=== PATIENT | male | born 1945 | race Caucasian/White ===

== ENCOUNTER 2020-06-27 11:10 | Inpatient (IN) | payer MEDICARE, SELFPAY ==
[2020-06-27] VITALS (13 sets, daily range): BP systolic 115–145; BP diastolic 61–89; PULSE 63–92; RESP 11–20; TEMP 36.3–36.8; O2SAT 96–100; BMI 19.2; BMI 20.4
--- NOTE | 2020-06-27 11:12 | ED.GENADULT ---
HPI - General Adult General Chief complaint: Recheck/Abnormal Lab/Rx Stated complaint: low sodium level Time Seen by Provider: 06/27/20 11:12 Source: patient and EMS Mode of arrival: EMS Limitations: no limitations History of Present Illness HPI narrative: in SNF for 2 weeks post fall from ETOH - for left rib fractures, on routine labs found to have sodium 114 sent to ED< patient reports poor PO intake Onset (ago): day(s) (1) Location: lower extremity Radiation: non-radiation Severity: mild Quality: aching Pain Consistency: intermittent Relieving factors: none Exacerbating factors: none Related Data Allergies Allergy/AdvReac Type Severity Reaction Status Date / Time shellfish derived Allergy Unknown DIFFICULTY Unverified 06/02/20 19:52 [SHELLFISH DERIVED] BREATHING Review of Systems Review of Systems: Constitutional : No Weight loss, No Fever, No Chills, positive Fatigue, positive Malaise, positive anorexia ENT/Mouth : No sore throat, No Rhinorrhea Eyes: No Eye Pain, No Swelling, No Redness Cardiovascular : No Chest Pain, No SOB, No Dyspnea on Exertion, No Orthopnea, No Edema, No Palpitations Respiratory : No Cough, No Sputum, No Wheezing Gastrointestinal : No Nausea, No Vomiting, No Diarrhea, positive Constipation for 5 days, No abdominal Pain Genitourinary : No Dysuria, No Urinary Frequency Musculoskeletal : No joint pain, No Myalgias, No Joint Swelling Skin : No Skin Lesions, No rash Neuro : positive Weakness, No Numbness, No Dizziness, No Headache Psych : No Anxiety/Panic, No Depression Heme/Lymph: No Bruising, No Bleeding,No Lymphadenopathy All other systems reviewed and are negative [facility] Past Medical History Medical History (Updated 06/27/20 @ 14:22 by Diana Watkins DO) Alcoholism COPD (chronic obstructive pulmonary disease) Rib fractures Social History Social History Alcohol intake: unknown Smoking Status: Former smoker Use of substances other than those prescribed or required for medical reasons: Unknown Advance Directives: No Advance Directives Information Provided: No Physical Exam Vital Signs: Vital Signs: Vital Signs Temp Pulse Resp BP Pulse Ox 06/27/20 13:57 71 16 122/72 99 06/27/20 11:18 98.3 F 72 16 144/74 H 98 Body Mass Index 19.2 Appearance: Alert. Oriented X3. No acute distress. Eyes: Pupils equal, round and reactive to light. ENT: Pharynx normal. Neck: Normal inspection. Neck supple. CVS: Normal heart rate and rhythm. Pulses normal. Respiratory: No respiratory distress. Breath sounds normal. Abdomen: Soft and nontender. hematoma noted to left flank Skin: Skin warm and dry. Normal skin color. Normal skin turgor. Extremities: No lower extremity edema. No calf ttp Neuro: Oriented X 3. No motor deficit. No sensory deficit. Course Reevaluation(s) Reevaluation #1: call to nephrology for low Na Time: 13:06 Reevaluation #2: Dr. Jimenez order urine lytes, start on Na 50ml/hr, send to ICU, check Na every 2 hours, I am also going to repeat a head CT to make sure no SDH is causing these symptoms Time: 13:39 Reevaluation #3: Dr. Damian down to see patient does not want fluids at this time, will admit once imagining done Time: 14:20 Additional Reevaluation(s): patient with fracture of left pelvis from fall - initial images on his visit in may not done, [facility] given trauma is 2 weeks old Medical Decision Making MDM Narrative Medical decision making narrative: 74 yo male with hx of ETOH abuse no prior SSRIs in SNF due to falls and L sided rib fractures he had routine labs and Na 114 - he denies any new complaints he does c/o constipation but + flatus at this time will need labs, CT chest for mass, osm, UA, CT abdomen for constipation, likely admit pending workup Lab Data Result diagrams: 06/27/20 11:32 06/27/20 11:32 Labs: Lab Results 06/27/20 06/27/20 06/27/20 Range/Units 11:32 11:32 11:32 WBC 6.5 (4.8-10.8) X10*3/uL RBC 3.40 L (4.60-5.80) X10*6/uL Hgb 10.6 L (14.0-18.0) g/dl Hct 29.5 L (42-52) % MCV 86.8 (80-98) fL MCH 31.2 (27.0-33.0) pg MCHC 35.9 (31.0-36.0) g/dl RDW 12.2 (11.0-16.0) % Plt Count 556 H (160-400) X10*3/uL MPV 8.5 L (9.4-12.4) fL Immature Gran % (Auto) 2.0 H (0.0-0.4) % Neut % (Auto) 70.0 (45-73) % Lymph % (Auto) 14.1 L (20-40) % [place] % (Auto) 9.3 (2-11) % Eos % (Auto) 4.0 (0-4) % Baso % (Auto) 0.6 (0-2) % Lymph # (Auto) 0.9 L (1.2-4.9) X10*3/uL [place] # (Auto) 0.6 (0.1-1.2) X10*3/uL Eos # (Auto) 0.3 (0.0-0.4) X10*3/uL Baso # (Auto) 0.0 (0.0-0.2) X10*3/uL Abs Immat Gran (auto) 0.13 H (0.00-0.03) X10*3/uL Absolute Neuts (auto) 4.6 (2.0-8.3) X10*3/uL Absolute Nucleated RBC 0.000 (0.0-0.012) X10*3/uL Nucleated RBC % (auto) 0.0 (0.0-0.2) /100WBC PT 12.9 (10.8-13.0) SEC INR 1.1 (0.9-1.1) APTT 36.8 (24.1-38.0) SEC Sodium 112 L* (135-145) mmol/L Potassium 4.2 (3.3-5.1) mmol/l Chloride 80 L (96-108) mmol/L Carbon Dioxide 25 (22-29) mmol/L Anion Gap 11 L (12-20) BUN 8 L (9-16) mg/dL Creatinine 0.59 (0.5-1.4) mg/dL Estim Creat Clear Calc 107.3 Estimated GFR > 60 Random Glucose 89 (60-115) mg/dL Osmolality (281-305) mosm/kg Calcium 8.4 (8.4-10.2) mg/dL Magnesium 1.4 L* (1.6-2.6) mg/dL Total Bilirubin 1.2 H (0.0-1.0) mg/dL Direct Bilirubin 0.6 H (0.0-0.5) mg/dL AST 21 (5-37) U/L ALT 11 (0-40) U/L Alkaline Phosphatase 280 H (39-117) U/L Total Protein 6.1 L (6.5-8.0) g/dL Albumin 3.7 (3.5-5.0) g/dL Lipase 43 (8-78) U/L TSH 1.27 (0.32-4.0) mIU/mL Urine Color Urine Appearance Urine pH (5.0-8.0) Ur Specific [place] (1.005-1.025) Urine Protein (NEG-TRACE) MG/DL Urine Glucose (UA) (NEG) MG/DL Urine Ketones (NEG) MG/DL Urine Blood (NEG) Urine Nitrite (NEG) Ur Leukocyte Esterase (NEG) 06/27/20 06/27/20 Range/Units 11:32 13:01 WBC (4.8-10.8) X10*3/uL RBC (4.60-5.80) X10*6/uL Hgb (14.0-18.0) g/dl Hct (42-52) % MCV (80-98) fL MCH (27.0-33.0) pg MCHC (31.0-36.0) g/dl RDW (11.0-16.0) % Plt Count (160-400) X10*3/uL MPV (9.4-12.4) fL Immature Gran % (Auto) (0.0-0.4) % Neut % (Auto) (45-73) % Lymph % (Auto) (20-40) % [place] % (Auto) (2-11) % Eos % (Auto) (0-4) % Baso % (Auto) (0-2) % Lymph # (Auto) (1.2-4.9) X10*3/uL [place] # (Auto) (0.1-1.2) X10*3/uL Eos # (Auto) (0.0-0.4) X10*3/uL Baso # (Auto) (0.0-0.2) X10*3/uL Abs Immat Gran (auto) (0.00-0.03) X10*3/uL Absolute Neuts (auto) (2.0-8.3) X10*3/uL Absolute Nucleated RBC (0.0-0.012) X10*3/uL Nucleated RBC % (auto) (0.0-0.2) /100WBC PT (10.8-13.0) SEC INR (0.9-1.1) APTT (24.1-38.0) SEC Sodium (135-145) mmol/L Potassium (3.3-5.1) mmol/l Chloride (96-108) mmol/L Carbon Dioxide (22-29) mmol/L Anion Gap (12-20) BUN (9-16) mg/dL Creatinine (0.5-1.4) mg/dL Estim Creat Clear Calc Estimated GFR Random Glucose (60-115) mg/dL Osmolality 233 L (281-305) mosm/kg Calcium (8.4-10.2) mg/dL Magnesium (1.6-2.6) mg/dL Total Bilirubin (0.0-1.0) mg/dL Direct Bilirubin (0.0-0.5) mg/dL AST (5-37) U/L ALT (0-40) U/L Alkaline Phosphatase (39-117) U/L Total Protein (6.5-8.0) g/dL Albumin (3.5-5.0) g/dL Lipase (8-78) U/L TSH (0.32-4.0) mIU/mL Urine Color YELLOW Urine Appearance CLEAR Urine pH 7.0 (5.0-8.0) Ur Specific [place] 1.015 (1.005-1.025) Urine Protein NEG (NEG-TRACE) MG/DL Urine Glucose (UA) NEG (NEG) MG/DL Urine Ketones 5 (NEG) MG/DL Urine Blood NEG (NEG) Urine Nitrite NEG (NEG) Ur Leukocyte Esterase NEG (NEG) ECG Data Attestation: I personally reviewed and interpreted this ECG as follows: Interpretation: Rate: 69 Rhythm: NSR [place]: normal Normal P waves. Normal MARY. Normal QRS complex. ST T wave : normal qTC: normal prior studies: no acute ischemia The study has been interpreted contemporaneously by me. . Critical Care Time Critical Care Time Critical Care Time: Yes Total Critical Care Time: 30 Attestation: I personally attest to this time spent taking care of the patient Discharge Plan Discharge Clinical Impression: Acute hyponatremia, Hypomagnesemia Pelvic fracture Qualifiers: Encounter type: subsequent encounter Pelvic bone location: multiple parts Fracture type: closed Fracture alignment: without disruption of pelvic ring Fracture healing: with delayed healing Qualified Code(s): S32.82XG - Multiple fractures of pelvis without disruption of pelvic ring, subsequent encounter for fracture with delayed healing Patient Disposition: Admitted As Inpatient
--- NOTE | 2020-06-27 11:18 | ECG_ITS ---
Test Reason : DIZZINESS Blood Pressure : / mmHG Vent. Rate : 069 BPM Atrial Rate : 069 BPM P-R Int : 158 ms QRS Dur : 094 ms QT Int : 432 ms P-R-T Axes : 085 082 070 degrees QTc Int : 462 ms Normal sinus rhythm Normal ECG When compared with ECG of 13-JUN-2020 15:15, No significant change was found Referred By: Diana Watkins Electronically Signed By:RANJAN LÓPEZ MD
--- NOTE | 2020-06-27 11:25 | CT_ITS ---
EXAMINATION: CT CHEST WITH CONTRAST CLINICAL INFORMATION: Fall. Hyponatremia. COMPARISON: Previous chest CT May 2020 TECHNIQUE: Multidetector volumetric CT imaging of the chest was obtained after the administration of 65 mL of Omnipaque 350 intravenous contrast without immediate adverse reactions. Axial MIP volume rendering provided. Sagittal and coronal reformatted images were obtained. This CT examination was performed using dose optimization techniques as appropriate, variously including the following: *Automated exposure control *Adjustment of mA and/or kV according to patient size (this includes techniques or standardized protocols for targeted exams where dose is matched to indication/reason for exam; i.e. extremities or head) *Use of iterative reconstruction technique DLP: 272 mGy-cm FINDINGS: Severe emphysema. LUNGS: There is evidence of emphysema. There is evidence of COPD. There is biapical pleural parenchymal scarring. There is a 4 mm right upper lobe nodule axial image 149 series 7. There is a 3 mm peripheral or subpleural right upper lobe nodule adjacent to the minor fissure axial image 300 series 7. There is a 1 mm right middle lobe nodule axial image 336 series 7 and there is a 1 x 3 mm right lower lobe nodule axial image 341 series 7. There is a 7 mm slightly irregularly-shaped right lower lobe nodule axial image 95 series 7. On sagittal and coronal reconstructed images this appears linear. Cavitary appearance on axial images may be may be artifactual due to shape and not truly represent a cavitary nodule. There is a 3 x 4 mm left lower lobe nodule axial image 376 series 7. There is a 3 mm calcified left lower lobe nodule axial image 404 series 7. There is subsegmental atelectasis at the lung bases which appears increased from previous exam. There is no pulmonary contusion or pneumothorax.. MEDIASTINUM: There are no enlarged hilar or mediastinal lymph nodes. There is coronary artery calcification. The heart does not appear enlarged. There is no pericardial effusion. There is question of wall thickening of the distal thoracic esophagus. PLEURA: There is no pleural effusion. No pleural mass or thickening. There is no pneumothorax. AXILLA: No chest wall mass or enlarged axillary lymph nodes are seen. UPPER ABDOMEN: There is a cyst that is partially visualized in the upper pole of the right kidney. OSSEOUS STRUCTURES: There are new left 3rd-5th posterior rib fractures. There may be an incomplete left posterior ninth rib fracture that is new. There are right posterior eighth and ninth rib fractures that are unchanged. There are left anterior lateral third through fifth rib fractures that appear unchanged. There are degenerative changes of the spine. There is a right shoulder prosthesis. IMPRESSION: Severe emphysema and COPD. Stable pulmonary nodules. No contusion or pneumothorax. Increasing atelectasis at the lung bases. New posterior left third through fifth rib fractures compared to May 2020 exam. Other bilateral rib fractures do not appear appreciably changed. Persistent wall thickening of the distal thoracic esophagus. Correlation with endoscopy or upper GI/barium swallow recommended.
--- NOTE | 2020-06-27 11:26 | CT_ITS ---
EXAMINATION: CT ABDOMEN AND PELVIS WITH CONTRAST CLINICAL INFORMATION: Low sodium, recent trauma. COMPARISON: CT chest noncontrast 06/13/2020, 06/27/2020 TECHNIQUE: Multidetector volumetric images were obtained from the superior aspect of the liver through the pubic symphysis following administration 85 mL of Omnipaque 350 intravenous contrast. Sagittal and coronal reformatted images were obtained on the technologist's workstation. CT chest also performed and described in separate report. Oral contrast: No This CT examination was performed using dose optimization techniques as appropriate, variously including the following: *Automated exposure control *Adjustment of mA and/or kV according to patient size (this includes techniques or standardized protocols for targeted exams where dose is matched to indication/reason for exam; i.e. extremities or head) *Use of iterative reconstruction technique DLP: 493 mGy-cm (abdomen and pelvis) FINDINGS: LUNG BASES: No lobar or segmental airspace consolidation or effusion. CT chest described in separate report. LIVER, GALLBLADDER, AND BILIARY TREE: The liver is normal in size and smooth in contour and homogeneous in attenuation. There is no intrahepatic ductal dilatation. No definite gallstone and no gallbladder wall thickening or dilatation or pericholecystic inflammatory changes. Common duct unremarkable. PANCREAS: Unremarkable. SPLEEN: Unremarkable. ADRENAL GLANDS: Unremarkable. KIDNEYS AND URETERS: The kidneys enhance symmetrically. There is no hydronephrosis, hydroureter, calculi, or perinephric stranding. There are 2 cysts right kidney, larger lower pole measuring 5.1 x 4.2 cm and smaller upper pole measuring 1.8 x 1.3 cm. BLADDER: Unremarkable. GASTROINTESTINAL TRACT: There is no bowel obstruction or focal inflammatory changes in the bowel or mesentery. The appendix is normal there is moderate stool throughout the colon. No ascites or fluid collection. ABDOMINAL WALL: No significant hernia is appreciated. LYMPH NODES: No lymphadenopathy. VASCULAR: Unremarkable. PELVIC VISCERA: Unremarkable. OSSEOUS STRUCTURES: There is displaced left pelvic fracture extending through the left iliac bone from superior to inferior also involving the anterior superior acetabulum which is comminuted. There is also fracture left inferior pubic ramus. There is some active hemorrhage in the musculature around the iliac fracture with scattered focal high attenuation, 1.1 cm in thickness. The right hemipelvis and femoral heads and necks are intact. No diastases SI joints or pubis. There are degenerative changes lumbar spine. Results called to Dr. Watkins in the Emergency Department at 1414 hours. IMPRESSION: 1. Comminuted fracture left pelvis involving the left iliac wing, left anterior acetabulum and left inferior pubic ramus. Some focal active hemorrhage within musculature at fracture site, 1.1 cm thickness. Femoral head and neck intact. No dislocation. 2. No ascites or intraperitoneal fluid collection. No free air. 3. CT chest described in separate report.
[2020-06-27 11:38] LABS: MANUAL DIFF FLAG NO
[2020-06-27 11:45] LABS: Basophils Percent Auto 0.6 % (0-2); Eosinophils Absolute Auto 0.3 X10*3/uL (0.0-0.4); Hematocrit 29.5 % (42-52); Hemoglobin 10.6 g/dl (14.0-18.0); Imm Gran Abs Auto 0.13 X10*3/uL (0.00-0.03); Lymphocytes Absolute Auto 0.9 X10*3/uL (1.2-4.9); Lymphocytes Percent Auto 14.1 % (20-40); Mean Corpuscular HGB Conc 35.9 g/dl (31.0-36.0); Mean Corpuscular Hemoglobin 31.2 pg (27.0-33.0); Mean Corpuscular Volume 86.8 fL (80-98); Mean Platelet Volume 8.5 fL (9.4-12.4); Monocytes Absolute Auto 0.6 X10*3/uL (0.1-1.2); Monocytes Percent Auto 9.3 % (2-11); Neutrophils Absolute Auto 4.6 X10*3/uL (2.0-8.3); Platelet Count 556 X10*3/uL (160-400); Red Cell Distribution Width 12.2 % (11.0-16.0); White Blood Count 6.5 X10*3/uL (4.8-10.8)
[2020-06-27 11:56] LABS: INTERNATIONAL NORM RATIO 1.1 (0.9-1.1); Prothrombin Time 12.9 SEC (10.8-13.0)
[2020-06-27 11:59] LABS: Partial Thromboplastin Time 36.8 SEC (24.1-38.0)
[2020-06-27 12:11] LABS: Osmolality, Serum 233 mosm/kg (281-305)
[2020-06-27 12:20] LABS: Alanine Aminotransferase 11 U/L (0-40); Albumin Level 3.7 g/dL (3.5-5.0); Alkaline Phosphatase 280 U/L (39-117); Anion Gap 11 (12-20); Aspartate Amino Transferase 21 U/L (5-37); Bilirubin Direct 0.6 mg/dL (0.0-0.5); Bilirubin Total 1.2 mg/dL (0.0-1.0); Blood Urea Nitrogen 8 mg/dL (9-16); Calcium 8.4 mg/dL (8.4-10.2); Carbon Dioxide 25 mmol/L (22-29); Chloride 80 mmol/L (96-108); Creatinine Clr Calc Pharmacy 107.3; Estimated Glomerular Filt Rate > 60; Glucose Random 89 mg/dL (60-115); Lipase 43 U/L (8-78); Magnesium 1.4 mg/dL (1.6-2.6); Potassium 4.2 mmol/l (3.3-5.1); Sodium 112 mmol/L (135-145); Total Protein 6.1 g/dL (6.5-8.0)
[2020-06-27 12:30] LABS: Thyroid Stimulating Hormone 1.27 mIU/mL (0.32-4.0)
[2020-06-27] MEDS: Magnesium Sulfate/H2O 2 GM/50 ML PIGGYBACK IV (12:55)
--- NOTE | 2020-06-27 13:05 | CT_ITS ---
EXAMINATION: CT HEAD WITHOUT CONTRAST CLINICAL INFORMATION: Low sodium, recent fall, trauma. COMPARISON: CT had noncontrast 06/13/2020 TECHNIQUE: Contiguous axial imaging was performed from the skull base to vertex without intravenous administration of contrast. Additional 2-D coronal and sagittal reformatted images are generated on the CT workstation and uploaded to PACS. DOSE LOWERING TECHNIQUES: This CT examination was performed using dose optimization techniques as appropriate, variously including the following: *Automated exposure control *Adjustment of mA and/or kV according to patient size (this includes techniques or standardized protocols for targeted exams where dose is matched to indication/reason for exam; i.e. extremities or head) *Use of iterative reconstruction technique DLP: 684 mGy-cm FINDINGS: There is no intracranial hemorrhage, hematoma, or extra-axial fluid collection. The ventricles are normal in size and contour. There is no hydrocephalus. Small cavum septum pellucidum is again seen as incidental finding. There is no mass effect or edema. Small calcifications are again noted adjacent to the bilateral frontal horns. The fu-white matter differentiation is similar to prior study. There is no visible acute territorial infarct or mass lesion. The calvarium appears intact. There is no pneumocephalus or orbital emphysema. The visualized sinuses and middle ears and mastoid air cells show no significant mucosal thickening. There are no air-fluid levels. IMPRESSION: No acute intracranial abnormality.
[2020-06-27 13:17] LABS: Glucose Urine UA NEG (NEG); Leukocyte Esterase Urine NEG (NEG); Nitrite Urine NEG (NEG); Specific Gravity - Urine 1.015 (1.005-1.025); Urine Blood NEG (NEG); Urine Ketones 5 MG/DL (NEG); Urine Protein NEG (NEG-TRACE)
[2020-06-27 13:25] LABS: Appearance Urine CLEAR; Color Urine YELLOW
[2020-06-27] MEDS: iohexoL 350 MG/ML 100 ML INFUS..BTL IV (13:39)
--- NOTE | 2020-06-27 15:19 | P.HPCC_ITS ---
History of Present Illness Date of Service: 06/27/20 Chief Complaint: malaise 74-year-old gentleman with underlying history of COPD, alcohol abuse and multiple falls with evaluation in emergency room several weeks prior for acute fall and alcohol intoxication discharge to rehabilitation facility admitted on 06/27/2020 with subacute asymptomatic hyponatremia noted on routine lab working assisted facility. Patient states that he has had very poor appetite for the last several weeks in has not been eating much. He does not have any neurologic deficits and is alert and oriented. He does complain of recent several additional falls. Review of Systems Constitutional: Constitutional: Reports fatigue and Reports malaise Eyes: Eyes: Denies blurry vision and Denies change in vision ENT: Denies dizziness Cardiovascular: Cardiovascular: Denies chest pain, Denies syncope, Denies lightheadedness, Denies Loss of Consciousness and Denies dyspnea Respiratory: Respiratory: Denies dyspnea Gastrointestinal: Gastrointestinal: Reports constipation, Denies diarrhea and Reports other ( poor appetite) Genitourinary: Genitourinary: Denies oliguria and Denies difficulty urinating Musculoskeletal: Musculoskeletal: Reports other ( multiple falls) Integumentary/Breasts: Skin/Breast: Denies rash Neurologic: Denies dizziness and Denies syncope Endocrine: Endocrine: Denies cold intolerance, Reports fatigue and Denies heat intolerance Hematologic/Lymphatic: Hematologic/Lymphatic: Denies easy bleeding and Denies easy bruising PMFSH Past Medical History Medical History Alcoholism COPD (chronic obstructive pulmonary disease) Rib fractures Family History Pertinent family history: no family history of early cardiac disease Social History Social History Alcohol intake: unknown Smoking Status: Former smoker Use of substances other than those prescribed or required for medical reasons: Unknown Advance Directives: No Advance Directives Information Provided: No Meds Allergies Allergy/AdvReac Type Severity Reaction Status Date / Time shellfish derived Allergy Unknown DIFFICULTY Verified 06/27/20 15:13 [SHELLFISH DERIVED] BREATHING Physical Exam Vital Signs: Vital Signs: Vital Signs Temp Pulse Resp BP Pulse Ox 06/27/20 13:57 71 16 122/72 99 06/27/20 11:18 98.3 F 72 16 144/74 H 98 Body Mass Index 19.2 Const: General: no acute distress, alert and awake Eyes: Sclerae: sclerae normal EOM: EOMs intact bilaterally Neck: Neck: Yes no lymphadenopathy, Yes trachea midline and Yes supple Resp: Effort & Inspection: normal respiratory effort and no respiratory distress Auscultation: clear to auscultation bilaterally Cardio: Rate: regular rate Rhythm: regular rhythm Heart sounds: no gallops, no murmurs and no rubs GI: Palpation (GI): Soft to palpation and Other GI palpation findings present ( Nontender) Auscultation: normal bowel sounds Extrem: General: Yes no pedal edema, No clubbing and No cyanosis Results Labs Labs: Laboratory Tests 06/27/20 06/27/20 06/27/20 11:32 11:32 11:32 WBC 6.5 RBC 3.40 L Hgb 10.6 L Hct 29.5 L MCV 86.8 MCH 31.2 MCHC 35.9 RDW 12.2 Plt Count 556 H MPV 8.5 L Immature Gran % (Auto) 2.0 H Neut % (Auto) 70.0 Lymph % (Auto) 14.1 L [place] % (Auto) 9.3 Eos % (Auto) 4.0 Baso % (Auto) 0.6 Lymph # (Auto) 0.9 L [place] # (Auto) 0.6 Eos # (Auto) 0.3 Baso # (Auto) 0.0 Abs Immat Gran (auto) 0.13 H Absolute Neuts (auto) 4.6 Absolute Nucleated RBC 0.000 Nucleated RBC % (auto) 0.0 PT 12.9 INR 1.1 APTT 36.8 Sodium 112 L* Potassium 4.2 Chloride 80 L Carbon Dioxide 25 Anion Gap 11 L BUN 8 L Creatinine 0.59 Estim Creat Clear Calc 107.3 Estimated GFR > 60 Random Glucose 89 Osmolality Calcium 8.4 Magnesium 1.4 L* Total Bilirubin 1.2 H Direct Bilirubin 0.6 H AST 21 ALT 11 Alkaline Phosphatase 280 H Total Protein 6.1 L Albumin 3.7 Lipase 43 TSH 1.27 Urine Color Urine Appearance Urine pH Ur Specific [place] Urine Protein Urine Glucose (UA) Urine Ketones Urine Blood Urine Nitrite Ur Leukocyte Esterase 06/27/20 06/27/20 11:32 13:01 WBC RBC Hgb Hct MCV MCH MCHC RDW Plt Count MPV Immature Gran % (Auto) Neut % (Auto) Lymph % (Auto) [place] % (Auto) Eos % (Auto) Baso % (Auto) Lymph # (Auto) [place] # (Auto) Eos # (Auto) Baso # (Auto) Abs Immat Gran (auto) Absolute Neuts (auto) Absolute Nucleated RBC Nucleated RBC % (auto) PT INR APTT Sodium Potassium Chloride Carbon Dioxide Anion Gap BUN Creatinine Estim Creat Clear Calc Estimated GFR Random Glucose Osmolality 233 L Calcium Magnesium Total Bilirubin Direct Bilirubin AST ALT Alkaline Phosphatase Total Protein Albumin Lipase TSH Urine Color YELLOW Urine Appearance CLEAR Urine pH 7.0 Ur Specific [place] 1.015 Urine Protein NEG Urine Glucose (UA) NEG Urine Ketones 5 Urine Blood NEG Urine Nitrite NEG Ur Leukocyte Esterase NEG Assessment and Plan (1) Hyponatremia: Status: Acute (2) Rib fractures: Status: Acute (3) Pelvic fracture: Qualifiers: Encounter type: subsequent encounter Fracture alignment: without disruption of pelvic ring Fracture healing: with delayed healing Fracture type: closed Pelvic bone location: multiple parts Qualified Code(s): S32.82XG - Multiple fractures of pelvis without disruption of pelvic ring, subsequent encounter for fracture with delayed healing Status: Acute Assessment: 74-year-old gentleman with underlying history of alcoholism, multiple falls, and COPD admitted with subacute asymptomatic hyponatremia and also noted to have pelvic fracture with hematoma, and recent and remote rib fractures Plan: Neuro: No acute issues. Cardiac: No acute issues. Pulmonary: No acute issues. Renal: Subacute asymptomatic hyponatremia. Beer potomania and/ or SIADH. Nephrology service care appreciated. Continue with adequate solute intake. Continue to monitor electrolytes. Continue thiamine and folate for underlying alcoholism. Endo: No acute issues. GI: No acute issues. ID: No acute issues Heme/Onc: No acute issues. Psych: No acute issues. Miscellaneous: Multiple rib fractures - continue with conservative management. Subacute pelvic fracture - will obtain orthopedic consultation. Prophylaxis: intermittent pneumatic compression, now heparin secondary to pelvic hematoma on the background of underlying pelvic fracture Diet: Regular Critical care time spent: 60 minutes Critical Care Time Critical Care Time (minutes): 60
[2020-06-27 15:23] LABS: RBC Urine 0 /HPF (0); WBC Urine 0 /HPF (0-4)
[2020-06-27] MEDS: Albuterol/Iprat 2.5/0.5MG 3 ML AMPUL.NEB INHALE (16:27)
[2020-06-27] MEDS: Acetaminophen 325 MG TABLET 650 MG PO (17:41)
[2020-06-27] MEDS: 0.9 % Sodium Chloride Flush 3 ML SYRINGE IVFLUSH ×2 (17:42→23:38)
[2020-06-27 17:49] LABS: CDIFF Ag Negative (Negative); CDiff Toxin Negative (Negative)
[2020-06-27 17:50] LABS: CDIFF Internal ctrl Dots and bkg OK (V)
--- NOTE | 2020-06-27 18:22 | PC.NURSE ---
Pt arrived on the unit around 1520 this afternoon from the ED. Pt is alert and oriented. He states he is here because of his rib fx and hip pain. Pt states he fell over a week ago and was sent to [facility]. Pt was unaware of his pelvic fx or that ribs on both the left and right are fx. There is a large contusion of left side from mid thigh to mid back and also into the left groin. Pt has signficant pain when laying flat or rolling to his side. ordered a Whalen due to pelvic fx and need for bed rest. Temperature Whalen placed and is draining yellow urine. Pt reports that he has not had a bm since 06/17/20. Shortly after arrival in the ICU he has had 3 large liquid yellow-brown foul smelling bm's. A sample was sent to the lab. Pt also reports that he has had no appetite. He states he vomited before and has not tried to eat since. He states he is not hungry. This happened a while ago. Per pt was encouraged to eat. When his dinner tray arrived, he took the cover off, groaned and replaced it. When asked what is wrong? He states nothing. I just don't feel like eating. Pt encouraged to try a few bites and did. He soon developed hiccups and tried to have a few bites of jello. He then vomited clear liquid with pieces of undigested food. Pt states that this is what has been happening. Upon further questioning, he states he feels like the food won't go down, like it gets stuck, then he throws up.
--- NOTE | 2020-06-27 18:33 | PC.NURSE ---
Unable to update pmhx or surg hx. Pt states he has had right shoulder surgery in the past. He has an allergy to lobster and shrimp my throat closes he uses his albuterol inhaler if he accidentally eats something with lob or shrimp in it. According to the documents from [facility], the pt is dx with syncopee, anxiety, falls, spondylosis, and aortic stenosis. Pt states his last etoh was 06/21/20. He states he was drinking alot, every day. He stopped smoking in 2009.
--- NOTE | 2020-06-27 18:41 | PC.NURSE ---
Addendum entered by Hola Berrios RN 06/27/20 18:43: Yvan's phone number is [phone]. Pt's sister also called, but pt didn't want to speak to her. Original Note: Per pt request, his brother (HCP) Yvan Sánchez, was called and updated about pt's condition.
[2020-06-27 19:13] LABS: Anion Gap 12 (12-20); Blood Urea Nitrogen 6 mg/dL (9-16); Calcium 8.3 mg/dL (8.4-10.2); Carbon Dioxide 25 mmol/L (22-29); Chloride 81 mmol/L (96-108); Creatinine Clr Calc Pharmacy 111.9; Estimated Glomerular Filt Rate > 60; Glucose Random 144 mg/dL (60-115); Potassium 3.9 mmol/l (3.3-5.1); Sodium 114 mmol/L (135-145)
[2020-06-27] MEDS: Sodium Chloride Tab 1 GM TABLET 2 GM PO (19:37)
[2020-06-27] MEDS: fentaNYL citrate/PF 100 MCG/2 ML VIAL 50 MCG IVPUSH (19:39)
--- NOTE | 2020-06-27 21:49 | PC.NURSE ---
Pt's repeat sodium trending up at 114. and Luis Fernando [employer], aware of level. Scheduled sodium tablets ordered and given. Seizure precautions instituted. Pt noted to cough after drinking water with pils. Per previous RN pt has had difficulty swallowing and keeping food down. This was reported to Luis Fernando BECERRIL who ordered a speech and swallow eval for tomorrow.
[2020-06-27 23:56] LABS: Creatinine Urine 92.55 mg/dL
[2020-06-28] VITALS (28 sets, daily range): BP systolic 63–133; BP diastolic 32–74; PULSE 66–93; RESP 10–17; TEMP 36.1–37.1; O2SAT 92–100; BMI 20.7
[2020-06-28 00:05] LABS: Sodium 114 mmol/L (135-145)
[2020-06-28 00:16] LABS: Osmolality, Serum 236 mosm/kg (281-305)
[2020-06-28 00:43] LABS: Osmolality Urine 422 mosm/kg (373-1093)
[2020-06-28] MEDS: fentaNYL citrate/PF 100 MCG/2 ML VIAL 50 MCG IVPUSH ×2 (00:49→21:24)
[2020-06-28 05:50] LABS: MANUAL DIFF FLAG NO
[2020-06-28 05:58] LABS: Basophils Absolute Auto 0.1 X10*3/uL (0.0-0.2); Basophils Percent Auto 0.8 % (0-2); Eosinophils Absolute Auto 0.3 X10*3/uL (0.0-0.4); Eosinophils Percent Auto 5.5 % (0-4); Hematocrit 29.5 % (42-52); Hemoglobin 10.4 g/dl (14.0-18.0); Imm Gran Abs Auto 0.11 X10*3/uL (0.00-0.03); Imm Gran Pct Auto 1.8 % (0.0-0.4); Lymphocytes Absolute Auto 0.9 X10*3/uL (1.2-4.9); Lymphocytes Percent Auto 15.2 % (20-40); Mean Corpuscular HGB Conc 35.3 g/dl (31.0-36.0); Mean Corpuscular Volume 88.1 fL (80-98); Mean Platelet Volume 8.6 fL (9.4-12.4); Monocytes Absolute Auto 0.6 X10*3/uL (0.1-1.2); Monocytes Percent Auto 9.9 % (2-11); Neutrophils Percent Auto 66.8 % (45-73); Platelet Count 511 X10*3/uL (160-400); Red Blood Count 3.35 X10*6/uL (4.60-5.80); Red Cell Distribution Width 12.3 % (11.0-16.0)
[2020-06-28 06:39] LABS: Albumin Level 3.3 g/dL (3.5-5.0); Anion Gap 12 (12-20); Blood Urea Nitrogen 5 mg/dL (9-16); Calcium 7.9 mg/dL (8.4-10.2); Carbon Dioxide 23 mmol/L (22-29); Chloride 82 mmol/L (96-108); Estimated Glomerular Filt Rate > 60; Glucose Fasting 79 mg/dL (60-99); Magnesium 1.6 mg/dL (1.6-2.6); Potassium 4.3 mmol/l (3.3-5.1); Sodium 113 mmol/L (135-145)
--- NOTE | 2020-06-28 06:40 | MHC.PIE ---
P: Generalized pain, left sided pain. Bruise noted on left thigh up to left flank, bruise wraps around to left inner thigh. I: Medicated w/ IV 50mcg fentanyl @ 0049. Pain with repositioning. Repos Q2H, E: Patient reports relief. Sleeping intermit. VS remain stable. Patient had hard time repositioned on left side.
[2020-06-28] MEDS: 0.9 % Sodium Chloride Flush 3 ML SYRINGE IVFLUSH ×2 (08:01→14:39)
[2020-06-28] MEDS: Albuterol/Iprat 2.5/0.5MG 3 ML AMPUL.NEB INHALE ×3 (08:02→20:54)
[2020-06-28] MEDS: ondansetron HCL 4 MG/2 ML VIAL IVPUSH (08:13)
[2020-06-28] MEDS: Sodium Chloride Tab 1 GM TABLET 2 GM PO ×2 (08:17→14:39)
--- NOTE | 2020-06-28 09:21 | PC.NURSE ---
Administered Zofran 4mg IVP prior to PO administration per MD - patient swallowed PO medication without complaints/difficulties but started coughing afterwards. Patient ate 3-4 bites of breakfast and states it feels like the food is stuck in my esophagus . Patient started belching and coughing up clear liquids. Breakfast tray removed from bedside. VSS, 96-99% on room air. MD notified - GI consult to be ordered. Speech consult ordered and called into office. Will continue to monitor.
--- NOTE | 2020-06-28 11:19 | P.CDIC_ITS ---
CDI Concurrent Query Service Date: 06/28/20 Documentation Clarification: Please clarify if you are treating a proba ble/suspected/likely or confirmed: Anorexia Malnutrition, mild, moderate, severe Please specify if known or other Moderate malnutrition. Provider Response: Malnutrition (moderate) PLEASE DO NOT DELETE/MODIFY EXISTING CONTENT Additional information is needed in order to code to the highest accuracy and appropriate Severity of Illness (SOI). Please clarify the information noted below in your progress notes and discharge summary. Risk Factors/Clinical Indicators/Treatments Electrolyte imbalance, poor po intake, fatigue, malaise. BMI 19.2 total protein 6.1 albumin 3.7 3.1 ED: positive anorexia CDS: Kena Chen CCS, CDIS Contact Number: [phone] Please Review the information above and exercise your independent professional judgment in responding to the query. If you concur, pleas document in the PROGRESS NOTES and DISCHARGE SUMMARY. If you do not agree with the query, please document in the query above. THIS QUERY IS PART OF THE PERMANENT MEDICAL RECORD
--- NOTE | 2020-06-28 12:39 | P.CNGI_ITS ---
History of Present Illness Data of Consult Service Date: 06/28/20 Requesting physician: Gene Damian Primary Care Provider: None Physician HPI Reason for consult: Food regurgitation, Abnormal CT scan of esophagus 74 yo male with COPD, hx of ETOH abuse no prior SSRIs in SNF due to falls and L sided rib fractures Pt had routine labs at SNF and Na was 114. Pt was sent to [facility] for further evaluation. Remaining labs as noted below. Pt complains of a poor appetite for the past several weeks. He notes intermittent dysphagia 3-4 times a week. He complains of constipation and reports having 3 BMs over the past 3 weeks. He has not been eating much and admits to weight loss. He does not have any neurologic deficits and is alert and oriented. He does complain of recent several additional falls. 06/27/[address] scan showed a comminuted fracture left pelvis involving the left iliac wing, left anterior acetabulum and left inferior pubic ramus. Some focal active hemorrhage within musculature at fracture site, 1.1 cm thickness. Femoral head and neck intact. No dislocation. 2. No ascites or intraperitoneal fluid collection. No free air. Chest CT chest scan showed: Severe emphysema and COPD. Stable pulmonary nodules. No contusion or pneumothorax. Increasing atelectasis at the lung bases. New posterior left third through fifth rib fractures compared to May 2020 exam. Other bilateral rib fractures do not appear appreciably changed. Persistent wall thickening of the distal thoracic esophagus. Correlation with endoscopy or upper GI/barium swallow recommended. patient was admitted for further management. He denies past evaluation with EGD. Review of Systems Constitutional: Constitutional: Reports fatigue, Denies fever(s) and Reports poor appetite ENT: Reports dysphagia and Denies dizziness Cardiovascular: Cardiovascular: Denies chest pain, Denies syncope and Denies dyspnea Respiratory: Respiratory: Denies cough and Denies dyspnea Gastrointestinal: Gastrointestinal: Reports constipation and Reports dysphagia Neurologic: Denies dizziness and Denies syncope Psychiatric: Psychiatric: Reports anxiety Endocrine: Endocrine: Reports fatigue [facility] Past Medical History Medical History (Updated 07/01/20 @ 18:46 by Laine Santillan MD) Alcoholism Anxiety Aortic stenosis COPD (chronic obstructive pulmonary disease) Erosive esophagitis Falls Hiatal hernia without gangrene or obstruction Osteoarthritis Rib fractures Spondylosis Syncope Surgical History Surgical History History of shoulder surgery Social History Social History Household Members: None Housing Other:: rehab snf Do you presently have visiting nurse or other home services: No Alcohol intake: current Smoking Status: Former smoker Packs Per Day: 0.5 Cigarettes Per Day: 10.0 Years Smoked: 20 Smoked in Last 30 Days: No Smoking Quit Date: 1999 Patient Interested in Nicotine Replacement: No Patient Given Instructions on How to Stop Smoking: No Second Hand Smoke Exposure: Yes Use of substances other than those prescribed or required for medical reasons: No Currently Displaying Signs/Symptoms of Drug Intoxication Withdrawal: No Have you been hit, kicked, punched, or otherwise hurt by someone within the past year? If so, by whom?: No Do you feel safe in your current relationship?: No Is there a partner from a previous relationship who is making you feel unsafe now?: No Are you made to feel afraid or neglected: No Agree to transfusion: Yes Advance Directives: No Advance Directives Information Provided: No Advance Directives on File: No Current/Past Psychiatric Disorders: Alcohol abuse Access to Firearms: No Do you have thoughts of harming others: None Do you have a plan to hurt others: No Plan Recently lost weight without trying: Yes service: Yes ([employer]) Current occupational status: retired Sexually active: No Sexual orientation: Decline to Answer Gender identity: male Meds Allergies Allergy/AdvReac Type Severity Reaction Status Date / Time shrimp Allergy Intermediate Anaphylaxis Verified 06/27/20 16:44 shellfish derived Allergy Unknown DIFFICULTY Verified 06/27/20 15:13 [SHELLFISH DERIVED] BREATHING lobster Allergy Intermediate Anaphylaxis Uncoded 06/27/20 16:44 Home Medications Medication Instructions Recorded Confirmed Type albuterol sulfate 2 puff PO Q4H PRN 06/27/20 06/27/20 History Physical Exam Vital Signs: Vital Signs: Vital Signs Temp Pulse Resp BP Pulse Ox 06/28/20 11:55 98.8 F 81 13 100/41 L 100 06/28/20 11:00 98.2 F 71 11 L 129/65 06/28/20 09:59 71 17 126/56 L 100 06/28/20 09:00 98.1 F 82 15 126/56 L 96 06/28/20 07:50 97.9 F 77 16 121/66 99 06/28/20 06:59 70 14 128/71 97 06/28/20 06:00 97.9 F 67 12 128/71 98 06/28/20 05:14 98.1 F 76 11 L 128/74 97 06/28/20 04:10 98.2 F 66 11 L 113/62 96 06/28/20 03:00 97.5 F 77 10 L 132/73 100 06/28/20 02:00 97 F 66 10 L 132/71 95 06/28/20 01:27 67 11 L 06/28/20 01:00 97.2 F 68 11 L 108/57 L 96 06/28/20 00:49 12 06/27/20 23:55 97.7 F 75 12 135/77 99 06/27/20 22:51 66 13 132/63 99 06/27/20 22:00 67 11 L 122/63 96 06/27/20 21:00 63 11 L 115/61 97 06/27/20 20:28 69 12 06/27/20 20:00 77 12 131/68 97 06/27/20 19:00 97.5 F 83 20 126/71 98 06/27/20 18:00 97.3 F 83 16 126/75 100 06/27/20 17:34 98 06/27/20 17:00 97.3 F 92 14 140/89 H 96 06/27/20 16:00 97.5 F 79 16 145/79 H 98 06/27/20 13:57 71 16 122/72 99 Body Mass Index 20.7 Const: General: no acute distress, alert and awake Orientation/consciousness: patient oriented x3 HENMT: Head: Yes normal to inspection Ears: hearing grossly normal bilaterally Eyes: General: appearance normal, both eyes and all related structures Chest: Chest palpation & inspection: normal inspection of the chest Resp: Auscultation: clear to auscultation bilaterally GI: Palpation (GI): Soft to palpation and No hepatosplenomegaly present Auscultation: normal bowel sounds Neuro: General: patient oriented x3 Extrem: General: Yes normal to inspection Results Labs CBC & Chem 7: 07/01/20 06:08 07/01/20 06:08 Labs: Short CBC 06/28/20 Range/Units 05:24 WBC 6.0 (4.8-10.8) X10*3/uL Hgb 10.4 L (14.0-18.0) g/dl Hct 29.5 L (42-52) % Plt Count 511 H (160-400) X10*3/uL BMP 06/27/20 06/27/20 06/28/20 18:20 23:32 05:24 Sodium 114 L* 114 L* 113 L* Potassium 3.9 4.3 Chloride 81 L 82 L Carbon Dioxide 25 23 BUN 6 L 5 L Creatinine 0.60 0.53 Calcium 8.3 L 7.9 L Liver Function 06/28/20 06/28/20 Range/Units 05:24 05:24 Albumin Cancelled 3.3 L Urine 06/27/20 Range/Units 13:01 Urine Color YELLOW Urine Appearance CLEAR Urine pH 7.0 (5.0-8.0) Ur Specific [place] 1.015 (1.005-1.025) Urine Protein NEG (NEG-TRACE) MG/DL Urine Glucose (UA) NEG (NEG) MG/DL Assessment and Plan (1) Decreased appetite: Status: Acute (2) Abnormal CT scan, esophagus: Status: Acute 74 yo male with COPD, hx of ETOH abuse transferred from SNF due to hyponatermia (Na was 114). Pt has a hx of repeated falls and L sided rib frac tures Pt complains of a poor appetite and intermittent dysphagia 3-4 times a week. He complains of constipation and reports having 3 BMs over the past 3 weeks. He has not been eating much and admits to weight loss. Chest CT scan showed wall thickening involving the distal esophagus. Given hx of alcohol abuse, pt most likely has GERD with erosive esophagitis. He has a pelvic fracture and may have difficulty lying on his left side for the EGD procedure. Pt is awaiting evaluation by Ortho for the pelvic fracture. He can have superimposed bacterial esophagitis. RECOMMENDATIONS: 1. Start IV PPI - pantoprazole twice daily. 2. Proceed with EGD after Pelvic fracture is stabilized - tentatively scheduled on 06/30/20 at 7:30 am.
[2020-06-28 14:18] LABS: MANUAL DIFF FLAG NO
[2020-06-28 14:20] LABS: Basophils Percent Auto 0.6 % (0-2); Eosinophils Absolute Auto 0.4 X10*3/uL (0.0-0.4); Hemoglobin 10.4 g/dl (14.0-18.0); Imm Gran Abs Auto 0.09 X10*3/uL (0.00-0.03); Imm Gran Pct Auto 1.4 % (0.0-0.4); Lymphocytes Absolute Auto 1.2 X10*3/uL (1.2-4.9); Mean Corpuscular HGB Conc 34.7 g/dl (31.0-36.0); Mean Corpuscular Hemoglobin 30.5 pg (27.0-33.0); Mean Platelet Volume 8.4 fL (9.4-12.4); Monocytes Absolute Auto 0.4 X10*3/uL (0.1-1.2); Monocytes Percent Auto 5.6 % (2-11); Neutrophils Absolute Auto 4.5 X10*3/uL (2.0-8.3); Neutrophils Percent Auto 68.4 % (45-73); Platelet Count 490 X10*3/uL (160-400); Red Blood Count 3.41 X10*6/uL (4.60-5.80); Red Cell Distribution Width 12.4 % (11.0-16.0); White Blood Count 6.6 X10*3/uL (4.8-10.8)
[2020-06-28] MEDS: Lactated Ringers 1,000 ML 999 ML IVCONT (14:23)
--- NOTE | 2020-06-28 14:28 | PC.NURSE ---
1400 BP 63/32 MAP 45 - Patient c/o of intermittent dizziness/lightheadedness. Placed patient in trendelenburg position. MD at bedside. LR 1L wide opened ordered and administered. Second IV PRN angio #18 placed to left upper arm. CBC ordered and completed - H&H 10.4 & 30.0. BP up to 116/53 MAP 72. Patient reports no longer feeling dizzy. Will continue to monitor.
--- NOTE | 2020-06-28 14:55 | PM.CCPN ---
Subjective Subjective Date of Service: 06/28/20 Interval History: 74-year-old gentleman with underlying history of COPD, alcohol abuse and multiple falls with evaluation in emergency room several weeks prior for acute fall and alcohol intoxication discharge to rehabilitation facility admitted on 06/27/2020 with subacute asymptomatic hyponatremia noted on routine lab working intermediate facility. Patient states that he has had very poor appetite for the last several weeks in has not been eating much. He does not have any neurologic deficits and is alert and oriented. He does complain of recent several additional falls. No events overnight. Physical Exam Vital Signs: Vital Signs: Vital Signs Temp Pulse Resp BP Pulse Ox 06/28/20 14:35 83 111/54 L 06/28/20 13:58 98.6 F 93 12 114/57 L 92 06/28/20 13:00 75 16 114/57 L 99 06/28/20 11:55 98.8 F 81 13 100/41 L 100 06/28/20 11:00 98.2 F 71 11 L 129/65 06/28/20 09:59 71 17 126/56 L 100 06/28/20 09:00 98.1 F 82 15 126/56 L 96 06/28/20 07:50 97.9 F 77 16 121/66 99 06/28/20 06:59 70 14 128/71 97 06/28/20 06:00 97.9 F 67 12 128/71 98 06/28/20 05:14 98.1 F 76 11 L 128/74 97 06/28/20 04:10 98.2 F 66 11 L 113/62 96 06/28/20 03:00 97.5 F 77 10 L 132/73 100 06/28/20 02:00 97 F 92 10 L 63/32 L 95 06/28/20 01:27 67 11 L 06/28/20 01:00 97.2 F 68 11 L 108/57 L 96 06/28/20 00:49 12 06/27/20 23:55 97.7 F 75 12 135/77 99 06/27/20 22:51 66 13 132/63 99 06/27/20 22:00 67 11 L 122/63 96 06/27/20 21:00 63 11 L 115/61 97 06/27/20 20:28 69 12 06/27/20 20:00 77 12 131/68 97 06/27/20 19:00 97.5 F 83 20 126/71 98 06/27/20 18:00 97.3 F 83 16 126/75 100 06/27/20 17:34 98 06/27/20 17:00 97.3 F 92 14 140/89 H 96 06/27/20 16:00 97.5 F 79 16 145/79 H 98 Body Mass Index 20.7 Const: General: no acute distress, alert and awake Eyes: Sclerae: sclerae normal EOM: EOMs intact bilaterally Neck: Neck: Yes no lymphadenopathy, Yes trachea midline and Yes supple Resp: Effort & Inspection: normal respiratory effort and no respiratory distress Auscultation: clear to auscultation bilaterally Cardio: Rate: regular rate Rhythm: regular rhythm Heart sounds: no gallops, no murmurs and no rubs GI: Palpation (GI): Soft to palpation and Other GI palpation findings present ( Nontender) Auscultation: normal bowel sounds Extrem: General: Yes no pedal edema, No clubbing and No cyanosis Objective Data Labs CBC & Chem 7: 06/28/20 13:15 06/28/20 05:24 Labs: Laboratory Results - last 24 hr 06/27/20 06/27/20 06/27/20 13:01 13:01 18:20 WBC RBC Hgb Hct MCV MCH MCHC RDW Plt Count MPV Immature Gran % (Auto) Neut % (Auto) Lymph % (Auto) [place] % (Auto) Eos % (Auto) Baso % (Auto) Lymph # (Auto) [place] # (Auto) Eos # (Auto) Baso # (Auto) Abs Immat Gran (auto) Absolute Neuts (auto) Absolute Nucleated RBC Nucleated RBC % (auto) Sodium 114 L* Potassium 3.9 Chloride 81 L Carbon Dioxide 25 Anion Gap 12 BUN 6 L Creatinine 0.60 Estim Creat Clear Calc 111.9 Estimated GFR > 60 Random Glucose 144 H D Fasting Glucose Osmolality Calcium 8.3 L Magnesium Albumin Urine RBC 0 Urine WBC 0 Ur Squamous Epith Cells NONE Urine Bacteria NONE Urine Osmolality Ur Random Sodium 73.0 Urine Creatinine 92.55 C. difficile Toxin A&B C. difficile Antigen C. difficile Interpret 06/27/20 06/27/20 06/27/20 23:30 23:30 23:30 WBC RBC Hgb Hct MCV MCH MCHC RDW Plt Count MPV Immature Gran % (Auto) Neut % (Auto) Lymph % (Auto) [place] % (Auto) Eos % (Auto) Baso % (Auto) Lymph # (Auto) [place] # (Auto) Eos # (Auto) Baso # (Auto) Abs Immat Gran (auto) Absolute Neuts (auto) Absolute Nucleated RBC Nucleated RBC % (auto) Sodium Potassium Chloride Carbon Dioxide Anion Gap BUN Creatinine Estim Creat Clear Calc Estimated GFR Random Glucose Fasting Glucose Osmolality Calcium Magnesium Albumin Urine RBC Urine WBC Ur Squamous Epith Cells Urine Bacteria Urine Osmolality 422 Ur Random Sodium 69.0 Urine Creatinine 52.90 C. difficile Toxin A&B C. difficile Antigen C. difficile Interpret 06/27/20 06/27/20 06/27/20 23:32 23:32 Unknown WBC RBC Hgb Hct MCV MCH MCHC RDW Plt Count MPV Immature Gran % (Auto) Neut % (Auto) Lymph % (Auto) [place] % (Auto) Eos % (Auto) Baso % (Auto) Lymph # (Auto) [place] # (Auto) Eos # (Auto) Baso # (Auto) Abs Immat Gran (auto) Absolute Neuts (auto) Absolute Nucleated RBC Nucleated RBC % (auto) Sodium 114 L* Potassium Chloride Carbon Dioxide Anion Gap BUN Creatinine Estim Creat Clear Calc Estimated GFR Random Glucose Fasting Glucose Osmolality 236 L Calcium Magnesium Albumin Urine RBC Urine WBC Ur Squamous Epith Cells Urine Bacteria Urine Osmolality Ur Random Sodium Urine Creatinine C. difficile Toxin A&B Negative C. difficile Antigen Negative C. difficile Interpret SEE NOTE 06/28/20 06/28/20 06/28/20 05:24 05:24 05:24 WBC 6.0 RBC 3.35 L Hgb 10.4 L Hct 29.5 L MCV 88.1 MCH 31.0 MCHC 35.3 RDW 12.3 Plt Count 511 H MPV 8.6 L Immature Gran % (Auto) 1.8 H Neut % (Auto) 66.8 Lymph % (Auto) 15.2 L [place] % (Auto) 9.9 Eos % (Auto) 5.5 H Baso % (Auto) 0.8 Lymph # (Auto) 0.9 L [place] # (Auto) 0.6 Eos # (Auto) 0.3 Baso # (Auto) 0.1 Abs Immat Gran (auto) 0.11 H Absolute Neuts (auto) 4.0 Absolute Nucleated RBC 0.000 Nucleated RBC % (auto) 0.0 Sodium Potassium Chloride Carbon Dioxide Anion Gap BUN Creatinine Estim Creat Clear Calc Estimated GFR Random Glucose Fasting Glucose Osmolality Calcium Magnesium Cancelled Albumin Cancelled Urine RBC Urine WBC Ur Squamous Epith Cells Urine Bacteria Urine Osmolality Ur Random Sodium Urine Creatinine C. difficile Toxin A&B C. difficile Antigen C. difficile Interpret 06/28/20 06/28/20 05:24 13:15 WBC 6.6 RBC 3.41 L Hgb 10.4 L Hct 30.0 L MCV 88.0 MCH 30.5 MCHC 34.7 RDW 12.4 Plt Count 490 H MPV 8.4 L Immature Gran % (Auto) 1.4 H Neut % (Auto) 68.4 Lymph % (Auto) 18.0 L [place] % (Auto) 5.6 Eos % (Auto) 6.0 H Baso % (Auto) 0.6 Lymph # (Auto) 1.2 [place] # (Auto) 0.4 Eos # (Auto) 0.4 Baso # (Auto) 0.0 Abs Immat Gran (auto) 0.09 H Absolute Neuts (auto) 4.5 Absolute Nucleated RBC 0.000 Nucleated RBC % (auto) 0.0 Sodium 113 L* Potassium 4.3 Chloride 82 L Carbon Dioxide 23 Anion Gap 12 BUN 5 L Creatinine 0.53 Estim Creat Clear Calc 129.0 Estimated GFR > 60 Random Glucose Fasting Glucose 79 Osmolality Calcium 7.9 L Magnesium 1.6 Albumin 3.3 L Urine RBC Urine WBC Ur Squamous Epith Cells Urine Bacteria Urine Osmolality Ur Random Sodium Urine Creatinine C. difficile Toxin A&B C. difficile Antigen C. difficile Interpret Microbiology Microbiology Results: Microbiology 06/27/20 11:32 Blood - Venous Blood Culture - Preliminary No growth after 24 hours. 06/27/20 11:32 Blood - Venous Blood Culture - Preliminary No growth after 24 hours. Progress Note: A&P Assessment and plan (1) Hyponatremia: Status: Acute (2) Pelvic fracture: Status: Acute (3) Rib fractures: Status: Acute Assessment and Plan: Assessment: 74-year-old gentleman with underlying history of alcoholism, multiple falls, and COPD admitted with subacute asymptomatic hyponatremia and also noted to have pelvic fracture with hematoma, and recent and remote rib fractures Plan: Neuro: No acute issues. Cardiac: No acute issues. Pulmonary: No acute issues. Renal: Subacute asymptomatic hyponatremia. Beer potomania and/ or SIADH. Nephrology service care appreciated. Continue with adequate solute intake. Continue to monitor electrolytes. Continue thiamine and folate for underlying alcoholism. Endo: No acute issues. GI: patient experience food regurgitation and distal esophageal thickening noted on CT abdomen gastroenterology evaluation obtain. Will continue with PPI at this time. ID: No acute issues Heme/Onc: No acute issues. Psych: No acute issues. Miscellaneous: Multiple rib fractures - continue with conservative management. Subacute pelvic fracture - Orthopedic evaluation is pending. Prophylaxis: intermittent pneumatic compression, no heparin secondary to pelvic hematoma on the background of underlying pelvic fracture Diet: Regular Critical care time spent: 60 minutes Time Spent With Patient Time: Total time spent is greater than 50% in coordination of care (as documented) at patient's floor/unit and/or counseling patient: Total time spent with greater than 50% in coordination of care (as documented) at patient's floor/unit and/or counseling patient:: 0 Critical Care Time Critical Care Time (minutes): 60
[2020-06-28] MEDS: Pantoprazole Sodium 40 MG/10 ML VIAL IVPUSH (15:27)
[2020-06-28] MEDS: Folic Acid 1 MG TABLET 2 MG PO (15:27)
--- NOTE | 2020-06-28 16:02 | MHC.CM.PN ---
Met with pt to review d/c planning: pt resides at [facility] and will return when medically stable. He has a MOLST on file and verified it's contents as being correct. Pt will require BLS transport back to [facility]. CM to follow for changes in d/c plan
[2020-06-28 16:46] LABS: Anion Gap 13 (12-20); Blood Urea Nitrogen 7 mg/dL (9-16); Calcium 7.7 mg/dL (8.4-10.2); Carbon Dioxide 22 mmol/L (22-29); Chloride 82 mmol/L (96-108); Creatinine Clr Calc Pharmacy 108.5; Estimated Glomerular Filt Rate > 60; Glucose Random 168 mg/dL (60-115); Potassium 3.8 mmol/l (3.3-5.1); Sodium 113 mmol/L (135-145)
[2020-06-28] MEDS: Sodium Chloride Tab 1 GM TABLET 4 GM PO (21:27)
[2020-06-29] VITALS (18 sets, daily range): BP systolic 71–140; BP diastolic 41–68; PULSE 68–89; RESP 11–18; TEMP 36.1–37; O2SAT 94–100; BMI 44.7
--- NOTE | 2020-06-29 | XR_ITS ---
EXAMINATION: XR PELVIS CLINICAL INFORMATION: Pubic rami fracture. COMPARISON: Selected images of the CT abdomen and pelvis of 06/27/2020. TECHNIQUE: AP view of the pelvis. FINDINGS: Not significantly displaced left inferior pubic ramus fracture is better seen on previous CT. Fracture lucencies corresponding to the complex displaced left acetabular fracture extending into the supra-acetabular iliac bone are noted. The findings are better seen on the previous CT. The left hip joint alignment is, however, maintained. Right hip is unremarkable. Symphysis pubis is intact. No evidence of widening of the left sacroiliac joint. Degenerative changes are noted in the lower lumbar spine. Whalen catheter is in place. IMPRESSION: Left hemipelvic fractures which are better seen on the previous CT.
[2020-06-29] MEDS: 0.9 % Sodium Chloride Flush 3 ML SYRINGE IVFLUSH ×3 (01:59→15:37)
[2020-06-29] MEDS: Pantoprazole Sodium 40 MG/10 ML VIAL IVPUSH ×2 (05:48→15:37)
[2020-06-29 06:06] LABS: MANUAL DIFF FLAG NO
[2020-06-29 06:13] LABS: Basophils Percent Auto 0.7 % (0-2); Eosinophils Absolute Auto 0.3 X10*3/uL (0.0-0.4); Hematocrit 28.7 % (42-52); Imm Gran Abs Auto 0.08 X10*3/uL (0.00-0.03); Imm Gran Pct Auto 1.4 % (0.0-0.4); Lymphocytes Absolute Auto 0.9 X10*3/uL (1.2-4.9); Lymphocytes Percent Auto 16.5 % (20-40); Mean Corpuscular HGB Conc 34.8 g/dl (31.0-36.0); Mean Corpuscular Hemoglobin 31.1 pg (27.0-33.0); Mean Corpuscular Volume 89.1 fL (80-98); Mean Platelet Volume 8.6 fL (9.4-12.4); Monocytes Absolute Auto 0.6 X10*3/uL (0.1-1.2); Monocytes Percent Auto 9.9 % (2-11); Neutrophils Absolute Auto 3.8 X10*3/uL (2.0-8.3); Neutrophils Percent Auto 66.5 % (45-73); Platelet Count 481 X10*3/uL (160-400); Red Blood Count 3.22 X10*6/uL (4.60-5.80); Red Cell Distribution Width 12.5 % (11.0-16.0); White Blood Count 5.7 X10*3/uL (4.8-10.8)
[2020-06-29 06:43] LABS: Alanine Aminotransferase 8 U/L (0-40); Albumin Level 3.1 g/dL (3.5-5.0); Alkaline Phosphatase 260 U/L (39-117); Anion Gap 10 (12-20); Aspartate Amino Transferase 17 U/L (5-37); Bilirubin Total 0.9 mg/dL (0.0-1.0); Blood Urea Nitrogen 6 mg/dL (9-16); Calcium 7.9 mg/dL (8.4-10.2); Carbon Dioxide 25 mmol/L (22-29); Chloride 89 mmol/L (96-108); Creatinine Clr Calc Pharmacy 180.5; Estimated Glomerular Filt Rate > 60; Glucose Random 91 mg/dL (60-115); Magnesium 1.5 mg/dL (1.6-2.6); Phosphorus 3.3 mg/dL (2.7-4.5); Potassium 4.4 mmol/l (3.3-5.1); Sodium 120 mmol/L (135-145); Total Protein 5.2 g/dL (6.5-8.0)
[2020-06-29] MEDS: Albuterol/Iprat 2.5/0.5MG 3 ML AMPUL.NEB INHALE ×3 (08:03→19:28)
[2020-06-29] MEDS: Magnesium Sulfate/H2O 2 GM/50 ML PIGGYBACK IV (08:21)
[2020-06-29] MEDS: Folic Acid 1 MG TABLET 2 MG PO (08:21)
--- NOTE | 2020-06-29 08:55 | CONS_ITS ---
DATE OF SERVICE: 06/28/2020 REASON FOR CONSULTATION: I was called to see this patient to assist in the management of hyponatremia. HISTORY OF PRESENT ILLNESS: To summarize, Devaughn is a 74-year-old man with a history of COPD, alcohol abuse in the past. He used to drink alcohol and he had stopped drinking from almost 2 weeks. He had a history of fall prior to that. He comes to the hospital because of weakness and he was found to have hyponatremia with a serum sodium of 114 millimoles. BUN of 6, creatinine 0.60. He was admitted to ICU. He was started on normal saline at 50 mL/hour. Around 11 p.m., the serum sodium was 114. As of this morning, serum sodium was still at 113. The corresponding serum osmolality was 236. Urinalysis showed specific gravity of 1.015, no protein, no blood by dipstick. Urine sodium was 73, urine creatinine of 92.5, urine osmolality of 422. He had a CT scan of the head upon admission which showed no acute intracranial bleed, no acute abnormalities were seen. PAST MEDICAL HISTORY: Ongoing medical problems include history of hyponatremia, chronic alcoholism, COPD . SOCIAL HISTORY: History of smoking in the past. History of alcohol abuse in the past. He has not taken alcohol in the last 2 weeks. FAMILY HISTORY: Not significant for any hyponatremia. REVIEW OF SYSTEMS: No headache, nausea, or vomiting. No abdominal pain, diarrhea, or constipation. No urinary symptoms. No fever. No rash. No polyuria or polydipsia. All other systems were reviewed. PHYSICAL EXAMINATION: GENERAL: He is a 74-year-old man, he is awake, comfortable, not in any distress. NECK: Supple. No JVD. VITAL SIGNS: Blood pressure was 126/56, pulse 71, temperature was 98. HEENT: Pupils are equal and reactive to light. NECK: Supple. No JVD. LUNGS: Air entry equal. No rales. HEART: S1, S2 heard. No gallop or rub. ABDOMEN: Soft, nontender. EXTREMITIES: No edema. No rash. No clubbing. LABORATORY DATA: All the labs results were reviewed. IMPRESSION: A 74-year-old man with chronic asymptomatic hyponatremia. 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 There is no evidence of beer potomania. The goal at this point is to cut the serum sodium gradually at a rate of 0.5 millimole/L/hour and avoid rapid correction of more than 10 millimoles in a 24-hour period. For now, I will keep him on normal saline at 50 mL per hour. Keep him on oral free water restriction of 1.2 L per 24 hours. I will add urea powder 15 g p.o. b.i.d. and watch the serum sodium every 2-4 hours. We will be happy to follow him along with the team. Maikel Jimenez MD BPA/MODL / [id number]
[2020-06-29] MEDS: Sodium Chloride Tab 1 GM TABLET 4 GM PO (09:16)
--- NOTE | 2020-06-29 10:13 | PM.PNNEP ---
Subjective Subjective Interval history: Events noted Started UREA Na at 120 this AM Physical Exam Vital Signs: Vital Signs: Vital Signs Temp Pulse Resp BP Pulse Ox 06/29/20 10:00 89 14 98/50 L 95 06/29/20 08:10 98.4 F 82 12 98/52 L 98 06/29/20 07:55 98.4 F 77 16 114/54 L 99 06/29/20 06:56 98.2 F 69 12 105/51 L 97 06/29/20 05:54 98.6 F 71 13 115/58 L 95 06/29/20 05:00 82 13 130/63 98 06/29/20 04:00 70 11 L 108/54 L 98 06/29/20 03:00 98.6 F 75 13 140/68 H 96 06/29/20 02:00 98.6 F 76 14 125/67 97 06/29/20 01:00 98.6 F 72 16 129/62 96 06/29/20 00:00 98.6 F 68 15 137/65 100 06/28/20 23:55 68 14 06/28/20 23:00 98.4 F 68 14 110/51 L 100 06/28/20 22:00 98.4 F 92 11 L 123/67 95 06/28/20 21:24 15 06/28/20 21:00 98.6 F 86 12 102/43 L 98 06/28/20 20:00 98.6 F 73 12 133/56 L 100 06/28/20 19:00 98.4 F 82 15 100/51 L 100 06/28/20 17:51 75 14 130/62 100 06/28/20 17:00 77 16 108/57 L 97 06/28/20 16:00 98.4 F 85 14 103/54 L 98 06/28/20 15:00 97.9 F 83 12 121/62 100 06/28/20 14:35 83 111/54 L 06/28/20 13:58 98.6 F 93 12 114/57 L 92 06/28/20 13:00 75 16 114/57 L 99 06/28/20 11:55 98.8 F 81 13 100/41 L 100 06/28/20 11:00 98.2 F 71 11 L 129/65 Body Mass Index 44.7 Const: General: comfortable Orientation/consciousness: oriented to person Resp: Effort & Inspection: normal respiratory effort Auscultation: no rales Cardio: Jugular venous distension: no JVD Heart sounds: no rubs GI: Auscultation: normal bowel sounds Neuro: General: oriented to person Motor exam (neuro): No Asterixis during motor activity present Assessment & Plan Assessment and plan (1) Hyponatremia: Problem details: Due to NON OSMOTIC ADH RELEASE No evidence of beer potomania Status: Acute Assessment and Plan: Correct pNa at a rate on < 0.5 mmol/L/24 hrs Keep on UREA to increase OSMOTIC load Restrict PO water intake Monitor pNa q 4 hrs
--- NOTE | 2020-06-29 11:03 | MHC.CM.PN ---
Patient remains in ICU. Anticipate return to [facility] via BLS when medically stable. Continue to monitor for d/c needs.
[2020-06-29 12:33] LABS: Anion Gap 10 (12-20); Blood Urea Nitrogen 6 mg/dL (9-16); Carbon Dioxide 26 mmol/L (22-29); Chloride 92 mmol/L (96-108); Creatinine Clr Calc Pharmacy 163.6; Estimated Glomerular Filt Rate > 60; Glucose Random 100 mg/dL (60-115); Potassium 4.5 mmol/l (3.3-5.1); Sodium 123 mmol/L (135-145)
[2020-06-29] MEDS: fentaNYL citrate/PF 100 MCG/2 ML VIAL 50 MCG IVPUSH (13:07)
--- NOTE | 2020-06-29 14:14 | P.PNCC_ITS ---
Subjective Subjective Date of Service: 06/29/20 Interval History: 74-year-old gentleman with underlying history of COPD, alcohol abuse and multiple falls with evaluation in emergency room several weeks prior for acute fall and alcohol intoxication discharge to rehabilitation facility admitted on 06/27/2020 with subacute asymptomatic hyponatremia noted on routine lab working senior living facility. Patient states that he has had very poor appetite for the last several weeks in has not been eating much. He does not have any neurologic deficits and is alert and oriented. He does complain of recent several additional falls. No events overnight. Sodium improving slowly. Physical Exam Vital Signs: Vital Signs: Vital Signs Temp Pulse Resp BP Pulse Ox 06/29/20 13:07 18 06/29/20 13:00 98.6 F 75 11 L 113/56 L 98 06/29/20 12:56 75 14 127/62 100 06/29/20 10:37 104/46 L 06/29/20 10:16 81 71/41 L 06/29/20 10:00 98.6 F 89 14 98/50 L 95 06/29/20 08:10 98.4 F 82 12 98/52 L 98 06/29/20 07:55 98.4 F 77 16 114/54 L 99 06/29/20 06:56 98.2 F 69 12 105/51 L 97 06/29/20 05:54 98.6 F 71 13 115/58 L 95 06/29/20 05:00 82 13 130/63 98 06/29/20 04:00 70 11 L 108/54 L 98 06/29/20 03:00 98.6 F 75 13 140/68 H 96 06/29/20 02:00 98.6 F 76 14 125/67 97 06/29/20 01:00 98.6 F 72 16 129/62 96 06/29/20 00:00 98.6 F 68 15 137/65 100 06/28/20 23:55 68 14 06/28/20 23:00 98.4 F 68 14 110/51 L 100 06/28/20 22:00 98.4 F 92 11 L 123/67 95 06/28/20 21:24 15 06/28/20 21:00 98.6 F 86 12 102/43 L 98 06/28/20 20:00 98.6 F 73 12 133/56 L 100 06/28/20 19:00 98.4 F 82 15 100/51 L 100 06/28/20 17:51 75 14 130/62 100 06/28/20 17:00 77 16 108/57 L 97 06/28/20 16:00 98.4 F 85 14 103/54 L 98 06/28/20 15:00 97.9 F 83 12 121/62 100 06/28/20 14:35 83 111/54 L Body Mass Index 44.7 Const: General: no acute distress, alert and awake Eyes: Sclerae: sclerae normal EOM: EOMs intact bilaterally Neck: Neck: Yes no lymphadenopathy, Yes trachea midline and Yes supple Resp: Effort & Inspection: normal respiratory effort and no respiratory distress Auscultation: clear to auscultation bilaterally Cardio: Rate: regular rate Rhythm: regular rhythm Heart sounds: no gallops, no murmurs and no rubs GI: Palpation (GI): Soft to palpation and Other GI palpation findings present ( Nontender) Auscultation: normal bowel sounds Extrem: General: Yes no pedal edema, No clubbing and No cyanosis Objective Data Labs CBC & Chem 7: 06/29/20 05:46 06/29/20 11:50 Labs: Laboratory Results - last 24 hr 06/28/20 06/28/20 06/29/20 13:15 16:04 05:46 WBC 6.6 5.7 RBC 3.41 L 3.22 L Hgb 10.4 L 10.0 L Hct 30.0 L 28.7 L MCV 88.0 89.1 MCH 30.5 31.1 MCHC 34.7 34.8 RDW 12.4 12.5 Plt Count 490 H 481 H MPV 8.4 L 8.6 L Immature Gran % (Auto) 1.4 H 1.4 H Neut % (Auto) 68.4 66.5 Lymph % (Auto) 18.0 L 16.5 L [place] % (Auto) 5.6 9.9 Eos % (Auto) 6.0 H 5.0 H Baso % (Auto) 0.6 0.7 Lymph # (Auto) 1.2 0.9 L [place] # (Auto) 0.4 0.6 Eos # (Auto) 0.4 0.3 Baso # (Auto) 0.0 0.0 Abs Immat Gran (auto) 0.09 H 0.08 H Absolute Neuts (auto) 4.5 3.8 Absolute Nucleated RBC 0.000 0.000 Nucleated RBC % (auto) 0.0 0.0 Sodium 113 L* Potassium 3.8 Chloride 82 L Carbon Dioxide 22 Anion Gap 13 BUN 7 L Creatinine 0.63 Estim Creat Clear Calc 108.5 Estimated GFR > 60 Random Glucose 168 H Calcium 7.7 L Phosphorus Magnesium Total Bilirubin AST ALT Alkaline Phosphatase Total Protein Albumin 06/29/20 06/29/20 05:46 11:50 WBC RBC Hgb Hct MCV MCH MCHC RDW Plt Count MPV Immature Gran % (Auto) Neut % (Auto) Lymph % (Auto) [place] % (Auto) Eos % (Auto) Baso % (Auto) Lymph # (Auto) [place] # (Auto) Eos # (Auto) Baso # (Auto) Abs Immat Gran (auto) Absolute Neuts (auto) Absolute Nucleated RBC Nucleated RBC % (auto) Sodium 120 L* 123 L Potassium 4.4 4.5 Chloride 89 L 92 L Carbon Dioxide 25 26 Anion Gap 10 L 10 L BUN 6 L 6 L Creatinine 0.58 0.64 Estim Creat Clear Calc 180.5 163.6 Estimated GFR > 60 > 60 Random Glucose 91 D 100 Calcium 7.9 L 8.0 L Phosphorus 3.3 Magnesium 1.5 L Total Bilirubin 0.9 AST 17 ALT 8 Alkaline Phosphatase 260 H Total Protein 5.2 L Albumin 3.1 L Microbiology Microbiology Results: Microbiology 06/27/20 11:32 Blood - Venous Blood Culture - Preliminary No growth after 48 hours. 06/27/20 11:32 Blood - Venous Blood Culture - Preliminary No growth after 48 hours. Progress Note: A&P Assessment and plan (1) Acute hyponatremia: Status: Acute (2) Rib fractures: Status: Acute (3) Abnormal CT scan, esophagus: Status: Acute Assessment and Plan: Assessment: 74-year-old gentleman with underlying history of alcoholism, multiple falls, and COPD admitted with subacute asymptomatic hyponatremia and also noted to have pelvic fracture with hematoma, and recent and remote rib fractures Plan: Neuro: No acute issues. Cardiac: No acute issues. Pulmonary: No acute issues. Renal: Subacute asymptomatic hyponatremia. Nephrology service care appreciated. Continue with adequate solute intake. Continue to monitor electrolytes. Continue thiamine and folate for underlying alcoholism. Endo: No acute issues. GI: Patient experiences food regurgitation and distal esophageal thickening noted on CT abdomen. Gastroenterology service care appreciated. Continue PPI. Will likely require EGD. ID: No acute issues Heme/Onc: No acute issues. Psych: No acute issues. Miscellaneous: Multiple rib fractures - continue with conservative management. Subacute pelvic fracture - Orthopedic evaluation is pending. Prophylaxis: intermittent pneumatic compression, no heparin secondary to pelvic hematoma on the background of underlying pelvic fracture Diet: Regular Critical care time spent: 45 minutes Time Spent With Patient Total time spent with greater than 50% in coordination of care (as documented) at patient's floor/unit and/or counseling patient:: 0 Critical Care Time 45 minutes
[2020-06-29] MEDS: Urea 15 GM POWDER PO (20:03)
[2020-06-30] VITALS (8 sets, daily range): BP systolic 120–148; BP diastolic 65–88; PULSE 68–101; RESP 16–18; TEMP 36.1–37.1; O2SAT 96–100; BMI 21.6
[2020-06-30] MEDS: 0.9 % Sodium Chloride Flush 3 ML SYRINGE IVFLUSH ×4 (03:37→23:52)
[2020-06-30] MEDS: Pantoprazole Sodium 40 MG/10 ML VIAL IVPUSH ×2 (06:27→16:07)
[2020-06-30] MEDS: Albuterol/Iprat 2.5/0.5MG 3 ML AMPUL.NEB INHALE ×3 (07:39→20:11)
--- NOTE | 2020-06-30 08:34 | P.PNOP_ITS ---
Subjective Subjective Interval history: 74 yo male presented to ED s/p fall. CT scan of abd/pelvis in ER: 1. Comminuted fracture left pelvis involving the left iliac wing, left anterior acetabulum and left inferior pubic ramus. Some focal active hemorrhage within musculature at fracture site, 1.1 cm thickness. Femoral head and neck intact. No dislocation. 2. No ascites or intraperitoneal fluid collection. No free air. 3. CT chest described in separate report Ortho consult placed- spoke with Dr. Rene on 06/28/2020 -mentioned it was non operative, protective weight bearing and XR should be orderd. XRAY of AP/Pelvis ordered 06/29/2020 1. Left hemipelvic fractures which are better seen on the previous CT. Spoke with Dr. Damian about the results and recommendation Patient states he has pain in the left hip region, diff with lifting the leg Physical Exam Vital Signs: Vital Signs: Vital Signs Temp Pulse Resp BP Pulse Ox 06/30/20 03:48 97.8 F 75 17 136/68 98 06/30/20 00:00 98.7 F 76 16 137/76 100 06/29/20 19:25 96.9 F 76 100/59 L 100 06/29/20 15:18 97.4 F 77 18 106/61 99 06/29/20 13:07 18 06/29/20 13:00 98.6 F 75 11 L 113/56 L 98 06/29/20 12:56 75 14 127/62 100 06/29/20 10:37 104/46 L 06/29/20 10:16 81 71/41 L 06/29/20 10:00 98.6 F 89 14 98/50 L 95 Body Mass Index 21.6 Const: General: cooperative and no acute distress Orientation/consciousness: patient oriented x3 Resp: Effort & Inspection: normal respiratory effort and able to speak in complete sentences Cardio: Peripheral pulses: Peripheral pulses 2+ throughout Neuro: General: patient oriented x3 Extrem: Other: Tenderness along the anterior groin and pain with hip flexion. Sensation intact. Progress Note: A&P Assessment and plan (1) Pelvic fracture: Status: Acute Assessment and Plan: Non operative Pelvic fracture TTWB with walker Dr. Santillan questioning if patient can be put on the lateral decubitus position - will address with Dr. Rene. Fall Risk Details Current Medications: Current Medications Generic Name Dose Route Start Last Admin Trade Name Freq PRN Reason Stop Dose Admin Acetaminophen 650 mg 06/27/20 14:28 06/27/20 17:41 Acetaminophen 325 Mg Tablet PO 650 mg Q6H PRN Administration Pain, Mild (Pain Scale 1-3) Albuterol/Ipratropium 3 ml 06/27/20 20:00 06/30/20 07:39 Albuterol/Iprat 2.5/0.5mg 3 Ml Ampul.Neb INHALE 3 ml RQ6H WHILE AWAKE CHRIS Administration Folic Acid 2 mg 06/28/20 15:00 06/29/20 08:21 Folic Acid 1 Mg Tablet PO 2 mg DAILY CHRIS Administration Thiamine HCl 300 mg/ Sodium 103 mls @ 206 mls/hr 06/28/20 15:45 06/29/20 10:22 Chloride IV 06/30/20 09:29 Infused DAILY CHRIS Infusion Ondansetron HCl 4 mg 06/27/20 14:28 06/28/20 08:13 Ondansetron Hcl 4 Mg/2 Ml Vial IVPUSH 4 mg Q8H PRN Administration Nausea and Vomiting Pantoprazole Sodium 40 mg 06/28/20 16:30 06/30/20 06:27 Pantoprazole Sodium 40 Mg/10 Ml Vial IVPUSH 40 mg BID@0630,1630 CHRIS Administration Sodium Chloride 3 ml 06/27/20 16:00 06/30/20 03:37 0.9 % Sodium Chloride Flush 3 Ml Syringe IVFLUSH 3 ml QSHIFT CHRIS Administration Urea 15 gm 06/29/20 21:00 06/29/20 20:03 Urea 15 Gm Powder PO 15 gm BID CHRIS Administration Time Spent With Patient Time: Total time spent is greater than 50% in coordination of care (as documented) at patient's floor/unit and/or counseling patient: Time with patient: 15 - 24 minutes
[2020-06-30] MEDS: Folic Acid 1 MG TABLET 2 MG PO (09:46)
[2020-06-30] MEDS: Urea 15 GM POWDER PO ×2 (09:47→20:44)
--- NOTE | 2020-06-30 09:55 | HO.PM.IMPN ---
Subjective Subjective Date of Service: 06/30/20 Interval History: no complaints Cardiovascular Cardiovascular: Reports no additional cardiovascular complaints Respiratory Respiratory: Reports no additional respiratory complaints Physical Exam Vital Signs: Vital Signs: Vital Signs Temp Pulse Resp BP Pulse Ox 06/30/20 08:00 97.0 F 82 17 146/65 H 100 06/30/20 03:48 97.8 F 75 17 136/68 98 06/30/20 00:00 98.7 F 76 16 137/76 100 06/29/20 19:25 96.9 F 76 100/59 L 100 06/29/20 15:18 97.4 F 77 18 106/61 99 06/29/20 13:07 18 06/29/20 13:00 98.6 F 75 11 L 113/56 L 98 06/29/20 12:56 75 14 127/62 100 06/29/20 10:37 104/46 L 06/29/20 10:16 81 71/41 L 06/29/20 10:00 98.6 F 89 14 98/50 L 95 Body Mass Index 21.6 General: AO X 3, no acute distress Resp: CTA bilateral CVS: S1,S2,RRR GI: soft, non tender, non distended Neuro: motor grossly intact Psych: appropriate affect Objective Data Current Medications Generic Name Dose Route Start Last Admin Trade Name Severoq PRN Reason Stop Dose Admin Acetaminophen 650 mg 06/27/20 14:28 06/27/20 17:41 Acetaminophen 325 Mg Tablet PO 650 mg Q6H PRN Administration Pain, Mild (Pain Scale 1-3) Albuterol/Ipratropium 3 ml 06/27/20 20:00 06/30/20 07:39 Albuterol/Iprat 2.5/0.5mg 3 Ml Ampul.Neb INHALE 3 ml RQ6H WHILE AWAKE CHRIS Administration Folic Acid 2 mg 06/28/20 15:00 06/30/20 09:46 Folic Acid 1 Mg Tablet PO 2 mg DAILY CHRIS Administration Ondansetron HCl 4 mg 06/27/20 14:28 06/28/20 08:13 Ondansetron Hcl 4 Mg/2 Ml Vial IVPUSH 4 mg Q8H PRN Administration Nausea and Vomiting Pantoprazole Sodium 40 mg 06/28/20 16:30 06/30/20 06:27 Pantoprazole Sodium 40 Mg/10 Ml Vial IVPUSH 40 mg BID@0630,1630 CHRIS Administration Sodium Chloride 3 ml 06/27/20 16:00 06/30/20 09:47 0.9 % Sodium Chloride Flush 3 Ml Syringe IVFLUSH 3 ml QSHIFT CHRIS Administration Urea 15 gm 06/29/20 21:00 06/30/20 09:47 Urea 15 Gm Powder PO 15 gm BID CHRIS Administration Labs CBC & Chem 7: 06/29/20 05:46 06/29/20 11:50 Microbiology Microbiology Results: Microbiology 06/27/20 11:32 Blood - Venous Blood Culture - Preliminary No growth after 48 hours. 06/27/20 11:32 Blood - Venous Blood Culture - Preliminary No growth after 48 hours. Assessment and Plan (1) Pelvic fracture: Status: Acute (2) Decreased appetite: Status: Acute (3) Acute hyponatremia: Status: Acute Assessment and Plan: 74M presented with hip pain after fall one month ptp and severe hyponatremia of 113. was admitted to ICU, now downgraded to medical floor, also found to have esaphogeal thickening and dysphagia hyponatremia SIADH monitor, fluid restrict, urea hip fracture ortho eval esophageal thickening plan for EGD when cleared by ortho PPI
[2020-06-30 10:22] LABS: Anion Gap 9 (12-20); Blood Urea Nitrogen 14 mg/dL (9-16); Calcium 8.4 mg/dL (8.4-10.2); Carbon Dioxide 26 mmol/L (22-29); Chloride 91 mmol/L (96-108); Creatinine Clr Calc Pharmacy 114.6; Estimated Glomerular Filt Rate > 60; Glucose Fasting 101 mg/dL (60-99); Potassium 4.1 mmol/l (3.3-5.1); Sodium 122 mmol/L (135-145)
--- NOTE | 2020-06-30 10:34 | PM.PNNEP ---
Subjective Subjective Interval history: no complaints ransferred to reg floor- No labs since last night Physical Exam Vital Signs: Vital Signs: Vital Signs Temp Pulse Resp BP Pulse Ox 06/30/20 08:00 97.0 F 82 17 146/65 H 100 06/30/20 03:48 97.8 F 75 17 136/68 98 06/30/20 00:00 98.7 F 76 16 137/76 100 06/29/20 19:25 96.9 F 76 100/59 L 100 06/29/20 15:18 97.4 F 77 18 106/61 99 06/29/20 13:07 18 06/29/20 13:00 98.6 F 75 11 L 113/56 L 98 06/29/20 12:56 75 14 127/62 100 06/29/20 10:37 104/46 L Body Mass Index 21.6 Const: General: comfortable Orientation/consciousness: oriented to person Resp: Effort & Inspection: normal respiratory effort Auscultation: no rales Cardio: Jugular venous distension: no JVD Heart sounds: no rubs GI: Auscultation: normal bowel sounds Neuro: General: oriented to person Motor exam (neuro): No Asterixis during motor activity present Assessment & Plan Assessment and plan (1) Hyponatremia: Problem details: Due to NON OSMOTIC ADH RELEASE No evidence of beer potomania Status: Acute Assessment and Plan: Correct pNa at a rate on < 0.5 mmol/L/24 hrs Keep on UREA to increase OSMOTIC load Restrict PO water intake Monitor pNa q 8-12 hrs Time Spent With Patient Time: Total time spent is greater than 50% in coordination of care (as documented) at patient's floor/unit and/or counseling patient:
[2020-06-30] MEDS: Acetaminophen 325 MG TABLET 650 MG PO (16:13)
[2020-07-01] VITALS (13 sets, daily range): BP systolic 106–145; BP diastolic 58–78; PULSE 64–105; RESP 16–20; TEMP 35.5–36.8; O2SAT 97–100; BMI 21.3; BMI 19.9
[2020-07-01] MEDS: Morphine Sulfate 4 MG/ML CARTRIDGE IVPUSH (04:26)
[2020-07-01 06:33] LABS: MANUAL DIFF FLAG NO
[2020-07-01 06:44] LABS: Basophils Absolute Auto 0.1 X10*3/uL (0.0-0.2); Basophils Percent Auto 1.4 % (0-2); Eosinophils Absolute Auto 0.6 X10*3/uL (0.0-0.4); Eosinophils Percent Auto 13.7 % (0-4); Hematocrit 31.3 % (42-52); Hemoglobin 10.8 g/dl (14.0-18.0); Imm Gran Abs Auto 0.04 X10*3/uL (0.00-0.03); Imm Gran Pct Auto 0.9 % (0.0-0.4); Lymphocytes Absolute Auto 0.9 X10*3/uL (1.2-4.9); Lymphocytes Percent Auto 22.2 % (20-40); Mean Corpuscular HGB Conc 34.5 g/dl (31.0-36.0); Mean Corpuscular Hemoglobin 31.2 pg (27.0-33.0); Mean Corpuscular Volume 90.5 fL (80-98); Mean Platelet Volume 8.7 fL (9.4-12.4); Monocytes Absolute Auto 0.5 X10*3/uL (0.1-1.2); Monocytes Percent Auto 11.8 % (2-11); Neutrophils Absolute Auto 2.1 X10*3/uL (2.0-8.3); Platelet Count 500 X10*3/uL (160-400); Red Blood Count 3.46 X10*6/uL (4.60-5.80); Red Cell Distribution Width 12.7 % (11.0-16.0); White Blood Count 4.2 X10*3/uL (4.8-10.8)
[2020-07-01] MEDS: Pantoprazole Sodium 40 MG/10 ML VIAL IVPUSH ×2 (06:48→21:14)
[2020-07-01 07:20] LABS: Anion Gap 13 (12-20); Blood Urea Nitrogen 22 mg/dL (9-16); Calcium 8.5 mg/dL (8.4-10.2); Carbon Dioxide 23 mmol/L (22-29); Chloride 92 mmol/L (96-108); Estimated Glomerular Filt Rate > 60; Glucose Fasting 86 mg/dL (60-99); Potassium 4.7 mmol/l (3.3-5.1); Sodium 123 mmol/L (135-145)
[2020-07-01] MEDS: Albuterol/Iprat 2.5/0.5MG 3 ML AMPUL.NEB INHALE ×2 (08:08→13:54)
--- NOTE | 2020-07-01 09:00 | MHC.CM.NN ---
GLENYS WALSH UPDATED IN [place]. CURRENT PLAN IS FOR EGD FOLLOWING ORTHO CLEARANCE.
--- NOTE | 2020-07-01 09:56 | PM.PNNEP ---
Subjective Subjective Interval history: Events noted Mentation stable On UREA Physical Exam Vital Signs: Vital Signs: Vital Signs Temp Pulse Resp BP Pulse Ox 07/01/20 08:00 97.4 F 105 H 20 132/70 07/01/20 03:50 97.1 F 70 18 144/75 H 97 06/30/20 23:17 97 F 87 18 131/69 99 06/30/20 19:47 97.4 F 68 126/73 99 06/30/20 16:00 97.7 F 78 18 120/65 100 06/30/20 14:36 98.0 F 101 H 17 148/88 H 97 06/30/20 11:26 97.5 F 75 18 145/66 H 96 Body Mass Index 21.3 Const: General: comfortable Orientation/consciousness: oriented to person Resp: Effort & Inspection: normal respiratory effort Auscultation: no rales Cardio: Jugular venous distension: no JVD Heart sounds: no rubs GI: Auscultation: normal bowel sounds Neuro: General: oriented to person Motor exam (neuro): No Asterixis during motor activity present Assessment & Plan Assessment and plan (1) Hyponatremia: Problem details: Due to NON OSMOTIC ADH RELEASE No evidence of beer potomania Status: Acute Assessment and Plan: Correct pNa at a rate on < 0.5 mmol/L/24 hrs Keep on UREA to increase OSMOTIC load - Increase dose to 30 gm PO BID Restrict PO water intake Monitor pNa q 24 hrs Goal pNa > 125
--- NOTE | 2020-07-01 10:04 | P.PNIM_ITS ---
Subjective Subjective Date of Service: 07/01/20 Interval History: no complaints Gastrointestinal Gastrointestinal: Reports no additional gastrointestinal complaints Genitourinary Genitourinary: Reports no additional male genitourinary complaints Physical Exam Vital Signs: Vital Signs: Vital Signs Temp Pulse Resp BP Pulse Ox 07/01/20 08:00 97.4 F 105 H 20 132/70 07/01/20 03:50 97.1 F 70 18 144/75 H 97 06/30/20 23:17 97 F 87 18 131/69 99 06/30/20 19:47 97.4 F 68 126/73 99 06/30/20 16:00 97.7 F 78 18 120/65 100 06/30/20 14:36 98.0 F 101 H 17 148/88 H 97 06/30/20 11:26 97.5 F 75 18 145/66 H 96 Body Mass Index 21.3 General: AO X 3, no acute distress Resp: CTA bilateral CVS: S1,S2,RRR GI: soft, non tender, non distended Neuro: motor grossly intact Psych: appropriate affect Const: General: cooperative, comfortable, no acute distress, alert and awake Orientation/consciousness: oriented to person and patient oriented x3 HENMT: Head: Yes normal to inspection Ears: hearing grossly normal bilaterally Eyes: General: appearance normal, both eyes and all related structures Sclerae: sclerae normal EOM: EOMs intact bilaterally Neck: Neck: Yes no lymphadenopathy, Yes trachea midline and Yes supple Chest: Chest palpation & inspection: normal inspection of the chest Resp: Effort & Inspection: normal respiratory effort, able to speak in compl ete sentences and no respiratory distress Auscultation: clear to auscultation bilaterally and no rales Cardio: Jugular venous distension: no JVD Rate: regular rate Rhythm: regular rhythm Heart sounds: no gallops, no murmurs and no rubs Peripheral pulses: Peripheral pulses 2+ throughout GI: Palpation (GI): Soft to palpation, No hepatosplenomegaly present and Other GI palpation findings present ( Nontender) Auscultation: normal bowel sounds Neuro: General: oriented to person and patient oriented x3 Motor exam (neuro): No Asterixis during motor activity present Extrem: Other: Tenderness along the anterior groin and pain with hip flexion. Sensation intact. General: Yes normal to inspection, Yes no pedal edema, No clubbing and No cyanosis Objective Data Current Medications Generic Name Dose Route Start Last Admin Trade Name Freq PRN Reason Stop Dose Admin Acetaminophen 650 mg 06/27/20 14:28 06/30/20 16:13 Acetaminophen 325 Mg Tablet PO 650 mg Q6H PRN Administration Pain, Mild (Pain Scale 1-3) Albuterol/Ipratropium 3 ml 06/27/20 20:00 07/01/20 08:08 Albuterol/Iprat 2.5/0.5mg 3 Ml Ampul.Neb INHALE 3 ml RQ6H WHILE AWAKE CHRIS Administration Folic Acid 2 mg 06/28/20 15:00 06/30/20 09:46 Folic Acid 1 Mg Tablet PO 2 mg DAILY CHRIS Administration Ondansetron HCl 4 mg 06/27/20 14:28 06/28/20 08:13 Ondansetron Hcl 4 Mg/2 Ml Vial IVPUSH 4 mg Q8H PRN Administration Nausea and Vomiting Pantoprazole Sodium 40 mg 06/28/20 16:30 07/01/20 06:48 Pantoprazole Sodium 40 Mg/10 Ml Vial IVPUSH 40 mg BID@0630,1630 CHRIS Administration Sodium Chloride 3 ml 06/27/20 16:00 06/30/20 23:52 0.9 % Sodium Chloride Flush 3 Ml Syringe IVFLUSH 3 ml QSHIFT CHRIS Administration Urea 30 gm 07/01/20 21:00 Urea 15 Gm Powder PO BID [facility] Labs CBC & Chem 7: 07/01/20 06:08 07/01/20 06:08 Microbiology Microbiology Results: Microbiology 06/27/20 11:32 Blood - Venous Blood Culture - Preliminary No growth after 48 hours. 06/27/20 11:32 Blood - Venous Blood Culture - Preliminary No growth after 48 hours. Assessment and Plan (1) Pelvic fracture: Status: Acute (2) Decreased appetite: Status: Acute (3) Acute hyponatremia: Status: Acute Assessment and Plan: 74M presented with hip pain after fall one month ptp and severe hyponatremia of 113. was admitted to ICU, now downgraded to medical floor, also found to have esaphogeal thickening and dysphagia hyponatremia SIADH increase urea to 30 bid monitor, fluid restrict hip fracture ortho eval appreciated, ok for egd esophageal thickening plan for EGD today PPI
[2020-07-01] MEDS: 0.9 % Sodium Chloride Flush 3 ML SYRINGE IVFLUSH (10:45)
--- NOTE | 2020-07-01 13:35 | MHC.CLN ---
F/U PT IS CURRENTLY NPO WHEN DIET TO ADVANCE; RECOMMEND RE-STARTING ENSURE AND MANUEL BETWEEN MEALS TO INCREASE KCALS AND PROMOTE WOUND HEALING FOLLOWING
--- NOTE | 2020-07-01 14:22 | HO.ANESPROP2 ---
[facility] Past Medical History Medical History Alcoholism Anxiety Aortic stenosis COPD (chronic obstructive pulmonary disease) Falls Osteoarthritis Rib fractures Spondylosis Syncope Surgical History Surgical History (Updated 06/27/20 @ 18:59 by Mahogany Gallegos RN) History of shoulder surgery Social History Social History Household Members: None Housing Other:: rehab snf Do you presently have visiting nurse or other home services: No Alcohol intake: current Smoking Status: Former smoker Smoked in Last 30 Days: No Smoking Quit Date: 2009 Use of substances other than those prescribed or required for medical reasons: No Currently Displaying Signs/Symptoms of Drug Intoxication Withdrawal: No Have you been hit, kicked, punched, or otherwise hurt by someone within the past year? If so, by whom?: No Do you feel safe in your current relationship?: No Is there a partner from a previous relationship who is making you feel unsafe now?: No Are you made to feel afraid or neglected: No Agree to transfusion: Yes Advance Directives: No Advance Directives Information Provided: No Advance Directives on File: No Current/Past Psychiatric Disorders: Alcohol abuse Access to Firearms: No Do you have thoughts of harming others: None Do you have a plan to hurt others: No Plan Recently lost weight without trying: Yes service: Yes ([employer]) Current occupational status: retired Sexually active: No Sexual orientation: Decline to Answer Gender identity: male Meds Allergies Allergy/AdvReac Type Severity Reaction Status Date / Time shrimp Allergy Intermediate Anaphylaxis Verified 06/27/20 16:44 shellfish derived Allergy Unknown DIFFICULTY Verified 06/27/20 15:13 [SHELLFISH DERIVED] BREATHING lobster Allergy Intermediate Anaphylaxis Uncoded 06/27/20 16:44 Home Medications Medication Instructions Recorded Confirmed Type albuterol sulfate 2 puff PO Q4H PRN 06/27/20 06/27/20 History Exam Exam Date and Time: July 01, 2020 1422 Height,Weight and Vital Signs: Height 6 ft 2 in Weight 75.4 kg Last Vital Signs Temp 96 F L 07/01/20 12:00 Pulse 64 07/01/20 12:00 Resp 20 07/01/20 12:00 BP 132/70 07/01/20 12:00 Pulse Ox 100 07/01/20 12:00 Pertinent Lab Results Pertinent Lab Results: Laboratory Tests 06/27/20 06/27/20 06/27/20 11:32 11:32 11:32 WBC 6.5 RBC 3.40 L Hgb 10.6 L Hct 29.5 L MCV 86.8 MCH 31.2 MCHC 35.9 RDW 12.2 Plt Count 556 H MPV 8.5 L Immature Gran % (Auto) 2.0 H Neut % (Auto) 70.0 Lymph % (Auto) 14.1 L [place] % (Auto) 9.3 Eos % (Auto) 4.0 Baso % (Auto) 0.6 Lymph # (Auto) 0.9 L [place] # (Auto) 0.6 Eos # (Auto) 0.3 Baso # (Auto) 0.0 Abs Immat Gran (auto) 0.13 H Absolute Neuts (auto) 4.6 Absolute Nucleated RBC 0.000 Nucleated RBC % (auto) 0.0 PT 12.9 INR 1.1 APTT 36.8 Sodium 112 L* Potassium 4.2 Chloride 80 L Carbon Dioxide 25 Anion Gap 11 L BUN 8 L Creatinine 0.59 Estim Creat Clear Calc 107.3 Estimated GFR > 60 Random Glucose 89 Fasting Glucose Osmolality Calcium 8.4 Phosphorus Magnesium 1.4 L* Total Bilirubin 1.2 H Direct Bilirubin 0.6 H AST 21 ALT 11 Alkaline Phosphatase 280 H Total Protein 6.1 L Albumin 3.7 Lipase 43 TSH 1.27 Urine Color Urine Appearance Urine pH Ur Specific [place] Urine Protein Urine Glucose (UA) Urine Ketones Urine Blood Urine Nitrite Ur Leukocyte Esterase Urine RBC Urine WBC Ur Squamous Epith Cells Urine Bacteria Urine Osmolality Ur Random Sodium Urine Creatinine C. difficile Toxin A&B C. difficile Antigen C. difficile Interpret 06/27/20 06/27/20 06/27/20 11:32 13:01 13:01 WBC RBC Hgb Hct MCV MCH MCHC RDW Plt Count MPV Immature Gran % (Auto) Neut % (Auto) Lymph % (Auto) [place] % (Auto) Eos % (Auto) Baso % (Auto) Lymph # (Auto) [place] # (Auto) Eos # (Auto) Baso # (Auto) Abs Immat Gran (auto) Absolute Neuts (auto) Absolute Nucleated RBC Nucleated RBC % (auto) PT INR APTT Sodium Potassium Chloride Carbon Dioxide Anion Gap BUN Creatinine Estim Creat Clear Calc Estimated GFR Random Glucose Fasting Glucose Osmolality 233 L Calcium Phosphorus Magnesium Total Bilirubin Direct Bilirubin AST ALT Alkaline Phosphatase Total Protein Albumin Lipase TSH Urine Color YELLOW Urine Appearance CLEAR Urine pH 7.0 Ur Specific [place] 1.015 Urine Protein NEG Urine Glucose (UA) NEG Urine Ketones 5 Urine Blood NEG Urine Nitrite NEG Ur Leukocyte Esterase NEG Urine RBC 0 Urine WBC 0 Ur Squamous Epith Cells NONE Urine Bacteria NONE Urine Osmolality Ur Random Sodium 73.0 Urine Creatinine 92.55 C. difficile Toxin A&B C. difficile Antigen C. difficile Interpret 06/27/20 06/27/20 06/27/20 18:20 23:30 23:30 WBC RBC Hgb Hct MCV MCH MCHC RDW Plt Count MPV Immature Gran % (Auto) Neut % (Auto) Lymph % (Auto) [place] % (Auto) Eos % (Auto) Baso % (Auto) Lymph # (Auto) [place] # (Auto) Eos # (Auto) Baso # (Auto) Abs Immat Gran (auto) Absolute Neuts (auto) Absolute Nucleated RBC Nucleated RBC % (auto) PT INR APTT Sodium 114 L* Potassium 3.9 Chloride 81 L Carbon Dioxide 25 Anion Gap 12 BUN 6 L Creatinine 0.60 Estim Creat Clear Calc 111.9 Estimated GFR > 60 Random Glucose 144 H D Fasting Glucose Osmolality Calcium 8.3 L Phosphorus Magnesium Total Bilirubin Direct Bilirubin AST ALT Alkaline Phosphatase Total Protein Albumin Lipase TSH Urine Color Urine Appearance Urine pH Ur Specific [place] Urine Protein Urine Glucose (UA) Urine Ketones Urine Blood Urine Nitrite Ur Leukocyte Esterase Urine RBC Urine WBC Ur Squamous Epith Cells Urine Bacteria Urine Osmolality 422 Ur Random Sodium Urine Creatinine 52.90 C. difficile Toxin A&B C. difficile Antigen C. difficile Interpret 06/27/20 06/27/20 06/27/20 23:30 23:32 23:32 WBC RBC Hgb Hct MCV MCH MCHC RDW Plt Count MPV Immature Gran % (Auto) Neut % (Auto) Lymph % (Auto) [place] % (Auto) Eos % (Auto) Baso % (Auto) Lymph # (Auto) [place] # (Auto) Eos # (Auto) Baso # (Auto) Abs Immat Gran (auto) Absolute Neuts (auto) Absolute Nucleated RBC Nucleated RBC % (auto) PT INR APTT Sodium 114 L* Potassium Chloride Carbon Dioxide Anion Gap BUN Creatinine Estim Creat Clear Calc Estimated GFR Random Glucose Fasting Glucose Osmolality 236 L Calcium Phosphorus Magnesium Total Bilirubin Direct Bilirubin AST ALT Alkaline Phosphatase Total Protein Albumin Lipase TSH Urine Color Urine Appearance Urine pH Ur Specific [place] Urine Protein Urine Glucose (UA) Urine Ketones Urine Blood Urine Nitrite Ur Leukocyte Esterase Urine RBC Urine WBC Ur Squamous Epith Cells Urine Bacteria Urine Osmolality Ur Random Sodium 69.0 Urine Creatinine C. difficile Toxin A&B C. difficile Antigen C. difficile Interpret 06/27/20 06/28/20 06/28/20 Unknown 05:24 05:24 WBC 6.0 RBC 3.35 L Hgb 10.4 L Hct 29.5 L MCV 88.1 MCH 31.0 MCHC 35.3 RDW 12.3 Plt Count 511 H MPV 8.6 L Immature Gran % (Auto) 1.8 H Neut % (Auto) 66.8 Lymph % (Auto) 15.2 L [place] % (Auto) 9.9 Eos % (Auto) 5.5 H Baso % (Auto) 0.8 Lymph # (Auto) 0.9 L [place] # (Auto) 0.6 Eos # (Auto) 0.3 Baso # (Auto) 0.1 Abs Immat Gran (auto) 0.11 H Absolute Neuts (auto) 4.0 Absolute Nucleated RBC 0.000 Nucleated RBC % (auto) 0.0 PT INR APTT Sodium Potassium Chloride Carbon Dioxide Anion Gap BUN Creatinine Estim Creat Clear Calc Estimated GFR Random Glucose Fasting Glucose Osmolality Calcium Phosphorus Magnesium Cancelled Total Bilirubin Direct Bilirubin AST ALT Alkaline Phosphatase Total Protein Albumin Lipase TSH Urine Color Urine Appearance Urine pH Ur Specific [place] Urine Protein Urine Glucose (UA) Urine Ketones Urine Blood Urine Nitrite Ur Leukocyte Esterase Urine RBC Urine WBC Ur Squamous Epith Cells Urine Bacteria Urine Osmolality Ur Random Sodium Urine Creatinine C. difficile Toxin A&B Negative C. difficile Antigen Negative C. difficile Interpret SEE NOTE 06/28/20 06/28/20 06/28/20 05:24 05:24 13:15 WBC 6.6 RBC 3.41 L Hgb 10.4 L Hct 30.0 L MCV 88.0 MCH 30.5 MCHC 34.7 RDW 12.4 Plt Count 490 H MPV 8.4 L Immature Gran % (Auto) 1.4 H Neut % (Auto) 68.4 Lymph % (Auto) 18.0 L [place] % (Auto) 5.6 Eos % (Auto) 6.0 H Baso % (Auto) 0.6 Lymph # (Auto) 1.2 [place] # (Auto) 0.4 Eos # (Auto) 0.4 Baso # (Auto) 0.0 Abs Immat Gran (auto) 0.09 H Absolute Neuts (auto) 4.5 Absolute Nucleated RBC 0.000 Nucleated RBC % (auto) 0.0 PT INR APTT Sodium 113 L* Potassium 4.3 Chloride 82 L Carbon Dioxide 23 Anion Gap 12 BUN 5 L Creatinine 0.53 Estim Creat Clear Calc 129.0 Estimated GFR > 60 Random Glucose Fasting Glucose 79 Osmolality Calcium 7.9 L Phosphorus Magnesium 1.6 Total Bilirubin Direct Bilirubin AST ALT Alkaline Phosphatase Total Protein Albumin Cancelled 3.3 L Lipase TSH Urine Color Urine Appearance Urine pH Ur Specific [place] Urine Protein Urine Glucose (UA) Urine Ketones Urine Blood Urine Nitrite Ur Leukocyte Esterase Urine RBC Urine WBC Ur Squamous Epith Cells Urine Bacteria Urine Osmolality Ur Random Sodium Urine Creatinine C. difficile Toxin A&B C. difficile Antigen C. difficile Interpret 06/28/20 06/29/20 06/29/20 16:04 05:46 05:46 WBC 5.7 RBC 3.22 L Hgb 10.0 L Hct 28.7 L MCV 89.1 MCH 31.1 MCHC 34.8 RDW 12.5 Plt Count 481 H MPV 8.6 L Immature Gran % (Auto) 1.4 H Neut % (Auto) 66.5 Lymph % (Auto) 16.5 L [place] % (Auto) 9.9 Eos % (Auto) 5.0 H Baso % (Auto) 0.7 Lymph # (Auto) 0.9 L [place] # (Auto) 0.6 Eos # (Auto) 0.3 Baso # (Auto) 0.0 Abs Immat Gran (auto) 0.08 H Absolute Neuts (auto) 3.8 Absolute Nucleated RBC 0.000 Nucleated RBC % (auto) 0.0 PT INR APTT Sodium 113 L* 120 L* Potassium 3.8 4.4 Chloride 82 L 89 L Carbon Dioxide 22 25 Anion Gap 13 10 L BUN 7 L 6 L Creatinine 0.63 0.58 Estim Creat Clear Calc 108.5 180.5 Estimated GFR > 60 > 60 Random Glucose 168 H 91 D Fasting Glucose Osmolality Calcium 7.7 L 7.9 L Phosphorus 3.3 Magnesium 1.5 L Total Bilirubin 0.9 Direct Bilirubin AST 17 ALT 8 Alkaline Phosphatase 260 H Total Protein 5.2 L Albumin 3.1 L Lipase TSH Urine Color Urine Appearance Urine pH Ur Specific [place] Urine Protein Urine Glucose (UA) Urine Ketones Urine Blood Urine Nitrite Ur Leukocyte Esterase Urine RBC Urine WBC Ur Squamous Epith Cells Urine Bacteria Urine Osmolality Ur Random Sodium Urine Creatinine C. difficile Toxin A&B C. difficile Antigen C. difficile Interpret 06/29/20 06/30/20 07/01/20 11:50 09:43 06:08 WBC 4.2 L RBC 3.46 L Hgb 10.8 L Hct 31.3 L MCV 90.5 MCH 31.2 MCHC 34.5 RDW 12.7 Plt Count 500 H MPV 8.7 L Immature Gran % (Auto) 0.9 H Neut % (Auto) 50.0 Lymph % (Auto) 22.2 [place] % (Auto) 11.8 H Eos % (Auto) 13.7 H Baso % (Auto) 1.4 Lymph # (Auto) 0.9 L [place] # (Auto) 0.5 Eos # (Auto) 0.6 H Baso # (Auto) 0.1 Abs Immat Gran (auto) 0.04 H Absolute Neuts (auto) 2.1 Absolute Nucleated RBC 0.000 Nucleated RBC % (auto) 0.0 PT INR APTT Sodium 123 L 122 L Potassium 4.5 4.1 Chloride 92 L 91 L Carbon Dioxide 26 26 Anion Gap 10 L 9 L BUN 6 L 14 D Creatinine 0.64 0.62 Estim Creat Clear Calc 163.6 114.6 Estimated GFR > 60 > 60 Random Glucose 100 Fasting Glucose 101 H Osmolality Calcium 8.0 L 8.4 Phosphorus Magnesium Total Bilirubin Direct Bilirubin AST ALT Alkaline Phosphatase Total Protein Albumin Lipase TSH Urine Color Urine Appearance Urine pH Ur Specific [place] Urine Protein Urine Glucose (UA) Urine Ketones Urine Blood Urine Nitrite Ur Leukocyte Esterase Urine RBC Urine WBC Ur Squamous Epith Cells Urine Bacteria Urine Osmolality Ur Random Sodium Urine Creatinine C. difficile Toxin A&B C. difficile Antigen C. difficile Interpret 07/01/20 06:08 WBC RBC Hgb Hct MCV MCH MCHC RDW Plt Count MPV Immature Gran % (Auto) Neut % (Auto) Lymph % (Auto) [place] % (Auto) Eos % (Auto) Baso % (Auto) Lymph # (Auto) [place] # (Auto) Eos # (Auto) Baso # (Auto) Abs Immat Gran (auto) Absolute Neuts (auto) Absolute Nucleated RBC Nucleated RBC % (auto) PT INR APTT Sodium 123 L Potassium 4.7 Chloride 92 L Carbon Dioxide 23 Anion Gap 13 BUN 22 H D Creatinine 0.61 Estim Creat Clear Calc 115.0 Estimated GFR > 60 Random Glucose Fasting Glucose 86 Osmolality Calcium 8.5 Phosphorus Magnesium Total Bilirubin Direct Bilirubin AST ALT Alkaline Phosphatase Total Protein Albumin Lipase TSH Urine Color Urine Appearance Urine pH Ur Specific [place] Urine Protein Urine Glucose (UA) Urine Ketones Urine Blood Urine Nitrite Ur Leukocyte Esterase Urine RBC Urine WBC Ur Squamous Epith Cells Urine Bacteria Urine Osmolality Ur Random Sodium Urine Creatinine C. difficile Toxin A&B C. difficile Antigen C. difficile Interpret Airway Mallampati Class: I TM Dist: >3cm Neck ROM: Full Heart: rrr, 4 METS Lungs: nl Other: ao3 Assessment and Plan Assessment Anesthesia Assessment: Anesthesia Plan Discussed and Chart Reviewed Final Anesthetic Review NPO: Yes ASA Class: II Final Preanesthetic Review: No Changes in Pt Med Stat, Meds/Allgs Chart Reviewed, Consent Obtained/Reviewed and Anes Risks/Benef Reviewed Patient Risk: Intermediate Procedure Risk: Intermediate Anesthetic Plan Anesthetic Plan: MAC: Disposition: Standard PACU
--- NOTE | 2020-07-01 14:30 | HO.POSTANES ---
Post Anesthesia Evaluation Post Anesthesia Evaluation Vital Signs: Vital Signs Temp Pulse Resp BP Pulse Ox 07/01/20 12:00 96 F L 64 20 132/70 100 07/01/20 11:26 96.9 F 67 18 119/71 99 07/01/20 08:00 97.4 F 105 H 20 132/70 07/01/20 03:50 97.1 F 70 18 144/75 H 97 Anesthesia: Monitored Mental Status: Awake Pain Control: Satisfactory Nausea/Vomiting: None Hydration: Adequate Anesthesia-Related Issues: No Anes. Related Issues
--- NOTE | 2020-07-01 15:11 | MHC.SHP ---
Pre-Procedural Eval Section A The patient is an INPATIENT: Yes Changes since office visit: Yes Patient answered all questions The History & Physical has been completed within 30 days and I have reviewed it.: Yes Section B Chief Complaint: Hyponatremia Allergies: Allergies Allergy/AdvReac Type Severity Reaction Status Date / Time shrimp Allergy Intermediate Anaphylaxis Verified 06/27/20 16:44 shellfish derived Allergy Unknown DIFFICULTY Verified 06/27/20 15:13 [SHELLFISH DERIVED] BREATHING lobster Allergy Intermediate Anaphylaxis Uncoded 06/27/20 16:44 Plan Patient has been examined and remains a candidate for the planned procedure
--- NOTE | 2020-07-01 15:21 | PM.OP ---
Brief Operative Note Date of procedure: 07/01/20 Pre-op diagnosis: Heartburn, abnormal CT scan of esophagus. Post-op diagnosis: other (Erosive esophagitis, hiatal hernia, gastritis, duodenitis) Procedure: FLEXIBLE TRANSORAL UPPER GASTROINTESTINAL ENDOSCOPY WITH BIOPSIES Consent: Indications for the procedure and potential complications of bleeding, perforation, reaction to medications and missed diagnosis were discussed with the patient and informed consent was obtained. Instrument: Olympus GIF H 190 mid size upper endoscope Monitoring: Vital signs and clinical assessment, continuous EKG monitoring, Pulse oximetry, Carbon Dioxide monitoring and blood pressure monitoring were done throughout the procedure. Procedure: The patient was placed in the left lateral decubitis position and pre-procedure medications were administered and a bite block was placed. The endoscope was inserted into the mouth and advanced under direct vision to the third part of duodenum. A careful inspection was made as the upper endoscope was withdrawn including a retroflexed examination of the proximal stomach; Findings and interventions are described below. Findings: Larynx: Normal Esophagus: GE junction at 38 cms, hiatal hernia 38 to 42 cms. Grade 4 esophagitis with thick white exudate at GE junction. Stomach: Mild gastric erythema. Biopsies were obtained. Grade 4 flap valve on retroflexed examination of the cardia. Duodenum: Duodenitis in the bulb and normal descending duodenum Intervention: Biopsies as noted above Impression and Post Procedure Diagnosis: Endoscopy Findings: ESOPHAGUS: Grade 4 esophagitis with thick white exudate at GE junction. Hiatal hernia. STOMACH: Gastritis DUODENUM: Duodenitis in the bulb Plan: Await pathology results. Ok to switch to twice daily PPI PO and continue indefinately. Patient to schedule a FU appointment in the GI Clinic with Laine Santillan M.D. Repeat EGD in 8-12 weeks to confirm esophagitis has healed. Above findings were reviewed with the patient and GERD and Gastritis handouts were given in the discharge area Surgeon: Laine Santillan MD Anesthesia: MAC (Reid Jarrett CRNA & Dr Bernal) [employer] Business Analyst: Brigitte Butler Estimated blood loss (mL): 0 Pathology: other ( A. Gastric antrum) Condition: stable Disposition: PACU (for recovery from anesthesia)
[2020-07-01] MEDS: Lactated Ringers 1,000 ML 50 ML IVCONT ×2 (15:29→20:59)
[2020-07-01] MEDS: Urea 15 GM POWDER 30 GM PO (21:00)
[2020-07-01] MEDS: Acetaminophen 325 MG TABLET 650 MG PO (21:02)
[2020-07-02] VITALS: RESP 19; O2SAT 96
[2020-07-02 03:33] VITALS: BP 127/79; PULSE 87; RESP 20; TEMP 36.7; O2SAT 100
[2020-07-02] MEDS: Pantoprazole Sodium 40 MG/10 ML VIAL IVPUSH (05:49)
[2020-07-02] MEDS: Acetaminophen 325 MG TABLET 650 MG PO (05:50)
[2020-07-02 06:00] VITALS: BMI 21.2
[2020-07-02 07:19] LABS: MANUAL DIFF FLAG NO
[2020-07-02 07:32] LABS: Basophils Absolute Auto 0.1 X10*3/uL (0.0-0.2); Basophils Percent Auto 1.4 % (0-2); Eosinophils Absolute Auto 0.6 X10*3/uL (0.0-0.4); Eosinophils Percent Auto 16.1 % (0-4); Hematocrit 32.2 % (42-52); Hemoglobin 10.9 g/dl (14.0-18.0); Imm Gran Abs Auto 0.03 X10*3/uL (0.00-0.03); Imm Gran Pct Auto 0.8 % (0.0-0.4); Lymphocytes Absolute Auto 0.8 X10*3/uL (1.2-4.9); Mean Corpuscular HGB Conc 33.9 g/dl (31.0-36.0); Mean Corpuscular Hemoglobin 30.7 pg (27.0-33.0); Mean Corpuscular Volume 90.7 fL (80-98); Mean Platelet Volume 8.8 fL (9.4-12.4); Monocytes Absolute Auto 0.4 X10*3/uL (0.1-1.2); Monocytes Percent Auto 11.4 % (2-11); Neutrophils Absolute Auto 1.7 X10*3/uL (2.0-8.3); Neutrophils Percent Auto 47.3 % (45-73); Platelet Count 493 X10*3/uL (160-400); Red Blood Count 3.55 X10*6/uL (4.60-5.80); Red Cell Distribution Width 12.6 % (11.0-16.0); White Blood Count 3.6 X10*3/uL (4.8-10.8)
[2020-07-02 08:00] VITALS: BP 151/78; PULSE 71; RESP 18; TEMP 36.4; O2SAT 98
[2020-07-02 08:29] LABS: Anion Gap 12 (12-20); Blood Urea Nitrogen 32 mg/dL (9-16); Calcium 8.5 mg/dL (8.4-10.2); Carbon Dioxide 23 mmol/L (22-29); Chloride 95 mmol/L (96-108); Creatinine Clr Calc Pharmacy 102.2; Estimated Glomerular Filt Rate > 60; Glucose Fasting 75 mg/dL (60-99); Potassium 4.7 mmol/l (3.3-5.1); Sodium 125 mmol/L (135-145)
[2020-07-02] MEDS: Albuterol/Iprat 2.5/0.5MG 3 ML AMPUL.NEB INHALE ×2 (08:31→13:31)
[2020-07-02] MEDS: Folic Acid 1 MG TABLET 2 MG PO (09:16)
[2020-07-02] MEDS: Urea 15 GM POWDER 30 GM PO (09:17)
--- NOTE | 2020-07-02 11:20 | PM.DS ---
DS: Providers Provider Date of admission: 06/27/20 14:28 Primary care physician: None Physician Consults: 06/28/20 07:54 Consult to Orthopedics Routine Consulting Provider: [facility] [place] [facility] Reason for consultation: Subacute pelvic fracture Has provider been notified: No 06/28/20 09:52 Consult to Gastroenterology Routine Consulting Provider: [facility] [place] [facility] Reason for consultation: Food regurgitation, distal esophageal thickening on CT abdomen Has provider been notified: No DS: Diagnosis Discharge Diagnosis (1) Decreased appetite: Status: Acute (2) Abnormal CT scan, esophagus: Status: Acute (3) Erosive esophagitis: Status: Acute (4) Hyponatremia: Status: Acute Problem details: Due to NON OSMOTIC ADH RELEASE No evidence of beer potomania DS: Summary Hospital Course Hospital Course: from initial H&P: 74-year-old gentleman with underlying history of COPD, alcohol abuse and multiple falls with evaluation in emergency room several weeks prior for acute fall and alcohol intoxication discharge to rehabilitation facility admitted on 06/27/2020 with subacute asymptomatic hyponatremia noted on 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 Patient states that he has had very poor appetite for the last several weeks in has not been eating much. He does not have any neurologic deficits and is alert and oriented. He does complain of recent several additional falls. Hospital course: Patient was admitted to the intensive care unit for severe hyponatremia for which he was asymptomatic. He was given fluid restriction and urea powder. Sodium slowly improved from 113-125 over several days. Patient will continue fluid restriction 1.2 L and get repeat BMP in about 1 week. Patient was also noted to have esophageal thickening and dysphagia. He was seen by Gastroenterology who performed EGD which showed grade 4 esophagitis. Recommendations were for Prilosec 40 mg b.i.d. and to follow up outpatient with Gastroenterology and plan for EGD in 8-12 weeks. Patient was able to tolerate solid diet after EGD. Time Spent with Patient Time attestation: Total time spent providing and/or coordinating discharge services: Physical Exam Vital Signs: Vital Signs: Vital Signs Temp Pulse Resp BP Pulse Ox 07/02/20 08:00 97.5 F 71 18 151/78 H 98 07/02/20 03:33 98.1 F 87 20 127/79 100 07/02/20 00:00 19 96 07/01/20 23:22 97.6 F 88 19 114/73 97 07/01/20 20:00 98.0 F 78 19 145/71 H 100 07/01/20 19:00 98.3 F 76 19 07/01/20 18:00 98.2 F 75 19 106/65 100 07/01/20 17:00 96.7 F L 72 18 145/74 H 100 07/01/20 16:03 83 18 137/78 98 07/01/20 16:00 96.0 F L 80 18 134/70 100 07/01/20 15:51 98.1 F 72 16 106/58 L 100 07/01/20 14:44 97.6 F 69 16 145/75 H 100 07/01/20 12:00 96 F L 64 20 132/70 100 07/01/20 11:26 96.9 F 67 18 119/71 99 Body Mass Index 19.9 General: AO X 3, no acute distress Resp: CTA bilateral CVS: S1,S2,RRR GI: soft, non tender, non distended Neuro: motor grossly intact Psych: appropriate affect DS: Data Data Completed and Pending Pending studies at discharge: Pending at discharge 07/01/20 15:40 Surgical [PTH] Routine Labs on day of discharge: Labs from last 24 hours 07/02/20 07/02/20 06:48 06:48 WBC 3.6 L RBC 3.55 L Hgb 10.9 L Hct 32.2 L MCV 90.7 MCH 30.7 MCHC 33.9 RDW 12.6 Plt Count 493 H MPV 8.8 L Immature Gran % (Auto) 0.8 H Neut % (Auto) 47.3 Lymph % (Auto) 23.0 [place] % (Auto) 11.4 H Eos % (Auto) 16.1 H Baso % (Auto) 1.4 Lymph # (Auto) 0.8 L [place] # (Auto) 0.4 Eos # (Auto) 0.6 H Baso # (Auto) 0.1 Abs Immat Gran (auto) 0.03 Absolute Neuts (auto) 1.7 L Absolute Nucleated RBC 0.000 Nucleated RBC % (auto) 0.0 Sodium 125 L Potassium 4.7 Chloride 95 L Carbon Dioxide 23 Anion Gap 12 BUN 32 H Creatinine 0.64 Estim Creat Clear Calc 102.2 Estimated GFR > 60 Fasting Glucose 75 Calcium 8.5 Preliminary micro results at discharge 06/27/20 11:32 Blood Culture - Preliminary Blood - Venous No growth after 48 hours. 06/27/20 11:32 Blood Culture - Preliminary Blood - Venous No growth after 48 hours. Discharge Plan Discharge Patient Disposition: er [facility] Referrals: Laine Santillan MD [Physician] - Physician,None [Primary Care Provider] - Discharge Medications: New omeprazole 40 mg Capsule,Delayed Release(Dr/Ec) 40 mg PO BID@0630,1630 Qty: 60 RF: 0 Continued albuterol sulfate 90 mcg/actuation HFA aerosol inhaler 2 puff PO Q4H PRN (Reason: wheezing) RF: 0 Discharge Orders: Discharge Order (Routine); Ordered 07/02/20 Ordered By: Coleman Parada Diet: advance to your usual diet Activity on Discharge: As tolerated Patient Instructions: Gastritis (DC), Gastroesophageal Reflux Disease (DC) Other Ambulatory Orders: Basic Metabolic Panel Fasting (Routine) Timeframe: 1 Week Facility: [facility] - Location: Laboratory Ordered By: Coleman Parada Visit Report Forms: Patient Portal Discharge page Care Plan Goals: recovery Health Concerns: esophagitis, hyponatremia Plan of Treatment: prilosec 40mg bid,, follow up gi, repeat egd in 8-12 weeks, fluid restrtiction of 1.2L per day, repeat bmp in one week
[2020-07-02 12:00] VITALS: BP 137/73; PULSE 81; RESP 18; TEMP 36.3; O2SAT 97
--- NOTE | 2020-07-02 12:18 | MHC.CM.PN ---
CASE MANAGEMENT AWAITING COVID RESULTS. PENDING NEGATIVE RESULTS, PATIENT WILL RETURN TO [facility]. RN AND PATIENT AWARE OF PLAN. PATIENT TO INFORM HIS BROTHER, MARK Suki Y TELEPHONE. IMM 07/01 IN CHART.
[2020-07-02 13:16] LABS: SARS COV2 PCR INHOUSE NEGATIVE (Negative)
[2020-07-02 14:26] VITALS: O2SAT 97
--- NOTE | 2020-07-02 14:29 | HO.POSTANES ---
Post Anesthesia Evaluation Post Anesthesia Evaluation Vital Signs: Vital Signs Temp Pulse Resp BP Pulse Ox 07/02/20 12:00 97.4 F 81 18 137/73 97 07/02/20 08:00 97.5 F 71 18 151/78 H 98 07/02/20 03:33 98.1 F 87 20 127/79 100 Anesthesia: Monitored Mental Status: Awake Pain Control: Satisfactory Nausea/Vomiting: None Hydration: Adequate Anesthesia-Related Issues: No Anes. Related Issues
[2020-07-02 16:00] VITALS: BP 126/69; PULSE 72; RESP 18; TEMP 36.6; O2SAT 99
[2020-07-02] MEDS: Omeprazole 40 MG CAPSULE.DR PO (17:18)
== END 2020-07-02 18:23 | disposition skilled nursing facility (03) | DRG 643 ==
LOC: HO.ED 14:22 → HO.ICU 14:42 → HO.S3 06-29 13:56
PROVIDERS: Internal Medicine Gastroenterology; Internal Medicine Hypertension Specialist; Admitting Provider Internal Medicine Pulmonary Disease; Emergency Provider Emergency Medicine; Visit Provider Internal Medicine
PROC: 0DJ08ZZ Inspection of Upper Intestinal Tract, Via Natural or Artificial Opening Endoscopic (ICD-10-PCS; CPT 43235; principal; 2020-07-01 14:50)
DX: E22.2 Syndrome of inappropriate secretion of antidiuretic hormone (principal); S32.402A Unspecified fracture of left acetabulum, initial encounter for closed fracture; Z68.1 Body mass index [BMI] 19.9 or less, adult; E44.0 Moderate protein-calorie malnutrition; K22.10 Ulcer of esophagus without bleeding; S32.810A Multiple fractures of pelvis with stable disruption of pelvic ring, initial encounter for closed fracture; W19.XXXA Unspecified fall, initial encounter; F10.11 Alcohol abuse, in remission; Z20.828 Contact with and (suspected) exposure to other viral communicable diseases; R29.6 Repeated falls; K44.9 Diaphragmatic hernia without obstruction or gangrene; Z91.81 History of falling; Y93.9 Activity, unspecified; Y92.9 Unspecified place or not applicable; Y99.9 Unspecified external cause status; Z87.891 Personal history of nicotine dependence; Z79.899 Other long term (current) drug therapy
CPT/HCPCS: 36415; 70450; 71260; 72170; 74177; 80048; 80053; 80076; 81001; 81003; 82040; 83690; 83735; 83930; 83935; 84100; 84295; 84300; 84443; 85025; 85610; 85730; 87040; 87177; 87209; 87324; 87449; 87635; 88305; 88342; 92526; 92610; 93005; 94640; 99225; 99232; 99284; C1758; J2270; J2405; J3010; J3411; J3475

== ENCOUNTER 2020-07-21 10:58 | Outpatient (REF) | payer MEDICARE, SELFPAY ==
--- NOTE | 2020-07-21 11:12 | XR_ITS ---
EXAMINATION: XR PELVIS CLINICAL INFORMATION: Follow-up left hemipelvis fracture. COMPARISON: None TECHNIQUE: AP view of the pelvis. FINDINGS: Again visualized is slowly healing left inferior pubic rami fracture and left acetabular fracture with dense callus formation. No recurrent fracture seen. There is mild loss of left hip joint space. There is a nonhealed left iliac bone fracture with mild step-off, stable. XR/XR pelvis 1-2V IMPRESSION: Healing fractures left inferior pubic ramus and acetabulum with sclerosis. There is a left iliac crest fracture with step-off with no callus formation seen yet.
== END 2020-07-21 10:59 | disposition home or self-care (01) ==
LOC: HO.HOSX 10:58
PROVIDERS: Visit Provider Physician Assistant
DX: S32.82XG Multiple fractures of pelvis without disruption of pelvic ring, subsequent encounter for fracture with delayed healing (principal)
CPT/HCPCS: 72170; 99212

== ENCOUNTER 2020-09-22 09:03 | Outpatient (REF) | payer MEDICARE, SELFPAY ==
--- NOTE | 2020-09-22 10:21 | XR_ITS ---
EXAMINATION: XR PELVIS CLINICAL INFORMATION: Follow-up of left hemipelvic fracture. COMPARISON: Available baseline radiograph of the pelvis done on 06/29/2020 and most recent prior study done on 07/21/2020. TECHNIQUE: AP view of the pelvis. FINDINGS: Callus formation is noted along the medial wall of the left acetabulum and the inferior pubic ramus and at the site of the inferior part of the previously documented minimally displaced fracture involving the left iliac bone. The superior part of the fracture involving the iliac crest does not show any callus formation, unchanged. No new abnormalities. XR/XR pelvis 1-2V IMPRESSION: 1. Healing left hemipelvic fractures. 2. No new abnormalities.
== END 2020-09-22 09:04 | disposition home or self-care (01) ==
LOC: HO.HOSX 09:03
PROVIDERS: Visit Provider Physician Assistant
DX: S32.810D Multiple fractures of pelvis with stable disruption of pelvic ring, subsequent encounter for fracture with routine healing (principal)
CPT/HCPCS: 72170; 99212

== ENCOUNTER → 2020-10-13 13:32 | Outpatient (BNVA) | payer MEDICARE, SELFPAY | PROVIDERS: Visit Provider Internal Medicine Gastroenterology | CPT/HCPCS: Q3014 ==

== ENCOUNTER 2020-12-02 08:37 | Day surgery (SDC) | payer MEDICARE, SELFPAY ==
[2020-11-24 20:14] VITALS: BMI 20.5
--- NOTE | 2020-12-01 09:01 | P.CONAN_ITS ---
Documented by User: Jane Riley 12/01/20 09:04 HPI - Anesthesia Eval Consult details Narrative: 75yo M for Upper Endoscopy and Colonoscopy +ETOH s/p EGD with Biopsy with MAC 06/2020 [facility] Active Problems Active Problems: All Active Problems (Updated 11/25/20 @ 09:07 by Jane Riley) Acute hyponatremia (Acute) Hypomagnesemia (Acute) Pelvic fracture (Acute) Hyponatremia (Acute) Rib fractures (Acute) Decreased appetite (Acute) Abnormal CT scan, esophagus (Acute) Pelvic fracture (Acute) Pelvic ring fracture with routine healing (Acute) Anemia (Acute) Colon cancer screening (Acute) Hiatal hernia without gangrene or obstruction (Acute) Erosive esophagitis (Acute) Past Medical History Medical History Aftercare following right shoulder joint replacement surgery Alcoholism Anemia Anxiety COPD (chronic obstructive pulmonary disease) Erosive esophagitis Falls Hiatal hernia without gangrene or obstruction Hyponatremia Osteoarthritis Rib fractures Spondylosis Syncope Family History Family History Father No problems noted. Mother No problems noted. Surgical History Surgical History History of esophagogastroduodenoscopy (EGD) History of shoulder surgery Hx of colonoscopy Social History Social History Household Members: None Alcohol intake: current Alcohol intake frequency: does not drink Alcohol type: hard liquor Smoking Status: Former smoker Packs Per Day: 0.5 Cigarettes Per Day: 10.0 Years Smoked: 20 Second Hand Smoke Exposure: Yes Use of substances other than those prescribed or required for medical reasons: No Have you been hit, kicked, punched, or otherwise hurt by someone within the past year? If so, by whom?: No Agree to transfusion: Yes Advance Directives: No Advance Directives Information Provided: No Advance Directives on File: No service: Yes ([employer]) Current occupational status: retired Sexual orientation: Decline to Answer Gender identity: male Meds Allergies Allergy/AdvReac Type Severity Reaction Status Date / Time shrimp Allergy Intermediate Anaphylaxis Verified 12/02/20 09:14 shellfish derived Allergy Unknown DIFFICULTY Verified 12/02/20 09:14 [SHELLFISH DERIVED] BREATHING lobster Allergy Intermediate Anaphylaxis Uncoded 12/02/20 09:14 Home Medications Medication Instructions Recorded Confirmed Last Taken Type albuterol sulfate 2 puff PO Q4H PRN 06/27/20 12/02/20 12/02/20 05:30 History acetaminophen 500 mg capsule 500 mg PO Q6H PRN 07/21/20 11/24/20 Unknown History ibuprofen 200 mg PO 12/02/20 12/02/20 05:30 History Exam Exam Date and Time: December 01, 2020 0901 Height,Weight and Vital Signs: Height 6 ft 2 in Weight 72.575 kg Narrative Narrative: EKG 06/2020 Vent. 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 Upper endoscopy indicated due to ongoing anemia and hx of erosive esophagitis. Colonscopy for screening has not been done in >15 years. If negative GI agrees to stop further screening colonoscopies given high perioperative risk and mortality risk from comorbidities in the next 5 years. Patient understands risk of serious illness and potential hospitalization following todays procedure and wishes to proceed. [facility] Past Medical History Medical History Aftercare following right shoulder joint replacement surgery Alcoholism Anemia Anxiety COPD (chronic obstructive pulmonary disease) Erosive esophagitis [place] Hiatal hernia without gangrene or obstruction Hyponatremia Osteoarthritis Rib fractures Spondylosis Syncope Family History Family History Father No problems noted. Mother No problems noted. Surgical History Surgical History History of esophagogastroduodenoscopy (EGD) History of shoulder surgery Hx of colonoscopy Social History Social History Household Members: None Alcohol intake: current Alcohol intake frequency: does not drink Alcohol type: hard liquor Smoking Status: Former smoker Packs Per Day: 0.5 Cigarettes Per Day: 10.0 Years Smoked: 20 Second Hand Smoke Exposure: Yes Use of substances other than those prescribed or required for medical reasons: No Have you been hit, kicked, punched, or otherwise hurt by someone within the past year? If so, by whom?: No Agree to transfusion: Yes Advance Directives: No Advance Directives Information Provided: No Advance Directives on File: No service: Yes ([employer]) Current occupational status: retired Sexual orientation: Decline to Answer Gender identity: male Meds Allergies Allergy/AdvReac Type Severity Reaction Status Date / Time shrimp Allergy Intermediate Anaphylaxis Verified 12/02/20 09:14 shellfish derived Allergy Unknown DIFFICULTY Verified 12/02/20 09:14 [SHELLFISH DERIVED] BREATHING lobster Allergy Intermediate Anaphylaxis Uncoded 12/02/20 09:14 Home Medications Medication Instructions Recorded Confirmed Last Taken Type albuterol sulfate 2 puff PO Q4H PRN 06/27/20 12/02/20 12/02/20 05:30 History acetaminophen 500 mg capsule 500 mg PO Q6H PRN 07/21/20 11/24/20 Unknown History ibuprofen 200 mg PO 12/02/20 12/02/20 05:30 History Assessment and Plan Assessment Anesthesia Assessment: Anesthesia Plan Discussed and Chart Reviewed Final Anesthetic Review NPO: Yes ASA Class: IV Final Preanesthetic Review: No Changes in Pt Med Stat, Meds/Allgs Chart Reviewed, Consent Obtained/Reviewed and Anes Risks/Benef Reviewed Patient Risk: High Procedure Risk: Low Anesthetic Plan Anesthetic Plan: MAC: Disposition: Standard PACU
[2020-12-02 08:56] LABS: Hematocrit 35.9 % (42-52); Hemoglobin 11.6 g/dl (14.0-18.0); Mean Corpuscular HGB Conc 32.3 g/dl (31.0-36.0); Mean Corpuscular Hemoglobin 26.7 pg (27.0-33.0); Mean Corpuscular Volume 82.5 fL (80-98); Mean Platelet Volume 8.2 fL (9.4-12.4); Platelet Count 503 X10*3/uL (160-400); Red Blood Count 4.35 X10*6/uL (4.60-5.80); Red Cell Distribution Width 13.8 % (11.0-16.0); White Blood Count 7.5 X10*3/uL (4.8-10.8)
[2020-12-02 09:01] LABS: INTERNATIONAL NORM RATIO 1.1 (0.9-1.1); Prothrombin Time 13.4 SEC (10.8-13.0)
[2020-12-02 09:04] VITALS: BP 143/72; PULSE 79; RESP 18; TEMP 36.1; O2SAT 100
--- NOTE | 2020-12-02 09:05 | PC.NURSE ---
PATIENT STATES HE TOOK IBUPROFEN THIS AM AT 0530. DR. ETIENNE.
[2020-12-02] MEDS: Lactated Ringers 1,000 ML 50 ML IV (09:13)
[2020-12-02 09:31] LABS: Alanine Aminotransferase 12 U/L (0-40); Albumin Level 3.9 g/dL (3.5-5.0); Alkaline Phosphatase 129 U/L (39-117); Anion Gap 16 (12-20); Aspartate Amino Transferase 19 U/L (5-37); Bilirubin Total 0.7 mg/dL (0.0-1.0); Blood Urea Nitrogen 11 mg/dL (9-16); Carbon Dioxide 23 mmol/L (22-29); Chloride 91 mmol/L (96-108); Creatinine Clr Calc Pharmacy 96.4; Estimated Glomerular Filt Rate > 60; Glucose Fasting 85 mg/dL (60-99); Potassium 4.6 mmol/L (3.3-5.1); Sodium 125 mmol/L (135-145); Total Protein 7.2 g/dL (6.5-8.0)
--- NOTE | 2020-12-02 09:33 | W.PM.OPN ---
Operative Note Operative Note Date of Service: 12/02/20 Narrative: Pre-op diagnosis: Colon cancer screening, GERD with erosive esophagitis, dysphagia, anemia Post-op diagnosis: other (Hiatal hernia, erosive esophagitis with stricture, gastritis, duodenitis, colon polyps, diverticulosis, hemorrhoids) Procedure: FLEXIBLE TRANSORAL UPPER GASTROINTESTINAL ENDOSCOPY WITH BIOPSIES AND ESOPHAGEAL BALLOON DILATION COLONOSCOPY TO CECUM WITH SNARE POLYPECTOMY UPPER ENDOSCOPY Consent: Indications for the procedure and potential complications of bleeding, perforation, reaction to medications and missed diagnosis were discussed with the patient and informed consent was obtained. Instrument: Olympus GIF H 190 mid size upper endoscope Monitoring: Vital signs and clinical assessment, continuous EKG monitoring, Pulse oximetry, Carbon Dioxide monitoring and blood pressure monitoring were done throughout the procedure. Procedure: The patient was placed in the left lateral decubitis position and pre-procedure medications were administered and a bite block was placed. The endoscope was inserted into the mouth and advanced under direct vision to the third part of duodenum. A careful inspection was made as the upper endoscope was withdrawn including a retroflexed examination of the proximal stomach; Findings and interventions are described below. Findings: Larynx: Normal Esophagus: GE junction at 38 cms, hiatal hernia 38 to 42 cms. Moderate esophagitis with ulcerations and erosions extending over the distal 1-2 cms of the esophagus with early stricture formation. Balloon dilation was performed with 15 mm, 16.5 mm and 18 mm CRE balloons for 60 seconds at each level. Stomach: Mild gastric erythema. Biopsies were obtained. Grade 4 flap valve on retroflexed examination of the cardia. Duodenum: Chronic appearing erosions in the bulb and normal descending duodenum Intervention: Biopsies as noted above COLONOSCOPY PROCEDURE NOTE Consent: Indications for the procedure and potential complications of bleeding, perforation, reaction to medications and missed diagnosis were discussed with the patient and informed consent was obtained. Instrument: Olympus PCF H 190 L variable stiffness pediatric colonoscope Monitoring: Vital signs and clinical assessment, intermittent blood pressure monitoring, continuous EKG monitoring, Pulse oximetry and Carbon Dioxide monitoring were done throughout the procedure. Colon withdrawl time was 18 minutes. Procedure: The patient was placed in the left lateral decubitis position and pre-procedure medications were administered. After a digital rectal examination of the ano-rectum, the video colonoscope was inserted into the rectum and advanced through the colon to the cecum. The colonoscope was slowly withdrawn in a retrograde panoramic fashion and the colon mucosa was carefully examined including a retroflexed view of the rectum. Findings and interventions are described below. Procedure Difficulty: : Colon was long and tortuous and there was recurrent loop formation. LLQ pressure was applied to intubate the ascending colon Findings: Terminal Ileum: Not evaluated Cecum: Normal Ascending Colon: Moderate diverticulosis Transverse Colon: Moderate diverticulosis Descending Colon: Moderate diverticulosis Sigmoid Colon: An 8-10 mm sessile polyp removed with a cold snare and moderate diverticulosis Rectum: Normal Ano-rectum: Moderate internal hemorrhoids Colon preparation: Good after some irrigation Impression and Post Procedure Diagnosis: Endoscopy Findings: ESOPHAGUS: GE junction at 38 cms, hiatal hernia 38 to 42 cms. Moderate esophagitis with ulcerations and erosions extending over the distal 1-2 cms of the esophagus with early stricture formation. Balloon dilation was performed with 15 mm, 16.5 mm and 18 mm CRE balloons for 60 seconds at each level. STOMACH: Gastritis DUODENUM: Duodenitis with chronic appearing erosions in the bulb Colonoscopy Findings: One medium sized polyp removed Moderate diverticulosis seen in the entire colon Moderate hemorrhoids on retroflexed exam. Plan: Await pathology results Patient has an appointment on 12/15/20 in the GI Clinic with Laine Santillan M.D. Repeat Colonoscopy interval based on path results - in 3-5 years if polyps are adenomatous and 10 years if polyps are hyperplastic. Above findings were reviewed with the patient and GERD, hiatal hernia, colon polyps and diverticulosis handouts were given in the discharge area. He was advised to resume taking omeprazole 20 mg twice daily - prescription was sent to his preferred pharmacy. 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 Gastric antrum, B. sigmoid colon polyp) Condition: stable Disposition: PACU
--- NOTE | 2020-12-02 09:33 | MHC.SHP ---
Pre-Procedural Eval Section A The patient is an INPATIENT: No The History & Physical has been completed within 30 days and I have reviewed it.: No Section B Chief Complaint: anemia,ulcer of esophagus Details of Present Illness: Colon cancer screening, follow-up of erosive esophagitis, dysphagia Relevant Social History: Tobacco Use (past smoker) Present Medications: see Short Stay Collaborative assessment Medical History: Significant History (Aftercare following right shoulder joint replacement surgery Alcoholism Anxiety Aortic stenosis COPD (chronic obstructive pulmonary disease) Erosive esophagitis [place] Hiatal hernia without gangrene or obstruction Osteoarthritis Rib fractures Spondylosis Syncope) History of Previous Operations: Relevant previous surgery/procedure and date(s) (History of shoulder surgery Hx of colonoscopy) Allergies: Allergies Allergy/AdvReac Type Severity Reaction Status Date / Time shrimp Allergy Intermediate Anaphylaxis Verified 12/02/20 09:14 shellfish derived Allergy Unknown DIFFICULTY Verified 12/02/20 09:14 [SHELLFISH DERIVED] BREATHING lobster Allergy Intermediate Anaphylaxis Uncoded 12/02/20 09:14 Review of Systems Sugical H&P ROS: Negative: Constitution, Cardiovascular and Respiratory and Yes, Specify: Gastrointestinal (dysphagia) Exam Surgical H&P Exam: Normal: Heart, Normal: Lungs, Normal: Extremities and Normal: Abdomen Plan Diagnosis/Plan: Unchanged I have reviewed the history and physical and performed a pertinent physical examination on my patient. No changes have occurred unless specified.
--- NOTE | 2020-12-02 09:39 | PC.NURSE ---
PATIENT'S SODIUM 125. DR. TRIPATHI AWARE AND CHECKED. DR. TRIPATHI STATED CHRONIC ISSUE WITH PATIENT. LUNGS CLEAR. PATIENT STATES COPD BUT NO O2 AT HOME. PATIENT STATES HE TOOK AN IBUPROFEN ONE TAB 200 MG AT [address] TRIPATHI NOTIFIED AND STATED THIS WAS OKAY. PATIENT STATES HIS LAST ALCOHOLIC DRINK WAS APPROXIMATELY 3 MONTHS AGO.
--- NOTE | 2020-12-02 09:43 | PC.NURSE ---
DR. TRIPATHI REVIEWED ALL LAB WORK DRAWN TODAY.
[2020-12-02 10:30] LABS: Iron 87 mcg/dL (45-160); Percent Iron Saturation 29 % (15-50); Total Iron Binding Capacity 296 mcg/dL (228-428); Unsaturated Iron Binding 209 ug/dL
[2020-12-02 10:50] VITALS: BP 125/71; PULSE 67; RESP 12; TEMP 36.7; O2SAT 100
[2020-12-02 10:50] LABS: Ferritin 148 ng/mL (20-250)
[2020-12-02 11:05] VITALS: BP 133/66; PULSE 70; RESP 16; TEMP 36.7; O2SAT 100
[2020-12-02 11:09] LABS: Vitamin B12 295 pg/mL (200-900)
== END 2020-12-02 12:26 | disposition home or self-care (01) ==
PROVIDERS: Nurse Practitioner; Visit Provider Internal Medicine Gastroenterology
PROC: (CPT 45385; principal; 2020-12-02 09:50)
DX: Z12.11 Encounter for screening for malignant neoplasm of colon (principal); D64.9 Anemia, unspecified; D12.5 Benign neoplasm of sigmoid colon; K57.30 Diverticulosis of large intestine without perforation or abscess without bleeding; K64.8 Other hemorrhoids; K22.2 Esophageal obstruction; K21.00 Gastro-esophageal reflux disease with esophagitis, without bleeding; K29.50 Unspecified chronic gastritis without bleeding; K29.80 Duodenitis without bleeding; K44.9 Diaphragmatic hernia without obstruction or gangrene; J44.9 Chronic obstructive pulmonary disease, unspecified; F10.20 Alcohol dependence, uncomplicated; E87.1 Hypo-osmolality and hyponatremia; Z91.81 History of falling; Z87.891 Personal history of nicotine dependence; Z79.899 Other long term (current) drug therapy
CPT/HCPCS: 45385; 43249; 43239; 36415; 80053; 82607; 82728; 83540; 85027; 85610; 88305; 88342; C1726

== ENCOUNTER → 2020-12-15 11:59 | Outpatient (BNVA) | payer MEDICARE, SELFPAY | PROVIDERS: Visit Provider Internal Medicine Gastroenterology | DX: K44.9 Diaphragmatic hernia without obstruction or gangrene (principal); K22.10 Ulcer of esophagus without bleeding; D64.9 Anemia, unspecified; R93.3 Abnormal findings on diagnostic imaging of other parts of digestive tract; Z86.010 Personal history of colon polyps; Z79.899 Other long term (current) drug therapy | CPT/HCPCS: Q3014 ==

== ENCOUNTER 2021-03-10 11:03 | Outpatient (REF) | payer MEDICARE, SELFPAY ==
[2021-03-10 14:00] LABS: MANUAL DIFF FLAG NO
[2021-03-10 14:15] LABS: Basophils Absolute Auto 0.1 X10*3/uL (0.0-0.2); Basophils Percent Auto 0.6 % (0-2); Eosinophils Absolute Auto 0.4 X10*3/uL (0.0-0.4); Eosinophils Percent Auto 4.7 % (0-4); Hematocrit 39.5 % (42-52); Hemoglobin 12.7 g/dl (14.0-18.0); Imm Gran Abs Auto 0.04 X10*3/uL (0.00-0.03); Imm Gran Pct Auto 0.5 % (0.0-0.4); Lymphocytes Absolute Auto 1.7 X10*3/uL (1.2-4.9); Lymphocytes Percent Auto 21.6 % (20-40); Mean Corpuscular HGB Conc 32.2 g/dl (31.0-36.0); Mean Corpuscular Volume 87.2 fL (80-98); Mean Platelet Volume 9.2 fL (9.4-12.4); Monocytes Absolute Auto 0.6 X10*3/uL (0.1-1.2); Monocytes Percent Auto 7.4 % (2-11); Neutrophils Absolute Auto 5.1 X10*3/uL (2.0-8.3); Neutrophils Percent Auto 65.2 % (45-73); Platelet Count 459 X10*3/uL (160-400); Red Blood Count 4.53 X10*6/uL (4.60-5.80); Red Cell Distribution Width 15.1 % (11.0-16.0); White Blood Count 7.8 X10*3/uL (4.8-10.8)
[2021-03-10 14:19] LABS: Prothrombin Time 11.8 SEC (10.8-13.0)
[2021-03-10 14:26] LABS: Alanine Aminotransferase 9 U/L (0-40); Albumin Level 4.3 g/dL (3.5-5.0); Alkaline Phosphatase 232 U/L (39-117); Anion Gap 15 (12-20); Aspartate Amino Transferase 19 U/L (5-37); Bilirubin Total 0.3 mg/dL (0.0-1.0); Blood Urea Nitrogen 10 mg/dL (9-16); Calcium 9.4 mg/dL (8.4-10.2); Carbon Dioxide 27 mmol/L (22-29); Chloride 96 mmol/L (96-108); Estimated Glomerular Filt Rate > 60; Glucose Random 112 mg/dL (60-115); Magnesium 1.9 mg/dL (1.6-2.6); Potassium 5.5 mmol/L (3.3-5.1); Sodium 132 mmol/L (135-145)
[2021-03-10 14:44] LABS: Vitamin D 25-OH Total 11.1 ng/mL (>30)
[2021-03-10 14:56] LABS: Folate 12.6 ng/mL (> or = 4.0); Vitamin B12 241 pg/mL (200-900)
[2021-03-11 10:07] LABS: LDL Cholesterol Direct 117 mg/dL (<100)
== END 2021-03-10 11:04 | disposition home or self-care (01) ==
LOC: HO.HMGCLDS 11:03
PROVIDERS: Internal Medicine Gastroenterology; PCP Internal Medicine; Visit Provider Internal Medicine
DX: E83.42 Hypomagnesemia (principal); D64.9 Anemia, unspecified; E87.1 Hypo-osmolality and hyponatremia; J45.20 Mild intermittent asthma, uncomplicated; Z76.89 Persons encountering health services in other specified circumstances
CPT/HCPCS: 36415; 80053; 82306; 82607; 82746; 83721; 83735; 84443; 85025; 85610

== ENCOUNTER 2021-04-05 08:00 | Outpatient (REF) | payer MEDICARE, SELFPAY ==
[2021-04-05 11:12] LABS: MANUAL DIFF FLAG NO
[2021-04-05 11:19] LABS: Basophils Absolute Auto 0.1 X10*3/uL (0.0-0.2); Basophils Percent Auto 0.6 % (0-2); Eosinophils Absolute Auto 0.7 X10*3/uL (0.0-0.4); Eosinophils Percent Auto 8.8 % (0-4); Hematocrit 39.9 % (42-52); Hemoglobin 12.8 g/dl (14.0-18.0); Imm Gran Abs Auto 0.03 X10*3/uL (0.00-0.03); Imm Gran Pct Auto 0.4 % (0.0-0.4); Lymphocytes Absolute Auto 2.1 X10*3/uL (1.2-4.9); Lymphocytes Percent Auto 26.6 % (20-40); Mean Corpuscular HGB Conc 32.1 g/dl (31.0-36.0); Mean Corpuscular Hemoglobin 28.6 pg (27.0-33.0); Mean Corpuscular Volume 89.1 fL (80-98); Mean Platelet Volume 9.1 fL (9.4-12.4); Monocytes Absolute Auto 0.8 X10*3/uL (0.1-1.2); Monocytes Percent Auto 9.7 % (2-11); Neutrophils Absolute Auto 4.2 X10*3/uL (2.0-8.3); Neutrophils Percent Auto 53.9 % (45-73); Platelet Count 515 X10*3/uL (160-400); Red Blood Count 4.48 X10*6/uL (4.60-5.80); Red Cell Distribution Width 13.8 % (11.0-16.0); White Blood Count 7.7 X10*3/uL (4.8-10.8)
[2021-04-05 11:28] LABS: Alanine Aminotransferase 8 U/L (0-40); Albumin Level 4.3 g/dL (3.5-5.0); Alkaline Phosphatase 162 U/L (39-117); Anion Gap 14 (12-20); Aspartate Amino Transferase 16 U/L (5-37); Bilirubin Total 0.6 mg/dL (0.0-1.0); Blood Urea Nitrogen 12 mg/dL (9-16); Calcium 9.5 mg/dL (8.4-10.2); Carbon Dioxide 26 mmol/L (22-29); Chloride 96 mmol/L (96-108); Estimated Glomerular Filt Rate > 60; Glucose Random 106 mg/dL (60-115); Potassium 5.2 mmol/L (3.3-5.1); Sodium 131 mmol/L (135-145); Total Protein 7.2 g/dL (6.5-8.0)
[2021-04-05 11:32] LABS: Alanine Aminotransferase 7 U/L (0-40); Albumin Level 4.3 g/dL (3.5-5.0); Alkaline Phosphatase 160 U/L (39-117); Anion Gap 14 (12-20); Aspartate Amino Transferase 15 U/L (5-37); Bilirubin Direct 0.2 mg/dL (0.0-0.5); Bilirubin Total 0.5 mg/dL (0.0-1.0); Blood Urea Nitrogen 13 mg/dL (9-16); Carbon Dioxide 26 mmol/L (22-29); Chloride 96 mmol/L (96-108); Estimated Glomerular Filt Rate > 60; Potassium 5.2 mmol/L (3.3-5.1); Sodium 131 mmol/L (135-145); Total Protein 7.2 g/dL (6.5-8.0)
== END 2021-04-05 08:01 | disposition home or self-care (01) ==
LOC: HO.HMGCLDS 08:00
PROVIDERS: Internal Medicine Gastroenterology; PCP Internal Medicine; Visit Provider Internal Medicine
DX: D47.3 Essential (hemorrhagic) thrombocythemia (principal); E87.1 Hypo-osmolality and hyponatremia; E87.5 Hyperkalemia; R79.89 Other specified abnormal findings of blood chemistry; D64.9 Anemia, unspecified
CPT/HCPCS: 36415; 80051; 80053; 80076; 82248; 82565; 84520; 85025

== ENCOUNTER 2021-06-04 14:10 | Inpatient (IN) | payer MEDICARE, SELFPAY ==
[2021-06-04 14:21] VITALS: BP 156/73; PULSE 90; RESP 18; TEMP 36.7; O2SAT 99; BMI 20.4
--- NOTE | 2021-06-04 15:40 | ED.RECABL ---
HPI - Recheck/Abnormal Lab/Rx General Chief Complaint: Recheck/Abnormal Lab/Rx Stated Complaint: hyponatremia Time Seen by Provider: 06/04/21 14:30 Source: patient Mode of arrival: ambulatory Limitations: no limitations History of Present Illness HPI narrative: Patient presents to ED for low sodium. Patient was at a short-term rehab facility for his hip fracture into the labs showed his sodium level is 121 supposed was sent to the ER. Patient has history of hyponatremia due to alcohol abuse. Patient denies any headache, slurred my chills, or any other concerning symptoms. Related Data Home Medications Medication Instructions Recorded Confirmed albuterol sulfate 90 mcg/actuation 2 puff PO Q4H PRN 06/27/20 04/04/21 aerosol inhaler acetaminophen 500 mg capsule 500 mg PO Q6H PRN 07/21/20 04/04/21 ibuprofen 200 mg PO 12/02/20 04/04/21 Previous Rx's Medication Instructions Recorded omeprazole 20 mg capsule,delayed 20 mg PO BID 30 Days #60 cap 12/02/20 release calcium carbonate 600 mg (1,500 See Rx Instructions PO .COMPLEX 60 12/15/20 mg)-vitamin D3 500 unit capsule Days #60 cap (Calcium 600 with Vitamin D3) ferrous sulfate 325 mg (65 mg 325 mg PO Q OTHER DAY 60 Days #30 12/15/20 iron) tablet tab cyanocobalamin (vitamin B-12) 1,000 mcg PO DAILY 90 Days #90 tab 03/10/21 1,000 mcg tablet albuterol sulfate 90 mcg/actuation 2 puff INHALATION Q4-6H PRN #6.7 g 04/04/21 aerosol inhaler Allergies Allergy/AdvReac Type Severity Reaction Status Date / Time shrimp Allergy Intermediate Anaphylaxis Verified 04/04/21 08:57 shellfish derived Allergy Unknown DIFFICULTY Verified 04/04/21 08:57 [SHELLFISH DERIVED] BREATHING lobster Allergy Intermediate Anaphylaxis Uncoded 04/04/21 08:57 Review of Systems Review of Systems: Yes all other systems are reviewed and are negative Constitutional: Constitutional: Reports as per HPI and Reports no additional constitutional complaints Eyes: Eyes: Reports as per HPI and Reports no additional eye complaints ENT: Reports system reviewed and no additional complaints, except as documented and Reports as per HPI Cardiovascular: Cardiovascular: Reports as per HPI and Reports no additional cardiovascular complaints Respiratory: Respiratory: Reports as per HPI and Reports no additional respiratory complaints Gastrointestinal: Gastrointestinal: Reports as per HPI and Reports no additional gastrointestinal complaints Genitourinary: Genitourinary: Reports no additional male genitourinary complaints and Reports as per HPI Musculoskeletal: Musculoskeletal: Reports no additional musculoskeletal complaints and Reports as per HPI Integumentary/Breasts: Skin/Breast: Reports system reviewed and no additional complaints, except as docu and Reports as per HPI Neurologic: Reports system reviewed and no additional complaints, except as documented and Reports as per HPI Psychiatric: Psychiatric: Reports no additional psychiatric complaints and Reports as per HPI [facility] Past Medical History Medical History Aftercare following right shoulder joint replacement surgery Alcoholism Anemia Anxiety COPD (chronic obstructive pulmonary disease) Erosive esophagitis [place] Hiatal hernia without gangrene or obstruction Hyponatremia Osteoarthritis Rib fractures Spondylosis Syncope Surgical History History of esophagogastroduodenoscopy (EGD) History of shoulder surgery Hx of colonoscopy Family History Family History Father No problems noted. Mother No problems noted. Social History Social History Household Members: None Housing: House Housing Other:: rehab snf Do you presently have visiting nurse or other home services: No Alcohol intake: never Patient Tobacco Use Status: Former Tobacco user Quit Date: 1999 Tobacco use type: Cigarette Cigarette Packs Per Day: 0.5 Cigarettes Per Day: 10.0 Years Smoked: 20 Second Hand Smoke Exposure: Yes Use of substances other than those prescribed or required for medical reasons: No Agree to transfusion: Yes Advance Directives: No Advance Directives Information Provided: No service: Yes ([employer]) Current occupational status: retired Sexual orientation: Decline to Answer Gender identity: Male Physical Exam Vital Signs: Vital Signs: Last Vital Signs Temp 98.4 F 06/04/21 16:13 Pulse 73 06/04/21 16:13 Resp 18 06/04/21 16:13 BP 128/64 06/04/21 16:13 Pulse Ox 98 06/04/21 16:13 Body Mass Index 20.4 Const: General: cooperative, healthy appearing, comfortable, no acute distress, well developed, alert, awake and Physically active Orientation/consciousness: patient oriented x3 HENMT: Head: Yes normal to inspection, Yes No palpable skull fracture present, Yes normocephalic and Yes atraumatic Eyes: General: appearance normal, both eyes and all related structures Neck: Neck: Yes normal visual inspection, Yes full ROM, Yes no lymphadenopathy, Yes no meningeal signs, Yes trachea midline, Yes supple and No tender Chest: Chest palpation & inspection: normal inspection of the chest Resp: Effort & Inspection: normal respiratory effort and able to speak in complete sentences Auscultation: clear to auscultation bilaterally Cardio: Jugular venous distension: no JVD Heart sounds: S1 normal heart sound present and S2 normal heart sound present GI: Inspection: Yes normal to inspection and No abdominal wall ecchymosis Palpation (GI): Soft to palpation, not firm, nontender, no guarding and not rigid : General: No CVA tenderness and Yes no CVA tenderness Back/Spine/Pelvis: Back: no CVA tenderness, No CVA tenderness and No back tenderness Skin: General skin exam: no rashes or lesions noted and elasticity normal Neuro: General: patient oriented x3, gait normal, no meningeal signs and CN's II-XI intact bilaterally Cranial nerves: Yes CN's II-XII intact bilaterally Extrem: General: Yes normal to inspection and Yes full ROM Psych: Appearance: grossly normal, well kempt and not disheveled Course Course Course Narrative: Patient will have labs redrawn. UA lytes will be sent. Patient is not any distress. Patient alert oriented x3 Reevaluation(s) Reevaluation #1: Patient to be admitted for hyponatremia. Notes were reviewed which showed patient hyponatremia in the past improved with fluid restriction. It is still waiting on Nephrology to call back. Patient to be admitted. Hospitalist made aware. Patient is asymptomatic. Time: 18:07 MDM - Recheck/Abnormal Lab/Rx MDM Narrative Medical decision making narrative: Hyponatremia Lab Data Result diagrams: 06/04/21 16:01 06/04/21 16:01 Labs: Lab Results 06/04/21 06/04/21 06/04/21 Range/Units 16:01 16:01 16:01 WBC 7.8 (4.8-10.8) X10*3/uL RBC 3.31 L D (4.60-5.80) X10*6/uL Hgb 9.9 L D (14.0-18.0) g/dl Hct 29.3 L D (42-52) % MCV 88.5 (80-98) fL MCH 29.9 (27.0-33.0) pg MCHC 33.8 (31.0-36.0) g/dl RDW 15.5 (11.0-16.0) % Plt Count 504 H (160-400) X10*3/uL MPV 8.8 L (9.4-12.4) fL Immature Gran % (Auto) 3.0 H (0.0-0.4) % Neut % (Auto) 64.6 (45-73) % Lymph % (Auto) 15.6 L (20-40) % [place] % (Auto) 14.2 H (2-11) % Eos % (Auto) 2.3 (0-4) % Baso % (Auto) 0.3 (0-2) % Lymph # (Auto) 1.2 (1.2-4.9) X10*3/uL [place] # (Auto) 1.1 (0.1-1.2) X10*3/uL Eos # (Auto) 0.2 (0.0-0.4) X10*3/uL Baso # (Auto) 0.0 (0.0-0.2) X10*3/uL Abs Immat Gran (auto) 0.23 H (0.00-0.03) X10*3/uL Absolute Neuts (auto) 5.0 (2.0-8.3) X10*3/uL Absolute Nucleated RBC 0.000 (0.0-0.012) X10*3/uL Nucleated RBC % (auto) 0.0 (0.0-0.2) /100WBC Sodium 122 L (135-145) mmol/L Potassium 5.2 H (3.3-5.1) mmol/L Chloride 87 L (96-108) mmol/L Carbon Dioxide 26 (22-29) mmol/L Anion Gap 14 (12-20) BUN 13 (9-16) mg/dL Creatinine 0.74 (0.5-1.4) mg/dL Estim Creat Clear Calc 87.0 Estimated GFR > 60 Random Glucose 95 (60-115) mg/dL Calcium 8.6 D (8.4-10.2) mg/dL Magnesium 1.9 Cancelled (1.6-2.6) mg/dL Total Bilirubin 1.1 H (0.0-1.0) mg/dL AST 22 (5-37) U/L ALT 13 (0-40) U/L Alkaline Phosphatase 133 H (39-117) U/L Total Protein 5.9 L (6.5-8.0) g/dL Albumin 3.6 (3.5-5.0) g/dL Discharge Plan Discharge Clinical Impression: Hyponatremia Patient Disposition: Admitted As Inpatient
[2021-06-04 16:05] LABS: MANUAL DIFF FLAG NO
[2021-06-04 16:07] LABS: Basophils Percent Auto 0.3 % (0-2); Eosinophils Absolute Auto 0.2 X10*3/uL (0.0-0.4); Eosinophils Percent Auto 2.3 % (0-4); Hematocrit 29.3 % (42-52); Hemoglobin 9.9 g/dl (14.0-18.0); Imm Gran Abs Auto 0.23 X10*3/uL (0.00-0.03); Lymphocytes Absolute Auto 1.2 X10*3/uL (1.2-4.9); Lymphocytes Percent Auto 15.6 % (20-40); Mean Corpuscular HGB Conc 33.8 g/dl (31.0-36.0); Mean Corpuscular Hemoglobin 29.9 pg (27.0-33.0); Mean Corpuscular Volume 88.5 fL (80-98); Mean Platelet Volume 8.8 fL (9.4-12.4); Monocytes Absolute Auto 1.1 X10*3/uL (0.1-1.2); Monocytes Percent Auto 14.2 % (2-11); Neutrophils Percent Auto 64.6 % (45-73); Platelet Count 504 X10*3/uL (160-400); Red Blood Count 3.31 X10*6/uL (4.60-5.80); Red Cell Distribution Width 15.5 % (11.0-16.0); White Blood Count 7.8 X10*3/uL (4.8-10.8)
[2021-06-04 16:13] VITALS: BP 128/64; PULSE 73; RESP 18; TEMP 36.9; O2SAT 98
[2021-06-04 16:39] LABS: Alanine Aminotransferase 13 U/L (0-40); Albumin Level 3.6 g/dL (3.5-5.0); Alkaline Phosphatase 133 U/L (39-117); Aspartate Amino Transferase 22 U/L (5-37); Bilirubin Total 1.1 mg/dL (0.0-1.0); Blood Urea Nitrogen 13 mg/dL (9-16); Calcium 8.6 mg/dL (8.4-10.2); Estimated Glomerular Filt Rate > 60; Glucose Random 95 mg/dL (60-115); Magnesium 1.9 mg/dL (1.6-2.6); Total Protein 5.9 g/dL (6.5-8.0)
[2021-06-04 16:48] LABS: Anion Gap 14 (12-20); Carbon Dioxide 26 mmol/L (22-29); Chloride 87 mmol/L (96-108); Potassium 5.2 mmol/L (3.3-5.1); Sodium 122 mmol/L (135-145)
[2021-06-04 18:22] LABS: Potassium Urine Random 61.5 mmol/L
[2021-06-04 18:26] LABS: Creatinine Urine 127.03 mg/dL
[2021-06-04 18:28] LABS: COVID-19 Test Negative (Negative)
[2021-06-04 18:30] LABS: Osmolality Urine 590 mosm/kg (373-1093)
--- NOTE | 2021-06-04 19:09 | P.HPHOSP_ITS ---
History of Present Illness Date of Service: 06/04/21 Chief Complaint: Hyponatremia 75-year-old male with a past medical history anxiety, depression, COPD, alcohol abuse, hiatal hernia, recent history fracture, currently in a rehab presented to the hospital with the complaint of hyponatremia. Patient reports that he had routine labs done at the rehab and noted to have hyponatremia with sodium 121. Subsequently sent the ER for further evaluation. Patient denies any seizure-like activity. Denies any chest pain palpitations lightheadedness or dizziness. Denies any headaches numbness tingling or focal weakness. Denies any fever chills cough. Denies any GI or symptoms. Patient reports that had a history of alcohol use and hyponatremia in the past; Review of all other systems is negative except mentioned above ER course: Per ER team patient noted to have sodium level of 122; discussed with Nephrology on-call who suggested to the patient on fluid restrictions and recheck the sodium levels. Admitted to the hospital for further management PMFSH Medical History Aftercare following right shoulder joint replacement surgery Alcoholism Anemia Anxiety COPD (chronic obstructive pulmonary disease) Erosive esophagitis Falls Hiatal hernia without gangrene or obstruction Hyponatremia Osteoarthritis Rib fractures Spondylosis Syncope Family History Father No problems noted. Mother No problems noted. Pertinent family history: As mentioned above Surgical History History of esophagogastroduodenoscopy (EGD) History of shoulder surgery Hx of colonoscopy Social History Household Members: None Housing: House Housing Other:: rehab snf Do you presently have visiting nurse or other home services: No Alcohol intake: never Patient Tobacco Use Status: Former Tobacco user Quit Date: 1999 Tobacco use type: Cigarette Cigarette Packs Per Day: 0.5 Cigarettes Per Day: 10.0 Years Smoked: 20 Second Hand Smoke Exposure: Yes Use of substances other than those prescribed or required for medical reasons: No Agree to transfusion: Yes Advance Directives: No Advance Directives Information Provided: No service: Yes ([employer]) Current occupational status: retired Sexual orientation: Decline to Answer Gender identity: Male Meds Allergies Allergy/AdvReac Type Severity Reaction Status Date / Time shrimp Allergy Intermediate Anaphylaxis Verified 04/04/21 08:57 shellfish derived Allergy Unknown DIFFICULTY Verified 04/04/21 08:57 [SHELLFISH DERIVED] BREATHING lobster Allergy Intermediate Anaphylaxis Uncoded 04/04/21 08:57 Active Medications: Current Medications Acetaminophen (Acetaminophen 325 Mg Tablet) 650 mg PO Q6H PRN PRN Reason: Pain, Mild (Pain Scale 1-3) Melatonin (Melatonin 3 Mg Tablet) 6 mg PO BEDTIME PRN PRN Reason: Insomnia Senna (Sennosides 8.6 Mg Tablet) 17.2 mg PO BEDTIME PRN PRN Reason: Constipation Sodium Chloride (0.9 % Sodium Chloride Flush 3 Ml Syringe) 3 ml IVFLUSH [facility] Home Medications Medication Instructions Recorded Confirmed Last Taken Type albuterol sulfate 90 mcg/actuation 2 puff PO Q4H PRN 06/27/20 04/04/21 12/02/20 05:30 History aerosol inhaler acetaminophen 500 mg capsule 500 mg PO Q6H PRN 07/21/20 04/04/21 Unknown History ibuprofen 200 mg PO 12/02/20 04/04/21 12/02/20 05:30 History Physical Exam Vital Signs and Narrative: Vital Signs: Last Vital Signs Temp 98.4 F 06/04/21 16:13 Pulse 73 06/04/21 16:13 Resp 18 06/04/21 16:13 BP 128/64 06/04/21 16:13 Pulse Ox 98 06/04/21 16:13 Body Mass Index 20.4 Gen: Appears be in no acute distress HEENT: NCAT, Moist mucosa. Pulmonary: Vesicular breath sounds, fair air entry CVS: Normal S1-S2 Abdomen: BS+, Soft, Nontender Extremities: Warm well perfused Neuro: Alert and awake. Results Labs CBC and Chem 7: 06/04/21 16:01 06/04/21 16:01 Labs: Laboratory Results - last 24 hr 06/04/21 06/04/21 06/04/21 16:01 16:01 16:01 MCV 88.5 MCH 29.9 MCHC 33.8 RDW 15.5 Plt Count 504 H MPV 8.8 L Immature Gran % (Auto) 3.0 H Neut % (Auto) 64.6 Lymph % (Auto) 15.6 L [place] % (Auto) 14.2 H Eos % (Auto) 2.3 Baso % (Auto) 0.3 Lymph # (Auto) 1.2 [place] # (Auto) 1.1 Eos # (Auto) 0.2 Baso # (Auto) 0.0 Abs Immat Gran (auto) 0.23 H Absolute Neuts (auto) 5.0 Absolute Nucleated RBC 0.000 Nucleated RBC % (auto) 0.0 Anion Gap 14 Estim Creat Clear Calc 87.0 Estimated GFR > 60 Random Glucose 95 Calcium 8.6 D Magnesium 1.9 Cancelled Total Bilirubin 1.1 H AST 22 ALT 13 Alkaline Phosphatase 133 H Total Protein 5.9 L Albumin 3.6 Urine Osmolality Ur Random Sodium Ur Random Potassium Ur Random Chloride Urine Creatinine COVID-19 (ATIYA) COVID-19 Clin Com 06/04/21 06/04/21 06/04/21 18:03 18:03 18:03 MCV MCH MCHC RDW Plt Count MPV Immature Gran % (Auto) Neut % (Auto) Lymph % (Auto) [place] % (Auto) Eos % (Auto) Baso % (Auto) Lymph # (Auto) [place] # (Auto) Eos # (Auto) Baso # (Auto) Abs Immat Gran (auto) Absolute Neuts (auto) Absolute Nucleated RBC Nucleated RBC % (auto) Anion Gap Estim Creat Clear Calc Estimated GFR Random Glucose Calcium Magnesium Total Bilirubin AST ALT Alkaline Phosphatase Total Protein Albumin Urine Osmolality Ur Random Sodium 35.0 35.0 Ur Random Potassium 61.5 Ur Random Chloride 27.0 Urine Creatinine 127.03 COVID-19 (ATIYA) Negative COVID-19 Clin Com See Note 06/04/21 18:03 MCV MCH MCHC RDW Plt Count MPV Immature Gran % (Auto) Neut % (Auto) Lymph % (Auto) [place] % (Auto) Eos % (Auto) Baso % (Auto) Lymph # (Auto) [place] # (Auto) Eos # (Auto) Baso # (Auto) Abs Immat Gran (auto) Absolute Neuts (auto) Absolute Nucleated RBC Nucleated RBC % (auto) Anion Gap Estim Creat Clear Calc Estimated GFR Random Glucose Calcium Magnesium Total Bilirubin AST ALT Alkaline Phosphatase Total Protein Albumin Urine Osmolality 590 Ur Random Sodium Ur Random Potassium Ur Random Chloride Urine Creatinine COVID-19 (ATIYA) COVID-19 Clin Com Assessment and Plan (1) Hyponatremia: Status: Acute 75-year-old male with a past medical history anxiety, depression, COPD, alcohol abuse, hiatal hernia, recent history fracture, currently in a rehab presented to the hospital with the complaint of hyponatremia. Hyponatremia: Patient currently asymptomatic. Urine osmolality 590; urine chloride 27; urine sodium 35. Serum osmolality pending Nephrology aware of the patient-recommended fluid restriction. Serial BMP History of COPD: Stable. Sammie p.r.n.. GI prophylaxis: Pepcid DVT prophylaxis: Lovenox Code status: Full code Quality Stroke Does the patient have a stroke diagnosis?: No VTE Prior VTE?: No VTE Risk Level:: Medical - moderate - high VTE Device Contraindication: N/A - Device Ordered VTE Drug Contraindication: Treatment Not Indicated
[2021-06-04 19:23] VITALS: BP 122/67; PULSE 76; RESP 15; O2SAT 98
--- NOTE | 2021-06-04 20:09 | PC.NURSE ---
This RN attempted to report x 1
[2021-06-04 21:02] LABS: Anion Gap 15 (12-20); Blood Urea Nitrogen 12 mg/dL (9-16); Calcium 8.4 mg/dL (8.4-10.2); Carbon Dioxide 24 mmol/L (22-29); Chloride 87 mmol/L (96-108); Creatinine Clr Calc Pharmacy 96.1; Estimated Glomerular Filt Rate > 60; Glucose Random 93 mg/dL (60-115); Potassium 4.7 mmol/L (3.3-5.1); Sodium 121 mmol/L (135-145)
[2021-06-04 21:11] VITALS: BP 158/76; PULSE 86; RESP 16; TEMP 36.8; O2SAT 99
[2021-06-05 00:27] LABS: Osmolality, Serum 255 mosm/kg (281-305)
[2021-06-05 01:01] VITALS: BMI 20.7
[2021-06-05 04:00] VITALS: BP 129/66; PULSE 74; RESP 18; TEMP 36.5; O2SAT 97
[2021-06-05 06:10] LABS: MANUAL DIFF FLAG NO
[2021-06-05 06:14] LABS: Basophils Percent Auto 0.5 % (0-2); Eosinophils Absolute Auto 0.2 X10*3/uL (0.0-0.4); Eosinophils Percent Auto 2.9 % (0-4); Hematocrit 30.6 % (42-52); Hemoglobin 10.3 g/dl (14.0-18.0); Imm Gran Abs Auto 0.33 X10*3/uL (0.00-0.03); Lymphocytes Absolute Auto 1.4 X10*3/uL (1.2-4.9); Lymphocytes Percent Auto 20.8 % (20-40); Mean Corpuscular HGB Conc 33.7 g/dl (31.0-36.0); Mean Corpuscular Hemoglobin 30.1 pg (27.0-33.0); Mean Corpuscular Volume 89.5 fL (80-98); Monocytes Absolute Auto 0.9 X10*3/uL (0.1-1.2); Monocytes Percent Auto 13.4 % (2-11); Neutrophils Absolute Auto 3.8 X10*3/uL (2.0-8.3); Neutrophils Percent Auto 57.4 % (45-73); Platelet Count 576 X10*3/uL (160-400); Red Blood Count 3.42 X10*6/uL (4.60-5.80); Red Cell Distribution Width 15.4 % (11.0-16.0); White Blood Count 6.7 X10*3/uL (4.8-10.8)
[2021-06-05 06:29] LABS: Anion Gap 13 (12-20); Blood Urea Nitrogen 12 mg/dL (9-16); Calcium 8.8 mg/dL (8.4-10.2); Carbon Dioxide 27 mmol/L (22-29); Chloride 87 mmol/L (96-108); Creatinine Clr Calc Pharmacy 96.2; Estimated Glomerular Filt Rate > 60; Glucose Random 83 mg/dL (60-115); Potassium 5.4 mmol/L (3.3-5.1); Sodium 122 mmol/L (135-145)
[2021-06-05 08:00] VITALS: BP 137/80; PULSE 81; RESP 17; TEMP 36.8; O2SAT 97
--- NOTE | 2021-06-05 09:30 | P.CDIC_ITS ---
CDI Concurrent Query Documentation Clarification: PHYSICIAN'S DOCUMENTATION REQUEST Date of Query: 06/05/21930 Patient Name: Devaughn Sánchez Admit Date: 06/04/21 Dear Doctor, A review of the medical record indicates additional documentation may be needed. Please review below and update the documentation accordingly. Labs: Hyperkalemia Other etiology, please specify if known or undetermined Risk Factors/Clinical Indicators/Treatments Lab findings: potassium 5.4 H Based on the above, could you clarify in the Progress Notes the appropriate diagnosis, if significant, that supports the above abnormalities and additional evaluation, monitoring, and/or treatment rendered: * Labs indicate a diagnosis of (please specify) * Other (please specify) * Unable to determine Use of terms such as suspected, likely, concern for, or probable (associated with a specific diagnosis that is being evaluated, monitored, or treated as if it exists) are acceptable and can be coded in the inpatient setting, when documented at the time of discharge. Thank you, Kena Chen [facility], CDIS Extension: [phone] Please use your independent medical judgment in providing your response. THIS QUERY IS PART OF THE PERMANENT MEDICAL RECORD
--- NOTE | 2021-06-05 10:10 | HO.PM.IMPN ---
Subjective Subjective Date of Service: 06/05/21 Interval History: No acute issues overnight. Mildly short of breath this a.m. relieved with inhaler. No pain related to right hip surgery Review of Systems No cardiac complaints No pain related to recent hip surgery No new respiratory complaints Physical Exam Vital Signs: Vital Signs: Last Vital Signs Temp 98.2 F 06/05/21 08:00 Pulse 81 06/05/21 08:00 Resp 17 06/05/21 08:00 BP 137/80 06/05/21 08:00 Pulse Ox 97 06/05/21 08:00 Body Mass Index 20.7 Const: General: no acute distress Resp: Other: Diminished at bases Auscultation: clear to auscultation bilaterally, no rales, no rhonchi and no wheezes Cardio: Rate: regular rate Rhythm: regular rhythm Heart sounds: S1 normal heart sound present, S2 normal heart sound present and no murmurs GI: Other: Soft nontender nondistended with normoactive bowel sounds. There is no appreciable hepatosplenomegaly. No overt peritoneal signs Neuro: Other: Age-appropriate nonfocal Extrem: General: Yes normal to inspection Right upper extremity: No no edema Objective Data Active Medications Acetaminophen (Acetaminophen 325 Mg Tablet) 650 mg PO Q6H PRN PRN Reason: Pain, Mild (Pain Scale 1-3) Albuterol/Ipratropium (Albuterol/Iprat 2.5/0.5mg 3 Ml Ampul.Neb) 3 ml INHALE RQ4H PRN PRN Reason: Shortness of Breath/Wheezing Enoxaparin Sodium (Enoxaparin Sodium 40 Mg/0.4 Ml Syringe) 40 mg SUBCUT Q24H [facility] Last Admin: 06/04/21 20:28 Dose: Not Given Documented by: CRYSTAL Non-Admin Reason: Taken at Home Melatonin (Melatonin 3 Mg Tablet) 6 mg PO BEDTIME PRN PRN Reason: Insomnia Oxycodone HCl (Oxycodone Hcl Immed Release 5 Mg Tablet) 5 mg PO Q6H PRN PRN Reason: Breakthrough Pain Senna (Sennosides 8.6 Mg Tablet) 17.2 mg PO BEDTIME PRN PRN Reason: Constipation Sodium Chloride (0.9 % Sodium Chloride Flush 3 Ml Syringe) 3 ml IVFLUSH [facility] Last Admin: 06/05/21 00:51 Dose: Not Given Documented by: SUNG Non-Admin Reason: Previously Administered Labs CBC & Chem 7: 06/05/21 05:25 06/05/21 05:25 Labs: Laboratory Results - last 24 hr 06/04/21 06/04/21 06/04/21 16:01 16:01 16:01 MCV 88.5 MCH 29.9 MCHC 33.8 RDW 15.5 Plt Count 504 H MPV 8.8 L Immature Gran % (Auto) 3.0 H Neut % (Auto) 64.6 Lymph % (Auto) 15.6 L [place] % (Auto) 14.2 H Eos % (Auto) 2.3 Baso % (Auto) 0.3 Lymph # (Auto) 1.2 [place] # (Auto) 1.1 Eos # (Auto) 0.2 Baso # (Auto) 0.0 Abs Immat Gran (auto) 0.23 H Absolute Neuts (auto) 5.0 Absolute Nucleated RBC 0.000 Nucleated RBC % (auto) 0.0 Anion Gap 14 Estim Creat Clear Calc 87.0 Estimated GFR > 60 Random Glucose 95 Osmolality Calcium 8.6 D Magnesium 1.9 Cancelled Total Bilirubin 1.1 H AST 22 ALT 13 Alkaline Phosphatase 133 H Total Protein 5.9 L Albumin 3.6 Urine Osmolality Ur Random Sodium Ur Random Potassium Ur Random Chloride Urine Creatinine COVID-19 (ATIYA) COVID-19 eyeOS Com 06/04/21 06/04/21 06/04/21 16:01 18:03 18:03 MCV MCH MCHC RDW Plt Count MPV Immature Gran % (Auto) Neut % (Auto) Lymph % (Auto) Carbon % (Auto) Eos % (Auto) Baso % (Auto) Lymph # (Auto) [place] # (Auto) Eos # (Auto) Baso # (Auto) Abs Immat Gran (auto) Absolute Neuts (auto) Absolute Nucleated RBC Nucleated RBC % (auto) Anion Gap Estim Creat Clear Calc Estimated GFR Random Glucose Osmolality 255 L Calcium Magnesium Total Bilirubin AST ALT Alkaline Phosphatase Total Protein Albumin Urine Osmolality Ur Random Sodium 35.0 Ur Random Potassium Ur Random Chloride Urine Creatinine 127.03 COVID-19 (TAIYA) Negative COVID-19 Clin Com See Note 06/04/21 06/04/21 06/04/21 18:03 18:03 20:33 MCV MCH MCHC RDW Plt Count MPV Immature Gran % (Auto) Neut % (Auto) Lymph % (Auto) Carbon % (Auto) Eos % (Auto) Baso % (Auto) Lymph # (Auto) Carbon # (Auto) Eos # (Auto) Baso # (Auto) Abs Immat Gran (auto) Absolute Neuts (auto) Absolute Nucleated RBC Nucleated RBC % (auto) Anion Gap 15 Estim Creat Clear Calc 96.1 Estimated GFR > 60 Random Glucose 93 Osmolality Calcium 8.4 Magnesium Total Bilirubin AST ALT Alkaline Phosphatase Total Protein Albumin Urine Osmolality 590 Ur Random Sodium 35.0 Ur Random Potassium 61.5 Ur Random Chloride 27.0 Urine Creatinine COVID-19 (ATIYA) COVID-19 [employer] 06/05/21 06/05/21 05:25 05:25 MCV 89.5 MCH 30.1 MCHC 33.7 RDW 15.4 Plt Count 576 H MPV 9.0 L Immature Gran % (Auto) 5.0 H Neut % (Auto) 57.4 Lymph % (Auto) 20.8 Carbon % (Auto) 13.4 H Eos % (Auto) 2.9 Baso % (Auto) 0.5 Lymph # (Auto) 1.4 Carbon # (Auto) 0.9 Eos # (Auto) 0.2 Baso # (Auto) 0.0 Abs Immat Gran (auto) 0.33 H Absolute Neuts (auto) 3.8 Absolute Nucleated RBC 0.000 Nucleated RBC % (auto) 0.0 Anion Gap 13 Estim Creat Clear Calc 96.2 Estimated GFR > 60 Random Glucose 83 Osmolality Calcium 8.8 Magnesium Total Bilirubin AST ALT Alkaline Phosphatase Total Protein Albumin Urine Osmolality Ur Random Sodium Ur Random Potassium Ur Random Chloride Urine Creatinine COVID-19 (ATIYA) COVID-19 [employer] Assessment and Plan (1) Hyponatremia: Status: Acute Assessment and Plan: Sodium stable. Patient asymptomatic at this time. Continue fluid restriction and await renal input (2) Asthma: Status: Acute Assessment and Plan: Breathing at baseline. Shortness of breath relieved with p.r.n. albuterol. (3) Hyperkalemia: Status: Acute Assessment and Plan: Mild elevation; no changes in therapy until seen by Renal. Quality Stroke Does the patient have a stroke diagnosis?: No VTE Prior VTE?: No VTE Risk Level:: Medical - moderate - high VTE Device Contraindication: Treatment Not Indicated VTE Drug Contraindication: N/A - Med Ordered
[2021-06-05 11:19] LABS: Anion Gap 14 (12-20); Blood Urea Nitrogen 13 mg/dL (9-16); Calcium 8.4 mg/dL (8.4-10.2); Carbon Dioxide 25 mmol/L (22-29); Chloride 87 mmol/L (96-108); Creatinine Clr Calc Pharmacy 102.2; Estimated Glomerular Filt Rate > 60; Glucose Fasting 87 mg/dL (60-99); Potassium 4.6 mmol/L (3.3-5.1); Sodium 121 mmol/L (135-145)
[2021-06-05 11:55] VITALS: BP 117/65; PULSE 75; RESP 18; TEMP 36.6; O2SAT 97
[2021-06-05] MEDS: Albuterol/Iprat 2.5/0.5MG 3 ML AMPUL.NEB INHALE (12:01)
[2021-06-05 12:02] VITALS: O2SAT 93
[2021-06-05] MEDS: 0.9 % Sodium Chloride Flush 3 ML SYRINGE IVFLUSH ×3 (12:47→21:01)
--- NOTE | 2021-06-05 14:46 | MHC.INPTTRAN ---
A@O. denies pain. Cont monitoring labs and Fluid restriction Denies pain. takes meds whole without diff. Barrera diet. OOB with assist.. Pleasant, so operative. Had BM yesterday n . voiding qs.
[2021-06-05 14:57] VITALS: BP 122/62; PULSE 72; RESP 20; TEMP 36.7; O2SAT 98
--- NOTE | 2021-06-05 16:24 | MHC.CM.PN ---
PT REPORTS HE LIVES ALONE BUT HAS BEEN AT [facility] FOR STR PT REPORTS AT HOME HE HAS NO SERVICES AND USES A WALKER TO AMBULATE PT HAS A MOLST ON FILE AND IS NOT INTERESTED IN COMPLETING A HCP PT REPORTS [place] [facility] [place] HE BELIEVES IT IS KARLOS FALCON IMM DELIVERED CURRENT DC PLAN IS RETURN TO [facility] TO COMPLETE STR PENDING PT TORO ALONZO VS CHAIR FRIEDMAN
[2021-06-05 18:57] VITALS: BP 117/62; PULSE 70; RESP 20; TEMP 36.4; O2SAT 98
[2021-06-05] MEDS: Urea 15 GM POWDER PO (20:51)
[2021-06-05] MEDS: Enoxaparin Sodium 40 MG/0.4 ML SYRINGE SUBCUT (20:51)
[2021-06-05] MEDS: Melatonin 3 MG TABLET 6 MG PO (20:51)
[2021-06-06] VITALS: BP 110/58; PULSE 71; RESP 18; TEMP 36.5; O2SAT 96
[2021-06-06 03:16] VITALS: BP 120/69; PULSE 70; RESP 18; TEMP 36.2; O2SAT 98
[2021-06-06 06:44] LABS: Hematocrit 28.2 % (42-52); Hemoglobin 9.5 g/dl (14.0-18.0); Mean Corpuscular HGB Conc 33.7 g/dl (31.0-36.0); Mean Corpuscular Hemoglobin 29.8 pg (27.0-33.0); Mean Corpuscular Volume 88.4 fL (80-98); Mean Platelet Volume 8.8 fL (9.4-12.4); Platelet Count 586 X10*3/uL (160-400); Red Blood Count 3.19 X10*6/uL (4.60-5.80); Red Cell Distribution Width 15.3 % (11.0-16.0); White Blood Count 5.8 X10*3/uL (4.8-10.8)
[2021-06-06 06:58] LABS: Anion Gap 14 (12-20); Blood Urea Nitrogen 20 mg/dL (9-16); Calcium 8.7 mg/dL (8.4-10.2); Carbon Dioxide 26 mmol/L (22-29); Chloride 87 mmol/L (96-108); Creatinine Clr Calc Pharmacy 99.1; Estimated Glomerular Filt Rate > 60; Glucose Random 83 mg/dL (60-115); Potassium 4.6 mmol/L (3.3-5.1); Sodium 122 mmol/L (135-145)
[2021-06-06 07:40] VITALS: BP 117/65; PULSE 71; RESP 20; TEMP 37; O2SAT 96
--- NOTE | 2021-06-06 08:58 | PM.PNNEP ---
Subjective Subjective Date of Service: 06/06/21 Interval history: Events noted Doing OK Physical Exam Vital Signs: Vital Signs: Last Vital Signs Temp 98.6 F 06/06/21 07:40 Pulse 71 06/06/21 07:40 Resp 20 06/06/21 07:40 BP 117/65 06/06/21 07:40 Pulse Ox 96 06/06/21 07:40 Body Mass Index 20.7 Const: General: alert and awake Neck: Neck: Yes supple and Yes no JVD Resp: Auscultation: clear to auscultation bilaterally Cardio: Palpation: no palpable S3 Heart sounds: no rubs GI: Palpation (GI): Soft to palpation Auscultation: normal bowel sounds Neuro: Motor exam (neuro): No Asterixis during motor activity present Objective Data Labs CBC & Chem 7: 06/06/21 06:23 06/06/21 06:23 Labs: Laboratory Results - last 24 hr 06/05/21 06/06/21 06/06/21 10:42 06:23 06:23 WBC 5.8 RBC 3.19 L Hgb 9.5 L Hct 28.2 L MCV 88.4 MCH 29.8 MCHC 33.7 RDW 15.3 Plt Count 586 H MPV 8.8 L Absolute Nucleated RBC 0.000 Nucleated RBC % (auto) 0.0 Sodium 121 L 122 L Potassium 4.6 4.6 Chloride 87 L 87 L Carbon Dioxide 25 26 Anion Gap 14 14 BUN 13 20 H D Creatinine 0.64 0.66 Estim Creat Clear Calc 102.2 99.1 Estimated GFR > 60 > 60 Random Glucose 83 Fasting Glucose 87 Calcium 8.4 8.7 Procedures Date of Service Date of Service: 06/06/21 Assessment & Plan Assessment and plan (1) Hyponatremia: Status: Acute Assessment and Plan: Due to non osmotic ADH release Will check Cortisol Keep on PO water restriction of 1L per 24 hrs UREA powder 15 gm PO bid for 2 days (2) Hyperkalemia: Status: Acute Assessment and Plan: Low K diet Add Kayexalate 15 gm PO x once Time Spent With Patient Time: Total time spent is greater than 50% in coordination of care (as documented) at patient's floor/unit and/or counseling patient: Time with patient: 15 - 24 minutes Progress Note: Quality Stroke Does the patient have a stroke diagnosis?: No
[2021-06-06] MEDS: Sodium Polystyrene Sulfon/Sorb 15 GM/60 ML ORAL.SUSP PO (09:40)
[2021-06-06] MEDS: Urea 15 GM POWDER PO ×2 (09:40→21:09)
[2021-06-06] MEDS: 0.9 % Sodium Chloride Flush 3 ML SYRINGE IVFLUSH (09:40)
--- NOTE | 2021-06-06 11:19 | PM.DS ---
DS: Providers Provider Date of Service: 06/04/21 Date of admission: 06/04/21 19:05 Date of discharge: 06/06/21 Primary care physician: Unknown Physician Consults: 06/04/21 19:16 Consult to Nephrology Routine Consulting Provider: Jian Cheung Reason for consultation: Hyponatremia Discharging clinician: Joshua Stark DS: Diagnosis Discharge Diagnosis (1) Hyponatremia: Status: Acute (2) Hyperkalemia: Status: Acute DS: Summary Hospital Course Hospital Course: Chief Complaint: Hyponatremia 75-year-old male with a past medical history anxiety, depression, COPD, alcohol abuse, hiatal hernia, recent history fracture, currently in a rehab presented to the hospital with the complaint of hyponatremia.? Patient reports that he had routine labs done at the rehab and noted to have hyponatremia with sodium 121. Subsequently sent the ER for further evaluation. Patient denies any seizure-like activity. Denies any chest pain palpitations lightheadedness or dizziness. Denies any headaches numbness tingling or focal weakness. Denies any fever chills cough.? Denies any GI or symptoms. Patient reports that had a history of alcohol use and hyponatremia in the past; Review of all other systems is negative except mentioned above ER course: Per ER team patient noted to have sodium level of 122; discussed with Nephrology on-call who suggested to the patient on fluid restrictions and recheck the sodium levels. Admitted to the hospital for further management Hospital course: Patient remained asymptomatic throughout hospital course. Consult placed to Renal and urea powder was added. Sodium essentially unchanged despite therapies. Patient continued to be asymptomatic. Discussed renal; will prescribe urea b.i.d. for 2 days then DC. Follow sodium as per facility protocol or if symptomatic. Patient will resume all activities including physical therapy when returning to facility. Can follow-up with Renal as outpatient Status at Discharge Cognitive/behavioral status at discharge: Back to baseline as per staff Functional status at discharge: uses cane/walker Time Spent with Patient Time attestation: Total time spent providing and/or coordinating discharge services: Discharge coordination time: Greater than 30 minutes Quality: Stroke Does the patient have a stroke diagnosis?: No Physical Exam Vital Signs: Vital Signs: Last Vital Signs Temp 98.6 F 06/06/21 07:40 Pulse 71 06/06/21 07:40 Resp 20 06/06/21 07:40 BP 117/65 06/06/21 07:40 Pulse Ox 96 06/06/21 07:40 Body Mass Index 20.7 Const: General: no acute distress Resp: Auscultation: clear to auscultation bilaterally, no rales, no rhonchi and no wheezes Cardio: Rate: regular rate Rhythm: regular rhythm Heart sounds: S1 normal heart sound present, S2 normal heart sound present and no murmurs GI: Other: Soft nontender nondistended with normoactive bowel sounds Neuro: Other: Age-appropriate nonfocal Extrem: General: Yes normal to inspection DS: Data Data Completed and Pending Completed studies during hospitalization [Text1]: Procedures Excision of Stomach, Pylorus, Via Natural or Artificial Opening Endoscopic, Diagnostic (06/27/20) Labs on day of discharge: Laboratory Results - last 24 hr 06/05/21 06/06/21 06/06/21 10:42 06:23 06:23 WBC 5.8 RBC 3.19 L Hgb 9.5 L Hct 28.2 L MCV 88.4 MCH 29.8 MCHC 33.7 RDW 15.3 Plt Count 586 H MPV 8.8 L Absolute Nucleated RBC 0.000 Nucleated RBC % (auto) 0.0 Sodium 121 L 122 L Potassium 4.6 4.6 Chloride 87 L 87 L Carbon Dioxide 25 26 Anion Gap 14 14 BUN 13 20 H D Creatinine 0.64 0.66 Estim Creat Clear Calc 102.2 99.1 Estimated GFR > 60 > 60 Random Glucose 83 Fasting Glucose 87 Calcium 8.4 8.7 Discharge Plan Discharge Anticipated Discharge Date/Time: 06/06/21 11:24 Patient Disposition: Xfer SNF Discharge Diagnosis: Hyponatrenia Referrals: [facility] [Outside] - 1 Week Physician,Unknown [Primary Care Provider] - 1 Week Discharge Medications: New urea 15 gram powder in packet 1 packet PO BID 2 Days Qty: 4 RF: 0 Continued acetaminophen 325 mg Tablet 650 mg PO Q6H PRN (Reason: Fever) RF: 0 thiamine HCl (vitamin B1) 100 mg Tablet 100 mg PO BID RF: 0 acetaminophen 650 mg Tablet 650 mg PO Q6H PRN (Reason: Mild Pain (Scale Score 1-4)) RF: 0 folic acid 1 mg Tablet 1 mg PO DAILY RF: 0 polyethylene glycol 3350 [Miralax] 17 gram/dose Powder 17 g PO DAILY RF: 0 albuterol sulfate [ProAir HFA] 90 mcg/actuation Hfa Aerosol Inhaler 2 puff INHALATION Q6H RF: 0 docusate sodium 100 mg Tablet 100 mg PO BID RF: 0 oxycodone 5 mg Tablet 5 mg PO Q4H PRN (Reason: Moderate Pain (Scale Score 5-6)) RF: 0 acamprosate 333 mg Tablet,Delayed Release (Dr/Ec) 666 mg PO TID RF: 0 Vitamin B-6 50 mg Capsule 50 mg PO DAILY RF: 0 Discontinued enoxaparin [Lovenox] 40 mg/0.4 mL Syringe 40 mg subcut DAILY RF: 0 Discharge Orders: Discharge Order (Routine); Ordered 06/06/21 Ordered By: Joshua Stark Diet: regular diet Activity on Discharge: As tolerated Stand Alone Forms: Patient Portal Discharge page Care Plan Goals: Independent ambulation Health Concerns: Hyponatremia, hyperkalemia Plan of Treatment: Urea as ordered; follow-up with Renal has outpatient Assessment: Sodium stable well compensated.
--- NOTE | 2021-06-06 11:20 | CONS_ITS ---
DATE OF SERVICE: 06/05/2021 REASON FOR CONSULTATION: I was called to see this patient to assist in the management of hyponatremia. HISTORY OF PRESENT ILLNESS: To summarize, Devaughn is a 75-year-old man with history of depression, COPD, alcohol abuse and history of chronic hyponatremia, comes in because of hyponatremia. Apparently, his sodium was 121 in the past. At the time of admission, he was on albuterol, acetaminophen, and ibuprofen. All the current medications are reviewed. The patient is a poor historian. All the information obtained from the chart. SOCIAL HISTORY: History of smoking about 10 to 20 cigarettes a day. History of smoking for almost 20 years. No history of any alcohol abuse. He is a resident of a retirement facility. REVIEW OF SYSTEMS: As per the History and Physical and as per obtained from the chart. PHYSICAL EXAMINATION: GENERAL: The patient is an elderly man. He appears comfortable, not in any distress. NECK: Supple. HEENT: Mucosa moist. LUNGS: Air entry equal. No rales. HEART: S1 and S2 heard. No gallop. ABDOMEN: Soft, nontender. EXTREMITIES: No edema. VITAL SIGNS: Blood pressure 117/65, pulse 75, temperature 97.8. LABORATORY DATA: Hemoglobin 10.3, platelets 576. Sodium 121, BUN 13, creatinine 0.64. IMPRESSION: A 75-year-old man with chronic hyponatremia with essentially normal renal function. hyponatremia is most likely . Recommendation is to keep him on a free water restriction of 1 L per 24 hours. I will add urea powder 15 g p.o. b.i.d. to increase osmotic load. Goal is to maintain serum sodium more than 130 millimoles and the rate of correction should be not more than 0.5 millimole per liter per hour or 8-10 millimoles per 24 hours. We will follow him along with the team. Maikel Jimenez MD BPA/MODL / [id number]
[2021-06-06 11:36] VITALS: BP 94/50; PULSE 83; RESP 20; TEMP 37; O2SAT 96
[2021-06-06 14:54] VITALS: BP 121/56; PULSE 80; RESP 20; TEMP 36.7; O2SAT 94
[2021-06-06 14:58] LABS: Influenza A PCR NEGATIVE (Negative); Influenza B PCR NEGATIVE (Negative); Resp Syncy Virus RNA Qual PCR NEGATIVE (Negative); SARS COV2 PCR INHOUSE NEGATIVE (Negative)
--- NOTE | 2021-06-06 15:01 | MHC.CM.PN ---
IMM 06/06/21 Pending negative covid, discharge today. Pt will return to [facility] via [facility].
--- NOTE | 2021-06-06 15:54 | MHC.CM.PN ---
IMM 06/06/21 Covid test neg. Result sent to [facility]. Patient will discharge via BLS. Transport is booked for 4:30pm.
[2021-06-06 19:03] VITALS: BP 110/68; PULSE 76; RESP 20; TEMP 36.5; O2SAT 98
[2021-06-06] MEDS: Enoxaparin Sodium 40 MG/0.4 ML SYRINGE SUBCUT (21:09)
[2021-06-06] MEDS: Melatonin 3 MG TABLET 6 MG PO (21:09)
[2021-06-07] VITALS: BP 143/70; PULSE 75; RESP 18; TEMP 36.6; O2SAT 100
[2021-06-07 04:00] VITALS: BP 112/62; PULSE 77; RESP 18; TEMP 36.8; O2SAT 94
[2021-06-07 07:52] VITALS: BP 115/67; PULSE 70; RESP 18; TEMP 37; O2SAT 96
[2021-06-07] MEDS: Urea 15 GM POWDER PO (08:32)
[2021-06-07 11:14] VITALS: BP 126/65; PULSE 66; RESP 18; TEMP 36.7; O2SAT 97
--- NOTE | 2021-06-07 11:34 | HO.PM.IMPN ---
Subjective Subjective Date of Service: 06/07/21 Interval History: Uneventful night. Awaiting half-way placement Review of Systems Review of Systems: Yes all other systems are reviewed and are negative Physical Exam Vital Signs: Vital Signs: Last Vital Signs Temp 98.0 F 06/07/21 11:14 Pulse 66 06/07/21 11:14 Resp 18 06/07/21 11:14 BP 126/65 06/07/21 11:14 Pulse Ox 97 06/07/21 11:14 Body Mass Index 20.7 Const: General: no acute distress HENMT: Other: Membranes moist Resp: Auscultation: clear to auscultation bilaterally, no rales, no rhonchi and no wheezes Cardio: Rate: regular rate Rhythm: regular rhythm Heart sounds: S1 normal heart sound present, S2 normal heart sound present and no murmurs GI: Other: Soft nontender nondistended normoactive bowel sounds Extrem: General: Yes normal to inspection Objective Data Active Medications Acetaminophen (Acetaminophen 325 Mg Tablet) 650 mg PO Q6H PRN PRN Reason: Pain, Mild (Pain Scale 1-3) Albuterol/Ipratropium (Albuterol/Iprat 2.5/0.5mg 3 Ml Ampul.Neb) 3 ml INHALE RQ4H PRN PRN Reason: Shortness of Breath/Wheezing Last Admin: 06/05/21 12:01 Dose: 3 ml Documented by: ADINA Enoxaparin Sodium (Enoxaparin Sodium 40 Mg/0.4 Ml Syringe) 40 mg SUBCUT Q24H [facility] Last Admin: 06/06/21 21:09 Dose: 40 mg Documented by: STEPHENIE Melatonin (Melatonin 3 Mg Tablet) 6 mg PO BEDTIME PRN PRN Reason: Insomnia Last Admin: 06/06/21 21:09 Dose: 6 mg Documented by: STEPHENIE Oxycodone HCl (Oxycodone Hcl Immed Release 5 Mg Tablet) 5 mg PO Q6H PRN PRN Reason: Breakthrough Pain Senna (Sennosides 8.6 Mg Tablet) 17.2 mg PO BEDTIME PRN PRN Reason: Constipation Sodium Chloride (0.9 % Sodium Chloride Flush 3 Ml Syringe) 3 ml IVFLUSH QSHIFT [facility] Last Admin: 06/07/21 08:26 Dose: Not Given Documented by: KOBI Non-Admin Reason: No Access Urea (Urea 15 Gm Powder) 15 gm PO BID CHRIS Last Admin: 06/07/21 08:32 Dose: 15 gm Documented by: KOBI Labs CBC & Chem 7: 06/06/21 06:23 06/06/21 06:23 Labs: Laboratory Results - last 24 hr 06/06/21 Unknown Coronavirus (PCR) NEGATIVE Influenza Type A (PCR) NEGATIVE Influenza Type B (PCR) NEGATIVE RSV RNA Qual (PCR) NEGATIVE Assessment and Plan (1) Hyponatremia: Status: Acute Assessment and Plan: Stable... New baseline. Follow-up outpatient with renal (2) Hyperkalemia: Status: Acute Assessment and Plan: Resolved Assessment and Plan: Hopeful discharge back to staff today Quality Stroke Does the patient have a stroke diagnosis?: No VTE Prior VTE?: No VTE Risk Level:: Medical - moderate - high VTE Device Contraindication: Treatment Not Indicated VTE Drug Contraindication: N/A - Med Ordered
== END 2021-06-07 13:38 | disposition skilled nursing facility (03) | DRG 641 ==
LOC: HO.ED 18:08 → HO.EDOVER 19:14 → HO.IMC 19:19
PROVIDERS: Internal Medicine Hypertension Specialist; Physician Assistant; Admitting Provider Hospitalist; Emergency Provider Emergency Medicine Emergency Medical Services; Visit Provider Hospitalist
DX: E87.1 Hypo-osmolality and hyponatremia (principal); E87.5 Hyperkalemia; F32.9 Major depressive disorder, single episode, unspecified; F41.9 Anxiety disorder, unspecified; J45.909 Unspecified asthma, uncomplicated; Z20.822 Contact with and (suspected) exposure to COVID-19; Z87.891 Personal history of nicotine dependence; Z79.891 Long term (current) use of opiate analgesic; Z79.899 Other long term (current) drug therapy
CPT/HCPCS: 0241U; 36415; 80048; 80053; 82436; 82533; 83735; 83930; 83935; 84133; 84300; 85025; 85027; 87635; 94640; 99285; J1650

== ENCOUNTER 2021-07-19 09:30 | Outpatient (REF) | payer MEDICARE, SELFPAY ==
[2021-07-19 11:25] LABS: MANUAL DIFF FLAG NO
[2021-07-19 11:42] LABS: Basophils Percent Auto 0.6 % (0-2); Eosinophils Absolute Auto 0.4 X10*3/uL (0.0-0.4); Eosinophils Percent Auto 5.4 % (0-4); Hematocrit 38.8 % (42.0-52.0); Hemoglobin 12.4 g/dl (14.0-18.0); Imm Gran Abs Auto 0.02 X10*3/uL (0.00-0.03); Imm Gran Pct Auto 0.3 % (0.0-0.4); Lymphocytes Absolute Auto 1.8 X10*3/uL (1.2-4.9); Lymphocytes Percent Auto 27.4 % (20-40); Mean Corpuscular Hemoglobin 28.7 pg (27.0-33.0); Mean Corpuscular Volume 89.8 fL (80.0-98.0); Mean Platelet Volume 9.3 fL (9.4-12.4); Monocytes Absolute Auto 0.6 X10*3/uL (0.1-1.2); Monocytes Percent Auto 9.6 % (2-11); Neutrophils Percent Auto 56.7 % (45-73); Platelet Count 436 X10*3/uL (160-400); Red Blood Count 4.32 X10*6/uL (4.60-5.80); Red Cell Distribution Width 13.4 % (11.0-16.0); White Blood Count 6.7 X10*3/uL (4.8-10.8)
[2021-07-19 12:15] LABS: Alanine Aminotransferase 10 U/L (0-40); Albumin Level 4.1 g/dL (3.5-5.0); Alkaline Phosphatase 148 U/L (39-117); Anion Gap 11 (12-20); Aspartate Amino Transferase 18 U/L (5-37); Bilirubin Total 0.5 mg/dL (0.0-1.0); Blood Urea Nitrogen 15 mg/dL (9-16); Calcium 9.6 mg/dL (8.4-10.2); Carbon Dioxide 28 mmol/L (22-29); Chloride 100 mmol/L (96-108); Estimated Glomerular Filt Rate > 60; Glucose Random 101 mg/dL (60-115); Sodium 134 mmol/L (135-145); Total Protein 6.7 g/dL (6.5-8.0)
== END 2021-07-19 09:31 | disposition home or self-care (01) ==
LOC: HO.HMGCLDS 09:30
PROVIDERS: Visit Provider Internal Medicine
DX: D64.9 Anemia, unspecified (principal); E87.1 Hypo-osmolality and hyponatremia; D47.3 Essential (hemorrhagic) thrombocythemia
CPT/HCPCS: 36415; 80053; 85025

== ENCOUNTER 2021-12-20 09:30 | Outpatient (REF) | payer MEDICARE, SELFPAY ==
[2021-12-20 11:23] LABS: MANUAL DIFF FLAG NO
[2021-12-20 11:44] LABS: Basophils Absolute Auto 0.1 X10*3/uL (0.0-0.2); Basophils Percent Auto 0.8 % (0-2); Eosinophils Absolute Auto 0.5 X10*3/uL (0.0-0.4); Eosinophils Percent Auto 6.7 % (0-4); Hematocrit 42.5 % (42.0-52.0); Hemoglobin 13.8 g/dl (14.0-18.0); Imm Gran Abs Auto 0.02 X10*3/uL (0.00-0.03); Imm Gran Pct Auto 0.3 % (0.0-0.4); Lymphocytes Absolute Auto 1.7 X10*3/uL (1.2-4.9); Lymphocytes Percent Auto 22.3 % (20-40); Mean Corpuscular HGB Conc 32.5 g/dl (31.0-36.0); Mean Corpuscular Hemoglobin 29.4 pg (27.0-33.0); Mean Corpuscular Volume 90.4 fL (80.0-98.0); Mean Platelet Volume 9.4 fL (9.4-12.4); Monocytes Absolute Auto 0.7 X10*3/uL (0.1-1.2); Monocytes Percent Auto 8.9 % (2-11); Neutrophils Absolute Auto 4.7 x10*3/uL (2.0-8.3); Platelet Count 341 X10*3/uL (160-400); Red Cell Distribution Width 13.4 % (11.0-16.0); White Blood Count 7.7 X10*3/uL (4.8-10.8)
[2021-12-20 12:14] LABS: Alanine Aminotransferase 15 U/L (0-40); Albumin Level 4.3 g/dL (3.5-5.0); Alkaline Phosphatase 127 U/L (39-117); Anion Gap 15 (12-20); Aspartate Amino Transferase 23 U/L (5-37); Bilirubin Total 0.7 mg/dL (0.0-1.0); Blood Urea Nitrogen 14 mg/dL (9-16); Calcium 9.5 mg/dL (8.4-10.2); Carbon Dioxide 26 mmol/L (22-29); Chloride 96 mmol/L (96-108); Estimated Glomerular Filt Rate > 60; Glucose Random 94 mg/dL (60-115); Sodium 132 mmol/L (135-145); Total Protein 7.1 g/dL (6.5-8.0)
[2021-12-20 12:17] LABS: Ferritin 28 ng/mL (20-250)
== END 2021-12-20 09:31 | disposition home or self-care (01) ==
LOC: HO.HMGCLDS 09:30
PROVIDERS: PCP Internal Medicine; Visit Provider Internal Medicine
DX: D64.9 Anemia, unspecified (principal); E87.1 Hypo-osmolality and hyponatremia; D47.3 Essential (hemorrhagic) thrombocythemia; R79.89 Other specified abnormal findings of blood chemistry; G62.1 Alcoholic polyneuropathy; F10.11 Alcohol abuse, in remission
CPT/HCPCS: 36415; 80053; 82728; 85025

== ENCOUNTER 2022-07-04 09:54 | Outpatient (REF) | payer MEDICARE, SELFPAY ==
[2022-07-04 11:27] LABS: MANUAL DIFF FLAG NO
[2022-07-04 11:39] LABS: Hematocrit 43.4 % (42.0-52.0); Hemoglobin 14.2 g/dl (14.0-18.0); Mean Corpuscular HGB Conc 32.7 g/dl (31.0-36.0); Mean Corpuscular Hemoglobin 30.3 pg (27.0-33.0); Mean Corpuscular Volume 92.7 fL (80.0-98.0); Red Blood Count 4.68 X10*6/uL (4.60-5.80); Red Cell Distribution Width 14.5 % (11.0-16.0); White Blood Count 5.9 X10*3/uL (4.8-10.8)
[2022-07-04 11:40] LABS: Basophils Absolute Auto 0.1 X10*3/uL (0.0-0.2); Basophils Percent Auto 0.8 % (0-2); Eosinophils Absolute Auto 0.3 X10*3/uL (0.0-0.4); Eosinophils Percent Auto 4.9 % (0-4); Imm Gran Abs Auto 0.03 X10*3/uL (0.00-0.03); Imm Gran Pct Auto 0.5 % (0.0-0.4); Lymphocytes Absolute Auto 1.5 X10*3/uL (1.2-4.9); Lymphocytes Percent Auto 25.3 % (20-40); Mean Platelet Volume 9.2 fL (9.4-12.4); Monocytes Absolute Auto 0.6 X10*3/uL (0.1-1.2); Monocytes Percent Auto 9.4 % (2-11); Neutrophils Absolute Auto 3.5 x10*3/uL (2.0-8.3); Neutrophils Percent Auto 59.1 % (45-73); Platelet Count 316 X10*3/uL (160-400)
[2022-07-04 11:47] LABS: Alanine Aminotransferase 20 U/L (0-40); Albumin Level 4.4 g/dL (3.5-5.0); Alkaline Phosphatase 79 U/L (39-117); Anion Gap 17 (12-20); Aspartate Amino Transferase 34 U/L (5-37); Bilirubin Total 0.5 mg/dL (0.0-1.0); Blood Urea Nitrogen 12 mg/dL (9-16); Calcium 9.3 mg/dL (8.4-10.2); Carbon Dioxide 27 mmol/L (22-29); Chloride 99 mmol/L (96-108); Estimated Glomerular Filt Rate > 60; Glucose Random 98 mg/dL (60-115); Potassium 4.8 mmol/L (3.3-5.1); Sodium 138 mmol/L (135-145); Total Protein 7.2 g/dL (6.5-8.0)
== END 2022-07-04 09:55 | disposition home or self-care (01) ==
LOC: HO.HMGCLDS 09:54
PROVIDERS: PCP Internal Medicine; Visit Provider Internal Medicine
DX: E87.1 Hypo-osmolality and hyponatremia (principal); G62.1 Alcoholic polyneuropathy; J44.9 Chronic obstructive pulmonary disease, unspecified; K21.9 Gastro-esophageal reflux disease without esophagitis; R79.89 Other specified abnormal findings of blood chemistry; D64.9 Anemia, unspecified
CPT/HCPCS: 36415; 80053; 85025

== ENCOUNTER 2022-11-06 09:39 | Outpatient (REF) | payer MEDICARE, SELFPAY ==
[2022-11-06 11:18] LABS: MANUAL DIFF FLAG NO
[2022-11-06 11:23] LABS: Basophils Absolute Auto 0.1 X10*3/uL (0.0-0.2); Basophils Percent Auto 0.8 % (0-2); Eosinophils Absolute Auto 0.2 X10*3/uL (0.0-0.4); Eosinophils Percent Auto 3.7 % (0-4); Hematocrit 41.5 % (42.0-52.0); Hemoglobin 13.7 g/dl (14.0-18.0); Imm Gran Abs Auto 0.04 X10*3/uL (0.00-0.03); Imm Gran Pct Auto 0.7 % (0.0-0.4); Lymphocytes Absolute Auto 1.3 X10*3/uL (1.2-4.9); Lymphocytes Percent Auto 21.9 % (20-40); Mean Corpuscular Hemoglobin 33.1 pg (27.0-33.0); Mean Corpuscular Volume 100.2 fL (80.0-98.0); Mean Platelet Volume 10.7 fL (9.4-12.4); Monocytes Absolute Auto 0.7 X10*3/uL (0.1-1.2); Neutrophils Absolute Auto 3.6 x10*3/uL (2.0-8.3); Neutrophils Percent Auto 60.9 % (45-73); Platelet Count 249 X10*3/uL (160-400); Red Blood Count 4.14 X10*6/uL (4.60-5.80); Red Cell Distribution Width 12.6 % (11.0-16.0)
[2022-11-06 11:44] LABS: Alanine Aminotransferase 75 U/L (0-40); Albumin Level 4.3 g/dL (3.5-5.0); Alkaline Phosphatase 93 U/L (39-117); Anion Gap 16 (12-20); Aspartate Amino Transferase 60 U/L (5-37); Blood Urea Nitrogen 26 mg/dL (9-16); Calcium 9.9 mg/dL (8.4-10.2); Carbon Dioxide 30 mmol/L (22-29); Chloride 97 mmol/L (96-108); Estimated Glomerular Filt Rate > 60; Glucose Random 111 mg/dL (60-115); Potassium 5.2 mmol/L (3.3-5.1); Sodium 138 mmol/L (135-145); Total Protein 6.9 g/dL (6.5-8.0)
[2022-11-06 12:11] LABS: Ferritin 226 ng/mL (20-250); Vitamin B12 1637 pg/mL (200-900)
== END 2022-11-06 09:40 | disposition home or self-care (01) ==
LOC: HO.HMGCLDS 09:39
PROVIDERS: Visit Provider Internal Medicine
DX: R53.83 Other fatigue (principal); D64.9 Anemia, unspecified; J44.9 Chronic obstructive pulmonary disease, unspecified; K21.9 Gastro-esophageal reflux disease without esophagitis; G62.1 Alcoholic polyneuropathy; F10.11 Alcohol abuse, in remission
CPT/HCPCS: 36415; 80053; 82607; 82728; 85025

== ENCOUNTER 2023-07-19 09:17 | Outpatient (AMB) | payer MEDICARE, SELFPAY ==
[2023-07-19 09:23] VITALS: BP 120/66; PULSE 110; O2SAT 97; BMI 20.9
--- NOTE | 2023-07-19 09:23 | A.OFFPC_ITS ---
Vital Signs 07/19/23 09:23 Height 6 ft 1 in Weight 158 lb 4 oz BMI 20.9 BP 120/66 Blood Pressure Location Rt brachial Position Sitting Pulse 110 H Pulse Source Pulse Oximeter Pulse Oximetry (%) 97 Oxygen Delivery Method Room Air Intake Visit Reasons: F/U pt requests Flu vaccine. Needs PHQ-9, See BB Allergies shrimp Allergy (Intermediate, Verified 07/19/23 09:25) Anaphylaxis shellfish derived [SHELLFISH DERIVED] Allergy (Unknown, Verified 07/19/23 09:25) DIFFICULTY BREATHING lobster Allergy (Intermediate, Uncoded 07/04/22 09:19) Anaphylaxis Medication List - Last Reconciled 07/19/23 by Hugh Payan MD acamprosate 333 mg PO TID 30 days acetaminophen 650 mg PO Q6H PRN albuterol sulfate 90 mcg/actuation (ProAir HFA) 2 puffs inhalation Q6H 30 days fluticasone propion-salmeterol 230-21 mcg/actuation (Advair HFA) 2 puffs inhalation BID 30 days omeprazole 20 mg PO BID 30 days pyridoxine (vitamin B6) (Vitamin B-6) 50 mg PO DAILY thiamine HCl (vitamin B1) 100 mg PO BID Tobacco use date assessed: 07/19/23 Fall risk assessment: No Falls in past year Last assessed Fall Risk: 07/19/23 Dental Screening Dental Screen Date: 07/19/23 Did you have a dental visit in the last 12 months?: Yes Did you have a dental problem in the last 6 months where you did not have access to dental care?: No Was dental information given to patient?: Patient has dentist HPI F/U pt requests Flu vaccine. Needs PHQ-9, See BB HPI Details Patient is a 77-year-old gentleman came in today for his regular 3 month follow-up appointment Complaining of right shoulder pain, on examination he is tender over rotator cuff however patient is declining to see orthopedic I have ordered x-ray of his shoulder Patient has history of alcoholism with complications. 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 Patient says that he does not need to He has alcoholic neuropathy and alcoholic liver disease. Anemia: I have ordered labs for him we will also be checking ferritin and B12 level patient is taking only multivitamin and no other supplements COPD/asthma breathing is stable patient is on Advair and albuterol, has coughing every morning and spit out lot of mucus He does have erosive esophagitis, currently on omeprazole 20 mg 2 times a day Alcoholic neuropathy Follow-up 3 months [facility] Medical History Hyponatremia Asthma Anemia Aftercare following right shoulder joint replacement surgery Hiatal hernia without gangrene or obstruction Erosive esophagitis Osteoarthritis Spondylosis Anxiety Falls Syncope Hyponatremia Rib fractures Alcoholism COPD (chronic obstructive pulmonary disease) Surgical History History of esophagogastroduodenoscopy (EGD) Hx of colonoscopy History of shoulder surgery Family History Father No problems noted. Mother No problems noted. Social History Household Members: None Housing: House Housing Other:: [facility] Do you presently have visiting nurse or other home services: Yes (Meals on wheels) Alcohol intake: never Patient Tobacco Use Status: Former Tobacco user Quit Date: 1999 Tobacco use type: Cigarette Cigarette Packs Per Day: 0.5 Cigarettes Per Day: 10.0 Years Smoked: 20 e-Cigarette/Vaping Use: Never Used Second Hand Smoke Exposure: Yes Agree to transfusion: Yes service: Yes ([employer]) Current occupational status: retired Sexual orientation: Decline to Answer Gender identity: Male Cognitive needs: No Hearing needs: No Vision needs: No Questionnaire PHQ-9 Over the last 2 weeks, how often have you been bothered by any of the following problems? 1. Little interest or pleasure in doing things: several days 2. Feeling down, depressed, or hopeless: several days 3. Trouble falling or staying asleep, or sleeping too much: several days 4. Feeling tired or having little energy: more than half the days 5. Poor appetite or overeating: several days 6. Feeling bad about yourself - or that you are a failure or have let yourself or your family down: not at all 7. Trouble concentrating on things, such as reading the newspaper or watching television: not at all 8. Moving or speaking so slowly that other people could have noticed. Or the opp osite - being so fidgety or restless that you have been moving around a lot more than usual: not at all 9. Thoughts that you would be better off or of hurting yourself in some way: not at all Total score: 6 Depression Screening Interpretation: Negative Depression Screening Done: Yes 99033 - PHQ-9 Billing: Yes Source: Developed by Drs. Vinay Hylton, Chely Orona, Raul Ochoa and colleagues, with an educational dimitris from [employer]. Thrive Questionnaire Date Thrive assessed: 03/28/22 AUDIT C Alcohol Use Questionnaire (AUDIT-C) 1. How often do you have a drink containing alcohol?: 2-4 times a month 2. How many drinks containing alcohol do you have on a typical day when you are drinking?: 1 or 2 3. How often do you have six or more drinks on one occasion?: Never Total Score: 2 Score Reviewed/Action Taken: Yes POOJA-7 AMB Questionnaire POOJA-7 Date POOJA - 7 assessed: 03/28/22 Source: Developed by Drs. Vinay Hylton, Chely Orona, Raul Ochoa and colleagues, with an educational dimitris from [employer]. Review of Systems Const Denies chills and Denies fever(s) ENT Denies epistaxis and Denies nasal discharge Card Denies chest pain Resp Denies hemoptysis GI Denies diarrhea and Denies nausea Skin/Breast Denies rash Neuro Reports no additional complaints Psych Reports no additional complaints Endo Reports no additional complaints Physical exam (Primary Care) Vital Signs: Last Vital Signs Pulse 110 H 07/19/23 09:23 BP 120/66 07/19/23 09:23 Pulse Ox 97 07/19/23 09:23 Oxygen Delivery Method Room Air 07/19/23 09:23 BMI result Body Mass Index 20.9 Tobacco/Smoking Status: Tobacco use Status Tobacco use date assessed 07/19/23 07/19/23 09:29 Patient Tobacco Use Status Former Tobacco user 07/19/23 09:29 Tobacco use type Cigarette 07/19/23 09:29 e-Cigarette/Vaping Use Never Used 07/19/23 09:29 PHQ-9: PHQ-9 Score PHQ-9: Total score 6 07/19/23 11:00 Depression Screening Interpretation: Negative Thrive Assessment: Date of Thrive Assessment Date Thrive assessed 03/28/22 07/19/23 09:29 Const General: cooperative, comfortable and no acute distress Orientation/consciousness: patient oriented x3 HENMT Head: Yes normocephalic Eyes General: appearance normal, both eyes and all related structures Neck Neck: Yes supple Resp Effort & Inspection: normal respiratory effort, no cough and no stridor Cardio Rhythm: regular rhythm Heart sounds: S1 normal heart sound present and S2 normal heart sound present Skin General skin exam: turgor normal Neuro General: patient oriented x3, tone normal and moves all extremities Extrem Right lower extremity: no edema Left lower extremity: no edema Assessment and Plan Assessment & Plan (1) COPD with asthma: Code(s): J44.9 - Chronic obstructive pulmonary disease, unspecified (2) Chronic GERD: Code(s): K21.9 - Gastro-esophageal reflux disease without esophagitis (3) Alcoholic peripheral neuropathy: Code(s): G62.1 - Alcoholic polyneuropathy (4) LFT elevation: Code(s): R79.89 - Other specified abnormal findings of blood chemistry (5) Thrombocytosis: Code(s): D47.3 - Essential (hemorrhagic) thrombocythemia (6) Alcoholism: Code(s): F10.20 - Alcohol dependence, uncomplicated (7) Erosive esophagitis: Code(s): K22.10 - Ulcer of esophagus without bleeding (8) Hiatal hernia without gangrene or obstruction: Code(s): K44.9 - Diaphragmatic hernia without obstruction or gangrene (9) Tendinopathy of right rotator cuff: Code(s): M67.911 - Unspecified disorder of synovium and tendon, right shoulder (10) Anemia of chronic disease: Code(s): D63.8 - Anemia in other chronic diseases classified elsewhere Plan Patient is a 77-year-old gentleman came in today for his regular 3 month follow- up appointment Complaining of right shoulder pain, on examination he is tender over rotator cuff however patient is declining to see orthopedic I have ordered x-ray of his shoulder Patient has history of alcoholism with complications. 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 Patient says that he does not need to He has alcoholic neuropathy and alcoholic liver disease. Anemia and thrombocytosis: I have ordered labs for him we will also be checking ferritin and B12 level patient is taking only multivitamin and no other supplements COPD/asthma breathing is stable patient is on Advair and albuterol, has coughing every morning and spit out lot of mucus He does have erosive esophagitis, currently on omeprazole 20 mg 2 times a day Alcoholic neuropathy Follow-up 3 months Orders: Orders Comprehensive Met. Panel Today D47.3 - Essential (hemorrhagic) thrombocythemia, D64.9 - Anemia, unspecified, F10.20 - Alcohol dependence, uncomplicated, G62.1 - Alcoholic polyneuropathy, J44.9 - Chronic obstructive pulmonary disease, unspecified, K21.9 - Gastro-esophageal reflux disease without esophagitis, K22.10 - Ulcer of esophagus without bleeding, K44.9 - Diaphragmatic hernia without obstruction or gangrene, R79.89 - Other specified abnormal findings of blood chemistry Vitamin B12 Today D47.3 - Essential (hemorrhagic) thrombocythemia, D64.9 - Anemia, unspecified, F10.20 - Alcohol dependence, uncomplicated, G62.1 - Alcoholic polyneuropathy, J44.9 - Chronic obstructive pulmonary disease, unspecified, K21.9 - Gastro-esophageal reflux disease without esophagitis, K22.10 - Ulcer of esophagus without bleeding, K44.9 - Diaphragmatic hernia without obstruction or gangrene, R79.89 - Other specified abnormal findings of blood chemistry Vitamin D 25-OH (D2 and D3) Today D47.3 - Essential (hemorrhagic) thrombocythemia, D64.9 - Anemia, unspecified, F10.20 - Alcohol dependence, uncomplicated, G62.1 - Alcoholic polyneuropathy, J44.9 - Chronic obstructive pulmonary disease, unspecified, K21.9 - Gastro-esophageal reflux disease without esophagitis, K22.10 - Ulcer of esophagus without bleeding, K44.9 - Diaphragmatic hernia without obstruction or gangrene, R79.89 - Other specified abnormal findings of blood chemistry LDL Cholesterol Direct Today D47.3 - Essential (hemorrhagic) thrombocythemia, D64.9 - Anemia, unspecified, F10.20 - Alcohol dependence, uncomplicated, G62.1 - Alcoholic polyneuropathy, J44.9 - Chronic obstructive pulmonary disease, unspecified, K21.9 - Gastro-esophageal reflux disease without esophagitis, K22.10 - Ulcer of esophagus without bleeding, K44.9 - Diaphragmatic hernia without obstruction or gangrene, R79.89 - Other specified abnormal findings of blood chemistry IRON PROFILE Today D47.3 - Essential (hemorrhagic) thrombocythemia, D64.9 - Anemia, unspecified, F10.20 - Alcohol dependence, uncomplicated, G62.1 - Alcoholic polyneuropathy, J44.9 - Chronic obstructive pulmonary disease, unspecified, K21.9 - Gastro-esophageal reflux disease without esophagitis, K22.10 - Ulcer of esophagus without bleeding, K44.9 - Diaphragmatic hernia without obstruction or gangrene, R79.89 - Other specified abnormal findings of blood chemistry Complete Blood Count Auto Diff Today D47.3 - Essential (hemorrhagic) thrombocythemia, D64.9 - Anemia, unspecified, F10.20 - Alcohol dependence, uncomplicated, G62.1 - Alcoholic polyneuropathy, J44.9 - Chronic obstructive pulmonary disease, unspecified, K21.9 - Gastro-esophageal reflux disease without esophagitis, K22.10 - Ulcer of esophagus without bleeding, K44.9 - Diaphragmatic hernia without obstruction or gangrene, R79.89 - Other specified abnormal findings of blood chemistry XR shoulder RT min 2V Today M67.911 - Unspecified disorder of synovium and tendon, right shoulder Medications: New pyridoxine (vitamin B6) (Vitamin B-6) 50 mg PO DAILY 90 caps 3RF thiamine HCl (vitamin B1) 100 mg PO BID 90 tabs 3RF Refilled acamprosate give with meals 333 mg PO TID 90 tabs 2RF 30 days albuterol sulfate 90 mcg/actuation (ProAir HFA) 2 puffs inhalation Q6H 8.5 grams 2RF 30 days fluticasone propion-salmeterol 230-21 mcg/actuation (Advair HFA) 2 puffs inhalation BID 12 grams 2RF 30 days omeprazole 20 mg PO BID 60 caps 3RF 30 days Coding Level of Care Code Est Pt Level 4 (48925) Diagnoses COPD with asthma J44.9 Chronic GERD K21.9 Alcoholic peripheral neuropathy G62.1 LFT elevation R79.89 Thrombocytosis D47.3 Alcoholism F10.20 Erosive esophagitis K22.10 Hiatal hernia without gangrene or obstruction K44.9 Tendinopathy of right rotator cuff M67.911 Anemia of chronic disease D63.8
== END 2023-07-19 12:02 | disposition home or self-care (01) ==
PROVIDERS: PCP Internal Medicine; Visit Provider Internal Medicine
DX: J44.9 Chronic obstructive pulmonary disease, unspecified (principal); G62.1 Alcoholic polyneuropathy; D47.3 Essential (hemorrhagic) thrombocythemia; F10.20 Alcohol dependence, uncomplicated; K21.9 Gastro-esophageal reflux disease without esophagitis; R79.89 Other specified abnormal findings of blood chemistry; K22.10 Ulcer of esophagus without bleeding; K44.9 Diaphragmatic hernia without obstruction or gangrene; M67.911 Unspecified disorder of synovium and tendon, right shoulder; D63.8 Anemia in other chronic diseases classified elsewhere
CPT/HCPCS: 99214

== ENCOUNTER 2023-07-19 09:49 | Outpatient (REF) | payer MEDICARE, SELFPAY ==
--- NOTE | ~2023-07-19 | XR_ITS ---
EXAMINATION: XR SHOULDER, RIGHT CLINICAL INFORMATION: Right shoulder arthroplasty COMPARISON: None available. TECHNIQUE: AP external rotation, Grashey, scapular Y, and axillary views of the right shoulder. FINDINGS: BONES: Bony structures are intact. Right humeral head and proximal shaft prosthesis is seen. There is right glenoid fossa resurfacing. There is no focal bone destruction or periosteal reaction seen. JOINTS: Alignment of joints is normal. SOFT TISSUE: Soft tissue is normal. No radiopaque foreign body or abnormal air collection is seen. XR/XR shoulder RT min 2V IMPRESSION: 1. Status post right glenohumeral arthroplasty. 2. No fracture or dislocation or signs of osteomyelitis are found.
[2023-07-19 13:10] LABS: MANUAL DIFF FLAG NO
[2023-07-19 13:24] LABS: Basophils Absolute Auto 0.1 X10*3/uL (0.0-0.2); Basophils Percent Auto 0.8 % (0-2); Eosinophils Absolute Auto 0.4 X10*3/uL (0.0-0.4); Eosinophils Percent Auto 4.7 % (0-4); Hematocrit 47.9 % (42.0-52.0); Hemoglobin 15.9 g/dl (14.0-18.0); Imm Gran Abs Auto 0.02 X10*3/uL (0.00-0.03); Imm Gran Pct Auto 0.3 % (0.0-0.4); Lymphocytes Absolute Auto 1.3 X10*3/uL (1.2-4.9); Lymphocytes Percent Auto 16.8 % (20-40); Mean Corpuscular HGB Conc 33.2 g/dl (31.0-36.0); Mean Corpuscular Volume 93.4 fL (80.0-98.0); Mean Platelet Volume 9.8 fL (9.4-12.4); Monocytes Absolute Auto 0.6 X10*3/uL (0.1-1.2); Monocytes Percent Auto 7.5 % (2-11); Neutrophils Absolute Auto 5.5 x10*3/uL (2.0-8.3); Neutrophils Percent Auto 69.9 % (45-73); Platelet Count 385 X10*3/uL (160-400); Red Blood Count 5.13 X10*6/uL (4.60-5.80); White Blood Count 7.8 X10*3/uL (4.8-10.8)
[2023-07-19 13:54] LABS: Alanine Aminotransferase 14 U/L (0-40); Albumin Level 4.8 g/dL (3.5-5.0); Alkaline Phosphatase 87 U/L (39-117); Anion Gap 19 (12-20); Aspartate Amino Transferase 28 U/L (5-37); Bilirubin Total 0.8 mg/dL (0.0-1.0); Blood Urea Nitrogen 12 mg/dL (9-16); Calcium 10.2 mg/dL (8.4-10.2); Carbon Dioxide 25 mmol/L (22-29); Chloride 94 mmol/L (96-108); Estimated Glomerular Filt Rate > 60; Glucose Random 92 mg/dL (60-115); Iron 134 mcg/dL (45-160); Percent Iron Saturation 38 % (15-50); Potassium 4.3 mmol/L (3.3-5.1); Sodium 134 mmol/L (135-145); Total Iron Binding Capacity 355 mcg/dL (228-428); Total Protein 8.1 g/dL (6.5-8.0); Unsaturated Iron Binding 221 ug/dL
[2023-07-19 14:07] LABS: Vitamin B12 851 pg/mL (200-900)
[2023-07-21 01:14] LABS: LDL Cholesterol Direct 77 mg/dL (<100)
[2023-07-24 14:34] LABS: Vitamin D 25-OH, D2 <4 ng/mL; Vitamin D 25-OH, D3 36 ng/mL; Vitamin D 25-OH, Total 36 ng/mL (30-100)
== END 2023-07-19 09:50 | disposition home or self-care (01) ==
LOC: HO.HMGCX 09:49
PROVIDERS: PCP Internal Medicine; Visit Provider Internal Medicine
DX: J44.9 Chronic obstructive pulmonary disease, unspecified (principal); K21.9 Gastro-esophageal reflux disease without esophagitis; G62.1 Alcoholic polyneuropathy; R79.89 Other specified abnormal findings of blood chemistry; D47.3 Essential (hemorrhagic) thrombocythemia; F10.20 Alcohol dependence, uncomplicated; D64.9 Anemia, unspecified; K22.10 Ulcer of esophagus without bleeding; K44.9 Diaphragmatic hernia without obstruction or gangrene; M67.911 Unspecified disorder of synovium and tendon, right shoulder
CPT/HCPCS: 36415; 73030; 80053; 82306; 82607; 83540; 83721; 85025

== ENCOUNTER 2023-07-24 12:33 | Outpatient (AMB) | payer MEDICARE, SELFPAY ==
[2023-07-24 12:49] VITALS: BP 114/68; PULSE 110; O2SAT 97; BMI 21.2
--- NOTE | 2023-07-24 12:49 | AM.OFFWIN_ITS ---
Intake Vital Signs 07/24/23 12:49 Height 6 ft 1 in Weight 161 lb BMI 21.2 BP 114/68 Pulse 110 H Pulse Oximetry (%) 97 Intake Visit Reasons: EST/toenail issues Patient Tobacco Use Status: Former Tobacco user Quit Date: 1999 Allergies shrimp Allergy (Intermediate, Verified 07/24/23 13:15) Anaphylaxis shellfish derived [SHELLFISH DERIVED] Allergy (Unknown, Verified 07/24/23 13:15) DIFFICULTY BREATHING lobster Allergy (Intermediate, Uncoded 07/24/23 13:15) Anaphylaxis Medication List - Last Reconciled 07/24/23 by Jay Solorzano MD acamprosate 333 mg PO TID 30 days acetaminophen 650 mg PO Q6H PRN albuterol sulfate 90 mcg/actuation (ProAir HFA) 2 puffs inhalation Q6H 30 days fluticasone propion-salmeterol 230-21 mcg/actuation (Advair HFA) 2 puffs inhalation BID 30 days omeprazole 20 mg PO BID 30 days pyridoxine (vitamin B6) (Vitamin B-6) 50 mg PO DAILY thiamine HCl (vitamin B1) 100 mg PO BID HPI EST/toenail issues HPI Details 77-year-old male presents to the office for a sick visit. Patient stubbed his toe a few days ago when he woke up in the night and walked into a wall. There was significant bleeding and he wrapped it in a make shift bandage. He would like to have the toe examined. [facility] Medical History Hyponatremia Asthma Anemia Aftercare following right shoulder joint replacement surgery Hiatal hernia without gangrene or obstruction Erosive esophagitis Osteoarthritis Spondylosis Anxiety Falls Syncope Hyponatremia Rib fractures Alcoholism COPD (chronic obstructive pulmonary disease) Surgical History History of esophagogastroduodenoscopy (EGD) Hx of colonoscopy History of shoulder surgery Family History Father No problems noted. Mother No problems noted. Social History Household Members: None Housing: House Housing Other:: [facility] ([place]) Do you presently have visiting nurse or other home services: Yes (Meals on wheels) Alcohol intake: never Patient Tobacco Use Status: Former Tobacco user Quit Date: 1999 Tobacco use type: Cigarette Cigarette Packs Per Day: 0.5 Cigarettes Per Day: 10.0 Years Smoked: 20 e-Cigarette/Vaping Use: Never Used Second Hand Smoke Exposure: Yes Agree to transfusion: Yes service: Yes ([employer]) Current occupational status: retired Sexual orientation: Decline to Answer Gender identity: Male Cognitive needs: No Hearing needs: No Vision needs: No Physical Exam Vital Signs: Last Vital Signs Pulse 110 H 07/24/23 12:49 BP 114/68 07/24/23 12:49 Pulse Ox 97 07/24/23 12:49 BMI result Body Mass Index 21.2 Extrem Other: Right foot : great toe: The wound was immersed in peroxide and Betadine. The bandage was peeled off. The great toe nail was lose and with a sterile scissor the edges trimmed and the nail removed in its entirety. Patient tolerated the procedure well. Assessment & Plan Assessment & Plan (1) Contusion of foot, right: Code(s): S90.31XA - Contusion of right foot, initial encounter Plan X-rays images were reviewed by me. Coding Level of Care Code Est Pt Level 4 (61704) Diagnoses Contusion of foot, right S90.31XA
== END 2023-07-24 13:51 | disposition home or self-care (01) ==
PROVIDERS: PCP Internal Medicine; Visit Provider Internal Medicine
DX: S90.31XA Contusion of right foot, initial encounter (principal)
CPT/HCPCS: 99214

== ENCOUNTER 2023-07-24 13:13 | Outpatient (REF) | payer MEDICARE, SELFPAY ==
--- NOTE | ~2023-07-24 | XR_ITS ---
EXAMINATION: XR FOOT, RIGHT CLINICAL INFORMATION: Contusion COMPARISON: None available. TECHNIQUE: AP, lateral, and oblique views of the right foot. FINDINGS: Bone alignment is normal. No fracture or dislocation. There are flexion contractures of the IP joints of the second through fifth toes. Joint spaces are otherwise normal. Soft tissues are normal XR/XR foot RT min 3V IMPRESSION: No fracture or dislocation.
== END 2023-07-24 13:14 | disposition home or self-care (01) ==
LOC: HO.HMGCX 13:13
PROVIDERS: Visit Provider Internal Medicine
DX: S90.31XA Contusion of right foot, initial encounter (principal); X58.XXXA Exposure to other specified factors, initial encounter; Y93.9 Activity, unspecified; Y92.9 Unspecified place or not applicable; Y99.9 Unspecified external cause status
CPT/HCPCS: 73630

== ENCOUNTER 2023-10-25 08:18 | Outpatient (AMB) | payer MEDICARE, SELFPAY ==
--- NOTE | 2023-10-25 09:04 | A.OFFPC_ITS ---
Vital Signs 10/25/23 09:07 Height 6 ft 1 in Intake Visit Reasons: 3 month f/u [phone] Allergies shrimp Allergy (Intermediate, Verified 10/25/23 09:04) Anaphylaxis shellfish derived [SHELLFISH DERIVED] Allergy (Unknown, Verified 10/25/23 09:04) DIFFICULTY BREATHING lobster Allergy (Intermediate, Uncoded 07/24/23 13:15) Anaphylaxis Medication List - Last Reconciled 10/25/23 by Hugh Payan MD acamprosate 333 mg PO TID 30 days acetaminophen 650 mg PO Q6H PRN albuterol sulfate 90 mcg/actuation (ProAir HFA) 2 puffs inhalation Q6H 30 days fluticasone propion-salmeterol 230-21 mcg/actuation (Advair HFA) 2 puffs inhalation BID 30 days omeprazole 20 mg PO BID 30 days pyridoxine (vitamin B6) (Vitamin B-6) 50 mg PO DAILY thiamine HCl (vitamin B1) 100 mg PO BID Tobacco use date assessed: 10/25/23 Fall risk assessment: No Falls in past year Last assessed Fall Risk: 10/25/23 Dental Screening Dental Screen Date: 10/25/23 Did you have a dental visit in the last 12 months?: No Did you have a dental problem in the last 6 months where you did not have access to dental care?: No Was dental information given to patient?: No HPI 3 month f/u [phone] HPI Details Patient is a 77-year-old gentleman this is a tele medicine conference Patient is in his usual state of health Continued to feel fatigued and short of breath if he walks a mile Patient have history of COPD However declined to see airfield operations specialist Currently he is taking Advair inhaler daily Patient have a history of tobacco use He is taking acamprosate, tells me that he has not drank alcohol since he restarted this medication He also has not seen supervisor tower in a while. Patient says that he does not need to He has alcoholic neuropathy and alcoholic liver disease. Anemia and thrombocytosis: I have ordered labs for him He is to continue with vitamin B1 and B6 He does have erosive esophagitis, currently on omeprazole 20 mg 2 times a day Follow-up 3 months [facility] Medical History Hyponatremia Asthma Anemia Aftercare following right shoulder joint replacement surgery Hiatal hernia without gangrene or obstruction Erosive esophagitis Osteoarthritis Spondylosis Anxiety Falls Syncope Hyponatremia Rib fractures Alcoholism COPD (chronic obstructive pulmonary disease) Surgical History History of esophagogastroduodenoscopy (EGD) Hx of colonoscopy History of shoulder surgery Family History Father No problems noted. Mother No problems noted. Social History Household Members: None Housing: House Housing Other:: [facility] ([facility] Do you presently have visiting nurse or other home services: Yes (Meals on wheels) Alcohol intake: never Comment: patient sleeping Patient Tobacco Use Status: Former Tobacco user Quit Date: 1999 Tobacco use type: Cigarette Cigarette Packs Per Day: 0.5 Cigarettes Per Day: 10.0 Years Smoked: 20 Packs Per Year: 10 Packs per year/per ci.00 e-Cigarette/Vaping Use: Never Used Second Hand Smoke Exposure: Yes Agree to transfusion: Yes service: Yes ([employer]) Current occupational status: retired Sexual orientation: Decline to Answer Gender identity: Male Cognitive needs: No Hearing needs: No Vision needs: No Questionnaire Thrive Questionnaire Date Thrive assessed: 03/28/22 POOJA-7 AMB Questionnaire POOJA-7 Date POOJA - 7 assessed: 03/28/22 Source: Developed by Drs. Vinay Hylton, Chely Orona, Raul Ochoa and colleagues, with an educational dimitris from [employer]. Review of Systems Const Denies chills and Denies fever(s) ENT Denies epistaxis and Denies nasal discharge Card Denies chest pain Resp Denies chest congestion, Denies cough and Denies hemoptysis GI Denies diarrhea and Denies nausea Skin/Breast Denies rash Neuro Reports no additional complaints Psych Reports no additional complaints Endo Reports no additional complaints Physical exam (Primary Care) Tobacco/Smoking Status: Tobacco use Status Tobacco use date assessed 10/25/23 10/25/23 09:06 Patient Tobacco Use Status Former Tobacco user 10/25/23 09:06 Tobacco use type Cigarette 10/25/23 09:06 e-Cigarette/Vaping Use Never Used 10/25/23 09:06 Thrive Assessment: Date of Thrive Assessment Date Thrive assessed 03/28/22 10/25/23 09:06 Telehealth Telehealth Location of provider rendering services: practice address Location of patient: address on file Patient Identification confirmed using: Name, : Yes Telehealth method: video (was attempted) Patient verbally consented to treatment: Yes Patient verbally consented to billing insurance company: Yes Patient informed of any privacy concerns related to visit: Yes Assessment and Plan Assessment & Plan (1) COPD with asthma: Code(s): J44.9 - Chronic obstructive pulmonary disease, unspecified (2) Alcoholic peripheral neuropathy: Code(s): G62.1 - Alcoholic polyneuropathy (3) Erosive esophagitis: Code(s): K22.10 - Ulcer of esophagus without bleeding (4) Hiatal hernia without gangrene or obstruction: Code(s): K44.9 - Diaphragmatic hernia without obstruction or gangrene (5) LFT elevation: Code(s): R79.89 - Other specified abnormal findings of blood chemistry (6) Chronic GERD: Code(s): K21.9 - Gastro-esophageal reflux disease without esophagitis (7) Anemia of chronic disease: Code(s): D63.8 - Anemia in other chronic diseases classified elsewhere (8) Thrombocytosis: Code(s): D47.3 - Essential (hemorrhagic) thrombocythemia (9) Chronic hyponatremia: Code(s): E87.1 - Hypo-osmolality and hyponatremia Plan Patient is a 77-year-old gentleman this is a tele medicine conference Patient is in his usual state of health Continued to feel fatigued and short of breath if he walks a mile Patient have history of COPD However declined to see airfield operations specialist Currently he is taking Advair inhaler daily Patient have a history of tobacco use He is taking acamprosate, tells me that he has not drank alcohol since he restarted this medication He also has not seen supervisor tower in a while. Patient says that he does not need to He has alcoholic neuropathy and alcoholic liver disease. Anemia and thrombocytosis: I have ordered labs for him He is to continue with vitamin B1 and B6 He does have erosive esophagitis, currently on omeprazole 20 mg 2 times a day Follow-up 3 months Orders: Orders Complete Blood Count Auto Diff Today D63.8 - Anemia in other chronic diseases classified elsewhere, E87.1 - Hypo-osmolality and hyponatremia, G62.1 - Alcoholic polyneuropathy, J44.9 - Chronic obstructive pulmonary disease, unspecified, K21.9 - Gastro-esophageal reflux disease without esophagitis, K22.10 - Ulcer of esophagus without bleeding, K44.9 - Diaphragmatic hernia without obstruction or gangrene, R79.89 - Other specified abnormal findings of blood chemistry Comprehensive Met. Panel Today D63.8 - Anemia in other chronic diseases classified elsewhere, E87.1 - Hypo-osmolality and hyponatremia, G62.1 - Alcoholic polyneuropathy, J44.9 - Chronic obstructive pulmonary disease, unspecified, K21.9 - Gastro-esophageal reflux disease without esophagitis, K22.10 - Ulcer of esophagus without bleeding, K44.9 - Diaphragmatic hernia without obstruction or gangrene, R79.89 - Other specified abnormal findings of blood chemistry Coding Level of Care Code Tele Est Pt Level 4 (72156) Diagnoses COPD with asthma J44.9 Alcoholic peripheral neuropathy G62.1 Erosive esophagitis K22.10 Hiatal hernia without gangrene or obstruction K44.9 LFT elevation R79.89 Chronic GERD K21.9 Anemia of chronic disease D63.8 Thrombocytosis D47.3 Chronic hyponatremia E87.1 Comment 5 pre visit, 15 with patient, 5 charting, 5 coordination of care
== END 2023-10-25 10:44 | disposition home or self-care (01) ==
PROVIDERS: PCP Internal Medicine; Visit Provider Internal Medicine
DX: J44.9 Chronic obstructive pulmonary disease, unspecified (principal); G62.1 Alcoholic polyneuropathy; D47.3 Essential (hemorrhagic) thrombocythemia; K22.10 Ulcer of esophagus without bleeding; K44.9 Diaphragmatic hernia without obstruction or gangrene; R79.89 Other specified abnormal findings of blood chemistry; K21.9 Gastro-esophageal reflux disease without esophagitis; D63.8 Anemia in other chronic diseases classified elsewhere; E87.1 Hypo-osmolality and hyponatremia
CPT/HCPCS: 99214

== ENCOUNTER 2023-10-28 09:57 | Outpatient (REF) | payer MEDICARE, SELFPAY ==
[2023-10-28 13:27] LABS: MANUAL DIFF FLAG NO
[2023-10-28 13:37] LABS: Basophils Percent Auto 0.6 % (0-2); Eosinophils Absolute Auto 0.4 X10*3/uL (0.0-0.4); Hemoglobin 13.1 g/dl (14.0-18.0); Imm Gran Abs Auto 0.02 X10*3/uL (0.00-0.03); Imm Gran Pct Auto 0.3 % (0.0-0.4); Lymphocytes Absolute Auto 1.5 X10*3/uL (1.2-4.9); Mean Corpuscular Hemoglobin 30.8 pg (27.0-33.0); Mean Corpuscular Volume 96.2 fL (80.0-98.0); Monocytes Absolute Auto 0.7 X10*3/uL (0.1-1.2); Monocytes Percent Auto 11.7 % (2-11); Neutrophils Absolute Auto 3.5 x10*3/uL (2.0-8.3); Neutrophils Percent Auto 56.4 % (45-73); Platelet Count 329 X10*3/uL (160-400); Red Blood Count 4.26 X10*6/uL (4.60-5.80); Red Cell Distribution Width 13.8 % (11.0-16.0); White Blood Count 6.3 X10*3/uL (4.8-10.8)
[2023-10-28 13:50] LABS: Alanine Aminotransferase 15 U/L (0-40); Albumin Level 4.1 g/dL (3.5-5.0); Alkaline Phosphatase 99 U/L (39-117); Anion Gap 14 (12-20); Aspartate Amino Transferase 21 U/L (5-37); Bilirubin Total 0.5 mg/dL (0.0-1.0); Blood Urea Nitrogen 16 mg/dL (9-16); Calcium 9.7 mg/dL (8.4-10.2); Carbon Dioxide 27 mmol/L (22-29); Chloride 98 mmol/L (96-108); Estimated Glomerular Filt Rate > 60; Glucose Random 91 mg/dL (60-115); Potassium 4.1 mmol/L (3.3-5.1); Sodium 135 mmol/L (135-145); Total Protein 7.3 g/dL (6.5-8.0)
== END 2023-10-28 09:58 | disposition home or self-care (01) ==
LOC: HO.HMGCLDS 09:57
PROVIDERS: PCP Internal Medicine; Visit Provider Internal Medicine
DX: K22.10 Ulcer of esophagus without bleeding (principal); K44.9 Diaphragmatic hernia without obstruction or gangrene; E87.1 Hypo-osmolality and hyponatremia; R79.89 Other specified abnormal findings of blood chemistry; G62.1 Alcoholic polyneuropathy; J44.9 Chronic obstructive pulmonary disease, unspecified; K21.9 Gastro-esophageal reflux disease without esophagitis; D63.8 Anemia in other chronic diseases classified elsewhere
CPT/HCPCS: 36415; 80053; 85025

== ENCOUNTER 2024-04-15 11:15 | Outpatient (AMB) | payer MEDICARE, SELFPAY ==
--- NOTE | 2024-04-15 11:20 | A.OFFPC_ITS ---
Vital Signs 04/15/24 11:22 Height 6 ft 1 in Weight 162 lb 2 oz BMI 21.4 BP 124/68 Blood Pressure Location Rt brachial Position Sitting Pulse 68 Pulse Source Pulse Oximeter Pulse Oximetry (%) 96 Oxygen Delivery Method Room Air Intake Visit Reasons: ? ear blockage Allergies shrimp Allergy (Intermediate, Verified 04/15/24 11:21) Anaphylaxis shellfish derived [SHELLFISH DERIVED] Allergy (Unknown, Verified 04/15/24 11:21) DIFFICULTY BREATHING lobster Allergy (Intermediate, Uncoded 07/24/23 13:15) Anaphylaxis Medication List - Last Reconciled 04/15/24 by Hugh Payan MD acamprosate 333 mg PO TID 30 days acetaminophen 650 mg PO Q6H PRN albuterol sulfate 90 mcg/actuation (ProAir HFA) 2 puffs inhalation Q6H 30 days fluticasone propion-salmeterol 230-21 mcg/actuation (Advair HFA) 2 puffs inhalation BID 30 days omeprazole 20 mg PO BID 30 days pyridoxine (vitamin B6) (Vitamin B-6) 50 mg PO DAILY thiamine HCl (vitamin B1) 100 mg PO BID Tobacco use date assessed: 04/15/24 Dental Screening Dental Screen Date: 10/25/23 HPI ? 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 I have placed a referral for him to see a hand specialist Patient is complaining of feeling off balance at time Which she is happening for a while Explained to him that he has alcoholic neuropathy Two which he said I disagree Patient have a longstanding history of alcohol excessive use Which can cause gait problem I have offered him neurology appointment which she has declined at this time Continued to feel fatigued and short of breath if he walks a mile Patient have history of COPD/asthma He is using Advair inhaler However declined to see human resources benefits specialist Patient have a history of tobacco use He is taking acamprosate, he had a drink few weeks ago once again patient was instructed to stay away from all alcoholic beverages He has a history of hiatal hernia and erosive esophagitis, He also has not seen cub reporter in a while. Patient says that he does not need to He is to continue with vitamin B1 and B6 Follow-up 4 months labs are needed before visit [facility] Medical History Hyponatremia Asthma Anemia Aftercare following right shoulder joint replacement surgery Hiatal hernia without gangrene or obstruction Erosive esophagitis Osteoarthritis Spondylosis Anxiety Falls Syncope Hyponatremia Rib fractures Alcoholism COPD (chronic obstructive pulmonary disease) Surgical History History of esophagogastroduodenoscopy (EGD) Hx of colonoscopy History of shoulder surgery Family History Father No problems noted. Mother No problems noted. Social History Household Members: None Housing: House Housing Other:: [facility] ([facility]) Do you presently have visiting nurse or other home services: Yes (Meals on wheels) Alcohol intake: never Comment: patient sleeping Patient Tobacco Use Status: Former Tobacco user Tobacco use type: Cigarette Cigarette Packs Per Day: 0.5 Cigarettes Per Day: 10.0 Years Smoked: 20 e-Cigarette/Vaping Use: Never Used Second Hand Smoke Exposure: Yes Agree to transfusion: Yes service: Yes ([employer]) Current occupational status: retired Sexual orientation: Decline to Answer Gender identity: Male Cognitive needs: No Hearing needs: No Vision needs: No Questionnaire PHQ-9 Over the last 2 weeks, how often have you been bothered by any of the following problems? 1. Little interest or pleasure in doing things: several days 2. Feeling down, depressed, or hopeless: several days 3. Trouble falling or staying asleep, or sleeping too much: not at all 4. Feeling tired or having little energy: several days 5. Poor appetite or overeating: not at all 6. Feeling bad about yourself - or that you are a failure or have let yourself or your family down: several days 7. Trouble concentrating on things, such as reading the newspaper or watching television: not at all 8. Moving or speaking so slowly that other people could have noticed. Or the opposite - being so fidgety or restless that you have been moving around a lot more than usual: not at all 9. Thoughts that you would be better off or of hurting yourself in some way: not at all Total score: 4 Depression Screening Interpretation: Negative Depression Screening Done: Yes 76590 - PHQ-9 Billing: Yes Source: Developed by Drs. Vinay Hylton, Chely Orona, Raul Ochoa and colleagues, with an educational dimitris from [employer]. Thrive Questionnaire Date Thrive assessed: 04/15/24 I am a: Patient What is your living situation today?: I have a steady place to live Within the past 12 months, did the food you bought not last and you didn't have the money to get more?: Never true Within the past 12 months, did you worry whether your food would run out before you got money to buy more?: Never true Do you have trouble paying for medicines?: No Do you have trouble getting transportation to medical appointments?: No Do you have trouble paying your heating and electricity bill?: No Do you have trouble taking care of your child, family member or friend?: No Do you have trouble with day-to-day activities such as bathing, preparing meals, shopping, managing finances, etc.?: No Are you currently unemployed and looking for a job?: No Are you interested in more education?: No Please select the resources that you would like help with: Housing/Retirement Currently or been in a relationship where the following occur: No concerns reported THRIVE Score: 0 AUDIT C Alcohol Use Questionnaire (AUDIT-C) 1. How often do you have a drink containing alcohol?: 2-4 times a month 2. How many drinks containing alcohol do you have on a typical day when you are drinking?: 1 or 2 3. How often do you have six or more drinks on one occasion?: Never Total Score: 2 Score Reviewed/Action Taken: Yes POOJA-7 AMB Questionnaire POOJA-7 Date POOJA - 7 assessed: 04/15/24 Feeling nervous, anxious, or on edge: 0 = Not at all Not being able to stop or control worryin = Not at all Worrying too much about different things: 0 = Not at all Trouble relaxin = Not at all Being so restless that it is hard to sit still: 0 = Not at all Becoming easily annoyed or irritable: 1 = Several days Feeling afraid as if something awful might happen: 0 = Not at all Total POOJA-7 score (0-4 normal; 5-9 mild; 10-14 moderate; 15-21 severe): 1 Source: Developed by Drs. Vinay Hylton, Chely Orona, Raul Ochoa and colleagues, with an educational dimitris from [employer]. POOJA-7 Assessment Billing POOJA-7 Assessment Tool: POOJA-7 Assessment 81977 Review of Systems Const Denies chills and Denies fever(s) ENT Denies epistaxis and Denies nasal discharge Card Denies chest pain Resp Denies chest congestion, Denies cough and Denies hemoptysis GI Denies diarrhea and Denies nausea Skin/Breast Denies rash Neuro Reports no additional complaints Psych Reports no additional complaints Endo Reports no additional complaints Physical exam (Primary Care) Vital Signs: Last Vital Signs Pulse 68 04/15/24 11:22 BP 124/68 04/15/24 11:22 Pulse Ox 96 04/15/24 11:22 Oxygen Delivery Method Room Air 04/15/24 11:22 BMI result Body Mass Index 21.4 Tobacco/Smoking Status: Tobacco use Status Tobacco use date assessed 04/15/24 04/15/24 11:25 Patient Tobacco Use Status Former Tobacco user 04/15/24 11:25 Tobacco use type Cigarette 04/15/24 11:25 e-Cigarette/Vaping Use Never Used 04/15/24 11:25 PHQ-9: PHQ-9 Score PHQ-9: Total score 4 04/15/24 11:27 Depression Screening Interpretation: Negative Thrive Assessment: Date of Thrive Assessment Date Thrive assessed 04/15/24 04/15/24 11:27 Currently or been in a relationship where the following occur: No concerns reported Const General: cooperative, comfortable and no acute distress Orientation/consciousness: patient oriented x3 [facility] Head: Yes normocephalic Eyes General: appearance normal, both eyes and all related structures Neck Neck: Yes supple Resp Effort & Inspection: normal respiratory effort, no cough and no stridor Cardio Rhythm: regular rhythm Heart sounds: S1 normal heart sound present and S2 normal heart sound present Skin General skin exam: turgor normal Neuro General: patient oriented x3, tone normal and moves all extremities Extrem Other: Medial deviation of hand fingers with enlarged knuckles bilateral Assessment and Plan Assessment & Plan (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), including shoulder girdle (2) Gait disturbance: Code(s): R26.9 - Unspecified abnormalities of gait and mobility (3) Hand arthritis: Code(s): M19.049 - Primary osteoarthritis, unspecified hand (4) LFT elevation: Code(s): R79.89 - Other specified abnormal findings of blood chemistry (5) Hiatal hernia without gangrene or obstruction: Code(s): K44.9 - Diaphragmatic hernia without obstruction or gangrene (6) Alcoholic peripheral neuropathy: Code(s): G62.1 - Alcoholic polyneuropathy (7) Chronic GERD: Code(s): K21.9 - Gastro-esophageal reflux disease without esophagitis (8) Risk for falls: Code(s): Z91.81 - History of falling (9) COPD with asthma: Code(s): J44.9 - Chronic obstructive pulmonary disease, unspecified (10) Anemia of chronic disease: Code(s): D63.8 - Anemia in other chronic diseases classified elsewhere (11) Erosive esophagitis: Code(s): K22.10 - Ulcer of esophagus without bleeding (12) History of alcohol abuse: Code(s): F10.11 - Alcohol abuse, in remission Plan Patient is a 78-year-old gentleman came in for his regular follow-up appointment 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 I have placed a referral for him to see a hand specialist Patient is complaining of feeling off balance at time Which she is happening for a while Explained to him that he has alcoholic neuropathy Two which he said I disagree Patient have a longstanding history of alcohol excessive use Which can cause gait problem I have offered him neurology appointment which she has declined at this time Continued to feel fatigued and short of breath if he walks a mile Patient have history of COPD/asthma He is using Advair inhaler However declined to see human resources benefits specialist Patient have a history of tobacco use He is taking acamprosate, he had a drink few weeks ago once again patient was instructed to stay away from all alcoholic beverages He has a history of hiatal hernia and erosive esophagitis, He also has not seen cub reporter in a while. 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), including shoulder girdle, R79.89 - Other specified abnormal findings of blood chemistry Complete Blood Count Auto Diff Today D63.8 - Anemia in other chronic diseases classified elsewhere, F10.11 - Alcohol abuse, in remission, G62.1 - Alcoholic polyneuropathy, J44.9 - Chronic obstructive pulmonary disease, unspecified, K21.9 - Gastro-esophageal reflux disease without esophagitis, M19.049 - Primary osteoarthritis, unspecified hand, 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), including shoulder girdle, R79.89 - Other specified abnormal findings of blood chemistry Vitamin B12 Today D63.8 - Anemia in other chronic diseases classified elsewhere, F10.11 - Alcohol abuse, in remission, G62.1 - Alcoholic polyneuropathy, J44.9 - Chronic obstructive pulmonary disease, unspecified, K21.9 - Gastro-esophageal reflux disease without esophagitis, M19.049 - Primary osteoarthritis, unspecified hand, 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), including shoulder girdle, R79.89 - Other specified abnormal findings of blood chemistry LDL Cholesterol Direct Today D63.8 - Anemia in other chronic diseases classified elsewhere, F10.11 - Alcohol abuse, in remission, G62.1 - Alcoholic polyneuropathy, J44.9 - Chronic obstructive pulmonary disease, unspecified, K21.9 - Gastro-esophageal reflux disease without esophagitis, M19.049 - Primary osteoarthritis, unspecified hand, 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), including shoulder girdle, R79.89 - Other specified abnormal findings of blood chemistry TSH reflex Free T4 Today D63.8 - Anemia in other chronic diseases classified elsewhere, F10.11 - Alcohol abuse, in remission, G62.1 - Alcoholic polyneuro kenny, J44.9 - Chronic obstructive pulmonary disease, unspecified, K21.9 - Gastro-esophageal reflux disease without esophagitis, M19.049 - Primary osteoarthritis, unspecified hand, 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), including shoulder girdle, R79.89 - Other specified abnormal findings of blood chemistry Referrals Hand Surgery Referral M19.049 - Primary osteoarthritis, unspecified hand, 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
[2024-04-15 11:22] VITALS: BP 124/68; PULSE 68; O2SAT 96; BMI 21.4
== END 2024-04-15 11:40 | disposition home or self-care (01) ==
PROVIDERS: PCP Internal Medicine; Visit Provider Internal Medicine
DX: J44.9 Chronic obstructive pulmonary disease, unspecified (principal); G62.1 Alcoholic polyneuropathy; Q74.0 Other congenital malformations of upper limb(s), including shoulder girdle; R26.9 Unspecified abnormalities of gait and mobility; M19.049 Primary osteoarthritis, unspecified hand; R79.89 Other specified abnormal findings of blood chemistry; K44.9 Diaphragmatic hernia without obstruction or gangrene; K21.9 Gastro-esophageal reflux disease without esophagitis; Z91.81 History of falling; D63.8 Anemia in other chronic diseases classified elsewhere; K22.10 Ulcer of esophagus without bleeding; F10.11 Alcohol abuse, in remission
CPT/HCPCS: 99214; G2211

== ENCOUNTER 2024-05-20 09:39 | Outpatient (REF) | payer MEDICARE, SELFPAY ==
--- NOTE | ~2024-05-20 | XR_ITS ---
EXAMINATION: XR HAND, RIGHT XR HAND, LEFT CLINICAL INFORMATION: Pain. COMPARISON: None available. TECHNIQUE: PA, oblique, and lateral views of the right and left hand. FINDINGS: Left Hand: Prominent volar and ulnar subluxations of the second through fifth metacarpophalangeal joints with surrounding soft tissue swelling. No acute fracture or dislocation. Severe radiocarpal joint space narrowing with more moderate triscaphe and first carpometacarpal joint space narrowing. Periarticular erosions in this region. Joint space narrowing with marginal osteophytes at the interphalangeal joints. Central erosion within the second distal phalanx. Prior amputation through the tuft of the third distal phalanx. No abnormal soft tissue calcification. Orthopedic hardware within the fifth middle phalanx without evidence of complication. Right Hand: Volar and ulnar subluxations of the second through fifth metacarpophalangeal joints with periarticular erosions. Joint space narrowing with marginal osteophytes throughout the interphalangeal joints. No acute fracture. No abnormal soft tissue calcification. XR/XR hand LT min 3V IMPRESSION: LEFT HAND: Prominent volar and ulnar subluxations of the second through fifth metacarpophalangeal joints with surrounding soft tissue swelling. Severe radiocarpal, triscaphe, and first carpometacarpal joint space narrowing with associated periarticular erosions. Findings are consistent with rheumatoid arthritis. RIGHT HAND: Volar and ulnar subluxations of the second through fifth metacarpophalangeal joints with periarticular erosions. Joint space narrowing with marginal osteophytes throughout the interphalangeal joints. Findings are consistent with rheumatoid arthritis. Electronically signed by: Reji Rodriguez MD 06/04/2024 08:56 PM EDT
--- NOTE | ~2024-05-20 | XR_ITS ---
EXAMINATION: XR HAND, RIGHT XR HAND, LEFT CLINICAL INFORMATION: Pain. COMPARISON: None available. TECHNIQUE: PA, oblique, and lateral views of the right and left hand. FINDINGS: Left Hand: Prominent volar and ulnar subluxations of the second through fifth metacarpophalangeal joints with surrounding soft tissue swelling. No acute fracture or dislocation. Severe radiocarpal joint space narrowing with more moderate triscaphe and first carpometacarpal joint space narrowing. Periarticular erosions in this region. Joint space narrowing with marginal osteophytes at the interphalangeal joints. Central erosion within the second distal phalanx. Prior amputation through the tuft of the third distal phalanx. No abnormal soft tissue calcification. Orthopedic hardware within the fifth middle phalanx without evidence of complication. Right Hand: Volar and ulnar subluxations of the second through fifth metacarpophalangeal joints with periarticular erosions. Joint space narrowing with marginal osteophytes throughout the interphalangeal joints. No acute fracture. No abnormal soft tissue calcification. XR/XR hand RT min 3V IMPRESSION: LEFT HAND: Prominent volar and ulnar subluxations of the second through fifth metacarpophalangeal joints with surrounding soft tissue swelling. Severe radiocarpal, triscaphe, and first carpometacarpal joint space narrowing with associated periarticular erosions. Findings are consistent with rheumatoid arthritis. RIGHT HAND: Volar and ulnar subluxations of the second through fifth metacarpophalangeal joints with periarticular erosions. Joint space narrowing with marginal osteophytes throughout the interphalangeal joints. Findings are consistent with rheumatoid arthritis. Electronically signed by: Reji Rodriguez MD 06/04/2024 08:56 PM EDT
== END 2024-05-20 09:40 | disposition home or self-care (01) ==
LOC: HO.HOSX 09:39
PROVIDERS: PCP Internal Medicine; Visit Provider Orthopaedic Surgery
DX: M19.042 Primary osteoarthritis, left hand (principal); M19.041 Primary osteoarthritis, right hand; M20.021 Boutonniere deformity of right finger(s); M19.039 Primary osteoarthritis, unspecified wrist
CPT/HCPCS: 73130; 99202

== ENCOUNTER 2024-05-20 10:20 | Outpatient (AMB) | payer MEDICARE, SELFPAY ==
[2024-05-20 10:29] VITALS: BMI 21.4
--- NOTE | 2024-05-20 10:29 | MHC.OFFVIS ---
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 Patient denies numbness and tingling. Patient reports bilateral small fingers are locking on. Patient states he has trouble squeezing but he is able to grab things. Has not tried braces, steroid injections, PT, OT, or oral medications for this problem. Denies any prior injuries or surgeries. No EMG has been done. 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 His primary complaint is of pain in his fingers, near his MCP & PIP joints, which he manages with medication, but he says he is frustrated by having to take medication to manage this. He complains of arthritis changes in his bilateral hands, which limits his function. 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 He also complains of bilateral small finger locking and is unable to extend these small fingers. He denies any concerns about his wrists. He denies ever being seen by Rheumatology, being tested for RA, and denies any prior treatment for his hands. He denies any numbness or tingling. He denies any prior injuries. He denies any prior treatment options. he has a Hx of ETOH abuse, smoking, COPD with asthma, Alcoholic peripheral neuropathy, and a Hx of falls. He says he has improved his alcohol intake, but he does say he may spend several days to 1 week of drinking, and then remaining off of Alcohol for up to 1 month. He was coherent today, with no evidence of alcohol consumption, and was able to engage in discussion without difficulty. [facility] Medical History Hyponatremia Asthma Anemia Aftercare following right shoulder joint replacement surgery Hiatal hernia without gangrene or obstruction Erosive esophagitis Osteoarthritis Spondylosis Anxiety Falls Syncope Hyponatremia Rib fractures Alcoholism COPD (chronic obstructive pulmonary disease) Surgical History History of esophagogastroduodenoscopy (EGD) Hx of colonoscopy History of shoulder surgery Family History Father No problems noted. Mother No problems noted. Social History Household Members: None Housing: House Housing Other:: [facility] Do you presently have visiting nurse or other home services: Yes (Meals on wheels) Alcohol intake: never Comment: patient sleeping Patient Tobacco Use Status: Former Tobacco user Tobacco use type: Cigarette Cigarette Packs Per Day: 0.5 Cigarettes Per Day: 10.0 Years Smoked: 20 e-Cigarette/Vaping Use: Never Used Second Hand Smoke Exposure: Yes Agree to transfusion: Yes service: Yes ([employer]) Current occupational status: retired Sexual orientation: Decline to Answer Gender identity: Male Cognitive needs: No Hearing needs: No Vision needs: No Review of Systems Const All systems reviewed & are unremarkable except as noted in HPI and below Physical Exam Vital Signs: BMI result Body Mass Index 21.4 Const General: cooperative, healthy appearing and no acute distress Orientation/consciousness: patient oriented x3 HEENT Head: Yes normocephalic and Yes atraumatic Eyes EOM: EOMs intact bilaterally Resp Effort & Inspection: normal respiratory effort and able to speak in complete sentences Cardio Jugular venous distension: no JVD Skin General skin exam: turgor normal Rashes: no rashes Neuro General: patient oriented x3 Extrem Other: Evaluation of Bilateral Upper Extremity: The patient is alert, oriented, and in no acute distress Sensation is intact and proceed to be normal to all fingers. Good cap refill. ROM: He has ulnar deviation of all his MCP joints bilaterally, MCP joints held flexed at 90 degrees an ulnar deviated. 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 No gross swelling of the MCP joints or the wrists bilaterally. There is some enlargement of the MCP joints, but not red tender and swollen. Good active flexion and extension of the thumbs. Skin: No lacerations or abrasions. General: No Ecchymosis. No Erythema or evidence of infection. Radiographs: Three views of the left hand were taken today and reviewed by me in clinic. They show significant wrist arthritis particularly at the radiocarpal joint also with radial deviation at the wrist. We see significant arthritic changes with volar and ulnar subluxation/dislocation of the index middle ring and small finger MCP joints. These findings are most consistent with rheumatoid arthritis. He has also got some joint space narrowing of the PIP joints which were all held in extension. There is a plate on the dorsal aspect of the small finger middle phalanx with 4 screws. Any fracture appears to be healed. There is also a significant intraosseous radial lucency most consistent with a cyst of some sort in the distal phalanx of the index finger. Three views of the right hand were taken today and reviewed by me in clinic. The left wrist is in much better condition and without the radial deviation. We do however see the ulnar and volar subluxation of the index middle ring and small finger. The right small finger is flexed to 90 degrees at the PIP joint and hyper extended to 90 degrees at the D IP joint, most consistent with a boutonniere deformity. Psych Appearance: grossly normal Affect: normal affect Attitude: cooperative Assessment & Plan Assessment & Plan (1) Hand arthritis: Code(s): M19.049 - Primary osteoarthritis, unspecified hand Category: Medical (2) Boutonniere deformity of finger of right hand: Code(s): M20.021 - Boutonniere deformity of right finger(s) Category: Medical (3) COPD with asthma: Code(s): J44.9 - Chronic obstructive pulmonary disease, unspecified Category: Medical (4) Alcoholism: Code(s): F10.20 - Alcohol dependence, uncomplicated Category: Medical (5) Wrist arthritis: Code(s): M19.039 - Primary osteoarthritis, unspecified wrist Category: Medical Plan Assessment & Plan: 1. Severe left wrist radiocarpal arthritis with radial deviation Not particularly symptomatic 2. Left index through small finger MCP joints with volar subluxation and ulnar deviation The left wrist and hand deformities consistent with likely rheumatoid arthritic deformities 3. Right index through small finger MCP joints with volar subluxation and ulnar deviation 4. Right small finger Boutonniere deformity Not passively correctable Again most consistent with likely rheumatoid arthritic deformities Radiographs also consistent with rheumatoid arthritic deformities. I educated him about these conditions I discussed operative and non-operative treatment options I explained that we have to be careful with the operative intervention not to make him have trouble with function in our attempts to try to make him better. These deformities have developed over a long period of time. The patient feels that his hands are still rather functional. His biggest complaint is of the aching pain he gets in the MCP joints and fingers of both hands He says he has never been worked up for rheumatoid arthritis and has not seen a metal dealer. He does have issues with alcoholism. He was sober today in clinic and reports that he will go for quite a while not drinking alcohol at all but then will drink for 2 or 3 days. I referred him to our Rheumatology department for assessment, with the hopes of getting him in within the next month Medical management would be important to hopefully avoid more severe right wrist and right hand deformities. I gave him my card and told him that we could talk further about possible surgical options if you would like. 3. Bilateral wrist arthritis No complaints today Scribed for Yarely Garcia MD by Guilherme Parekh, medical billing and coding specialist, on 05/20/24 at 10:55 AM, EST. Orders: Orders XR hand LT min 3V Today M79.642 - Pain in left hand XR hand RT min 3V Today M79.641 - Pain in right hand Referrals Rheumatology Referral J44.9 - Chronic obstructive pulmonary disease, unspecified, M19.049 - Primary osteoarthritis, unspecified hand, M20.021 - Boutonniere deformity of right finger(s) Coding Level of Care Code New Pt Level 4 (92861) Diagnoses Hand arthritis M19.049 Boutonniere deformity of finger of right hand M20.021 COPD with asthma J44.9 Alcoholism F10.20 Wrist arthritis M19.039
== END 2024-05-20 11:26 | disposition home or self-care (01) ==
LOC: HO.HOS 10:20
PROVIDERS: PCP Internal Medicine; Visit Provider Orthopaedic Surgery
DX: M19.049 Primary osteoarthritis, unspecified hand (principal); M20.021 Boutonniere deformity of right finger(s); J44.9 Chronic obstructive pulmonary disease, unspecified; F10.20 Alcohol dependence, uncomplicated; M19.039 Primary osteoarthritis, unspecified wrist
CPT/HCPCS: 99203

== ENCOUNTER 2024-05-25 02:57 | Emergency (ER) | payer MEDICARE, SELFPAY ==
[2024-05-25] VITALS (9 sets, daily range): BP systolic 118–154; BP diastolic 67–84; PULSE 79–111; RESP 14–18; TEMP 36.2–37.2; O2SAT 96–98; BMI 20.9
--- NOTE | ~2024-05-25 | CT_ITS ---
EXAMINATION: CT LUMBAR SPINE with contrast CLINICAL INFORMATION: Lower back pain. COMPARISON: Lumbar spine radiographs 05/25/2024. TECHNIQUE: Engineering Mgr images were obtained. CT imaging of the lumbar spine was performed after the intravenous administration of 85 mL Omnipaque 350. Data was reformatted into multiplanar images at the acquisition workstation. This CT examination was performed using dose optimization techniques as appropriate, including one or more of the following: Automated exposure control, iterative reconstruction, and adjustment of technique factors (mA and/or kVp) according to patient size (this includes techniques or standardized protocols for targeted exams where dose is matched to indication/reason for exam). Fleischner Society criteria for the followup of incidental pulmonary nodules was implemented if appropriate. DLP: 421 mGy-cm. FINDINGS: There is slight grade 1 retrolisthesis of L2 on L3 and L3 on L4. Vertebral body heights are preserved. There is loss of intervertebral disc height with associated sclerotic degenerative endplate changes, after discussing the spurring, and intervertebral vacuum disc phenomenon at multiple levels, greatest at L4-L5 and L5-S1. Canal patency is not well assessed on this examination due to inherent limitations of CT without intrathecal contrast. Grossly no spinal canal compromise. A bulging disc in conjunction with facet degenerative change at L5-S1 causes at least moderate compression of the right L5 foraminal nerve root. There is also at least mild mass effect on the right L4 foraminal nerve related to degenerative changes at L4-L5. There is abundant with associated sclerotic changes of the adjoining spinous processes at L3-L4 that indicates the possibility of underlying Baastrup disease. Limited visualization of the retroperitoneal anatomy reveals scattered atheromatous calcification involving the abdominal aorta and iliac vessels. There are a few well marginated benign appearing cystic lesions within the right kidney. There are chronic changes of an old healed left pelvic fracture. CT/CT lumbar spine w IV con IMPRESSION: There is advanced multilevel degenerative spondylosis of the lumbar spine with slight grade 1 retrolisthesis of L2 on L3 and L3 on L4. Canal patency is not well assessed on this examination due to inherent limitations of CT without intrathecal contrast. Grossly no spinal canal compromise. A bulging disc in conjunction with facet degenerative change at L5-S1 causes at least moderate compression of the right L5 foraminal nerve root. There is also at least mild mass effect on the right L4 foraminal nerve root related to degenerative changes at L4-L5. There is abundant with associated sclerotic changes of the adjoining spinous processes at L3-L4 that indicates the possibility of underlying Baastrup disease. Electronically signed by: Vinay Higgins MD 05/25/2024 01:12 PM EDT RP
--- NOTE | ~2024-05-25 | CT_ITS ---
EXAMINATION: CT HEAD WITHOUT CONTRAST CLINICAL INFORMATION: Head trauma COMPARISON: 06/27/2020 TECHNIQUE: Contiguous axial imaging was performed from the skull base to vertex without intravenous administration of contrast. This CT examination was performed using dose optimization techniques as appropriate, variously including the following: *Automated exposure control *Adjustment of mA and/or kV according to patient size (this includes techniques or standardized protocols for targeted exams where dose is matched to indication/reason for exam; i.e. extremities or head) *Use of iterative reconstruction technique DLP: 676 mGy-cm FINDINGS: There is no evidence of acute intracranial hemorrhage or territorial infarction. No abnormal mass-effect or midline shift is seen. Juan to white matter differentiation is well preserved. No extra-axial fluid collections are identified. The ventricles are normal in size. There is mild periventricular white matter hypoattenuation consistent with chronic small vessel ischemic disease. Moderate volume loss is noted. The osseous structures and soft tissues are normal. Mild to moderate mucosal thickening of the paranasal sinuses. The mastoid air cells are well-aerated. CT/CT head/brain wo IV con IMPRESSION: No acute intracranial pathology. Chronic small vessel ischemic disease and volume loss. Electronically signed by: Huber Forrester MD 05/25/2024 05:01 AM EDT RP
--- NOTE | ~2024-05-25 | XR_ITS ---
EXAMINATION: XR LUMBOSACRAL SPINE CLINICAL INFORMATION: Pain COMPARISON: 06/27/2020 TECHNIQUE: Three views of the lumbosacral spine. FINDINGS: There is anatomic alignment of the lumbar vertebral bodies and posterior lungs. Vertebral body heights are maintained. No acute fracture is seen. Diffuse endplate osteophytes throughout the lumbar spine. There is disc space narrowing of the lower lumbar spine most severe at L4-L5 and L5-S1 with surrounding degenerative endplate changes. There is also facet arthropathy of the lower lumbar spine. Sacroiliac joints appear intact. There is atherosclerotic calcification along the aorta. XR/XR lumbar spine 2-3V IMPRESSION: No acute findings identified. Chronic/degenerative changes as noted above. Electronically signed by: Huber Forrester MD 05/25/2024 04:45 AM EDT
--- NOTE | 2024-05-25 03:50 | ED_ITS ---
HPI - Back Pain/Injury General Chief Complaint: Fall Stated Complaint: Lower Back pain due to a fall eariler today Time Seen by Provider: 05/25/24 03:20 Source: patient, EMS and old records reviewed Mode of arrival: EMS Limitations: no limitations History of Present Illness ED Provider: LORENE OLIVARES Narrative: 78 yo male with ETOH abuse, hyponatremia, GERD with esophagitis, COPD, anemia not on thinners here with c/o low back pain today he denies falls to me though in triage it states fall he notes he just couldn't get up out of the chair. He has no numbness, weakness, no loss of control of bowel or bladder. He notes it hurts when he moves. He denies fevers. MD elicited complaint: back pain Pertinent past history: prior back pain Onset (ago): day(s) (1) Timing: constant Severity: severe Similar Symptoms Previously: Yes Quality: sharp Location: lumbar spine Radiation: none Exacerbating factors: movement and walking Relieving factors: immobilization Context: unknown Associated symptoms: denies other symptoms Work related injury: No Related Data Home Medications ?Medication ?Instructions ?Recorded ?Confirmed acetaminophen 650 mg tablet 650 mg PO Q6H PRN Mild Pain (Scale 06/04/21 04/15/24 Score 1-4) Previous Rx's ?Medication ?Instructions ?Recorded albuterol sulfate 90 mcg/actuation 2 puff inhalation Q6H 30 days #8.5 07/19/23 aerosol inhaler (ProAir HFA) grams pyridoxine (vitamin B6) 50 mg 50 mg PO DAILY #90 caps 07/19/23 capsule (Vitamin B-6) thiamine HCl (vitamin B1) 100 mg 100 mg PO BID #90 tabs 07/19/23 tablet acamprosate 333 mg tablet,delayed 333 mg PO TID 30 days #90 tabs 10/14/23 release fluticasone propionate 230 2 puff inhalation BID 30 days #12 10/14/23 mcg-salmeterol 21 mcg/actuation grams HFA inhaler (Advair HFA) omeprazole 20 mg capsule,delayed 20 mg PO BID 30 days #60 caps 03/02/24 release Allergies Allergy/AdvReac Type Severity Reaction Status Date / Time shrimp Allergy Intermediate Anaphylaxis Verified 05/25/24 03:29 shellfish derived Allergy Unknown DIFFICULTY Verified 05/25/24 03:29 [SHELLFISH DERIVED] BREATHING lobster Allergy Intermediate Anaphylaxis Uncoded 05/25/24 03:29 Review of Systems 2 Review of Systems: Constitutional : No Weight loss, No Fever, No Chills, ENT/Mouth : No Hearing loss, No Ear Pain, No Nasal Congestion, No Sinus Pain, No Hoarseness, No sore throat, No Rhinorrhea, No Swallowing Difficulty Cardiovascular : No Chest Pain, No SOB Respiratory : No Cough, No Dyspnea Gastrointestinal : No Nausea, No Vomiting, No Diarrhea, No abdominal Pain, No Hematochezia, No Melena Genitourinary : No Dysuria, No Urinary Frequency, No Hematuria, No Urinary Incontinence, Musculoskeletal : positive back pain Skin : No Skin Lesions, No rash Neuro : No Weakness, No Numbness, No Paresthesias, no loss of bowel or bladder incontinence, no saddle anesthesia all other systems reviewed and are negative [facility] Past Medical History Attestation statement: The following information was validated with the patient. Source: old records reviewed Medical History Hyponatremia Asthma Anemia Aftercare following right shoulder joint replacement surgery Hiatal hernia without gangrene or obstruction Erosive esophagitis Osteoarthritis Spondylosis Anxiety Falls Syncope Hyponatremia Rib fractures Alcoholism COPD (chronic obstructive pulmonary disease) Surgical History History of esophagogastroduodenoscopy (EGD) Hx of colonoscopy History of shoulder surgery Family History Family History Father No problems noted. Mother No problems noted. Social History Social History Household Members: None Housing: House Housing Other:: [facility]) Do you presently have visiting nurse or other home services: Yes (Meals on wheels) Alcohol intake: current Alcohol intake frequency: 3 or more drinks per day Alcohol type: hard liquor Comment: patient sleeping Patient Tobacco Use Status: Former Tobacco user Tobacco use type: Cigarette Cigarette Packs Per Day: 0.5 Cigarettes Per Day: 10.0 Years Smoked: 20 Smoked in Last 30 Days: Yes e-Cigarette/Vaping Use: Never Used Second Hand Smoke Exposure: Yes Use of substances other than those prescribed or required for medical reasons: No Agree to transfusion: Yes Advance Directives: No Advance Directives Information Provided: Yes Do you have a plan to hurt others: No Plan service: Yes ([employer]) Current occupational status: retired Sexual orientation: Decline to Answer Gender identity: Male Cognitive needs: No Hearing needs: No Vision needs: No Physical Exam 2 Vital Signs: Vital Signs: Last Vital Signs Temp 97.1 F 05/25/24 03:25 Pulse 101 H 05/25/24 03:25 Resp 18 05/25/24 03:25 BP 145/76 H 05/25/24 03:25 Pulse Ox 97 05/25/24 03:25 O2 Del Method Room Air 05/25/24 03:25 BMI result Body Mass Index 20.9 Appearance: Alert. Oriented X3. No acute distress. unkempt disheveled poor hygiene, older than stated age Eyes: Pupils equal, round and reactive to light. ENT: Pharynx normal. Neck: Normal inspection. Neck supple. CVS: Normal heart rate and rhythm. Pulses normal. Respiratory: No respiratory distress. Breath sounds normal. Abdomen: Soft and nontender. Skin: Skin warm and dry. Normal skin color. Normal skin turgor. Extremities: No lower extremity edema. No calf ttp Neuro: Oriented X 3. No motor deficit. No sensory deficit. SILT inner thigh pain with raising both legs Medications Administered Discontinued Medications Generic Name Dose Route Start Last Admin Trade Name Freq PRN Reason Stop Dose Admin Morphine Sulfate 15 mg 05/25/24 03:28 05/25/24 03:57 Morphine Sulfate Immed Release 15 Mg Tablet PO 05/25/24 03:29 15 mg ONCE ONE Administration Thiamine HCl 100 mg 05/25/24 03:29 05/25/24 03:57 Thiamine Hcl 100 Mg Tablet PO 05/25/24 03:30 100 mg ONCE ONE Administration Medical Decision Making Medical Decision Making MDM Narrative: 78 yo male with ETOH abuse, hyponatremia, GERD with esophagitis, COPD, anemia not on thinners here with c/o low back pain but no b/b incontinence no saddle anesthesia not on thinners denies trauma to me at this time will start on oral thiamine, PO morphine, xray of lumbar spine for compression fracture, CT head in case he fell though he adamantly denies, basic labs given his issues with Na and magnesium. He is still actively drinking. NO IVDA no cauda equina symptoms. Differential Diagnosis Differential Diagnoses: The differential diagnosis associated with the presentation includes renal colic, back pain, lyte abnormality, compression fracture Admission/Observation Consideration of admission/observation: Escalation of care including admission/observation considered physician observation started at 534am pending PT/CM Lab Data MDM Lab Attestation statement: I reviewed the patient's lab results. 05/25/24 03:55 05/25/24 03:55 Labs: Lab Results 05/25/24 05/25/24 Range/Units 03:55 06:04 WBC 11.0 H (4.8-10.8) X10*3/uL RBC 3.92 L (4.60-5.80) X10*6/uL Hgb 11.7 L (14.0-18.0) g/dl Hct 34.2 L (42.0-52.0) % MCV 87.2 (80.0-98.0) fL MCH 29.8 (27.0-33.0) pg MCHC 34.2 (31.0-36.0) g/dl RDW 14.7 (11.0-16.0) % Plt Count 298 (160-400) X10*3/uL MPV 8.6 L (9.4-12.4) fL Immature Gran % (Auto) 0.7 H (0.0-0.4) % Neut % (Auto) 84.8 H (45-73) % Lymph % (Auto) 6.3 L (20-40) % [place] % (Auto) 6.0 (2-11) % Eos % (Auto) 1.8 (0-4) % Baso % (Auto) 0.4 (0-2) % Lymph # (Auto) 0.7 L (1.2-4.9) X10*3/uL [place] # (Auto) 0.7 (0.1-1.2) X10*3/uL Eos # (Auto) 0.2 (0.0-0.4) X10*3/uL Baso # (Auto) 0.0 (0.0-0.2) X10*3/uL Abs Immat Gran (auto) 0.08 H (0.00-0.03) X10*3/uL Absolute Neuts (auto) 9.4 H (2.0-8.3) x10*3/uL Absolute Nucleated RBC 0.000 (0.0-0.012) X10*3/uL Nucleated RBC % (auto) 0.0 (0.0-0.2) /100WBC Sodium 133 L (135-145) mmol/L Potassium 4.4 (3.3-5.1) mmol/L Chloride 98 (96-108) mmol/L Carbon Dioxide 20 L (22-29) mmol/L Anion Gap 19 (12-20) BUN 15 (9-16) mg/dL Creatinine 0.75 (0.5-1.4) mg/dL Estim Creat Clear Calc 83.8 Estimated GFR > 60 Random Glucose 83 (60-115) mg/dL Calcium 9.0 D (8.4-10.2) mg/dL Magnesium 1.7 (1.6-2.6) mg/dL Total Bilirubin 0.6 (0.0-1.0) mg/dL Direct Bilirubin 0.3 (0.0-0.5) mg/dL AST 27 (5-37) U/L ALT 20 (0-40) U/L Alkaline Phosphatase 93 (39-117) U/L Total Protein 7.0 (6.5-8.0) g/dL Albumin 4.1 (3.5-5.0) g/dL Lipase 39 (8-78) U/L Urine Color Dark Yellow Urine Appearance Clear Urine pH 5.5 (5.0-9.0) Ur Specific [place] 1.015 (1.005-1.025) Urine Protein Negative (Neg-Trace) mg/dL Urine Glucose (UA) Negative (Negative) mg/dL Urine Ketones Trace (Negative) mg/dL Urine Blood Negative (Negative) Urine Nitrite Negative (Negative) Ur Leukocyte Esterase Negative (Negative) Ethyl Alcohol 111 mg/dL Independent Interpretation I performed an independent interpretation of an: Plain X-Ray (no trauma) and CT Scan (no trauma) Radiology Impression Discussion of test interpretation with radiology: I have reviewed the radiologist's reading. Independent Historian Clinical information obtained from an independent historian. History obtained from or confirmed by: EMS External Record Review External record reviewed: Inpatient record Discharge Plan Discharge Clinical Impression: Low back pain Qualifiers: Chronicity: acute Back pain laterality: bilateral Sciatica presence: without sciatica Qualified Code(s): M54.50 - Low back pain, unspecified Patient Disposition: Still a Patient Prescriptions: No Action acamprosate 333 mg tablet,delayed release (DR/EC) 333 mg PO TID 30 Days Qty: 90 2RF Rx Instructions: give with meals fluticasone propion-salmeterol [Advair HFA] 230-21 mcg/actuation HFA aerosol inhaler 2 puff inhalation BID 30 Days Qty: 12 2RF omeprazole 20 mg capsule,delayed release(DR/EC) 20 mg PO BID 30 Days Qty: 60 3RF acetaminophen 650 mg Tablet 650 mg PO Q6H PRN (Reason: Mild Pain (Scale Score 1-4)) albuterol sulfate [ProAir HFA] 90 mcg/actuation HFA aerosol inhaler 2 puff INHALATION Q6H 30 Days Qty: 8.5 2RF Vitamin B-6 50 mg capsule 50 mg PO DAILY Qty: 90 3RF thiamine HCl (vitamin B1) 100 mg tablet 100 mg PO BID Qty: 90 3RF Print Language: Latvian
[2024-05-25] MEDS: Morphine Sulfate Immed Release 15 MG TABLET PO (03:57)
[2024-05-25] MEDS: Thiamine HCL 100 MG TABLET PO (03:57)
[2024-05-25 03:59] LABS: Basophils Percent Auto 0.4 % (0-2); Eosinophils Absolute Auto 0.2 X10*3/uL (0.0-0.4); Eosinophils Percent Auto 1.8 % (0-4); Hematocrit 34.2 % (42.0-52.0); Hemoglobin 11.7 g/dl (14.0-18.0); Imm Gran Abs Auto 0.08 X10*3/uL (0.00-0.03); Imm Gran Pct Auto 0.7 % (0.0-0.4); Lymphocytes Absolute Auto 0.7 X10*3/uL (1.2-4.9); Lymphocytes Percent Auto 6.3 % (20-40); MANUAL DIFF FLAG NO; Mean Corpuscular HGB Conc 34.2 g/dl (31.0-36.0); Mean Corpuscular Hemoglobin 29.8 pg (27.0-33.0); Mean Corpuscular Volume 87.2 fL (80.0-98.0); Mean Platelet Volume 8.6 fL (9.4-12.4); Monocytes Absolute Auto 0.7 X10*3/uL (0.1-1.2); Neutrophils Absolute Auto 9.4 x10*3/uL (2.0-8.3); Neutrophils Percent Auto 84.8 % (45-73); Platelet Count 298 X10*3/uL (160-400); Red Blood Count 3.92 X10*6/uL (4.60-5.80); Red Cell Distribution Width 14.7 % (11.0-16.0)
[2024-05-25 04:25] LABS: Alanine Aminotransferase 20 U/L (0-40); Albumin Level 4.1 g/dL (3.5-5.0); Alkaline Phosphatase 93 U/L (39-117); Anion Gap 19 (12-20); Aspartate Amino Transferase 27 U/L (5-37); Bilirubin Direct 0.3 mg/dL (0.0-0.5); Bilirubin Total 0.6 mg/dL (0.0-1.0); Blood Urea Nitrogen 15 mg/dL (9-16); Carbon Dioxide 20 mmol/L (22-29); Chloride 98 mmol/L (96-108); Creatinine Clr Calc Pharmacy 83.8; Estimated Glomerular Filt Rate > 60; Ethanol 111 mg/dL; Glucose Random 83 mg/dL (60-115); Lipase 39 U/L (8-78); Magnesium 1.7 mg/dL (1.6-2.6); Potassium 4.4 mmol/L (3.3-5.1); Sodium 133 mmol/L (135-145)
[2024-05-25 06:10] LABS: Appearance Urine Clear; Color Urine Dark Yellow; Glucose Urine UA Negative (Negative); Leukocyte Esterase Urine Negative (Negative); Nitrite Urine Negative (Negative); PH 5.5 (5.0-9.0); Specific Gravity - Urine 1.015 (1.005-1.025); Urine Blood Negative (Negative); Urine Ketones Trace mg/dL (Negative); Urine Protein Negative (Neg-Trace)
[2024-05-25 07:31] LABS: Erythrocyte Sedimentation Rate 23 MM/HR (0-15)
--- NOTE | 2024-05-25 08:30 | PC.NURSE ---
physical therapy evaluation being completed at this time.
--- NOTE | 2024-05-25 08:45 | PC.NURSE ---
covid swab obtained/sent to lab. updated CIWA = 1. pt c/o nonradiating lower back pain. denies numbness/tingling in LE. no sob/wob noted. respirations even/unlabored. plan of care ongoing. call camacho placed within reach.
[2024-05-25 09:02] LABS: COVID-19 Test Negative (Negative); IDNOW Serial# 08D9AD1C
--- NOTE | 2024-05-25 10:41 | PC.NURSE ---
pt to CT at this time.
[2024-05-25] MEDS: oxyCODONE HCl Immed Release 5 MG TABLET PO ×2 (12:18→21:02)
--- NOTE | 2024-05-25 12:44 | PC.NURSE ---
Messaged covering provider Saba about ordering daily meds as med rec has been completed.
--- NOTE | 2024-05-25 14:46 | MHC.CM.ED ---
Received case management consult overnight. Patient came to the ER d/t low back pain. Physical therapy eval completed. Rehab is recommended. Met with patient in regards to discharge planning. Patient lives alone, ambulates independently and had no services prior to coming to the ER. PCP verified. Copy of HCP verified of being on file. Patient has not been admitted to any facility in the past 30 days. Patient aware Medicare will not pay for rehab at a shelter facility but would pay for acute rehab is facility was able to offer a bed. Patient verbalized understanding and agreeable to referral being broadcasted to all 3 acute rehabs. Referal made via [facility]. Patient admits to drinking 2-3 whiskey or vodka drinks a day. Patient has never had seizures due to ETOH withdrawal. Continue to monitor for d/c needs.
--- NOTE | 2024-05-25 19:52 | PC.NURSE ---
Patient to go over to ED overflow, RN to RN phone report given to Shea, patient will go over once transport is available.
--- NOTE | 2024-05-26 01:27 | PC.NURSE ---
Assumed care of patient . Patient c/o lower back pain, Oxycodone 5 mg po administered as per MAR order. Patient sleeping, bed alarm on , call camacho within reach.
[2024-05-26 05:52] VITALS: BP 115/59; PULSE 89; RESP 18; TEMP 36.9; O2SAT 94
[2024-05-26] MEDS: Fluticasone/Vilanterol 200/25 BLST.W.DEV 1 PUFF INHALE (08:48)
[2024-05-26 08:51] VITALS: RESP 14
[2024-05-26] MEDS: Acamprosate Calcium 333 MG TABLET.DR PO ×3 (08:51→21:01)
[2024-05-26] MEDS: Thiamine HCL 100 MG TABLET PO ×2 (08:51→21:01)
[2024-05-26] MEDS: Pyridoxine HCl (Vitamin B6) 50 MG TABLET PO (08:51)
[2024-05-26] MEDS: oxyCODONE HCl Immed Release 5 MG TABLET PO ×2 (08:51→17:20)
[2024-05-26] MEDS: Omeprazole 20 MG CAPSULE.DR PO ×2 (08:51→17:21)
[2024-05-26] MEDS: Acetaminophen 325 MG TABLET 650 MG PO ×2 (08:52→17:21)
--- NOTE | 2024-05-26 09:22 | PHA.MEDREC ---
Pharmacy Consult ? Medication Reconciliation Pharmacy has reviewed the medication reconciliation completed by nursing. Spoke with patient, he states he is on his Advair 230/21mcg however he states he only takes 1 puff qd, he did get confused between the inhalers.
[2024-05-26] MEDS: Albuterol Sulfate 90 MCG 8 GM INHALER 2 PUFF INHALE (10:01)
[2024-05-26 10:02] VITALS: PULSE 89; RESP 14
[2024-05-26 14:00] VITALS: BP 127/79; PULSE 81; RESP 20; TEMP 36.6; O2SAT 95
--- NOTE | 2024-05-26 16:25 | MHC.EDTECH ---
This pct assumed care of Patient at 1520 pm ,Patient was soiled ,complete bed bath given ,and complete bed change ,clean gown given and lotion apply ,fresh water and petey julieta given ,All safety measure in place .
--- NOTE | 2024-05-26 18:04 | MHC.EDTECH ---
Patient refused dinner ,but drank 120 ml petey rendon rn aware .
[2024-05-26 21:31] VITALS: BP 131/71; PULSE 72; RESP 16; TEMP 37.1; O2SAT 94
[2024-05-26 23:55] VITALS: BP 126/62; PULSE 76; RESP 16; TEMP 37.1; O2SAT 93
--- NOTE | 2024-05-27 00:39 | PC.NURSE ---
Took report from off-going RN at 2300 hrs. PT is a 78 y/o male who presented from home via EMS on 05/25 for evaluation of increased weakness and difficulty ambulating with recent frequent falls. Fell prior to arrival and presented c/o lower back pain. Pt is alert and oritened X 4, calm, cooperative, and appropriate with staff. Verbalizes needs. Skin is W/P/D, no acute distress observed. Pt has 20G in left FA, flushes well, no indication of pain or signs of infiltration. Impression on imaging-degenerative disc disease with multi-level arthritis. Plan is placement in short-term rehab. Will continue to monitor for any changes.
--- NOTE | 2024-05-27 02:21 | PC.NURSE ---
Pt is sleeping, semi-fowers in bed, appears comfortable. Arousable with verbal stimuli. Verbalizes needs appropriately. No acute distress observed.
[2024-05-27 05:20] VITALS: BP 124/68; PULSE 76; RESP 16; TEMP 36.7; O2SAT 93
[2024-05-27] MEDS: Omeprazole 20 MG CAPSULE.DR PO ×2 (07:19→15:18)
[2024-05-27] MEDS: Acetaminophen 325 MG TABLET 650 MG PO (07:22)
[2024-05-27] MEDS: oxyCODONE HCl Immed Release 5 MG TABLET PO (07:23)
[2024-05-27] MEDS: Albuterol Sulfate 90 MCG 8 GM INHALER 2 PUFF INHALE (07:39)
[2024-05-27 07:40] VITALS: PULSE 76; RESP 16; O2SAT 96
[2024-05-27] MEDS: Fluticasone/Vilanterol 200/25 BLST.W.DEV 1 PUFF INHALE (07:42)
[2024-05-27] MEDS: Pyridoxine HCl (Vitamin B6) 50 MG TABLET PO (09:00)
[2024-05-27] MEDS: Thiamine HCL 100 MG TABLET PO (09:00)
[2024-05-27] MEDS: Acamprosate Calcium 333 MG TABLET.DR PO ×2 (09:00→15:18)
[2024-05-27 11:35] VITALS: BP 111/60; PULSE 78; RESP 18; TEMP 37.1; O2SAT 96
--- NOTE | 2024-05-27 12:07 | PC.NURSE ---
patient sitting up in recliner chair, eating lunch. patient is awake and alert, respirations equal and unlabored.
--- NOTE | 2024-05-27 14:30 | MHC.CM.ED ---
Addendum entered by Brook Majano 05/27/24 15:28: Received notification that patient is worried about transporting home. [facility] booked for 530pm. [facility] nec with chart. Original Note: Patient remains in ER overflow. [facility] is not able to offer a bed. Met with patient to discuss discharge options, including private pay SNF vs home with VNA. Patient would prefer to go home with VNA. Patient agreeable to referral being broadcasted. Patient's brother will be here this afternoon. Anticipate patient will d/c home with brother. If unable to safely transport with brother, BLS will be booked. Patient, Ann RN and Tracey BECERRIL aware. [facility] unable to accept patient before 48 hours. [facility] is able to accept patient. Patient agreeable. Continue to monitor for d/c needs.
--- NOTE | 2024-05-27 16:39 | PC.NURSE ---
patient up one assist with walker to the bathroom, patient gait shuffled but steady, patient does show signs of weakness is motivated to keep moving to get better.
--- NOTE | 2024-05-27 16:47 | PC.NURSE ---
patient ambulated back from bathroom with walker and one assist, has small bowel movement and urinated. patient sitting in recliner, has dinner tray in front of him.
[2024-05-27 17:15] VITALS: BP 122/63; PULSE 100; RESP 18; TEMP 36.3; O2SAT 96
--- NOTE | 2024-05-27 18:37 | PC.NURSE ---
patient changed into hospital pants and donated shirt for ambulance ride back home, patients original clothes soiled. patient has all belongings in bag with him. patient is awake and alert, aware of plan of care awaiting for ambulance
[2024-05-27 19:16] VITALS: BP 137/67; PULSE 85; RESP 17; TEMP 37.1; O2SAT 95
--- NOTE | 2024-05-27 19:16 | PC.NURSE ---
this rn assumed care of pt, pt sitting in chair, no acute distress noted. pt awaiting ems arrival for transport home. vss.
[2024-05-27 20:25] VITALS: BP 137/67; PULSE 85; RESP 17; TEMP 37.1; O2SAT 95
--- NOTE | 2024-05-27 20:25 | PC.NURSE ---
ems at bedside to transport pt home.
== END 2024-05-27 20:33 | disposition home or self-care (01) ==
PROVIDERS: Emergency Provider Emergency Medicine; PCP Internal Medicine
DX: M54.50 Low back pain, unspecified (principal); E87.1 Hypo-osmolality and hyponatremia; J44.9 Chronic obstructive pulmonary disease, unspecified; R26.2 Difficulty in walking, not elsewhere classified; R51.9 Headache, unspecified; Z79.899 Other long term (current) drug therapy; Z11.52 Encounter for screening for COVID-19; Z51.81 Encounter for therapeutic drug level monitoring
CPT/HCPCS: 36415; 70450; 72100; 72132; 80048; 80076; 80307; 81003; 83690; 83735; 85025; 85652; 87635; 94640; 97162; 99285

== ENCOUNTER 2024-07-01 10:39 | Outpatient (AMB) | payer MEDICARE, SELFPAY ==
--- NOTE | 2024-07-01 10:41 | MHC.PC.OV ---
Vital Signs 07/01/24 10:43 Height 6 ft 1 in Weight 153 lb 6 oz BMI 20.2 BP 110/52 L Blood Pressure Location Rt brachial Position Sitting Pulse 63 Pulse Source Pulse Oximeter Pulse Oximetry (%) 94 Oxygen Delivery Method Room Air Intake Visit Reasons: F/U brayan 07/03 Allergies shrimp Allergy (Intermediate, Verified 07/01/24 10:42) Anaphylaxis shellfish derived [SHELLFISH DERIVED] Allergy (Unknown, Verified 07/01/24 10:42) DIFFICULTY BREATHING lobster Allergy (Intermediate, Uncoded 05/25/24 03:29) Anaphylaxis Medication List - Last Reconciled 07/01/24 by Hugh Payan MD acamprosate 333 mg PO TID 30 days albuterol sulfate 90 mcg/actuation (ProAir HFA) 2 puffs inhalation Q6H 30 days fluticasone propion-salmeterol 230-21 mcg/actuation (Advair HFA) 1 puff inhalation DAILY ibuprofen 400 mg PO Q8H PRN omeprazole 20 mg PO BID 30 days pyridoxine (vitamin B6) (Vitamin B-6) 50 mg PO DAILY thiamine HCl (vitamin B1) 100 mg PO BID Tobacco use date assessed: 07/01/24 Fall risk assessment: No Falls in past year Last assessed Fall Risk: 07/01/24 Dental Screening Dental Screen Date: 07/01/24 Did you have a dental visit in the last 12 months?: Yes Did you have a dental problem in the last 6 months where you did not have access to dental care?: No Was dental information given to patient?: Patient has dentist HPI F/U brayan 07/03 HPI Details Patient is a 78-year-old gentleman came in for his regular follow-up appointment Tells me that he has not drank since he has seen me last Patient has stopped drinking months ago he is taking acamprosate, 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 Patient says that he does not need to He is to continue with vitamin B1 and B6 Recent labs shows that his hemoglobin has dropped again in 11 range I am starting him on iron supplement and B12 supplement Labs need to be repeated again in 3 months with follow-up visit [facility] Medical History Hyponatremia Asthma Anemia Aftercare following right shoulder joint replacement surgery Hiatal hernia without gangrene or obstruction Erosive esophagitis Osteoarthritis Spondylosis Anxiety Falls Syncope Hyponatremia Rib fractures Alcoholism COPD (chronic obstructive pulmonary disease) Surgical History History of esophagogastroduodenoscopy (EGD) Hx of colonoscopy History of shoulder surgery Family History Father No problems noted. Mother No problems noted. Social History Household Members: None Housing: House Housing Other:: [facility]) Do you presently have visiting nurse or other home services: Yes (Meals on wheels) Alcohol intake: current Alcohol intake frequency: 3 or more drinks per day Alcohol type: hard liquor Comment: patient sleeping Patient Tobacco Use Status: Former Tobacco user Tobacco use type: Cigarette Cigarette Packs Per Day: 0.5 Cigarettes Per Day: 10.0 Years Smoked: 20 e-Cigarette/Vaping Use: Never Used Second Hand Smoke Exposure: Yes Agree to transfusion: Yes service: Yes ([employer]) Current occupational status: retired Sexual orientation: Decline to Answer Gender identity: Male Cognitive needs: No Hearing needs: No Vision needs: No Questionnaire PHQ-9 Over the last 2 weeks, how often have you been bothered by any of the following problems? 1. Little interest or pleasure in doing things: several days 2. Feeling down, depressed, or hopeless: several days 3. Trouble falling or staying asleep, or sleeping too much: not at all 4. Feeling tired or having little energy: several days 5. Poor appetite or overeating: not at all 6. Feeling bad about yourself - or that you are a failure or have let yourself or your family down: several days 7. Trouble concentrating on things, such as reading the newspaper or watching television: not at all 8. Moving or speaking so slowly that other people could have noticed. Or the opposite - being so fidgety or restless that you have been moving around a lot more than usual: not at all 9. Thoughts that you would be better off or of hurting yourself in some way: not at all Total score: 4 Depression Screening Interpretation: Negative Depression Screening Done: Yes 82953 - PHQ-9 Billing: Yes Source: Developed by Drs. Vinay Hylton, Chely Orona, Raul Ochoa and colleagues, with an educational dimitris from [employer]. Thrive Questionnaire Date Thrive assessed: 07/01/24 I am a: Patient What is your living situation today?: I have a steady place to live Within the past 12 months, did the food you bought not last and you didn't have the money to get more?: Never true Within the past 12 months, did you worry whether your food would run out before you got money to buy more?: Never true Do you have trouble paying for medicines?: No Do you have trouble getting transportation to medical appointments?: No Do you have trouble paying your heating and electricity bill?: No Do you have trouble taking care of your child, family member or friend?: No Do you have trouble with day-to-day activities such as bathing, preparing meals, shopping, managing finances, etc.?: No Are you currently unemployed and looking for a job?: No Are you interested in more education?: No Please select the resources that you would like help with: None Currently or been in a relationship where the following occur: No concerns reported THRIVE Score: 0 AUDIT C Alcohol Use Questionnaire (AUDIT-C) 1. How often do you have a drink containing alcohol?: 2-4 times a month 2. How many drinks containing alcohol do you have on a typical day when you are drinking?: 1 or 2 3. How often do you have six or more drinks on one occasion?: Never Total Score: 2 Score Reviewed/Action Taken: Yes POOJA-7 AMB Questionnaire POOJA-7 Date POOJA - 7 assessed: 07/01/24 Feeling nervous, anxious, or on edge: 0 = Not at all Not being able to stop or control worryin = Not at all Worrying too much about different things: 0 = Not at all Trouble relaxin = Not at all Being so restless that it is hard to sit still: 0 = Not at all Becoming easily annoyed or irritable: 0 = Not at all Feeling afraid as if something awful might happen: 0 = Not at all Total POOJA-7 score (0-4 normal; 5-9 mild; 10-14 moderate; 15-21 severe): 0 Source: Developed by Drs. Vinay Hylton, Chely Orona, Raul Ochoa and colleagues, with an educational dimitris from [employer]. POOJA-7 Assessment Billing POOJA-7 Assessment Tool: POOJA-7 Assessment 14920 Review of Systems Const Denies chills and Denies fever(s) ENT Denies epistaxis and Denies nasal discharge Card Denies chest pain Resp Denies chest congestion, Denies cough and Denies hemoptysis GI Denies diarrhea and Denies nausea Skin/Breast Denies rash Neuro Reports no additional complaints Psych Reports no additional complaints Endo Reports no additional complaints Physical exam (Primary Care) Vital Signs: Last Vital Signs Pulse 63 07/01/24 10:43 BP 110/52 L 07/01/24 10:43 Pulse Ox 94 07/01/24 10:43 Oxygen Delivery Method Room Air 07/01/24 10:43 BMI result Body Mass Index 20.2 Tobacco/Smoking Status: Tobacco use Status Tobacco use date assessed 07/01/24 07/01/24 10:50 Patient Tobacco Use Status Former Tobacco user 07/01/24 10:50 Tobacco use type Cigarette 07/01/24 10:50 e-Cigarette/Vaping Use Never Used 07/01/24 10:50 PHQ-9: PHQ-9 Score PHQ-9: Total score 4 07/01/24 11:08 Depression Screening Interpretation: Negative Thrive Assessment: Date of Thrive Assessment Date Thrive assessed 07/01/24 07/01/24 10:50 Currently or been in a relationship where the following occur: No concerns reported Const General: cooperative, comfortable and no acute distress Orientation/consciousness: patient oriented x3 HENMT Head: Yes normocephalic Eyes General: appearance normal, both eyes and all related structures Neck Neck: Yes supple Resp Effort & Inspection: normal respiratory effort, no cough and no stridor Cardio Rhythm: regular rhythm Heart sounds: S1 normal heart sound present and S2 normal heart sound present Skin General skin exam: turgor normal Neuro General: patient oriented x3, tone normal and moves all extremities Extrem Right lower extremity: no edema Left lower extremity: no edema Coding Level of Care Code Est Pt Level 4 (46121) Complex EM visit Add On G2211 Diagnoses Alcoholic peripheral neuropathy G62.1 Chronic GERD K21.9 COPD with asthma J44.9 Lack of stamina R53.83 Other fatigue R53.83 Fatigue type: other Anemia of chronic disease D63.8 History of alcohol abuse F10.11 Additional Codes POOJA-7 Assessment Billing - POOJA-7 Assessment Tool: POOJA-7 Assessment 64293 ([id number]) Assessment & Plan Assessment & Plan (1) Alcoholic peripheral neuropathy: Code(s): G62.1 - Alcoholic polyneuropathy Category: Medical (2) Chronic GERD: Code(s): K21.9 - Gastro-esophageal reflux disease without esophagitis Category: Medical (3) COPD with asthma: Code(s): J44.9 - Chronic obstructive pulmonary disease, unspecified Category: Medical (4) Lack of stamina: Code(s): R53.83 - Other fatigue Category: Medical (5) Fatigue: Code(s): R53.83 - Other fatigue Category: Medical Qualifiers: Fatigue type: other Qualified Code(s): R53.83 - Other fatigue (6) Anemia of chronic disease: Code(s): D63.8 - Anemia in other chronic diseases classified elsewhere Category: Medical (7) History of alcohol abuse: Code(s): F10.11 - Alcohol abuse, in remission Category: Medical Plan Patient is a 78-year-old gentleman came in for his regular follow-up appointment Tells me that he has not drank since he has seen me last Patient has stopped drinking months ago he is taking acamprosate, 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 Patient says that he does not need to He is to continue with vitamin B1 and B6 Recent labs shows that his hemoglobin has dropped again in 11 range I am starting him on iron supplement and B12 supplement Labs need to be repeated again in 3 months with follow-up visit Orders: Orders Complete Blood Count Auto Diff Today D63.8 - Anemia in other chronic diseases classified elsewhere, F10.11 - Alcohol abuse, in remission, G62.1 - Alcoholic polyneuropathy, J44.9 - Chronic obstructive pulmonary disease, unspecified, K21.9 - Gastro-esophageal reflux disease without esophagitis, R53.83 - Other fatigue Comprehensive Met. Panel Today D63.8 - Anemia in other chronic diseases classified elsewhere, F10.11 - Alcohol abuse, in remission, G62.1 - Alcoholic polyneuropathy, J44.9 - Chronic obstructive pulmonary disease, unspecified, K21.9 - Gastro-esophageal reflux disease without esophagitis, R53.83 - Other fatigue Vitamin D 25-OH (D2 and D3) Today D63.8 - Anemia in other chronic diseases classified elsewhere, F10.11 - Alcohol abuse, in remission, G62.1 - Alcoholic polyneuropathy, J44.9 - Chronic obstructive pulmonary disease, unspecified, K21.9 - Gastro-esophageal reflux disease without esophagitis, R53.83 - Other fatigue Vitamin B12 Today D63.8 - Anemia in other chronic diseases classified elsewhere, F10.11 - Alcohol abuse, in remission, G62.1 - Alcoholic polyneuropathy, J44.9 - Chronic obstructive pulmonary disease, unspecified, K21.9 - Gastro-esophageal reflux disease without esophagitis, R53.83 - Other fatigue Medications: New ferrous sulfate Take with little bit of orange juice but not any dairy 324 mg PO ONCE 90 tabs 0RF 90 days cyanocobalamin (vitamin B-12) 1,000 mcg PO DAILY 90 tabs 0RF 90 days Changed From fluticasone propion-salmeterol 230-21 mcg/actuation (Advair HFA) 1 puff inhalation DAILY To Advair HFA 230-21 mcg/actuation (fluticasone propion-salmeterol) 1 puff inhalation DAILY 12 grams 3RF 30 days NS Refilled acamprosate give with meals 333 mg PO TID 90 tabs 2RF 30 days omeprazole 20 mg PO BID 60 caps 3RF 30 days pyridoxine (vitamin B6) (Vitamin B-6) 50 mg PO DAILY 90 caps 3RF thiamine HCl (vitamin B1) 100 mg PO BID 90 tabs 3RF
[2024-07-01 10:43] VITALS: BP 110/52; PULSE 63; O2SAT 94; BMI 20.2
== END 2024-07-01 11:54 | disposition home or self-care (01) ==
PROVIDERS: PCP Internal Medicine; Visit Provider Internal Medicine
DX: G62.1 Alcoholic polyneuropathy (principal); K21.9 Gastro-esophageal reflux disease without esophagitis; J44.9 Chronic obstructive pulmonary disease, unspecified; R53.83 Other fatigue; D63.8 Anemia in other chronic diseases classified elsewhere; F10.11 Alcohol abuse, in remission

== ENCOUNTER 2024-07-01 13:36 | Outpatient (AMB) | payer MEDICARE, SELFPAY ==
--- NOTE | 2024-07-01 13:41 | MHC.OFFVIS ---
Vital Signs 07/01/24 13:43 Height 6 ft 1 in Weight 153 lb 3.54 oz BMI 20.2 BP 112/68 Blood Pressure Location Lt brachial Position Sitting Pulse 68 Pulse Source Pulse Oximeter Intake Visit Reasons: osteoarthritis Intake Note: Patient is a new patient internally referred by Lawanda Garcia for arthritis of right hand. Allergies shrimp Allergy (Intermediate, Verified 07/01/24 13:44) Anaphylaxis shellfish derived [SHELLFISH DERIVED] Allergy (Unknown, Verified 07/01/24 13:44) DIFFICULTY BREATHING lobster Allergy (Intermediate, Uncoded 07/01/24 13:44) Anaphylaxis Medication List - Last Reconciled 07/01/24 by Marry Galeano MD acamprosate 333 mg PO TID 30 days Advair HFA 230-21 mcg/actuation (fluticasone propion-salmeterol) 1 puff inhalation DAILY 30 days NS albuterol sulfate 90 mcg/actuation (ProAir HFA) 2 puffs inhalation Q6H 30 days cyanocobalamin (vitamin B-12) 1,000 mcg PO DAILY 90 days ferrous sulfate 324 mg PO ONCE 90 days ibuprofen 400 mg PO Q8H PRN omeprazole 20 mg PO BID 30 days pyridoxine (vitamin B6) (Vitamin B-6) 50 mg PO DAILY thiamine HCl (vitamin B1) 100 mg PO BID HPI Comments Details: Patient is a 78 y.o. male with chronic alcoholism (current drinks 2-4 glasses of whiskey/bourbon per day), COPD with severe emphysema who presents for evaluation of hand deformities and erosions on XR. Patient states that he has been noticing worsing hand deformities over the past several years, this is associated with decreased utilization of his hands. He denies prolonged AM stiffness, chronic pain and inflammation to his hands. Denies pain to any other joints. No family history of RA or any other autoimmune disease. Patient is a retired . Lives alone Hx of smoking, quit 10-15 years ago (20 pack years) No hx of current illicit drug use (states he tried it in the past but no current use) [facility] Medical History (Updated 07/01/24 @ 14:09 by Marry Galeano MD) Long-term use of Plaquenil Inflammatory arthritis Hyponatremia Asthma Anemia Aftercare following right shoulder joint replacement surgery Hiatal hernia without gangrene or obstruction Erosive esophagitis Osteoarthritis Spondylosis Anxiety Falls Syncope Hyponatremia Rib fractures Alcoholism COPD (chronic obstructive pulmonary disease) Surgical History History of esophagogastroduodenoscopy (EGD) Hx of colonoscopy History of shoulder surgery Family History Father No problems noted. Mother No problems noted. Social History Household Members: None Housing: House Housing Other:: [facility] Do you presently have visiting nurse or other home services: Yes (Meals on wheels) Alcohol intake: current Alcohol intake frequency: 3 or more drinks per day Alcohol type: hard liquor Comment: patient sleeping Patient Tobacco Use Status: Former Tobacco user Tobacco use type: Cigarette Cigarette Packs Per Day: 0.5 Cigarettes Per Day: 10.0 Years Smoked: 20 e-Cigarette/Vaping Use: Never Used Second Hand Smoke Exposure: Yes Agree to transfusion: Yes service: Yes ([employer]) Current occupational status: retired Sexual orientation: Decline to Answer Gender identity: Male Cognitive needs: No Hearing needs: No Vision needs: No Review of Systems Const Details: Review of Systems Constitutional: Denies fever, chills, weight loss ENT: Denies vision changes, eye pain or eye redness, dental caries, dry mouth GI: Denies nausea, vomiting, diarrhea, abdominal pain, change in BM Pulm: Denies SOB, [place], hemoptysis, wheezing Cards: Denies chest pain, palpitations Skin: Denies Raynaud's, rash, nail changes, photosensitivity, TAPPER SHANK: Denies headaches, weakness, paresthesias, recurrent falls MSK: as per HPI All other systems reviewed and are unremarkable except noted above Physical Exam Vital Signs: Last Vital Signs Pulse 68 07/01/24 13:43 BP 112/68 07/01/24 13:43 BMI result Body Mass Index 20.2 Const Other: Physical Examination Patient well appearing and in no apparent painful distress Looks unkempt Constitutional Mucous membranes pink and moist patient alert and cooperative HEENT Conjunctiva and sclera clear. ?Pupils equal round and reactive to light. ?No lymphadenopathy. Respiratory System Normal respiratory effort and able to speak in complete sentences. ?Distant breath sounds Cardiac System Regular rate and rhythm. ?S1 and S2 heard no murmurs. ? 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 No synovitis Decreased ROM at the left elbow. No synovitis. Full ROM to the right elbow Full ROM to bilateral knees negative squeeze test Results Reviewed Results Reviewed: Laboratory Tests 10/28/23 05/25/24 10:04 03:55 WBC 6.3 11.0 H RBC 4.26 L 3.92 L Hgb 13.1 L 11.7 L Hct 41.0 L 34.2 L Plt Count 329 298 ESR 23 H Sodium 135 133 L Potassium 4.1 4.4 Chloride 98 98 Carbon Dioxide 27 20 L BUN 16 15 Creatinine 0.81 0.75 Estimated GFR > 60 > 60 Total Bilirubin 0.5 0.6 AST 21 27 ALT 15 20 Alkaline Phosphatase 99 93 Total Protein 7.3 7.0 Albumin 4.1 4.1 XR Hands 05/20/24 FINDINGS: Left Hand: Prominent volar and ulnar subluxations of the second through fifth metacarpophalangeal joints with surrounding soft tissue swelling. No acute fracture or dislocation. Severe radiocarpal joint space narrowing with more moderate triscaphe and first carpometacarpal joint space narrowing. Periarticular erosions in this region. Joint space narrowing with marginal osteophytes at the interphalangeal joints. Central erosion within the second distal phalanx. Prior amputation through the tuft of the third distal phalanx. No abnormal soft tissue calcification. Orthopedic hardware within the fifth middle phalanx without evidence of complication. Right Hand: Volar and ulnar subluxations of the second through fifth metacarpophalangeal joints with periarticular erosions. Joint space narrowing with marginal osteophytes throughout the interphalangeal joints. No acute fracture. No abnormal soft tissue calcification. Assessment & Plan Assessment & Plan (1) Inflammatory arthritis: Code(s): M19.90 - Unspecified osteoarthritis, unspecified site Category: Medical Plan: #Inflammatory erosive arthritis Patient with exam and XR findings consistent with inflammatory erosive arthritis. Differentials for erosive inflammatory arthritis include RA, sarcoidosis, spondyloarthritis. The most likely diagnosis is RA especially since he does not have inflammatory type back pain and CT scan from 2020 does not have any mediastinal lymph nodes Given his alcoholism, I do not think methotrexate would be the ideal medication for him Given his likely burn out disease, will start with low dose plaquenil. Plaquenil has also bee shown to reduce progression of RA (1) Will send serologies today. Interestingly, I think his alcoholism masked his pain and this is why he did not present earlier. 1. Daisy HODGE. Hydroxychloroquine sulfate in rheumatoid arthritis: long-term response rate and predictive parameters. Am J Med. 1983 Apr 02;75(1A):46-51. doi: 10.1016/5122-4253(64)47619-8. PMID: 2636356. (2) Long-term use of Plaquenil: Code(s): Z79.899 - Other community relations representative (current) drug therapy Category: Medical Plan: #Long-term Use of Hydroxychloroquine Discussed with patient the risks and benefits of hydroxychloroquine in managing the rheumatic condition Benefits include: - Reduced pain, reduce mortality, maintenance of remission and reduction of flares Risks include: - GI upset, skin hyperpigmentation, retinal toxicity (especially after more than 5 years of use), myopathy Advised yearly ophthalmology visits Last ophthalmology visit: Referral sent Plan I spent 30 minutes reviewing the record and labs, seeing the patient, discussing the treatment plan and documenting in the medical record Orders: Orders Rheumatoid Factor Today M19.049 - Primary osteoarthritis, unspecified hand C Reactive Protein Today M19.049 - Primary osteoarthritis, unspecified hand Erythrocyte Sedimentation Rate Today M19.049 - Primary osteoarthritis, unspecified hand Hepatitis A,B,C Profile Today M19.049 - Primary osteoarthritis, unspecified hand Cyclic Citrullinated Peptide Today M19.049 - Primary osteoarthritis, unspecified hand Referrals Ophthalmology Referral M19.90 - Unspecified osteoarthritis, unspecified site, Z79.899 - Other alf (current) drug therapy Medications: New hydroxychloroquine (Plaquenil) 200 mg PO BID 90 days 180 tabs 0RF M19.90 - Unspecified osteoarthritis, unspecified site Coding Level of Care Code New Pt Level 3 (03321) Complex EM visit Add On G2211 Diagnoses Inflammatory arthritis M19.90 Long-term use of Plaquenil Z79.899
[2024-07-01 13:43] VITALS: BP 112/68; PULSE 68; BMI 20.2
== END 2024-07-01 14:11 | disposition home or self-care (01) ==
PROVIDERS: PCP Internal Medicine; Visit Provider Student in an Organized Health Care Education/Training Program
DX: M19.90 Unspecified osteoarthritis, unspecified site (principal); Z79.899 Other long term (current) drug therapy
CPT/HCPCS: 99203; G2211

== ENCOUNTER 2024-09-25 12:59 | Outpatient (AMB) | payer MEDICARE, SELFPAY ==
--- OUTSIDE RECORDS SUMMARY | 2024-09-25 13:02 | XMS_ITS | Continuity of Care Document ---
Author Organization [facility] Address [address] [place] [address] [place] [address] Phone Care Team Providers Care Blood Bank Supervisor Name Role Phone Felix JOSEEd Unavailable Unavailable Allergies, Adverse Reactions, Alerts Substance Reaction Status Criticality No Known Allergies Active No Inform ation Medications Medication Instructions Dosage Effective Dates (start - stop) Status Comments albuterol sulfate 2.5 mg/0.5 mL solution for nebulization inhale 0.5 milliliter by nebulization route 3 times every day 2.5 MG - Active prednisolone acetate 1 % eye drops,suspension 1gtt OS tid - No Longer Active Procedures Procedure Date EYE EXAM & TREATMENT POSTOP FOLLOW-UP VISIT POSTOP FOLLOW-UP VISIT POSTOP FOLLOW-UP VISIT POSTOP FOLLOW-UP VISIT POSTOP FOLLOW-UP VISIT POSTOP FOLLOW-UP VISIT Cataract W/IOL 1 Stage OPHTHALMIC BIOMETRY; Professional Compon ent Cataract W/Iol 1 Stage, Facility Fee Apr PATIENT DOCUMENTS NO EVENTS ON DISCHARGE Patient WO Preop Order For I v Antibiotic Surgical Site Inf (Ssi) Prophlaxis Anesth, Lens Surgery; Timothy hawkins; Without Medical Direction By A Physician Non Smoker POSTOP FOLLOW-UP VISIT POSTOP FOLLOW-UP VISIT POSTOP FOLLOW-UP VISIT POSTOP FOLLOW-UP VISIT Cataract W/IOL 1 Stage Anesth, Lens Surgery; Timothy Ariane hawkins; Without Medical Direction By A Physician Non Smoker Cataract W/Iol 1 Stage, Facility Fee Mar PATIENT DOCUMENTS NO EVENTS ON DISCHARGE Patient WO Preop Order For I v Antibiotic Surgical Site Inf (Ssi) Prophlaxis OPHTHALMIC BIOMETRY OFFICE/OUTPATIENT VISIT, NEW Advance Directives Directive Yes / No Effective Date File Name No Information Encounters Encounter Description Practice Location Reason(s) For Visit Diagnoses Date Provider Providers Copied on Encounter [facility], [address] [place], [place], [id number], tel:[phone] Lisa Dumont cataract follow up (chief complaint) Other secondary cataract, bilateralVitr eous degeneration, bilateralVitr eous hemorrhage, left eye 7 Elvira Ward. [address] [place], [place], [id number], . tel:[phone] Referring Provider: Carlos Mejia, [address] [place], [address] . tel:[phone] [facility], [address] [place], [place], [id number], tel:[phone] Lisa Dumont no complaints OD (chief complaint) Encntr for f/u exam aft trtmt for cond oth than malig neoplm 6 Elvira Ward. [address], [place], [id number], . tel:[phone] Referring Provider: Carlos Mejia, [address] [place], [address] . tel:[phone] [facility], [address] [place], [place], [id number], tel:[phone] Lisa Dumont no complaints OD (chief complaint) Encntr for f/u exam aft trtmt for cond oth than malig neoplm 6 Elvira Ward. [address], [place], [id number], [place]. tel:[phone] Referring Provider: Carlos Mejia, [address], [place], [address] . tel:[phone] [facility], [address] [place], [place], [id number], tel:[phone] [place] scratchy and tearing OS (chief complaint) Encntr for f/u exam aft trtmt for cond oth than malig neoplm May-0 6 Felix Ed. [address], [place], [id number], [place]. tel:[phone] Referring Provider: Carlos Mejia, [address], [place], [address] . tel:[phone] [place] [address], [address] [place], [place], [id number], tel:[phone] [place] blurry vision OS (chief complaint) Encntr for f/u exam aft trtmt for cond oth than malig neoplm Apr- 6 Felix Ed. [address], [place], [id number], . tel:[phone] Referring Provider: Carlos Mejia, [address], [place], [address] . tel:[phone] [place] [address], [address] [place], [place], [id number], tel:[phone] [place] blurry vision OS (chief complaint) Encntr for f/u exam aft trtmt for cond oth than malig neoplm Apr- 6 Felix Ed. [address], [place], [id number], . tel:[phone] Referring Provider: Carlos Mejia, [address], [place], [address] . tel:[phone] [facility], [address] [place], [place], [id number], [place] tel:[phone] [place] patient slept well OS (chief complaint) Encntr for f/u exam aft trtmt for cond oth than malig neoplm 6 Felixfranc Ward. [address] [place], [place], [id number], [place]. tel:[phone] Referring Provider: Carlos Mejia, [address], [place], [address] . tel:[phone] [place] [address], [address] [place], [place], [id number], [place] tel:[phone] [facility] No Information 6 Thania Gonzalez. [address], [place], [place], [id number], [place]. tel:[phone] Referring Provider: Carlos Mejia, [address], [place], [address] . tel:[phone] [place] [address], [address] [place], [place], [id number], [place] tel:[phone] [facility] No Information 6 No Information Referring Provider: Carlos Mejia, [address], [place], [address] . tel:[phone] [place] [address], [address] [place], [id number], [place] tel:[phone] [facility] [place] No Information 6 [facility] [place] L. [address] [place], [place], [id number], [place]. tel:[phone] Referring Provider: Carlos Mejia, [address], [place], [address] . tel:[phone] [facility], [address] [place], [place], [id number], [place] tel:[phone] [place] No Information 6 Thania Gonzalez. [address], [place], [place], [id number], [place]. tel:[phone] Referring Provider: Carlos Mejia, [address], [place], [address] . tel:[phone] [facility], [facility] [place], [place], [id number], tel:[phone] [place] Floaters OD (chief complaint) Encntr for f/u exam aft trtmt for cond oth than malig neoplm 6 Elvira Ward. [address], [place], [id number], [place]. tel:[phone] Referring Provider: Carlos Mejia, [address] [place], [address] . tel:[phone] [facility], [address] [place] [address], [id number], tel:[phone] [place] no complaints OD (chief complaint) Encntr for f/u exam aft trtmt for cond oth than malig neoplm 6 Elvira Ward. [address], [place], [id number], [place]. tel:[phone] Referring Provider: Carlos Mejia, [address] [place], [address] . tel:[phone] [facility], [facility] [place], [place], [id number], tel:[phone] [place] red eye OD (chief complaint) Encntr for f/u exam aft trtmt for cond oth than malig neoplm 6 Elvira Ward. [address], [place], [id number], . tel:[phone] Referring Provider: Carlos Mejia, [address], [place], [address] . tel:[phone] [place] [address], [address] [place], [id number], [place] tel:[phone] [place] patient slept well OD (chief complaint) Encntr for f/u exam aft trtmt for cond oth than malig neoplm 6 Felix De. [address] [place], [place], [id number], [place]. tel:[phone] Referring Provider: Carlos Mejia, [address], [place], [address] . tel:[phone] [place] [address], [address] [place], [id number], [place] tel:[phone] [facility] No Information 6 Thania Gonzalez. [address], [place], [place], [id number], [place]. tel:[phone] Referring Provider: Carlos Mejia, [address], [place], [address] . tel:[phone] [place] [address], [address] [place], [id number], [place] tel:[phone] [facility] No Information 6 No Information Referring Provider: Carlos Mejia, [address], [place], [address] . tel:[phone] [place] [address], [address] [place], [id number], [place] tel:[phone] [facility] [place] No Information 6 [facility] [place] L. [address] [place], [id number], [place]. tel:[phone] Referring Provider: Carlos Mejia, [address], [place], [address] . tel:[phone] [place] [address], [address] [place], [id number], [place] tel:[phone] Lisa Dumont Age-related nuclear cataract, bilateral 6 Thania Gonzalez. [address], [id number], . tel:[phone] Referring Provider: Carlos Mejia, [address], [place], [address] . tel:[phone] OFFICE/OUTPA TIENT VISIT, [facility], [address] [place] [address] , [place], [id number], tel:[phone] Lisa Dumont cataract evaluation (chief complaint) Age-related nuclear cataract, bilateral 6 Thania Carlos. [address], [place], [place], [id number], [place]. tel:[phone] Referring Provider: Carlos Mejia, [address], [place], [address] . tel:[phone] Family History Family Member Type Diagnosis Age At Onset Problem (finding) Family history of Diabe angela mellitus Problem (finding) Family history of Arthr itis Payers Payer name Insurance type Covered republican ID Authoriza tion(s) [place] [id number] [facility] [id number] Social History Type Description Quantity Date Captured Comments Alcohol Use Details No Caffeine Use Details Tobacco Use Status Never smoked tobacco 2016 Smoking Status Never smoker Non-Smoking Tobacco Use Details : No Details Available : No Details Available Sex Male Chief Complaint And Reason For Visit From encounter dated '09/19/2016 09:00'. cataract follow up (chief complaint) Reason For Referral Reason For Referral No Information Plan Of Treatment Date Type Action Status Patient Education Cataract Surgery: Befor e Your Surgery completed History Of Present Illness Encounter Date Complaint History Of Prese nt Illness cataract follow up The 71 year o ld male presents for evaluation of cataract follow up. Pt had inflammation in OU after cataract surgery, he is no longer takingt he Prednisolone, he stopped about a month ago. Pt can notice a difference in his vision, pt says his vision is much better now. no complaints no complaints OD no complaints no complaints OD no complaints no complaints OS scratchy and tearing scratchy an d tearing OS blurry vision blurry vision OS blurry vision blurry vision OS patient slept well patient slept well OS Floaters Floaters OD no complaints no complaints OD red eye red eye OD patient slept well patient slept well OD cataract evaluation The 70 year old male presents for evaluation of cataract evaluation in the right eye and left eye. It started about 3 week(s) ago. The symptom is constant. The condition is described as blurring. The patient states he saw Dr. Dia 3 weeks ago and the stated the patient has cataracts OU OD is worse than OS. The patient states his last exam was 5-6 years ago. The patient forgot his glasses and states he only wears them when he is driving. Functional Status Date Functional Assessmen t No Information Instructions Date Instruction Additional Infor mation Return in 1-[address] Parker for retinal eval, back to dr. Dia after that. Related to Vitreous hemorrhage, left eye Follow up - Return i n 1-[address] Parker for retinal eval, back to dr. Dia after that. Related to Vitreous hemorrhage, left eye Impression/Plan - Di scussed diagnosis in detail with patient. Good views of periphery and PP with no signs of retinal tears/Rd's. Consult with Corbin Mallory within 2 weeks for eval as precautionary measure. SS of RD explained and pt to call immediately if they occur. After that resume care with dr. Dia. Related to Vitreous hemorrhage, left eye Impression/Plan - Di scussed diagnosis in detail with patient. No treatment is required at this time. Will continue to observe condition and or symptoms. Call if VA worsens. Related to Other secondary cataract, bilateral Impression/Plan - see 3 Related to Vitreous degeneration, bilateral CEIOL OD, RL2, Stand andreea lens, diatence. Recommend TORIC for second eye (OS) Related to Age-related nuclear cataract, bilateral Impression/Plan - Ca taracts account for the patient's complaints. Discussed all risks, benefits, procedures and recovery for cataract surgery in detail with the patient. Patient understands changing glasses will not improve vision. Patient desires to have surgery, recommend phacoemulsification with intraocular lens implant. Discussed lens implant options. Patient would like standard lens with a distance refractive goal. Patient understands that glasses are needed after surgery and that there is no guarantee of refractive result. Recommend TORIC lens OS Related to Age-related nuclear cataract, bilateral Follow up - CEIOL OD , RL2, Standard lens, diatence. Recommend TORIC for second eye (OS) Related to Age-related nuclear cataract, bilateral Assessments Type Assessment Date assessment Other secondary cataract, bilate ral impression Other secondary cataract, bilate ral: H26.493 impression Vitreous degeneration, bilateral : H43.813 assessment Vitreous degeneration, bilateral impression Vitreous hemorrhage, left eye: H 43.12 assessment Vitreous hemorrhage, left eye Joe Patient Care Teams Name Effective Dates (start - stop) Status Members No Information
--- OUTSIDE RECORDS SUMMARY | 2024-09-25 13:02 | XMS_ITS | Clinical Summary ---
Author Organization Unknown Care Team Providers Care Paint Stock Clerk Name Role Phone YASMIN GARCIA, PADMINI Unavailable Unavailable KIMBERLI JO OT Unavailable Sarah BAUTISTA RN, VANCE Unavailable Unavailable Payers Payer Name Policy Type Policy Number Effective Date Expira tion Date MEDICARE - [facility] - PD [id number] [facility] ADV [id number] Problems Condition Name Condition Details Condition Category Status Onset Date Resolution Date Last Treatment Date Treating Clinician Comments MUSCLE WASTING AND ATROPHY, NEC, MULTIPLE SITES Active 09-16 00:00: 00 OTHER PSYCHOACTIVE SUBSTANCE ABUSE, UNCOMPLICATE D Active 09-16 00:00: 00 RHEUMATOID ARTHRITIS, UNSPECIFIED Active 09-16 00:00: 00 ALCOHOLIC POLYNEUROPAT HY Active 09-16 00:00: 00 OTHER SPONDYLOSIS, LUMBAR REGION Active 09-16 00:00: 00 OTHER CHRONIC PAIN Active 09-16 00:00: 00 OTH CONGEN MALFORM OF UPPER LIMB(S), INC SHOULDER GIRDLE Active 09-16 00:00: 00 ANEMIA, UNSPECIFIED Active 09-16 00:00: 00 OTHER SPECIFIED CHRONIC OBSTRUCTIVE PULMONARY DISEASE Active 09-16 00:00: 00 GASTRO-ESOPH AGEAL REFLUX DISEASE WITHOUT ESOPHAGITIS Active 09-16 00:00: 00 ULCER OF ESOPHAGUS WITHOUT BLEEDING Active 09-16 00:00: 00 ANXIETY DISORDER, UNSPECIFIED Active 09-16 00:00: 00 ALCOHOL ABUSE, IN REMISSION Active 09-16 00:00: 00 PRIMARY OSTEOARTHRIT IS, UNSPECIFIED HAND Active 09-16 00:00: 00 PERSONAL HISTORY OF NICOTINE DEPENDENCE Active 09-16 00:00: 00 PERSONAL HISTORY OF OTHER DISEASES OF URINARY SYSTEM Active 09-16 00:00: 00 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 Ordering Clinician Indication Dosage Frequency Signature (SIG) Comments Components acamprosate 333 mg tablet,khang yed release 2023-09 00:00: 00 Yes [id number] 1 tablet 3 TIMES DAILY 1 tablet 3 TIMES DAILY (route: oral) Med Classific ation: Chemical Dependenc y, Agents to Treat albuterol sulfate HFA 90 mcg/actuati on aerosol inhaler 2023-09 00:00: 00 Yes [id number] 2 puff EVERY 6 HOURS 2 puff EVERY 6 HOURS (route: inhalation ) Med Classific ation: Respirato ry Therapy Agents omeprazole 20 mg capsule,del ayed release 2023-09 00:00: 00 Yes [id number] 1 capsule 2 TIMES DAILY 1 capsule 2 TIMES DAILY (route: oral) Med Classific ation: Gastroint estinal Therapy Agents oxycodone 5 mg tablet 2023-09 00:00: 00 Yes [id number] 1 tablet EVERY 6 HOURS 1 tablet EVERY 6 HOURS (route: oral) Med Classific ation: Analgesic , Anti-infl ammatory or Antipyret ic tizanidine 2 mg tablet 2023-09 00:00: 00 Yes [id number] 2 mg 3 TIMES DAILY 2 mg 3 TIMES DAILY (route: oral) Med Classific ation: Locomotor System Vital Signs Vital Name Observation Time Observation Value Commen ts Temperature 2024-08-19 08:26:00.000 98 [degF] Temperature 2024-08-11 09:22:00.000 98.2 [degF] Temperature 2024-08-04 08:33:00.000 97.3 [degF] Temperature 2024-07-29 09:37:00.000 97.3 [degF] Temperature 2024-07-28 13:12:00.000 97.9 [degF] Temperature 2024-07-22 13:04:00.000 97 [degF] Temperature 2024-07-17 18:51:00.000 97.6 [degF] Temperature 2024-07-09 10:41:00.000 99 [degF] Temperature 2024-07-08 10:02:00.000 96.6 [degF] Temperature 2024-07-02 10:13:00.000 96.6 [degF] Temperature 2024-07-02 08:59:00.000 97.1 [degF] Temperature 2024-06-26 09:13:00.000 97.7 [degF] Temperature 2024-06-23 13:10:00.000 96.6 [degF] Temperature 2024-06-21 10:37:00.000 98.2 [degF] BMI (%) 2024-07-17 19:13:00.000 20 kg/m2 BMI (%) 2024-06-21 10:29:00.000 19 kg/m2 Height 2024-07-17 19:13:00.000 72 [in_us] Height 2024-06-21 10:28:49.000 73 [in_us] Pulse 2024-08-19 08:26:00.000 76 /min Pulse 2024-08-11 09:22:00.000 80 /min Pulse 2024-08-04 08:33:00.000 86 /min Pulse 2024-07-29 09:37:00.000 60 /min Pulse 2024-07-28 13:12:00.000 73 /min Pulse 2024-07-22 13:04:00.000 70 /min Pulse 2024-07-17 18:51:00.000 76 /min Pulse 2024-07-09 10:41:00.000 96 /min Pulse 2024-07-08 10:02:00.000 82 /min Pulse 2024-07-02 10:13:00.000 86 /min Pulse 2024-07-02 08:59:00.000 82 /min Pulse 2024-06-30 10:36:00.000 56 /min Pulse 2024-06-26 09:13:00.000 58 /min Pulse 2024-06-23 13:10:00.000 78 /min Pulse 2024-06-21 10:37:00.000 64 /min O2 Saturation (%) 2024-08-19 08:26:00.000 97 % O2 Saturation (%) 2024-08-11 09:22:00.000 99 % O2 Saturation (%) 2024-08-04 08:33:00.000 97 % O2 Saturation (%) 2024-07-29 09:37:00.000 99 % O2 Saturation (%) 2024-07-28 13:12:00.000 97 % O2 Saturation (%) 2024-07-22 13:04:00.000 97 % O2 Saturation (%) 2024-07-09 10:41:00.000 95 % O2 Saturation (%) 2024-07-08 10:02:00.000 98 % O2 Saturation (%) 2024-07-02 10:13:00.000 96 % O2 Saturation (%) 2024-07-02 08:59:00.000 99 % O2 Saturation (%) 2024-06-30 10:36:00.000 95 % O2 Saturation (%) 2024-06-26 09:13:00.000 99 % O2 Saturation (%) 2024-06-23 13:10:00.000 97 % O2 Saturation (%) 2024-06-21 10:37:00.000 97 % Respirations 2024-08-19 08:26:00.000 18 /min Respirations 2024-08-11 09:22:00.000 18 /min Respirations 2024-07-28 13:12:00.000 18 /min Respirations 2024-07-22 13:04:00.000 18 /min Respirations 2024-07-17 18:51:00.000 18 /min Respirations 2024-07-09 10:41:00.000 18 /min Respirations 2024-07-08 10:02:00.000 18 /min Respirations 2024-07-02 10:13:00.000 18 /min Respirations 2024-06-26 09:13:00.000 18 /min Respirations 2024-06-23 13:10:00.000 18 /min Respirations 2024-06-21 10:37:00.000 18 /min Weight (lbs) 2024-07-17 19:13:00.000 150 [lb_av] Weight (lbs) 2024-06-21 10:29:00.000 150 [lb_av] Systolic Blood Pressure 2024-08-19 08:26:00.000 110 mm [Hg] Systolic Blood Pressure 2024-08-11 09:22:00.000 140 mm [Hg] Systolic Blood Pressure 2024-08-04 08:33:00.000 126 mm [Hg] Systolic Blood Pressure 2024-07-29 09:37:00.000 126 mm [Hg] Systolic Blood Pressure 2024-07-28 13:12:00.000 110 mm [Hg] Systolic Blood Pressure 2024-07-22 13:04:00.000 122 mm [Hg] Systolic Blood Pressure 2024-07-09 10:41:00.000 102 mm [Hg] Systolic Blood Pressure 2024-07-08 10:02:00.000 116 mm [Hg] Systolic Blood Pressure 2024-07-02 10:13:00.000 118 mm [Hg] Systolic Blood Pressure 2024-07-02 08:59:00.000 130 mm [Hg] Systolic Blood Pressure 2024-06-30 10:36:00.000 122 mm [Hg] Systolic Blood Pressure 2024-06-26 09:13:00.000 132 mm [Hg] Systolic Blood Pressure 2024-06-23 13:10:00.000 124 mm [Hg] Systolic Blood Pressure 2024-06-21 10:37:00.000 130 mm [Hg] Diastolic Blood Pressure 2024-08-19 08:26:00.000 74 mm [Hg] Diastolic Blood Pressure 2024-08-11 09:22:00.000 76 mm [Hg] Diastolic Blood Pressure 2024-08-04 08:33:00.000 70 mm [Hg] Diastolic Blood Pressure 2024-07-29 09:37:00.000 70 mm [Hg] Diastolic Blood Pressure 2024-07-28 13:12:00.000 62 mm [Hg] Diastolic Blood Pressure 2024-07-22 13:04:00.000 64 mm [Hg] Diastolic Blood Pressure 2024-07-09 10:41:00.000 78 mm [Hg] Diastolic Blood Pressure 2024-07-08 10:02:00.000 80 mm [Hg] Diastolic Blood Pressure 2024-07-02 10:13:00.000 80 mm [Hg] Diastolic Blood Pressure 2024-07-02 08:59:00.000 72 mm [Hg] Diastolic Blood Pressure 2024-06-30 10:36:00.000 60 mm [Hg] Diastolic Blood Pressure 2024-06-26 09:13:00.000 78 mm [Hg] Diastolic Blood Pressure 2024-06-23 13:10:00.000 74 mm [Hg] Diastolic Blood Pressure 2024-06-21 10:37:00.000 78 mm [Hg] Plan of Treatment Planned Activity Planned Date Details Comments Future Scheduled Test SKILLED NU RSE TO EVALUATE PATIENT, IDENTIFY PRIMARY AND CO-MORBID CONDITIONS CODED PER CODING GUIDELINES, AND DEVELOP PATIENT SPECIFIC PLAN OF CARE THAT INCLUDES PATIENT GOAL FOR HOME HEALTH. [code = SKILLED NURSE TO EVALUATE PATIENT, IDENTIFY PRIMARY AND CO-MORBID CONDITIONS CODED PER CODING GUIDELINES, AND DEVELOP PATIENT SPECIFIC PLAN OF CARE THAT INCLUDES PATIENT GOAL FOR HOME HEALTH.] Future Scheduled Test SKILLED NU RSE TO REVIEW PATIENT MEDICATIONS. INSTRUCT PATIENT/CAREGIVER ON MONITORING OF EFFECTIVENESS, ADVERSE DRUG REACTIONS, SIDE EFFECTS OF ALL MEDICATIONS (PRESCRIPTION/-OTC), AND HOW AND WHEN TO REPORT PROBLEMS. [code = SKILLED NURSE TO REVIEW PATIENT MEDICATIONS. INSTRUCT PATIENT/CAREGIVER ON MONITORING OF EFFECTIVENESS, ADVERSE DRUG REACTIONS, SIDE EFFECTS OF ALL MEDICATIONS (PRESCRIPTION/-OTC), AND HOW AND WHEN TO REPORT PROBLEMS.] Future Scheduled Test SKILLED NU RSE TO ASSESS ANXIETY AND PROVIDE ASSISTANCE TO PATIENT FOR UNDERSTANDING AND MANAGEMENT OF FEELINGS. [code = SKILLED NURSE TO ASSESS ANXIETY AND PROVIDE ASSISTANCE TO PATIENT FOR UNDERSTANDING AND MANAGEMENT OF FEELINGS.] Future Scheduled Test SKILLED NU RSE FOR INSTRUCTION/ REINFORCEMENT OF NEEDS RELATED TO NUTRITION/HYDRATION. [code = SKILLED NURSE FOR INSTRUCTION/ REINFORCEMENT OF NEEDS RELATED TO NUTRITION/HYDRATION.] Future Scheduled Test SKILLED NU RSE FOR O/A, TEACHING RELATED TO CONSTIPATION EARLY IDENTIFICATION OF EXACERBATION OF DISEASE PROCESS. [code = SKILLED NURSE FOR O/A, TEACHING RELATED TO CONSTIPATION EARLY IDENTIFICATION OF EXACERBATION OF DISEASE PROCESS.] Future Scheduled Test OCCUPATION AL THERAPIST TO EVALUATE PATIENT FOR SAFETY [code = OCCUPATIONAL THERAPIST TO EVALUATE PATIENT FOR SAFETY] Future Scheduled Test SKILLED NU RSE FOR O/A OF MUSCULOSKELETAL STATUS AND TEACHING ON MEASURES TO MANAGE DORSALGIA, MUSCLE WASTING AND ATROPHY AND TO MAINTAIN SAFETY WITH ACTIVITY [code = SKILLED NURSE FOR O/A OF MUSCULOSKELETAL STATUS AND TEACHING ON MEASURES TO MANAGE DORSALGIA, MUSCLE WASTING AND ATROPHY AND TO MAINTAIN SAFETY WITH ACTIVITY ] Future Scheduled Test PHYSICAL T HERAPIST TO EVALUATE PATIENT FOR STRENGTH AND MOBILITY [code = PHYSICAL THERAPIST TO EVALUATE PATIENT FOR STRENGTH AND MOBILITY ] Future Scheduled Test SKILLED NU RSE TO INSTRUCT PATIENT/CAREGIVER ON COPD TO INCLUDE TEACHING AND SELF-MANAGEMENT RELATED TO COPD DISEASE PROCESS, SIGNS AND SYMPTOMS, AND COMPLICATIONS. [code = SKILLED NURSE TO INSTRUCT PATIENT/CAREGIVER ON COPD TO INCLUDE TEACHING AND SELF-MANAGEMENT RELATED TO COPD DISEASE PROCESS, SIGNS AND SYMPTOMS, AND COMPLICATIONS.] Future Scheduled Test SKILLED NU RSE FOR O/A AND SKILLED TEACHING RELATED TO SIGNS AND SYMPTOMS AND MANAGEMENT OF ANEMIA. [code = SKILLED NURSE FOR O/A AND SKILLED TEACHING RELATED TO SIGNS AND SYMPTOMS AND MANAGEMENT OF ANEMIA.] Future Scheduled Test SKILLED NU RSE FOR O/A AND SKILLED TEACHING RELATED TO SIGNS AND SYMPTOMS AND MANAGEMENT OF OA, SPONDYLOSIS. [code = SKILLED NURSE FOR O/A AND SKILLED TEACHING RELATED TO SIGNS AND SYMPTOMS AND MANAGEMENT OF OA, SPONDYLOSIS.] Future Scheduled Test SKILLED NU RSE FOR O/A AND SKILLED TEACHING RELATED TO SIGNS AND SYMPTOMS AND MANAGEMENT OF RA. [code = SKILLED NURSE FOR O/A AND SKILLED TEACHING RELATED TO SIGNS AND SYMPTOMS AND MANAGEMENT OF RA.] Future Scheduled Test VIRTUAL SIT FREQUENCY: 3-4 PRN VIRTUAL VISITS FOR HIGH RISK ASSESSMENTS AND/OR CHANGE IN STATUS MAY BE PERFORMED UTILIZING TELECOMMUNICATIONS SYSTEM TO OPTIMIZE SKILLED SERVICES FURNISHED ON THE PLAN OF CARE. SKILLED NURSE TO ESTABLISH SUPPORT MEASURES TO MINIMIZE RISK OF REHOSPITALIZATION, AND INSTRUCT PATIENT/CAREGIVER ON METHODS TO REDUCE AVOIDABLE HOSPITALIZATION. [code = VIRTUAL VISIT FREQUENCY: 3-4 PRN VIRTUAL VISITS FOR HIGH RISK ASSESSMENTS AND/OR CHANGE IN STATUS MAY BE PERFORMED UTILIZING TELECOMMUNICATIONS SYSTEM TO OPTIMIZE SKILLED SERVICES FURNISHED ON THE PLAN OF CARE. SKILLED NURSE TO ESTABLISH SUPPORT MEASURES TO MINIMIZE RISK OF REHOSPITALIZATION, AND INSTRUCT PATIENT/CAREGIVER ON METHODS TO REDUCE AVOIDABLE HOSPITALIZATION.] Future Scheduled Test PATIENT GARG S A RISK OF HOSPITALIZATION AND ED USE. SKILLED NURSE TO ESTABLISH SUPPORT MEASURES TO MINIMIZE RISK OF HOSPITALIZATION AND ED USE, AND INSTRUCT PATIENT/CAREGIVER ON METHODS TO REDUCE AVOIDABLE HOSPITALIZATION AND ED USE. [code = PATIENT HAS A RISK OF HOSPITALIZATION AND ED USE. SKILLED NURSE TO ESTABLISH SUPPORT MEASURES TO MINIMIZE RISK OF HOSPITALIZATION AND ED USE, AND INSTRUCT PATIENT/CAREGIVER ON METHODS TO REDUCE AVOIDABLE HOSPITALIZATION AND ED USE.] Future Scheduled Test SKILLED NU RSE TO PROVIDE INSTRUCTION TO PATIENT/CAREGIVER RELATED TO DISCHARGE PLANNING. [code = SKILLED NURSE TO PROVIDE INSTRUCTION TO PATIENT/CAREGIVER RELATED TO DISCHARGE PLANNING. ] Future Scheduled Test SKILLED NU RSE TO PERFORM HOME SAFETY AND FALL ASSESSMENT AND PROVIDE INSTRUCTION TO IMPLEMENT HOME SAFETY AND FALL PREVENTION STRATEGIES. [code = SKILLED NURSE TO PERFORM HOME SAFETY AND FALL ASSESSMENT AND PROVIDE INSTRUCTION TO IMPLEMENT HOME SAFETY AND FALL PREVENTION STRATEGIES.] Future Scheduled Test SKILLED NU RSE FOR OBSERVATION AND ASSESSMENT OF PATIENTS PAIN LEVEL AND EFFECTIVENESS OF PAIN MANAGEMENT REGIMEN. SKILLED NURSE TO INSTRUCT PATIENT/CAREGIVER REGARDING PHARMACOLOGIC AND NON-PHARMACOLOGIC PAIN CONTROL MEASURES. SKILLED NURSE TO REPORT TO PHYSICIAN IF PAIN IS UNCONTROLLED WITH CURRENT PAIN MANAGEMENT REGIMEN. [code = SKILLED NURSE FOR OBSERVATION AND ASSESSMENT OF PATIENTS PAIN LEVEL AND EFFECTIVENESS OF PAIN MANAGEMENT REGIMEN. SKILLED NURSE TO INSTRUCT PATIENT/CAREGIVER REGARDING PHARMACOLOGIC AND NON-PHARMACOLOGIC PAIN CONTROL MEASURES. SKILLED NURSE TO REPORT TO PHYSICIAN IF PAIN IS UNCONTROLLED WITH CURRENT PAIN MANAGEMENT REGIMEN.] Future Scheduled Test SKILLED NU RSE TO ASSESS PATIENT'S SKIN INTEGRITY AND INSTRUCT PATIENT/CAREGIVER ON MEASURES TO PREVENT PRESSURE ULCERS. [code = SKILLED NURSE TO ASSESS PATIENT'S SKIN INTEGRITY AND INSTRUCT PATIENT/CAREGIVER ON MEASURES TO PREVENT PRESSURE ULCERS.] Future Scheduled Test SKILLED NU RSE FOR O/A OF SIGNS AND SYMPTOMS OF SUBSTANCE USE. INSTRUCT PATIENT ON RELATED RISKS AND WILL NOTIFY PHYSICIAN/PROVIDER NEEDED. [code = SKILLED NURSE FOR O/A OF SIGNS AND SYMPTOMS OF SUBSTANCE USE. INSTRUCT PATIENT ON RELATED RISKS AND WILL NOTIFY PHYSICIAN/PROVIDER NEEDED.] Future Scheduled Test SKILLED NU RSE TO INSTRUCT PATIENT/CAREGIVER ON S/S OF NEUROPATHY AND METHODS TO MANAGE. [code = SKILLED NURSE TO INSTRUCT PATIENT/CAREGIVER ON S/S OF NEUROPATHY AND METHODS TO MANAGE.] Future Scheduled Test PHYSICAL T HERAPIST TO EVALUATE PATIENT SECONDARY TO FUNCTIONAL DEFICITS/SAFETY CONCERNS. PHYSICAL THERAPIST TO ASSESS BEST PRACTICE INTERVENTIONS TO ASSIST PATIENTS TO IMPROVE OR STABILIZE MEDICAL STATUS AND PREVENT RE-HOSPITALIZATION. MEASURES INCLUDING REVIEW AND IDENTIFICATION OF CONCERNS FOR THE FOLLOWING AREAS: DRUG REGIMEN, ENVIRONMENTAL SAFETY ISSUES AND FALLS, PRESSURE ULCERS, PAIN, AND DISEASE MANAGEMENT. PHYSICAL THERAPY TO ESTABLISH /UPGRADE/DOWNGRADE THERAPEUTIC EXERCISE PROGRAM AND INSTRUCT PATIENT/CAREGIVER ON EXERCISE PRECAUTIONS WITH WRITTEN HOME PROGRAM. MAY INCLUDE PROM, AAROM, AROM, RROM APPROPRIATE TO IMPROVE FUNCTIONAL STRENGTH AND RANGE OF MOTION. PHYSICAL THERAPY TO INSTRUCT PATIENT/CAREGIVER ON GAIT TRAINING TECHNIQUES USING APPROPRIATE ASSISTIVE DEVICE, PROPER BODY MECHANICS TO IMPROVE MOBILITY, AND PREVENT INJURY OF PATIENT AND/OR CAREGIVER. PHYSICAL THERAPY TO ASSESS AND RECOMMEND HOME SAFETY ADAPTATIONS AND EDUCATE PATIENT /CAREGIVER ON FALL PREVENTION STRATEGIES. PHYSICAL THERAPY FOR OBSERVATION AND ASSESSMENT OF PAIN, EFFECTIVENESS OF PAIN MANAGEMENT REGIMEN AND SKILLED TEACHING RELATED TO PAIN MANAGEMENT. THERAPIST TO REPORT INCREASED PAIN LEVEL TO PHYSICIAN FOR PROMPT INTERVENTION. PHYSICAL THERAPY TO INSTRUCT PATIENT/CAREGIVER ON BALANCE AND BALANCE STRATEGIES TO IMPROVE SAFE MOBILITY AND REDUCE RISK FOR FALL AND INJURY INCLUDING PARTICIPATION IN [facility] SPECIAL[facility] PROGRAM SUMMARY OF THERAPY EVAL/ASSESSMENT FINDINGS AND REASON(S) SKILLS OF A THERAPIST ARE INDICATED: PHYSICAL THERAPY EVALUATION (06/23/24) PATIENT IRINA A [facility] 78 YEAR OLD MALE WITH PHYSICAL THERAPY REFERRAL AFTER [facility] ([facility] 06/03 -06/19/24) DUE TO LOWER BACK PAIN. PATIENT HAS EXPERIENCED 2 HOSPITALIZATION SINCE DUE TO BACK PAIN LAST HOSPITALIZATION [facility] AND [facility] AND [facility]. PAST MD HX: COPD, EL, RA, ETOH USE DISORDER. FALL HISTORY: NO FALLS REPORTED WITHIN PAST 3 MONTHS PATIENT LIVES ALONE IN SINGLE FAMILY HOME WITH DOG. 3 STEPS WITH PATIAIL RAIL, 1 THRESHOLD STEP WITH RAIL TO NEGOTIATE. PLOF: PATIENT ABLE TO AMB INDEP IN HOME AND COMMUNITY, USE OF COA FOR TRANSPORTATION. CLOF: DME: FWW, 2 GRAB BARS IN BATHROOM REVIEWED SPINAL PRECAUTIONS AND RECOMMENDED [employer] DEVELOPMENT CONSULTANT ACQUISITION. RECOMMENDED PATIENT CARRY CELLPHONE. PATIENT HAS MOW, HAS CONTACTED [facility] INQUIRING ABOUT A HOME HEALTH AIDE. PATIENT REPORTS 2/10 BACK PAIN. RECOMMEND PATIENT HAVE REFERRAL TO SPINE MD. PATIENT DEMO BILAT HAND RA DEFORMITY. BILAT LE ROM WFL, BILAT LE STRENGTH 4 TO 4-/5. TO INCREASE BILAT LE STRENGTH, PATIENT COMPLETED BILATERAL LE SEATED THER EXER X 10 WITH VERBAL CUES FOR FORM: PLANTAR/DORSIFLEX, HIP FLEX, KNEE EXT. DISPENSED HEP SHEET. PATIENT INDEP WITH BED MOBILITY. PATIENT ABLE TO TRANSFER SIT-->STAND WITH FWW MOD I. PATIENT AMB 40' WITH FWW AND SUPERVISION, VERBAL CUES FOR AD AND BODY POSITIONING WITH TURNS. PATIENT DEMO BILAT LE STEP LENGTHS WITH ADEQUATE FEET CLEARANCE, 0 LOB. TINETTI = 16/28, FALL RISK. PATIENT ASCENDED/DESCENDED 3 STEPS WITH PATIAIL RAIL, 1 THRESHOLD STEP WITH SUPERVISION AND VERBAL CUES FOR UE POSTIONING. RECOMMENDED ROLLATOR ACQUISITON PATIENT REPORTS DECREASED ENDURANCE WHEN AMB IN COMMUNITY, HOWEVER PATIENT NOT RECEPTIVE. PATIENT STATES THAT HE DOES NOT WANT TO USE FWW WHEN OUTSIDE HOME, RECOMMENDED CANE ACQUSITION WITH PATIENT RECEPTIVE. PATIENT PRESENTS WITH THE FOLLOWING DEFICITS: BILAT LE WEAKNESS, DECREASED ENDURANCE, RESULTING IN DIFFICULTY WITH AMB AND STAIR NEGOTIATION. SKILLED [facility] FREQ 1X4WKS TO MAX SAFETY AND FUNCTIONAL LEVEL IN HOME ENVIRONMENT WITH THER EXER, ESTABLISH HEP, GAIT TRAINING, STAIR NEGOTIATION. PATIENT INFORMED ABOUT PHYSICAL THERAPY POC INCLUDING FREQ, VERBALIZED ACCEPTANCE. MD NOTIFIED ABOUT PATIENT STATUS AND POC. [code = PHYSICAL THERAPIST TO EVALUATE PATIENT SECONDARY TO FUNCTIONAL DEFICITS/SAFETY CONCERNS. PHYSICAL THERAPIST TO ASSESS BEST PRACTICE INTERVENTIONS TO ASSIST PATIENTS TO IMPROVE OR STABILIZE MEDICAL STATUS AND PREVENT RE-HOSPITALIZATION. MEASURES INCLUDING REVIEW AND IDENTIFICATION OF CONCERNS FOR THE FOLLOWING AREAS: DRUG REGIMEN, ENVIRONMENTAL SAFETY ISSUES AND FALLS, PRESSURE ULCERS, PAIN, AND DISEASE MANAGEMENT. PHYSICAL THERAPY TO ESTABLISH /UPGRADE/DOWNGRADE THERAPEUTIC EXERCISE PROGRAM AND INSTRUCT PATIENT/CAREGIVER ON EXERCISE PRECAUTIONS WITH WRITTEN HOME PROGRAM. MAY INCLUDE PROM, AAROM, AROM, RROM APPROPRIATE TO IMPROVE FUNCTIONAL STRENGTH AND RANGE OF MOTION. PHYSICAL THERAPY TO INSTRUCT PATIENT/CAREGIVER ON GAIT TRAINING TECHNIQUES USING APPROPRIATE ASSISTIVE DEVICE, PROPER BODY MECHANICS TO IMPROVE MOBILITY, AND PREVENT INJURY OF PATIENT AND/OR CAREGIVER. PHYSICAL THERAPY TO ASSESS AND RECOMMEND HOME SAFETY ADAPTATIONS AND EDUCATE PATIENT /CAREGIVER ON FALL PREVENTION STRATEGIES. PHYSICAL THERAPY FOR OBSERVATION AND ASSESSMENT OF PAIN, EFFECTIVENESS OF PAIN MANAGEMENT REGIMEN AND SKILLED TEACHING RELATED TO PAIN MANAGEMENT. THERAPIST TO REPORT INCREASED PAIN LEVEL TO PHYSICIAN FOR PROMPT INTERVENTION. PHYSICAL THERAPY TO INSTRUCT PATIENT/CAREGIVER ON BALANCE AND BALANCE STRATEGIES TO IMPROVE SAFE MOBILITY AND REDUCE RISK FOR FALL AND INJURY INCLUDING PARTICIPATION IN [facility] PROGRAM SUMMARY OF THERAPY EVAL/ASSESSMENT FINDINGS AND REASON(S) SKILLS OF A THERAPIST ARE INDICATED: PHYSICAL THERAPY EVALUATION (06/23/24) PATIENT IRINA A [facility] 78 YEAR OLD MALE WITH PHYSICAL THERAPY REFERRAL AFTER [facility] AND [facility] STAY ([facility] 06/03 -06/19/24) DUE TO LOWER BACK PAIN. PATIENT HAS EXPERIENCED 2 HOSPITALIZATION SINCE DUE TO BACK PAIN LAST HOSPITALIZATION [facility] AND [facility]. PAST MD HX: COPD, EL, RA, ETOH USE DISORDER. FALL HISTORY: NO FALLS REPORTED WITHIN PAST 3 MONTHS PATIENT LIVES ALONE IN SINGLE FAMILY HOME WITH DOG. 3 STEPS WITH PATIAIL RAIL, 1 THRESHOLD STEP WITH RAIL TO NEGOTIATE. PLOF: PATIENT ABLE TO AMB INDEP IN HOME AND COMMUNITY, USE OF COA FOR TRANSPORTATION. CLOF: DME: FWW, 2 GRAB BARS IN BATHROOM REVIEWED SPINAL PRECAUTIONS AND RECOMMENDED [employer] INDUSTRIAL DEVELOPMENT CONSULTANT ACQUISITION. RECOMMENDED PATIENT CARRY CELLPHONE. PATIENT HAS MOW, HAS CONTACTED [facility] INQUIRING ABOUT A HOME HEALTH AIDE. PATIENT REPORTS 2/10 BACK PAIN. RECOMMEND PATIENT HAVE REFERRAL TO SPINE MD. PATIENT DEMO BILAT HAND RA DEFORMITY. BILAT LE ROM WFL, BILAT LE STRENGTH 4 TO 4-/5. TO INCREASE BILAT LE STRENGTH, PATIENT COMPLETED BILATERAL LE SEATED THER EXER X 10 WITH VERBAL CUES FOR FORM: PLANTAR/DORSIFLEX, HIP FLEX, KNEE EXT. DISPENSED HEP SHEET. PATIENT INDEP WITH BED MOBILITY. PATIENT ABLE TO TRANSFER SIT-->STAND WITH FWW MOD I. PATIENT AMB 40' WITH FWW AND SUPERVISION, VERBAL CUES FOR AD AND BODY POSITIONING WITH TURNS. PATIENT DEMO BILAT LE STEP LENGTHS WITH ADEQUATE FEET CLEARANCE, 0 LOB. TINETTI = 16/28, FALL RISK. PATIENT ASCENDED/DESCENDED 3 STEPS WITH PATIAIL RAIL, 1 THRESHOLD STEP WITH SUPERVISION AND VERBAL CUES FOR UE POSTIONING. RECOMMENDED ROLLATOR ACQUISITON PATIENT REPORTS DECREASED ENDURANCE WHEN AMB IN COMMUNITY, HOWEVER PATIENT NOT RECEPTIVE. PATIENT STATES THAT HE DOES NOT WANT TO USE FWW WHEN OUTSIDE HOME, RECOMMENDED CANE ACQUSITION WITH PATIENT RECEPTIVE. PATIENT PRESENTS WITH THE FOLLOWING DEFICITS: BILAT LE WEAKNESS, DECREASED ENDURANCE, RESULTING IN DIFFICULTY WITH AMB AND STAIR NEGOTIATION. SKILLED [facility] PHYSICAL THERAPY FREQ 1X4WKS TO MAX SAFETY AND FUNCTIONAL LEVEL IN HOME ENVIRONMENT WITH THER EXER, ESTABLISH HEP, GAIT TRAINING, STAIR NEGOTIATION. PATIENT INFORMED ABOUT PHYSICAL THERAPY POC INCLUDING FREQ, VERBALIZED ACCEPTANCE. MD NOTIFIED ABOUT PATIENT STATUS AND POC.] Future Scheduled Test OCCUPATION AL THERAPY TO EVALUATE AND TREAT. OCCUPATIONAL THERAPY EVALUATION COMPLETED. NO ADDITIONAL VISITS RECOMMENDED AT THIS TIME. [code = OCCUPATIONAL THERAPY TO EVALUATE AND TREAT. OCCUPATIONAL THERAPY EVALUATION COMPLETED. NO ADDITIONAL VISITS RECOMMENDED AT THIS TIME.] Goal 2024-08-19 Patient Goal - R EGAIN STRENGTH AND BE ABLE TO DO MORE AROUND THE HOUSE Goal 2024-07-17 Patient Goal - R EGAIN STRENGTH AND BE ABLE TO DO MORE AROUND THE HOUSE Goal Provider Goal - A PLAN OF CARE WILL BE ESTABLISHED THAT MEETS PATIENT'S ASSISTED NEEDS AND INCLUDES PATIENT GOAL FOR HOME HEALTH. Goal Provider Goal - PATIENT/CAREGIVER WILL VERBALIZE UNDERSTANDING OF EDUCATION PROVIDED ON MEDICATIONS BY THE END OF THE CERTIFICATION PERIOD. Goal Provider Goal - SYMPTOMS OF ANXIETY ARE IDENTIFIED AND INTERVENTIONS INITIATED TO ENABLE PATIENT TO UNDERSTAND AND MANAGE FEELINGS THROUGHOUT EPISODE. Goal Provider Goal - PATIENT/CAREGIVER WILL DEMONSTRATE ABILITY TO SELF MANAGE NEEDS RELATED TO NUTRITION/HYDRATION THROUGHOUT THE EPISODE. Goal Provider Goal - EXACERBATIONS OF CONSTIPATION GASTROINTESTINAL DISEASE WILL BE PROMPTLY IDENTIFIED AND INTERVENTIONS IMPLEMENTED TO MINIMIZE RISKS TO PATIENT BY END OF EPISODE. Goal Provider Goal - OCCUPATIONAL THERAPY EVALUATION TO BE COMPLETED WITH RECOMMENDATIONS AND WRITTEN PLAN OF TREATMENT ESTABLISHED FOR THE PHYSICIANS SIGNATURE. Goal Provider Goal - PATIENT/CAREGIVER WILL VERBALIZE/DEMONSTRATE ABILITY TO MANAGE MUSCULOSKELETAL DISEASE WHILE MAINTAINING SAFETY THROUGHOUT THE EPISODE. Goal Provider Goal - A PHYSICAL THERAPY EVALUATION TO BE COMPLETED WITH RECOMMENDATIONS AND/OR WRITTEN PLAN OF TREATMENT ESTABLISHED FOR PHYSICIANS SIGNATURE. Goal Provider Goal - PATIENT/CAREGIVER WILL VERBALIZE/DEMONSTRATE KNOWLEDGE AND MANAGEMENT OF COPD BY END OF EPISODE. Goal Provider Goal - PATIENT/CARGIVER WILL VERBALIZE UNDERSTANDING OF ANEMIA INCLUDING SIGNS AND SYMPTOMS, MANAGEMENT OF COMPLICATIONS, AND PRESCRIBED TREATMENT REGIMEN BY END OF EPISODE. Goal Provider Goal - PATIENT/CAREGIVER WILL VERBALIZE UNDERSTANDING OF MUSCULOSKELETAL DISEASE INCLUDING SIGNS AND SYMPTOMS, MANAGEMENT, AND PRESCRIBED TREATMENT REGIMEN BY END OF EPISODE. Goal Provider Goal - PATIENT/CAREGIVER WILL VERBALIZE UNDERSTANDING OF RA INCLUDING SIGNS AND SYMPTOMS, MANAGEMENT OF COMPLICATIONS, AND PRESCRIBED TREATMENT REGIMEN BY END OF EPISODE. Goal Provider Goal - PATIENT/CAREGIVER WILL UTILIZE VIRTUAL VISITS TO ACHIEVE GOALS OUTLINED ON THE PLAN OF CARE. PATIENT WILL HAVE SUPPORT MEASURES ESTABLISHED TO PREVENT HOSPITALIZATION AND PATIENT/CAREGIVER WILL VERBALIZE/DEMONSTRATE METHODS TO REDUCE AVOIDABLE HOSPITALIZATION THROUGHOUT THE CERTIFICATION PERIOD. Goal Provider Goal - PATIENT WILL HAVE SUPPORT MEASURES ESTABLISHED TO PREVENT HOSPITALIZATION AND ED USE AND PATIENT/CAREGIVER WILL VERBALIZE/DEMONSTRATE METHODS TO REDUCE AVOIDABLE HOSPITALIZATION AND ED USE BY END OF EPISODE. Goal Provider Goal - PATIENT/CAREGIVER WILL VERBALIZE UNDERSTANDING OF DISCHARGE PLANNING INSTRUCTIONS BY DATE OF DISCHARGE. Goal Provider Goal - PATIENT/CAREGIVER WILL VERBALIZE/DEMONSTRATE EFFECTIVE HOME SAFETY AND FALL PREVENTION STRATEGIES THROUGHOUT CERTIFICATION PERIOD. Goal Provider Goal - PATIENT/CAREGIVER WILL DEMONSTRATE UNDERSTANDING OF PHARMACOLOGIC AND NONPHARMACOLOGIC PAIN CONTROL MEASURES AND PATIENT WILL HAVE IMPROVEMENT IN PAIN INTERFERING WITH ACTIVITY EVIDENCED BY PAIN CONTROLLED AT LEVEL OF 7 OR LESS BY END OF CERTIFICATION PERIOD. Goal Provider Goal - PATIENT/CAREGIVER WILL VERBALIZE UNDERSTANDING OF PRESSURE ULCER PREVENTION BY END OF THE EPISODE. Goal Provider Goal - PATIENT WILL REMAIN SAFE IN COMMUNITY AND WILL ACKNOWLEDGE RELATED RISKS OF SUBSTANCE USE THROUGHOUT CERTIFICATION PERIOD. Goal Provider Goal - PATIENT/CAREGIVER WILL VERBALIZE S/S OF NEUROPATHY AND METHODS TO MANAGE BY END OF CERTIFICATION PERIOD. Goal Provider Goal - PHYSICAL THERAPY EVALUATION TO BE COMPLETED WITH RECOMMENDATIONS AND/OR WRITTEN TREATMENT PLAN OF CARE ESTABLISHED FOR THE PHYSICIANS SIGNATURE PATIENT/CAREGIVER VERBALIZES UNDERSTANDING OF THE INITIAL BEST PRACTICE RECOMMENDATIONS. PHYSICIAN TO BE NOTIFIED APPROPRIATE FOR ANY CHANGES OR COMPLICATIONS THROUGHOUT THE CERTIFICATION PERIOD. PATIENT/CAREGIVER WILL PERFORM THERAPEUTIC EXERCISE/S AND DEMONSTRATE PARTICIPATION IN A HOME PROGRAM. PATIENT/CAREGIVER WILL DEMONSTRATE IMPROVED GAIT TECHNIQUES TO MINIMIZE RISK OF INJURY. PATIENT/CAREGIVER WILL DEMONSTRATE/VERBALIZE UNDERSTANDING OF RECOMMENDATIONS TO INCREASE SAFETY IN THE HOME AND FALL PREVENTION. INCREASED PAIN OR INEFFECTIVE PAIN CONTROL MEASURES WILL BE IDENTIFIED AND PROMPTLY REPORTED TO THE PHYSICIAN. PATIENT/CAREGIVER WILL DEMONSTRATE EFFECTIVE PAIN MANAGEMENT. PATIENT/CAREGIVER WILL DEMONSTRATE IMPROVED BALANCE AND REDUCE THE RISK OF FALLS AND INJURY. Goal Provider Goal - OT EVALUATION ONLY(06/30/24) PATIENT IS A 78 YEAR OLD MALE REFERRED TO OCCUPATIONAL THERAPY SERVICES AFTER RECENT [facility]IZ[facility] WITH THE SECOND HAVING A REHAB STAY DUE TO LOW BACK PAIN IMPACTING HIS ABILITY TO PERFORM BASIC FUNCTIONAL TASKS. PATIENT WAS STABILIZED AND RETURNED HOME. PAST MEDICAL HISTORY SIGNIFICANT FOR: COPD, EL, RA, AND ETOH USE DISORDER. PRIOR LEVEL OF FUNCTION: PATIENT LIVES ALONE IN A SINGLE LEVEL, SINGLE FAMILY JAIME. PATIENT INDEPENDENT WITH ALL ADLS IADLS AND AMBULATING WITHOUT THE USE OF A DEVICE. PATIENT WAS GETTING MEALS ON WHEELS THROUGH [employer] AND USING [employer] FOR TRANSPORTATION. CURRENT LEVEL OF FUNCTION: PATIENT AMBULATING WITHOUT USE HIS ROLLING WALKER IN HOME WITHOUT DIFFICULTY. HE WAS ABLE TO DEMONSTRATE INDEPENDENT [id number] TRANSFER TOILET TRANSFER AND TUB TRANSFER USING HIS GRAB BARS. PATIENT IS DRESSING HIMSELF INDEPENDENTLY AT THIS TIME. HE REPORTS HE RECEIVES MEALS ON WHEELS THROUGH [employer] [facility]LL [employer] AND [employer]. HE ALSO USES THE [employer] FOR TRANSPORTATION TO GET GROCERIES OR TO DOCTORS APPOINTMENTS. HE CURRENTLY IS HAVING DIFFICULTY MANAGING LAUNDRY WHICH IS IN THE BASEMENT LEVEL OF HIS HOME AND HE DOES NOT WISH TO GO UP AND DOWN THE STAIRS. ALSO DUE TO HIS BACK PAIN NOT RECOMMENDED THAT HE LIFT THE LAUNDRY BASKETS FOLD CLOTHING UP AND DOWN THE STAIRS. DID DISCUSS ALTERNATE TECHNIQUES HOWEVER HE IS CURRENTLY ASKING FOR ASSISTANCE WITH THIS TASK. HE ALSO IS LOOKING FOR ASSISTANCE WITH HOUSEKEEPING PARTICULARLY VACUUMING AND FLOOR CARE. PATIENT HAS NO INTEREST IN BEING ABLE TO DO THESE TASKS INDEPENDENTLY ANYMORE AT THIS TIME DUE TO HIS PAIN LEVELS. HE HAS GRAB BARS ROLLING WALKER AND TUB SEAT FOR SAFETY EQUIPMENT IN HOME. PATIENT REPORTS PAIN IN LOW BACK HOWEVER RATED AT A 2/10 AND MANAGED WITH ACETAMINOPHEN AT THIS TIME. HE DEMONSTRATES WITHIN FUNCTIONAL LIMITS RANGE OF MOTION BOTH UPPER EXTREMITIES WITH GOOD STRENGTH THROUGHOUT. NOTABLE JOINT DEFORMITIES IN BOTH HANDS DUE TO HIS RA. DOES HAVE A RHEUMATOLOGY APPOINTMENT 07/01/24. ASSESSMENT/POC: OCCUPATIONAL THERAPY EVALUATION COMPLETED TODAY WITH NO FURTHER SKILLED OT INDICATED. PATIENT MANAGING ADLS INCLUDING SHOWER LEVEL BATHING WELL FUNCTIONAL TRANSFERS TOILET BED CHAIR. PATIENT IS AMBULATING IN HOME WITHOUT THE USE OF A DEVICE AND IS LOOKING FOR ASSISTANCE WITH IADL TASKS THROUGH [employer]. NOTIFIED OF OT EVAL ONLY THIS DATE. [facility] NOTIFIED OF PATIENT NEEDS IN HOME. Reason for Visit INDEPENDENT IN THE COMMUNITY Encounters Start Date/Time End Date/Time Encounter Type Admission Type Attending [facility] Care Department Encounter ID Discharge Date Discharge Status Discharge Condition Discharge Reason Percent Goals Met 2024-06-21 00:00:00 2024-08-19 00:00:00 Outpatient NEW ADMISSION [facility] BAUTISTA [facility] [id number] 2024-08-19 00:00:00 DISCHARGE TO HOME OR SELF CARE INDEPENDEN T IN THE COMMUNITY GOALS MET ( ONLY) 61.11
--- OUTSIDE RECORDS SUMMARY | 2024-09-25 13:03 | XMS_ITS | Continuity of Care Document ---
Author Organization [facility] Address [address] [place] [address] Phone Care Team Providers Care Private Investigator Surveillance Name Role Phone TAZ NUNEZ MD Unavailable Unavailable Allergies, Adverse Reactions, Alerts Substance Reaction Status Criticality No Known Allergies Active No Inform ation Medications Medication Instructions Dosage Effective Dates (start - stop) Status Comments albuterol sulfate HFA 90 mcg/actuation aerosol inhaler inhale 2 puff by inhalation route every 4 - 6 hours as needed - Active Procedures Procedure Date SPECIAL EYE EXAM, INITIAL EYE EXAM & TREATMENT SPECIAL EYE EXAM, INITIAL EYE EXAM & TREATMENT EYE EXAM ESTABLISHED PAT EYE EXAM, NEW PATIENT Advance Directives Directive Yes / No Effective Date File Name No Information Encounters Encounter Description Practice Location Reason(s) For Visit Diagnoses Date Provider Providers Copied on Encounter Taz Nunez MD , [address], [place], [place], [id number] , tel: [phone] Taz Nunez MD SV Unspecified iridocyclitisVi treous degeneration, left eyeRetinal hemorrhage of left eyeOther vitreous opacities, right eyeOther secondary cataract, left eye 7 [facility]. [address], [place], [place], [id number] . tel: [phone] Referring Provider: Ed Felix, Tamar [facility] [address], [place], [address]. tel:[phone] Taz Nunez MD , [address] [place] [address], [id number] , tel: [phone] Taz Nunez MD floaters (chief complaint) Unspecified iridocyclitisVi treous degeneration, left eyeRetinal hemorrhage of left eye 7 [facility]. [address] [facility], [place], [place], [id number] . tel: [phone] Referring Provider: Tamar Akins [address], [address]. tel:[phone] Taz Nunez MD , [address], [place], [place], [id number] , [place] tel: [phone] Taz Nunez MD Iridocylitis (chief complaint) Unspecified iridocyclitis [facility]. [address] [facility], [place], [place], [id number] . tel: [phone] Referring Provider: Tamar Akins [address], [address]. tel:[phone] Taz Nunez MD , [address], [place], [place], [id number] , [place] tel: [phone] Taz Nunez MD SV Endophthalmitis (chief complaint) Unspecified iridocyclitis 6 [facility]. [address] [facility], [place], [place], [id number] . tel: [phone] Referring Provider: Tamar Akins [address], [address]. tel:[phone] Family History Family Member Type Diagnosis Age At Onset Sister Problem (finding) Maternal history of anya betes mellitus Immunizations Vaccine Date Status Comments Pneumo (2 yrs or older)(PPV) administered Source: Other Provider Flu (split) (3 yrs or older) administered Source: Other Provider Payers Payer name Insurance type Covered republican ID Authoriza tion(s) MEDICARE MB [id number] BS of [facility] [id number] Social History Type Description Quantity Date Captured Comments Alcohol Use Details Unknown Caffeine Use Details Unknown Tobacco Use Status Smoking Status Former smoker Non-Smoking Tobacco Use Details : No Details Available : No Details Available Sex Male Chief Complaint And Reason For Visit No Information Reason For Referral Reason For Referral No Information Plan Of Treatment Date Type Action Status Patient Education Floaters and Flashes: A fter Your Visit completed History Of Present Illness Encounter Date Complaint History Of Prese nt Illness floaters The 71 year old male here for a Retinal evaulation for Floaters. Patient complains of an onset for flaoters in the left eye started 2 weeks ago. 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 Patient reports no pain in his left eye x2 days. However, he says his vision is still foggy in that eye. 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 Patient complains of foggy vision in the left eye x1 week. He says he hasn't had any pain in that eye. Functional Status Date Functional Assessmen t Pain Score 0/10 Instructions Date Instruction Additional Infor shady - Return in 1 year w sasha Nunez MD for follow up exam Related to Vitreous degeneration, left eye - RD Signs and Sympt oms have been reviewed with the patient in full detail. Symptoms include an increase of flashes, floaters or loss of vision. The patient understands and will promptly call if any changes occur. Related to Vitreous degeneration, left eye - Resolved. Related to Retin al hemorrhage of left eye - Resolved. Related to Unspe cified iridocyclitis - Observe. Related to Other secondary cataract, left eye - rersolved. Related to Unspe cified iridocyclitis - Observe Related to Vitre ous degeneration, left eye - Return in 2 weeks with Taz Nunez MD for scleral depression OS Related to Retinal hemorrhage of left eye - Observe Related to Retin al hemorrhage of left eye - Return in PRN Related to Unspe cified iridocyclitis Related to Unspe cified iridocyclitis - Return in 2 days w sasha Nunez MD for follow up exam Related to Unspecified iridocyclitis - observe Related to Unspe cified iridocyclitis Assessments Type Assessment Date assessment Unspecified iridocyclitis assessment Vitreous degeneration, left eye assessment Retinal hemorrhage of left eye F assessment Other vitreous opacities, right eye assessment Other secondary cataract, left e ye Patient Care Teams Name Effective Dates (start - stop) Status Members No Information
--- OUTSIDE RECORDS SUMMARY | 2024-09-25 13:03 | XMS_ITS | Continuity of Care Document ---
Author Organization [facility] Address [address] [place] [address] Phone Care Team Providers Care Digital Computer Systems Analyst Name Role Phone Jeannie Yu Unavailable Unavailable Procedures Procedure Date 2010 - CRISIS INTERVENTION 1 MAN TEAM OU T OFFICE Non-billable Service Non-billable Service 75 - CASE MGMT BY BHP IN OFFICE 018 2010 - CRISIS INTERVENTION 1 MAN TEAM OU T OFFICE 76 - CASE MGMT BY BHT OUT OF OFFICE Non-billable Service 75 - CASE MGMT BY BHP IN OFFICE 018 Advance Directives Directive Yes / No Effective Date File Name No Information Encounters Encounter Description Practice Location Reason(s) For Visit Diagnoses Date Provider Providers Copied on Encounter [facility], [address], [id number], tel:[phone] Siddhartha OSC Alcohol dependence, uncomplicated Nov-3 0201 8 Melva Justicessa. [address] [place] [address], [id number], . tel:[phone] [facility], [address], [id number], tel:[phone] Carl [facility]SC Alcohol dependence, uncomplicated Nov- 9201 8 No Information Family History Family Member Type Diagnosis Age At Onset No Information Payers Payer name Insurance type Covered alliance party ID Authoriza tion(s) No Information Social History Type Description Quantity Date Captured Comments Sex Male Smoking Status No Information Chief Complaint And Reason For Visit No Information Reason For Referral Reason For Referral No Information History Of Present Illness Encounter Date Complaint History Of Prese nt Illness No Information Functional Status Date Functional Assessmen t No Information Instructions Date Instruction Additional Infor mation No Information Assessments Type Assessment Date No Information Patient Care Teams Name Effective Dates (start - stop) Status Members No Information
[2024-09-25 13:18] VITALS: BP 110/66; PULSE 89; O2SAT 98; BMI 20.6
--- NOTE | 2024-09-25 13:18 | AM.OFFVISMDC ---
Intake Vital Signs 09/25/24 13:18 Height 6 ft 1 in Weight 156 lb BMI 20.6 BP 110/66 Blood Pressure Location Rt brachial Position Sitting Pulse 89 Pulse Source Pulse Oximeter Pulse Oximetry (%) 98 Oxygen Delivery Method Room Air Intake Visit Reasons: SWV Allergies shrimp Allergy (Intermediate, Verified 09/25/24 13:25) Anaphylaxis shellfish derived [SHELLFISH DERIVED] Allergy (Unknown, Verified 09/25/24 13:25) DIFFICULTY BREATHING lobster Allergy (Intermediate, Uncoded 09/25/24 13:25) Anaphylaxis Medication List - Last Reconciled 09/25/24 by Hugh Payan MD acamprosate 333 mg PO TID 30 days Advair HFA 230-21 mcg/actuation (fluticasone propion-salmeterol) 1 puff inhalation DAILY 30 days NS albuterol sulfate 90 mcg/actuation (ProAir HFA) 2 puffs inhalation Q6H 30 days cyanocobalamin (vitamin B-12) 1,000 mcg PO DAILY 90 days ferrous sulfate 324 mg PO ONCE 90 days hydroxychloroquine (Plaquenil) 200 mg PO BID 90 days ibuprofen 400 mg PO Q8H PRN naltrexone 50 mg PO DAILY omeprazole 20 mg PO BID 30 days pyridoxine (vitamin B6) (Vitamin B-6) 50 mg PO DAILY thiamine HCl (vitamin B1) 100 mg PO BID Do you need a note to return to daycare/school/sports/work: No HPI SWV HPI Details Patient is a 79-year-old gentleman came in for his regular follow-up appointment and Medicare wellness visit Patient is doing well and has not been drinking taking acamprosate, 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 Patient says that he does not need to He is to continue with vitamin B1 and B6 He was supposed to have labs done before this visit but forgot Reminded patient to do that today Follow-up 4 months HPI Comments History of Present Illness Details AWV Medical/social history reviewed Past medical history reviewed [place] of care / care team list updated Surgical/ hospitalization history reviewed Current medications including OTC and supplements reviewed Family history reviewed Tobacco controlled form updated Alcohol use form updated Illicit drug use in social history reviewed Current diagnosis of depression ?screening updated Appropriate PHQ 2/PHQ-9 completed . Vital signs reviewed Alcohol tobacco drug use reviewed and discussed . MMSE completed . ? Fall risk: ?Assessed Fall history: ?None Have you had any falls with injury in the past year?? No Have you had 2 or more falls in the past year?? No Fall risk assessment completed Home safety discussed with the patient Functional ability assessed and discussed and documented Activities of daily living reviewed and appropriate actions taken . HRA filled out by the patient and reviewed by provider and scanned . Appropriate written screening schedule established . Any health advise needed provided . Advance care planning discussed with the patient , necessary paperwork filled Examination IPPE/AWE: Balance intact Romberg intact Tandem walk failed walk-in turn intact rise from sit to stand intact . ?Hearing ?whisper test pass . Medication list reviewed, patient is stable on medications All other providers patient is seeing discussed and noted . [facility] Medical History Long-term use of Plaquenil Inflammatory arthritis Hyponatremia Asthma Anemia Aftercare following right shoulder joint replacement surgery Hiatal hernia without gangrene or obstruction Erosive esophagitis Osteoarthritis Spondylosis Anxiety Falls Syncope Hyponatremia Rib fractures Alcoholism COPD (chronic obstructive pulmonary disease) Surgical History History of esophagogastroduodenoscopy (EGD) Hx of colonoscopy History of shoulder surgery Family History Father No problems noted. Mother No problems noted. Social History Household Members: None Housing: House Housing Other:: [facility] Do you presently have visiting nurse or other home services: Yes (Meals on wheels) Alcohol intake: current Alcohol intake frequency: 3 or more drinks per day Alcohol type: hard liquor Comment: patient sleeping Patient Tobacco Use Status: Former Tobacco user Tobacco use type: Cigarette Cigarette Packs Per Day: 0.5 Cigarettes Per Day: 10.0 Years Smoked: 20 e-Cigarette/Vaping Use: Never Used Second Hand Smoke Exposure: Yes Agree to transfusion: Yes service: Yes ([employer]) Current occupational status: retired Sexual orientation: Decline to Answer Gender identity: Male Cognitive needs: No Hearing needs: No Vision needs: No Questionnaire Medicare Wellness Checkup [age] What gender do you identify with?: male During the past 4 weeks, how much have you been bothered by emotional problems such as feeling anxious, depressed, irritable, sad or downhearted, and blue?: slightly During the past 4 weeks, has your physical & emotional health limited your social activities with family, friends, neighbors, or groups?: not at all During the past 4 weeks, how much bodily pain have you generally had?: mild pain During the past 4 weeks, was someone available to help you if you needed & wanted help?: yes, quite a bit During the past 4 weeks, what was the hardest physical activity you could do for at least 2 minutes?: moderate Can you get to places out of walking distance without help? (For eg., can you travel alone on buses, taxis or drive your car?): Yes Can you go shopping for groceries or clothes without someone's help?: Yes Can you prepare your own meals?: Yes Can you do your housework without help?: Yes Because of any health problems, do you need the help of another person with your personal care needs such as eating, bathing, dressing or getting around the house?: No Can you handle your own money without help?: Yes During the past 4 weeks, how would you rate your health in general?: very good During the past 4 weeks how have things been going for you?: pretty well Are you having difficulties driving your car?: not applicable, I don't use a car Do you always fasten your seat belt when you are in a car?: yes, usually During past 4 weeks, have you been bothered by the following: never: Sexual problems?, Trouble eating well? and Problems using the telephone?, seldom: Falling or dizzy when standing up and Teeth or denture problems? and sometimes: Tiredness or fatigue? Have you fallen 2 or more times in the past year?: No Are you afraid of falling?: No Are you a smoker?: no During the past 4 weeks, how many drinks of wine, beer, or other alcoholic beverages did you have?: no alcohol at all Do you exercise for about 20 minutes 3 or more times a week?: no, I usually do not exercise this much Have you been given information to help with the following?: no: Hazards in your house that might hurt you? and no: Keeping track of your medications? How often do you have trouble taking medicines the way you have been told to take them?: I always take medicine as prescribed How confident are you that you can control & manage most of your health problems?: very confident What is your race?: White Mini Mental State Exam (MMSE) Orientation What is the (year) (season) (date) (day) (month)?: year, season, date, day and month Where are we (state) (county) (town or city) (hospital) (floor)?: state, county, town or city, hospital/clinic and floor Score Score: 10 Activity of Daily Living Bathing - sponge bath, tub bath or shower: receives no assistance (gets in/out by self, if usual bathing means Dressing - getting clothes from closets & drawers, including inner/outer garments & fasteners.: gets clothes & gets completely dressed without help Toileting - going to the 'toilet room' for urine/bowel elimination & cleaning self/arranging clothes: goes to toilet room, cleans self, arranges clothes without help Transfer: moves in & out of bed and chair without help (may use support object) Continence: controls urination/bowel movements completely by self Feeding: feeds self without help Total Score: 0 Information obtained from: patient Using telephone: independent Traveling: independent Shopping: independent Preparing meals: independent Housework: independent Taking medicine: independent Managing money: independent PHQ-9 Over the last 2 weeks, how often have you been bothered by any of the following problems? 1. Little interest or pleasure in doing things: several days 2. Feeling down, depressed, or hopeless: several days 3. Trouble falling or staying asleep, or sleeping too much: several days 4. Feeling tired or having little energy: several days 5. Poor appetite or overeating: not at all 6. Feeling bad about yourself - or that you are a failure or have let yourself or your family down: several days 7. Trouble concentrating on things, such as reading the newspaper or watching television: not at all 8. Moving or speaking so slowly that other people could have noticed. Or the opposite - being so fidgety or restless that you have been moving around a lot more than usual: not at all 9. Thoughts that you would be better off or of hurting yourself in some way: not at all Total score: 5 Depression Screening Interpretation: Negative Depression Screening Done: Yes 49237 - PHQ-9 Billing: Yes Source: Developed by Drs. Vinay Hylton, Chely Orona, Raul Ochoa and colleagues, with an educational dimitris from [employer]. Review of Systems Const Denies chills and Denies fever(s) ENT Denies epistaxis and Denies nasal discharge Card Denies chest pain Resp Denies chest congestion, Denies cough and Denies hemoptysis GI Denies diarrhea and Denies nausea Skin/Breast Denies rash Neuro Reports no additional complaints Psych Reports no additional complaints Endo Reports no additional complaints Physical Exam Vital Signs: Last Vital Signs Pulse 89 09/25/24 13:18 BP 110/66 09/25/24 13:18 Pulse Ox 98 09/25/24 13:18 Oxygen Delivery Method Room Air 09/25/24 13:18 BMI result Body Mass Index 20.6 Const General: cooperative, comfortable and no acute distress Orientation/consciousness: patient oriented x3 HEENT Head: Yes normocephalic Eyes General: appearance normal, both eyes and all related structures Neck Other: Supple Neck: Yes supple Resp Effort & Inspection: normal respiratory effort, no cough and no stridor Cardio Rhythm: regular rhythm Heart sounds: S1 normal heart sound present and S2 normal heart sound present Skin General skin exam: turgor normal Neuro Other: Motor sensory intact General: patient oriented x3, tone normal and moves all extremities Extrem Other: Disfigurement of both hands noted Right lower extremity: no edema Left lower extremity: no edema Psych Other: Normal effect, speech clear Assessment & Plan Assessment & Plan (1) Medicare annual wellness visit, initial: Code(s): Z00.00 - Encounter for general adult medical examination without abnormal findings (2) Erosive esophagitis: Code(s): K22.10 - Ulcer of esophagus without bleeding (3) Hiatal hernia without gangrene or obstruction: Code(s): K44.9 - Diaphragmatic hernia without obstruction or gangrene (4) LFT elevation: Code(s): R79.89 - Other specified abnormal findings of blood chemistry (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 - Alcoholic polyneuropathy (6) Chronic GERD: Code(s): K21.9 - Gastro-esophageal reflux disease without esophagitis (7) COPD with asthma: Code(s): J44.9 - Chronic obstructive pulmonary disease, unspecified (8) Anemia of chronic disease: Code(s): D63.8 - Anemia in other chronic diseases classified elsewhere (9) Inflammatory arthritis: Code(s): M19.90 - Unspecified osteoarthritis, unspecified site (10) Long-term use of Plaquenil: Code(s): Z79.899 - Other talent acquisition coordinator (current) drug therapy Plan Patient is a 79-year-old gentleman came in for his regular follow-up appointment and Medicare wellness visit Patient is doing well and has not been drinking taking acamprosate, 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 Patient says that he does not need to He is to continue with vitamin B1 and B6 He was supposed to have labs done before this visit but forgot Reminded patient to do that today Follow-up 4 months Medications: Refilled acamprosate give with meals 333 mg PO TID 30 days 90 tabs 2RF omeprazole 20 mg PO BID 30 days 60 caps 3RF cyanocobalamin (vitamin B-12) 1,000 mcg PO DAILY 90 days 90 tabs 0RF pyridoxine (vitamin B6) (Vitamin B-6) 50 mg PO DAILY 90 caps 3RF thiamine HCl (vitamin B1) 100 mg PO BID 90 tabs 3RF Quality Reporting (2019) Depression/Bipolar (159/160/161/177) PHQ-9: Total score: 5 Coding Level of Care Code Medicare First (G0438) Est Pt Level 4 (14741) Diagnoses Medicare annual wellness visit, initial Z00.00 Erosive esophagitis K22.10 Hiatal hernia without gangrene or obstruction K44.9 LFT elevation R79.89 Alcoholic peripheral neuropathy G62.1 Chronic GERD K21.9 COPD with asthma J44.9 Anemia of chronic disease D63.8 Inflammatory arthritis M19.90 Long-term use of Plaquenil Z79.899 CPT Codes Advance Care Planning - Time spent: 1-15 minutes, not on file ([id number]) Additional Codes PHQ-9 - 85327 - PHQ-9 Billing: Yes ([id number]) Advance Care Planning Advance Care Planning discussion: Completed/Scanned Forms completed: MOLST Time spent: 1-15 minutes, not on file
== END 2024-09-25 13:48 | disposition home or self-care (01) ==
PROVIDERS: PCP Internal Medicine; Visit Provider Internal Medicine
DX: Z00.00 Encounter for general adult medical examination without abnormal findings (principal); K22.10 Ulcer of esophagus without bleeding; J44.9 Chronic obstructive pulmonary disease, unspecified; G62.1 Alcoholic polyneuropathy; K44.9 Diaphragmatic hernia without obstruction or gangrene; R79.89 Other specified abnormal findings of blood chemistry; K21.9 Gastro-esophageal reflux disease without esophagitis; D63.8 Anemia in other chronic diseases classified elsewhere; M19.90 Unspecified osteoarthritis, unspecified site; Z79.899 Other long term (current) drug therapy

== ENCOUNTER → 2024-09-25 12:59 | Outpatient (BNVA) | payer MEDICARE, SELFPAY | PROVIDERS: PCP Internal Medicine; Visit Provider Internal Medicine | DX: Z00.00 Encounter for general adult medical examination without abnormal findings (principal); J44.9 Chronic obstructive pulmonary disease, unspecified; K22.10 Ulcer of esophagus without bleeding; K44.9 Diaphragmatic hernia without obstruction or gangrene; R79.89 Other specified abnormal findings of blood chemistry; G62.1 Alcoholic polyneuropathy; K21.9 Gastro-esophageal reflux disease without esophagitis; D63.8 Anemia in other chronic diseases classified elsewhere; M19.90 Unspecified osteoarthritis, unspecified site; Z87.891 Personal history of nicotine dependence; Z79.899 Other long term (current) drug therapy | CPT/HCPCS: 96127; 99212 ==

== ENCOUNTER 2025-01-19 08:34 | Outpatient (REF) | payer MEDICARE, SELFPAY ==
--- OUTSIDE RECORDS SUMMARY | 2025-01-19 09:38 | XMS_ITS | Clinical Summary ---
Author Organization [facility] Address [address] [place] [address] Phone Care Team Providers Care Supervisor [employer] Joining Name Role Phone Hugh Payan MD Primary Care Provider [phone] Allergies Active Allergy Reactions Criticality Noted Date [...] Medicare [facility] Medicare Care Teams Supervisor [employer] Joining Relationship Specialty Start Date End Date Hugh Payan MD 1960 [facility] [place] [id number] PCP - General Internal Medicine 11/22/21
[2025-01-19 10:38] LABS: MANUAL DIFF FLAG NO
[2025-01-19 10:53] LABS: Basophils Absolute Auto 0.1 X10*3/uL (0.0-0.2); Basophils Percent Auto 0.9 % (0-2); Eosinophils Absolute Auto 0.5 X10*3/uL (0.0-0.4); Eosinophils Percent Auto 9.7 % (0-4); Hematocrit 40.5 % (42.0-52.0); Hemoglobin 13.7 g/dl (14.0-18.0); Imm Gran Abs Auto 0.02 X10*3/uL (0.00-0.03); Imm Gran Pct Auto 0.4 % (0.0-0.4); Lymphocytes Absolute Auto 1.6 X10*3/uL (1.2-4.9); Lymphocytes Percent Auto 28.9 % (20-40); Mean Corpuscular HGB Conc 33.8 g/dl (31.0-36.0); Mean Corpuscular Hemoglobin 29.6 pg (27.0-33.0); Mean Corpuscular Volume 87.5 fL (80.0-98.0); Mean Platelet Volume 9.5 fL (9.4-12.4); Monocytes Absolute Auto 0.5 X10*3/uL (0.1-1.2); Neutrophils Absolute Auto 2.7 x10*3/uL (2.0-8.3); Neutrophils Percent Auto 51.1 % (45-73); Platelet Count 309 X10*3/uL (160-400); Red Blood Count 4.63 X10*6/uL (4.60-5.80); Red Cell Distribution Width 13.1 % (11.0-16.0); White Blood Count 5.4 X10*3/uL (4.8-10.8)
[2025-01-19 11:53] LABS: Vitamin B12 867 pg/mL (200-900)
[2025-01-19 14:05] LABS: Alanine Aminotransferase 17 U/L (0-40); Albumin Level 4.4 g/dL (3.5-5.0); Anion Gap 14 (12-20); Aspartate Amino Transferase 30 U/L (5-37); Bilirubin Total 0.4 mg/dL (0.0-1.0); Blood Urea Nitrogen 14 mg/dL (9-16); Calcium 9.2 mg/dL (8.4-10.2); Carbon Dioxide 26 mmol/L (22-29); Chloride 96 mmol/L (96-108); Estimated Glomerular Filt Rate > 60; Glucose Random 83 mg/dL (60-115); Potassium 4.6 mmol/L (3.3-5.1); Sodium 131 mmol/L (135-145); Total Protein 7.4 g/dL (6.5-8.0)
[2025-01-19 14:35] LABS: TSH reflex Free T4 1.49 uIU/mL (0.32-4.0)
[2025-01-19 18:05] LABS: Alkaline Phosphatase 109 U/L (39-117)
[2025-01-20 05:04] LABS: LDL Cholesterol Direct 97 mg/dL (<100)
[2025-01-25 11:39] LABS: Vitamin D 25-OH, D2 <4 ng/mL; Vitamin D 25-OH, D3 33 ng/mL; Vitamin D 25-OH, Total 33 ng/mL (30-100)
== END 2025-01-19 08:35 | disposition home or self-care (01) ==
LOC: HO.HMGCLDS 08:34
PROVIDERS: PCP Internal Medicine; Visit Provider Internal Medicine
DX: J44.9 Chronic obstructive pulmonary disease, unspecified (principal); K22.10 Ulcer of esophagus without bleeding; K44.9 Diaphragmatic hernia without obstruction or gangrene; R79.89 Other specified abnormal findings of blood chemistry; G62.1 Alcoholic polyneuropathy; K21.9 Gastro-esophageal reflux disease without esophagitis; D50.9 Iron deficiency anemia, unspecified; M19.90 Unspecified osteoarthritis, unspecified site; M06.9 Rheumatoid arthritis, unspecified; F10.21 Alcohol dependence, in remission; M19.049 Primary osteoarthritis, unspecified hand; Q74.0 Other congenital malformations of upper limb(s), including shoulder girdle
CPT/HCPCS: 36415; 80053; 82306; 82607; 83721; 84443; 85025; 96127; 99212

== ENCOUNTER 2025-01-19 08:34 | Outpatient (AMB) | payer MEDICARE, SELFPAY ==
[2025-01-19 08:39] VITALS: BP 128/82; PULSE 63; O2SAT 96; BMI 20.5
--- NOTE | 2025-01-19 08:39 | A.OFFPC_ITS ---
Vital Signs 01/19/25 08:39 Height 6 ft 1 in Weight 155 lb 4 oz BMI 20.5 BP 128/82 Blood Pressure Location Lt brachial Position Sitting Pulse 63 Pulse Source Pulse Oximeter Pulse Oximetry (%) 96 Oxygen Delivery Method Room Air Intake Visit Reasons: 4 month follow up Allergies shrimp Allergy (Intermediate, Verified 01/19/25 08:41) Anaphylaxis shellfish derived [SHELLFISH DERIVED] Allergy (Unknown, Verified 01/19/25 08:41) DIFFICULTY BREATHING lobster Allergy (Intermediate, Uncoded 01/19/25 08:41) Anaphylaxis Medication List - Last Reconciled 01/19/25 by Hugh Payan MD acamprosate 333 mg PO TID 30 days Advair HFA 230-21 mcg/actuation (fluticasone propion-salmeterol) 1 puff inhalation DAILY 30 days NS albuterol sulfate 90 mcg/actuation (ProAir HFA) 2 puffs inhalation Q6H 30 days cyanocobalamin (vitamin B-12) 1,000 mcg PO DAILY 90 days ferrous sulfate 324 mg PO ONCE 90 days hydroxychloroquine 200 mg PO BID ibuprofen 400 mg PO Q8H PRN naltrexone 50 mg PO DAILY omeprazole 20 mg PO BID 30 days Tobacco use date assessed: 01/19/25 Fall risk assessment: No Falls in past year Last assessed Fall Risk: 01/19/25 Dental Screening Dental Screen Date: 01/19/25 Did you have a dental visit in the last 12 months?: No Did you have a dental problem in the last 6 months where you did not have access to dental care?: No Was dental information given to patient?: Patient declined HPI 4 month follow up HPI Details History - The patient is a 79-year-old male pres enting with increased frequency of rescue inhaler use. - Respiratory symptoms have progressivel y worsened with age, necessitating more frequent use of a rescue inhaler. - The patient reports that his maintenan ce inhaler, Advair, has run out, which usually helps in managing baseline respiratory symptoms. - Denies drinking alcohol despite runnin g out of acamprosate, a medication previously taken to support abstinence. - Complains of the usual aches and pains associated with his rheumatoid arthritis. Patient has been evaluated by Rheumatology and was started on hydroxychloroquine but he felt medication is not helping him and he stopped going to rheumatology follow-up appointments - The patient has a history of taking fe rrous sulfate for iron deficiency anemia. - GERD symptoms are managed with omepraz ole, which the patient is taking consistently. Problem List - history of Alcohol Dependence - Increased Use of Rescue Inhaler, savanah shelton ran out of maintenance inhaler - Rheumatoid Arthritis - Iron Deficiency Anemia - GERD (Gastroesophageal Reflux Disease) - erosive esophagitis and hiatal hernia - LFT elevation - alcoholic liver disease Patient Instructions - Ensure to complete lab work today. - Take acamprosate as prescribed to prev ent alcohol consumption. - Use Advair for maintenance inhaler the rapy once available to help reduce the need for the rescue inhaler. - Continue taking ferrous sulfate and Vi tamin B12 as directed. - Continue taking omeprazole for GERD ma kaelyn. - Address any new or worsening symptoms promptly. Review of Systems - General: No fever no chills - Neurological: No headaches no dizziness - Ear nose throat: No sore throat no hearing difficulty no ear pain - Cardiovascular: No syncope, no chest pain, no palpitations - Gastrointestinal: No nausea vomiting or diarrhea - Endocrine: No polyuria polydipsia no heat intolerance - Genitourinary: No dysuria , no blood in urine Physical Exam General: No acute distress HEENT: No acute findings Neck: Supple Respiratory system: Increased frequency of rescue inhaler use, no audible wheeze Cardiovascular: S1-S2 regular in rate and rhythm Gastrointestinal: No pain, just usual aches and pains from rheumatism Extremities: No new findings PHOTOGRAPHIC AIDE: Alert awake oriented x3 motor sensory intact Skin: Normal turgor [facility] Medical History Long-term use of Plaquenil Inflammatory arthritis Hyponatremia Asthma Anemia Aftercare following right shoulder joint replacement surgery Hiatal hernia without gangrene or obstruction Erosive esophagitis Osteoarthritis Spondylosis Anxiety Falls Syncope Hyponatremia Rib fractures Alcoholism COPD (chronic obstructive pulmonary disease) Surgical History History of esophagogastroduodenoscopy (EGD) Hx of colonoscopy History of shoulder surgery Family History Father No problems noted. Mother No problems noted. Social History Household Members: None Housing: House Housing Other:: [facility] ([facility]) Do you presently have visiting nurse or other home services: Yes (Meals on wheels) Alcohol intake: current Alcohol intake frequency: 3 or more drinks per day Alcohol type: hard liquor Comment: patient sleeping Patient Tobacco Use Status: Former Tobacco user Tobacco use type: Cigarette Cigarette Packs Per Day: 0.5 Cigarettes Per Day: 10.0 Years Smoked: 20 e-Cigarette/Vaping Use: Never Used Second Hand Smoke Exposure: Yes Agree to transfusion: Yes service: Yes ([employer]) Current occupational status: retired Sexual orientation: Decline to Answer Gender identity: Male Cognitive needs: No Hearing needs: No Vision needs: No Questionnaire PHQ-9 Over the last 2 weeks, how often have you been bothered by any of the following problems? 1. Little interest or pleasure in doing things: several days 2. Feeling down, depressed, or hopeless: several days 3. Trouble falling or staying asleep, or sleeping too much: not at all 4. Feeling tired or having little energy: more than half the days 5. Poor appetite or overeating: not at all 6. Feeling bad about yourself - or that you are a failure or have let yourself or your family down: several days 7. Trouble concentrating on things, such as reading the newspaper or watching television: not at all 8. Moving or speaking so slowly that other people could have noticed. Or the opposite - being so fidgety or restless that you have been moving around a lot more than usual: not at all 9. Thoughts that you would be better off or of hurting yourself in some way: not at all Total score: 5 Depression Screening Interpretation: Negative Depression Screening Done: Yes 62363 - PHQ-9 Billing: Yes Source: Developed by Drs. Vinay Hylton, Chely Orona, Raul Ochoa and colleagues, with an educational dimitris from [employer]. Thrive Questionnaire Date Thrive assessed: 01/19/25 I am a: Patient What is your living situation today?: I have a steady place to live Within the past 12 months, did the food you bought not last and you didn't have the money to get more?: Never true Within the past 12 months, did you worry whether your food would run out before you got money to buy more?: Never true Do you have trouble paying for medicines?: No Do you have trouble getting transportation to medical appointments?: No Do you have trouble paying your heating and electricity bill?: No Do you have trouble taking care of your child, family member or friend?: No Do you have trouble with day-to-day activities such as bathing, preparing meals, shopping, managing finances, etc.?: No Are you currently unemployed and looking for a job?: No Are you interested in more education?: No Please select the resources that you would like help with: None Currently or been in a relationship where the following occur: I choose not to answer THRIVE Score: 0 AUDIT C Alcohol Use Questionnaire (AUDIT-C) 1. How often do you have a drink containing alcohol?: Monthly or less 2. How many drinks containing alcohol do you have on a typical day when you are drinking?: 1 or 2 3. How often do you have six or more drinks on one occasion?: Never Total Score: 1 Score Reviewed/Action Taken: Yes POOJA-7 AMB Questionnaire POOJA-7 Date POOJA - 7 assessed: 01/19/25 Feeling nervous, anxious, or on edge: 0 = Not at all Not being able to stop or control worryin = Not at all Worrying too much about different things: 1 = Several days Trouble relaxin = Several days Being so restless that it is hard to sit still: 0 = Not at all Becoming easily annoyed or irritable: 1 = Several days Feeling afraid as if something awful might happen: 0 = Not at all Total POOJA-7 score (0-4 normal; 5-9 mild; 10-14 moderate; 15-21 severe): 3 Source: Developed by Drs. Vinay Hylton, Chely Orona, Raul Ochoa and colleagues, with an educational dimitris from [employer]. POOJA-7 Assessment Billing POOJA-7 Assessment Tool: POOJA-7 Assessment 09931 Physical exam (Primary Care) Vital Signs: Last Vital Signs Pulse 63 01/19/25 08:39 BP 128/82 01/19/25 08:39 Pulse Ox 96 01/19/25 08:39 Oxygen Delivery Method Room Air 01/19/25 08:39 BMI result Body Mass Index 20.5 Tobacco/Smoking Status: Tobacco use Status Tobacco use date assessed 01/19/25 01/19/25 08:42 Patient Tobacco Use Status Former Tobacco user 01/19/25 08:42 Tobacco use type Cigarette 01/19/25 08:42 e-Cigarette/Vaping Use Never Used 01/19/25 08:42 PHQ-9: PHQ-9 Score PHQ-9: Total score 5 01/19/25 08:55 Depression Screening Interpretation: Negative Thrive Assessment: Date of Thrive Assessment Date Thrive assessed 01/19/25 01/19/25 08:42 Currently or been in a relationship where the following occur: I choose not to answer Coding Level of Care Code Est Pt Level 4 (72880) Complex EM visit Add On G2211 Diagnoses COPD with asthma J44.9 Erosive esophagitis K22.10 Hiatal hernia without gangrene or obstruction K44.9 LFT elevation R79.89 Alcoholic peripheral neuropathy G62.1 Chronic GERD K21.9 Anemia of chronic disease D63.8 Inflammatory arthritis M19.90 Additional Codes POOJA-7 Assessment Billing - POOJA-7 Assessment Tool: POOJA-7 Assessment 68137 ([id number]) PHQ-9 - 66061 - PHQ-9 Billing: Yes ([id number]) Assessment & Plan Assessment & Plan (1) COPD with asthma: Code(s): J44.9 - Chronic obstructive pulmonary disease, unspecified Category: Medical (2) Erosive esophagitis: Code(s): K22.10 - Ulcer of esophagus without bleeding Category: Medical (3) Hiatal hernia without gangrene or obstruction: Code(s): K44.9 - Diaphragmatic hernia without obstruction or gangrene Category: Medical (4) LFT elevation: Code(s): R79.89 - Other specified abnormal findings of blood chemistry Category: Medical (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 - Alcoholic polyneuropathy Category: Medical (6) Chronic GERD: Code(s): K21.9 - Gastro-esophageal reflux disease without esophagitis Category: Medical (7) Anemia of chronic disease: Code(s): D63.8 - Anemia in other chronic diseases classified elsewhere Category: Medical (8) Inflammatory arthritis: Code(s): M19.90 - Unspecified osteoarthritis, unspecified site Category: Medical Plan History - The patient is a 79-year-old male presenting with increased frequency of rescue inhaler use. - Respiratory symptoms have progressively worsened with age, necessitating more frequent use of a rescue inhaler. - The patient reports that his maintenance inhaler, Advair, has run out, which usually helps in managing baseline respiratory symptoms. - Denies drinking alcohol despite running out of acamprosate, a medication previously taken to support abstinence. - Complains of the usual aches and pains associated with his rheumatoid arthritis. Patient has been evaluated by Rheumatology and was started on hydroxychloroquine but he felt medication is not helping him and he stopped going to rheumatology follow-up appointments - The patient has a history of taking ferrous sulfate for iron deficiency anemia. - GERD symptoms are managed with omeprazole, which the patient is taking consistently. Problem List - history of Alcohol Dependence - Increased Use of Rescue Inhaler, because ran out of maintenance inhaler - Rheumatoid Arthritis - Iron Deficiency Anemia - GERD (Gastroesophageal Reflux Disease) - erosive esophagitis and hiatal hernia - LFT elevation - alcoholic liver disease - COPD Patient Instructions - Ensure to complete lab work today. - Take acamprosate as prescribed to prevent alcohol consumption. - Use Advair for maintenance inhaler therapy once available to help reduce the need for the rescue inhaler. - Continue taking ferrous sulfate and Vitamin B12 as directed. - Continue taking omeprazole for GERD management. - Address any new or worsening symptoms promptly. Medications: Refilled acamprosate give with meals 333 mg PO TID 30 days 90 tabs 2RF Advair HFA 230-21 mcg/actuation (fluticasone propion-salmeterol) 1 puff inhalation DAILY 30 days 12 grams 3RF NS omeprazole 20 mg PO BID 30 days 60 caps 3RF Discontinued naltrexone this is Discontinued Reason: Doctor's Order 50 mg PO DAILY 90 tabs 0RF F10.20 - Alcohol dependence, uncomplicated, G62.1 - Alcoholic polyneuropathy
--- OUTSIDE RECORDS SUMMARY | 2025-01-19 08:58 | XMS_ITS | Clinical Summary ---
Author Organization [facility] Address [address] [place] [address] Phone Care Team Providers Care Load Out Worker Name Role Phone Hugh Payan MD Primary Care Provider [phone] Allergies Active Allergy Reactions Criticality Noted Date Comments Crab Extract 11/22/2021 Shellfish-Derived Products Other (see comments) 01/25/2021 Shrimp (Diagnostic) 11/22/2021 Medications Albuterol Sulfate 108 (90 Base) MCG/ACT aerosol powder 2 puffs by Other route every 4 (four) hours Active Multiple Vitamin (multivitamin) capsule Take 1 capsule by mouth 1 (one) time each day Active acetaminophen (TYLENOL) 325 MG tablet Take by mouth every 6 (six) hours if needed for mild pain Active acamprosate (CAMPRAL) 333 MG EC tablet Take 333 mg by mouth in the morning and 333 mg in the evening and 333 mg before bedtime. Do not crush, chew, or split. . Active ibuprofen (ADVIL,MOTRIN) 200 MG tablet Take 200 mg by mouth every 6 (six) hours if needed for mild pain Active Albuterol Sulfate, sensor, (ProAir Digihaler) 108 (90 Base) MCG/ACT aerosol powder Inhale 05/25/2021 Active Active Problems Problem Noted Date Diagnosed Date Acquired hearing loss 11/22/2021 Chronic obstructive pulmonary disease 11/22/2021 Dupuytren's contracture 11/22/2021 Alcohol abuse 11/22/2021 Other iron deficiency anemia 08/14/2021 Alcoholism 07/12/2021 Closed pertrochanteric fracture 05/29/2021 Primary osteoporosis 05/29/2021 Hyponatremia 01/03/2021 Immunizations Immunization Administration Dates Next Due Influenza, Unspecified 07/17/2018 Tdap 04/16/2020,11/09/2009 Family History Medical History Relation Comments Diabetes Father Cancer Mother Relation Status Comments Father Mother Social History Tobacco Use Types Packs/Day Years Used Date Smoking Tobacco: Former Cigarettes Smokeless Tobacco: Never Alcohol Use Standard Drinks/Week Comments Yes 0 (1 standard drink = 0.6 oz pur e alcohol) 550ml vodka daily Sex and Gender Information Value Date Recorded Sex Assigned at Not on file Legal Sex Male 4:58 PM EST Gender Identity Not on file Sexual Orientation Not on file Last Filed Vital Signs Vital Sign Reading Time Taken Comments Blood Pressure 119/65 11/22/2021 8:53 AM EST Pulse 80 11/22/2021 8:53 AM EST Temperature - - Respiratory Rate - - Oxygen Saturation 95% 08/09/2021 10: 35 AM EST Inhaled Oxygen Concentration - - Weight 76.1 kg (167 lb 12.8 oz) 11/22/2021 8:53 AM EST Height - - Body Mass Index - - Plan of Treatment Health Maintenance Due Date Last Done Comments Pneumococcal Vaccine: 50+ Ye ars (1 of 2 - PCV) 1964 Influenza Vaccine (Season Ended) 2025 07/17/20 18 Hepatitis B Vaccine Aged Out No longe r eligible based on patient's age to complete this topic Insurance [facility] Medicare [facility] Medicare Care Teams Load Out Worker Relationship Specialty Start Date End Date Hugh Payan MD 1960 [facility] [place] [id number] PCP - General Internal Medicine 11/22/21
== END 2025-01-19 08:57 | disposition home or self-care (01) ==
LOC: HO.HMCC 08:35
PROVIDERS: PCP Internal Medicine; Visit Provider Internal Medicine
DX: J44.9 Chronic obstructive pulmonary disease, unspecified (principal); K22.10 Ulcer of esophagus without bleeding; K44.9 Diaphragmatic hernia without obstruction or gangrene; R79.89 Other specified abnormal findings of blood chemistry; G62.1 Alcoholic polyneuropathy; K21.9 Gastro-esophageal reflux disease without esophagitis; D63.8 Anemia in other chronic diseases classified elsewhere; M19.90 Unspecified osteoarthritis, unspecified site

== ENCOUNTER 2025-04-27 08:39 | Outpatient (REF) | payer MEDICARE, SELFPAY ==
[2025-04-27 10:04] LABS: MANUAL DIFF FLAG NO
[2025-04-27 10:19] LABS: Hematocrit 39.6 % (42.0-52.0); Hemoglobin 13.1 g/dl (14.0-18.0); Imm Gran Abs Auto 0.04 X10*3/uL (0.00-0.03); Imm Gran Pct Auto 0.6 % (0.0-0.4); Lymphocytes Absolute Auto 1.4 X10*3/uL (1.2-4.9); Mean Corpuscular HGB Conc 33.1 g/dl (31.0-36.0); Mean Corpuscular Hemoglobin 30.8 pg (27.0-33.0); Mean Corpuscular Volume 93.0 fL (80.0-98.0); NRBC Abs Auto 0.000 X10*3/uL (0.0-0.012); NRBC Pct Auto 0.0 /100WBC (0.0-0.2); Platelet Count 354 X10*3/uL (160-400); Red Blood Count 4.26 X10*6/uL (4.60-5.80); White Blood Count 7.1 X10*3/uL (4.8-10.8)
[2025-04-27 11:29] LABS: Anion Gap 14 (12-20); Blood Urea Nitrogen 18 mg/dL (9-16); Calcium 9.0 mg/dL (8.4-10.2); Carbon Dioxide 28 mmol/L (22-29); Chloride 104 mmol/L (96-108); Estimated Glomerular Filt Rate > 60; Magnesium 1.7 mg/dL (1.6-2.6); Potassium 4.4 mmol/L (3.3-5.1); Sodium 142 mmol/L (135-145)
[2025-04-27 11:52] LABS: Ferritin 77 ng/mL (20-250)
[2025-04-27 12:12] LABS: Vitamin B12 > 2000 pg/mL (200-900)
[2025-05-01 15:23] LABS: Vitamin D 25-OH, D2 <4 ng/mL; Vitamin D 25-OH, D3 46 ng/mL; Vitamin D 25-OH, Total 46 ng/mL (30-100)
== END 2025-04-27 08:40 | disposition home or self-care (01) ==
LOC: HO.HMGCLDS 08:39
PROVIDERS: PCP Internal Medicine; Visit Provider Internal Medicine
DX: G62.1 Alcoholic polyneuropathy (principal); D63.8 Anemia in other chronic diseases classified elsewhere; K21.9 Gastro-esophageal reflux disease without esophagitis; J44.9 Chronic obstructive pulmonary disease, unspecified; R53.83 Other fatigue; F10.11 Alcohol abuse, in remission; R79.89 Other specified abnormal findings of blood chemistry; Q74.0 Other congenital malformations of upper limb(s), including shoulder girdle; M19.049 Primary osteoarthritis, unspecified hand; E87.1 Hypo-osmolality and hyponatremia; K22.10 Ulcer of esophagus without bleeding; K44.9 Diaphragmatic hernia without obstruction or gangrene
CPT/HCPCS: 36415; 80048; 82306; 82607; 82728; 83735; 85025; 99212

== ENCOUNTER 2025-04-27 08:39 | Outpatient (AMB) | payer MEDICARE, SELFPAY ==
[2025-04-27 08:46] VITALS: BP 136/78; PULSE 82; O2SAT 98; BMI 19.3
--- NOTE | 2025-04-27 08:46 | A.OFFPC_ITS ---
Vital Signs 04/27/25 08:46 Height 6 ft 1 in Weight 146 lb BMI 19.3 BP 136/78 Blood Pressure Location Lt brachial Position Sitting Pulse 82 Pulse Source Pulse Oximeter Pulse Oximetry (%) 98 Oxygen Delivery Method Room Air Intake Visit Reasons: 3 months f/up Allergies shrimp Allergy (Intermediate, Verified 04/27/25 08:46) Anaphylaxis shellfish derived (SHELLFISH DERIVED) Allergy (Unknown, Verified 04/27/25 08:46) DIFFICULTY BREATHING lobster Allergy (Intermediate, Uncoded 01/19/25 08:41) Anaphylaxis Medication List - Last Reconciled 04/27/25 by Hugh Payan MD acamprosate 333 mg PO TID 30 days Advair HFA 230-21 mcg/actuation (fluticasone propion-salmeterol) 1 puff inhalation DAILY 30 days NS albuterol sulfate 90 mcg/actuation (ProAir HFA) 2 puffs inhalation Q6H 30 days cyanocobalamin (vitamin B-12) 1,000 mcg PO DAILY 90 days ferrous sulfate 324 mg PO ONCE 90 days hydroxychloroquine 200 mg PO BID ibuprofen 400 mg PO Q8H PRN omeprazole 20 mg PO BID 30 days Tobacco use date assessed: 01/19/25 Fall risk assessment: 1 Fall in past year Last assessed Fall Risk: 04/27/25 Dental Screening Dental Screen Date: 01/19/25 HPI 3 months f/up HPI Details Chief Complaint Routine follow-up for existing conditions and deterioration in asthma symptoms. History of Present Illness The patient is a 79-year-old male presenting with routine follow-up for asthma and low sodium levels. Low sodium levels (hyponatremia): - Sodium level recorded at 131 in January, i ndicating ongoing low sodium levels. - Hyponatremia has been a chronic issue, monitoring and rechecking every three months to prevent further complications like weakness, confusion, and fatigue. Asthma: - The patient's asthma condition appears to have deteriorated recently. - Increased severity noted during physic al activities. - Current medication includes Advair for maintenance and a rescue inhaler. - Frequency of rescue inhaler usage is l ess than daily, indicating some control. how ever feel SOB if climb stairs - Past smoking history contributing to c hronic obstructive pulmonary disease (COPD) and emphysema. Anemia: - The patient exhibits a slight anemia c ondition. - Improvement in hemoglobin levels wandy red to previous readings. - Iron supplementation in the form of Fe rrous sulfate is being taken. COPD: - History of smoking leading to COPD and emphysema. - Difficulties in breathing during physi john exertion. Rheumatoid arthritis: - Pain, particularly in the hands, manag ed with ibuprofen. - Previously tried hydroxychloroquine, w ith no perceived benefit, leading to discontinuation. Balance issues: - Reported worsening balance, possibly d ue to chronic alcohol use affecting nerves. Medical History: - Low sodium levels (hyponatremia) - Asthma - Chronic Obstructive Pulmonary Disease (COPD) - Emphysema - Anemia - Rheumatoid arthritis - History of alcohol use Medications: - Ferrous sulfate for anemia - Advair inhaler for asthma maintenance - Rescue inhaler for asthma exacerbation s - Ibuprofen for rheumatoid arthritis felecia n - Vitamin B12 supplementation - Omeprazole for stomach acidity Social History: - Past history of smoking - History of chronic alcohol use impacti ng balance Problem List - Hyponatremia - Asthma - Chronic Obstructive Pulmonary Disease (COPD) - Anemia - Rheumatoid Arthritis - 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 - Follow directions on the inhaler for a sthma management. - Consider using a cane for balance supp ort. - Complete blood tests today as instruct ed. - Return for Medicare Wellness appointme nt in September. Review of Systems - General: No fever no chills - Neurological: No headaches no dizziness - Ear nose throat: No sore throat no hearing difficulty no ear pain - Cardiovascular: No syncope, no chest pain, no palpitations - Gastrointestinal: No nausea vomiting or diarrhea - Endocrine: No polyuria polydipsia no heat intolerance - Genitourinary: No dysuria , no blood in urine Physical Exam General: No acute distress HEENT: No acute findings Neck: Supple Respiratory system: Able to talk in full sentences, no audible wheeze, but asthma has deteriorated slightly Cardiovascular: S1-S2 regular in rate and rhythm Gastrointestinal: No pain Extremities: No new findings CHARACTER IMPERSONATOR: Alert awake oriented x3 motor sensory intact, balance seems to be getting worse Skin: Normal turgor [facility] Medical History Long-term use of Plaquenil Inflammatory arthritis Hyponatremia Asthma Anemia Aftercare following right shoulder joint replacement surgery Hiatal hernia without gangrene or obstruction Erosive esophagitis Osteoarthritis Spondylosis Anxiety Falls Syncope Hyponatremia Rib fractures Alcoholism COPD (chronic obstructive pulmonary disease) Surgical History History of esophagogastroduodenoscopy (EGD) Hx of colonoscopy History of shoulder surgery Family History Father No problems noted. Mother No problems noted. Social History Household Members: None Housing: House Housing Other:: [facility] Do you presently have visiting nurse or other home services: Yes (Meals on wheels) Alcohol intake: current Alcohol intake frequency: 3 or more drinks per day Alcohol type: hard liquor Comment: patient sleeping Patient Tobacco Use Status: Former Tobacco user Tobacco use type: Cigarette Cigarette Packs Per Day: 0.5 Cigarettes Per Day: 10.0 Years Smoked: 20 Packs Per Year: 10 Packs per year/per ci.00 e-Cigarette/Vaping Use: Never Used Second Hand Smoke Exposure: Yes Agree to transfusion: Yes service: Yes ([employer]) Current occupational status: retired Sexual orientation: Decline to Answer Gender identity: Male Cognitive needs: No Hearing needs: No Vision needs: No Questionnaire Thrive Questionnaire Date Thrive assessed: 01/19/25 I am a: Patient What is your living situation today?: I have a steady place to live Within the past 12 months, did the food you bought not last and you didn't have the money to get more?: Never true Within the past 12 months, did you worry whether your food would run out before you got money to buy more?: Never true Do you have trouble paying for medicines?: No Do you have trouble getting transportation to medical appointments?: No Do you have trouble paying your heating and electricity bill?: No Do you have trouble taking care of your child, family member or friend?: No Do you have trouble with day-to-day activities such as bathing, preparing meals, shopping, managing finances, etc.?: No Are you currently unemployed and looking for a job?: No Are you interested in more education?: No Please select the resources that you would like help with: None Currently or been in a relationship where the following occur: I choose not to answer THRIVE Score: 0 POOJA-7 AMB Questionnaire POOJA-7 Date POOJA - 7 assessed: 01/19/25 Source: Developed by Drs. Vinay Hylton, Chely Orona, Raul Ochoa and colleagues, with an educational dimitris from [employer]. Physical exam (Primary Care) Vital Signs: Last Vital Signs Pulse 82 04/27/25 08:46 BP 136/78 04/27/25 08:46 Pulse Ox 98 04/27/25 08:46 Oxygen Delivery Method Room Air 04/27/25 08:46 BMI result Body Mass Index 19.3 Tobacco/Smoking Status: Tobacco use Status Tobacco use date assessed 01/19/25 04/27/25 08:47 Patient Tobacco Use Status Former Tobacco user 04/27/25 08:47 Tobacco use type Cigarette 04/27/25 08:47 e-Cigarette/Vaping Use Never Used 04/27/25 08:47 Thrive Assessment: Date of Thrive Assessment Date Thrive assessed 01/19/25 04/27/25 08:47 Currently or been in a relationship where the following occur: I choose not to answer Coding Level of Care Code Est Pt Level 4 (27479) Complex EM visit Add On G2211 Diagnoses Hyponatremia E87.1 Anemia of chronic disease D63.8 COPD with asthma J44.9 Erosive esophagitis K22.10 Hiatal hernia without gangrene or obstruction K44.9 LFT elevation R79.89 Alcoholic peripheral neuropathy G62.1 Chronic GERD K21.9 Inflammatory arthritis M19.90 Assessment & Plan Assessment & Plan (1) Hyponatremia: Code(s): E87.1 - Hypo-osmolality and hyponatremia Category: Medical (2) Anemia of chronic disease: Code(s): D63.8 - Anemia in other chronic diseases classified elsewhere Category: Medical (3) COPD with asthma: Code(s): J44.9 - Chronic obstructive pulmonary disease, unspecified Category: Medical (4) Erosive esophagitis: Code(s): K22.10 - Ulcer of esophagus without bleeding Category: Medical (5) Hiatal hernia without gangrene or obstruction: Code(s): K44.9 - Diaphragmatic hernia without obstruction or gangrene Category: Medical (6) LFT elevation: Code(s): R79.89 - Other specified abnormal findings of blood chemistry Category: Medical (7) Alcoholic peripheral neuropathy: Code(s): G62.1 - Alcoholic polyneuropathy Category: Medical (8) Chronic GERD: Code(s): K21.9 - Gastro-esophageal reflux disease without esophagitis Category: Medical (9) Inflammatory arthritis: Code(s): M19.90 - Unspecified osteoarthritis, unspecified site Category: Medical Plan Chief Complaint Routine follow-up for existing conditions and deterioration in asthma symptoms. History of Present Illness The patient is a 79-year-old male presenting with routine follow-up for asthma and low sodium levels. Low sodium levels (hyponatremia): - Sodium level recorded at 131 in January, indicating ongoing low sodium levels. - Hyponatremia has been a chronic issue, monitoring and rechecking every three months to prevent further complications like weakness, confusion, and fatigue. Asthma: - The patient's asthma condition appears to have deteriorated recently. - Increased severity noted during physical activities. - Current medication includes Advair for maintenance and a rescue inhaler. - Frequency of rescue inhaler usage is less than daily, indicating some control. how ever feel SOB if climb stairs - Past smoking history contributing to chronic obstructive pulmonary disease (COPD) and emphysema. Anemia: - The patient exhibits a slight anemia condition. - Improvement in hemoglobin levels compared to previous readings. - Iron supplementation in the form of Ferrous sulfate is being taken. COPD: - History of smoking leading to COPD and emphysema. - Difficulties in breathing during physical exertion. Rheumatoid arthritis: - Pain, particularly in the hands, managed with ibuprofen. - Previously tried hydroxychloroquine, with no perceived benefit, leading to discontinuation. Balance issues: - Reported worsening balance, possibly due to chronic alcohol use affecting nerves. Medical History: - Low sodium levels (hyponatremia) - Asthma - Chronic Obstructive Pulmonary Disease (COPD) - Emphysema - Anemia - Rheumatoid arthritis - History of alcohol use - erosive osophagitis - perpheral neuropathy Medications: - Ferrous sulfate for anemia - Advair inhaler for asthma maintenance - Rescue inhaler for asthma exacerbations - Ibuprofen for rheumatoid arthritis pain - Vitamin B12 supplementation - Omeprazole for stomach acidity Social History: - Past history of smoking - History of chronic alcohol use impacting balance Problem List - Hyponatremia - Asthma - Chronic Obstructive Pulmonary Disease (COPD) - Anemia - Rheumatoid Arthritis - 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 - Follow directions on the inhaler for asthma management. - Consider using a cane for balance support. - Complete blood tests today as instructed. - Return for Medicare Wellness appointment in September. Orders: Orders Hemoglobin Today D63.8 - Anemia in other chronic diseases classified elsewhere Ferritin Today D63.8 - Anemia in other chronic diseases classified elsewhere Magnesium Today D63.8 - Anemia in other chronic diseases classified elsewhere Hematocrit Today D63.8 - Anemia in other chronic diseases classified elsewhere Basic Metabolic Panel Today D63.8 - Anemia in other chronic diseases classified elsewhere Medications: New ipratropium bromide 17 mcg/actuation 1 puff inhalation QID 12.9 grams 0RF COPD
--- OUTSIDE RECORDS SUMMARY | 2025-04-27 08:54 | XMS_ITS | Clinical Summary ---
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
== END 2025-04-27 09:21 | disposition home or self-care (01) ==
LOC: HO.HMCC 08:39
PROVIDERS: PCP Internal Medicine; Visit Provider Internal Medicine
DX: E87.1 Hypo-osmolality and hyponatremia (principal); D63.8 Anemia in other chronic diseases classified elsewhere; J44.9 Chronic obstructive pulmonary disease, unspecified; K22.10 Ulcer of esophagus without bleeding; K44.9 Diaphragmatic hernia without obstruction or gangrene; R79.89 Other specified abnormal findings of blood chemistry; G62.1 Alcoholic polyneuropathy; K21.9 Gastro-esophageal reflux disease without esophagitis; M19.90 Unspecified osteoarthritis, unspecified site